=== PATIENT | male | born 1955 | race Caucasian/White ===

== ENCOUNTER 2017-10-23 18:32 | Emergency (ER) | payer SELFPAY ==
[2017-10-23] MEDS ORDERED: MORPHINE 4 MG/ML SYR ONE ×2 (19:01→20:38)
[2017-10-23] MEDS ORDERED: NA CHLORIDE 0.9% 1,000 ML ONE (19:01)
[2017-10-23] MEDS ORDERED: ONDANSETRON 4 MG/2 ML VIAL ONE ×2 (19:01→20:38)
[2017-10-23 19:10] LABS: Absolute Lymphocytes (CBC) 0.9 K/uL (0.7-4.9); Absolute Monocytes 0.7 K/uL (0.1-1.3); Absolute Neutrophil 12.3 K/uL (1.8-8.0); Basophils % 0.2 % (0-1.3); Hematocrit 47.6 % (39.6-49.0); Lymphocytes % 6.3 % (15.3-44.8); MCH 30.7 pg (27.0-35.0); MCV 93.7 fL (80-100); MPV 7.8 fL (7.6-11.3); Monocytes % 4.8 % (3.3-12.3); RBC Red Blood Cell Count 5.09 M/uL (4.33-5.43)
--- NOTE | 2017-10-23 19:22 | ER ---
Nurse's Notes [facility] Name: Volodymyr Trejo Age: 62 yrs Sex: Male : 1955 Arrival Date: 10/23/2017 Time: 18:37 Bed 4 Private MD: Diagnosis: Fracture of first lumbar vertebra-burst;Fall (on) (from) unspecified stairs and steps-10 feet Presentation: 10/23 18:38 Presenting complaint: Patient states: Fell 10 FT from roof onto buttocks at 1430. aj Patient denies LOC. Reports severe back pain. Sensation intact in bilateral lower limbs. Care prior to arrival: None. Mechanism of Injury: Fall from roof approximately 10 feet. Trauma event details: Injury occurred in the [facility], Injury occurred: at home. Injury occurred: October 23, 2017 Injury occurred at: 14:30. 18:38 Acuity: JUANPABLO 2 aj 18:38 Method Of Arrival: Wheelchair aj Trauma Activation: Alert Physician: ED Physician; Name: ; Notified At: ; Arrived At: Physician: General Surgeon; Name: ; Notified At: ; Arrived At: Physician: Radiology; Name: ; Notified At: ; Arrived At: Physician: Respiratory; Name: ; Notified At: ; Arrived At: Physician: Lab; Name: ; Notified At: ; Arrived At: Historical: - Allergies: 18:43 PENICILLINS; aj - Home Meds: 18:43 clopidogrel 75 mg oral tab 1 tab once daily [Active]; lisinopril 5 mg Oral tab 1 tab aj once daily [Active]; atorvastatin 80 mg oral tab 1 tab once daily [Active]; - PMHx: 18:43 Hypertension; Hyperlipidemia; aj - PSHx: 18:43 Heart stents; aj - Immunization history: Last tetanus immunization: unknown. - Social history:: Smoking status: Patient uses tobacco products, smokes one pack cigarettes per day. - Family history:: not pertinent. Screenin:35 Abuse screen: Denies threats or abuse. Denies injuries from another. Tuberculosis hb screening: No symptoms or risk factors identified. 19:02 Nutritional screening: No deficits noted. Fall Risk None identified. hb Primary Survey: 18:35 A: Airway: patent. Breathing/Chest: Respiratory pattern: tachypnea, Respiratory effort: aj spontaneous, unlabored, Breath sounds: clear, bilaterally. Chest inspection: symmetrical rise and fall of the chest. Circulation: Skin color: pink, Skin temperature: warm, dry. Disability Alert. Secondary Survey: 18:35 HEENT: No deficits noted. Gastrointestinal: No deficits noted. : No deficits noted. hb No signs and/or symptoms were reported regarding the genitourinary system. Musculoskeletal: pain in upper back, mid back, low back. Assessment: 18:35 General: Appears in no apparent distress. uncomfortable, Behavior is calm, cooperative, aj appropriate for age. Pain: Complains of pain in back and buttocks Pain currently is 10 out of 10 on a pain scale. Neuro: Level of Consciousness is awake, alert, obeys commands, Oriented to person, place, time, situation, Intact. Respiratory: Airway is patent Respiratory effort is even, unlabored, Respiratory pattern is symmetrical, hyperventilation. Derm: Skin is intact, is healthy with good turgor, Skin is pink, warm \T\ dry. normal. Musculoskeletal: Reports pain in back and buttocks. 19:30 Reassessment: Patient and/or family updated on plan of care and expected duration. Pain bb level reassessed. Patient is alert, oriented x 3, equal unlabored respirations, skin warm/dry/pink. pt states morphine helped his pain but it is still 6/10. Dr Cruz at bedside for discussion of findings and recommendations pt to be transferred to [facility] for further evaluation and treatment. Pt verbalized understanding of and agrees to plan of care and signed MOT. 19:44 Reassessment: report called to Veda MANRIQUE at [facility] ED. bb 20:24 Reassessment: Patient is alert, oriented x 3, equal unlabored respirations, skin bb warm/dry/pink. EMS at bedside for transfer of pt to [facility], pt placed on backboard by EMS crew for transport pt IV intact, patent, pt medicated per Dr Cruz see SEP. Vital Signs: 18:35 BP 156 / 93; Pulse 60; Resp 27; Temp 98.7; Pulse Ox 100% on R/A; Weight 79.38 kg; aj Height 6 ft. 1 in. (185.42 cm); Pain 10/10; 19:35 BP 139 / 90; Pulse 60; Resp 18 S; Temp 98.5(O); Pulse Ox 97% on R/A; Pain 6/10; bb 20:25 BP 141 / 92; Pulse 64; Resp 18 S; Temp 98.5(O); Pulse Ox 99% on R/A; Pain 6/10; bb 18:35 Body Mass Index 23.09 (79.38 kg, 185.42 cm) aj [employer] Coma Score: 18:35 Eye Response: spontaneous(4). Verbal Response: oriented(5). Motor Response: obeys aj commands(6). Total: 15. 19:35 Eye Response: spontaneous(4). Verbal Response: oriented(5). Motor Response: obeys bb commands(6). Total: 15. Trauma Score (Adult): 18:35 Eye Response: spontaneous(1); Verbal Response: oriented(1); Motor Response: obeys aj commands(2); Systolic BP: > 89 mm Hg(4); Respiratory Rate: 10 to 29 per min(4); Trino Score: 15; Trauma Score: 12 ED Course: 18:37 Patient arrived in ED. ss 18:38 Matthew Cruz MD is Attending Physician. [facility] 18:39 Triage completed. aj 18:40 Inserted saline lock: 18 gauge in right antecubital area, using aseptic technique. hb Blood collected. 18:43 Arm band placed on right wrist. Patient placed in an exam room, on a stretcher, on school lunch monitor, on pulse oximetry. 18:45 Patient has correct armband on for positive identification. Placed in gown. Bed in low hb position. Call light in reach. Side rails up X 1. 18:45 Patient maintains SpO2 saturation greater than 95% on room air. Thermoregulation: warm hb blanket given to patient. 18:[address] via stretcher. 19:00 Kady Sevilla, RN is Primary Nurse. hb 19:00 CT completed. Patient tolerated procedure well. Patient moved back from CT. nj 19:01 CT Traumagram (Head C Spine CAP W Con) In Process Unspecified. EDMS 19:16 Primary Nurse role handed off by Kady Sevilla, RN 19:38 Meredith Baca, BURTON is Primary Nurse. bb Administered Medications: 18:45 Drug: morphine 4 mg Route: IVP; Site: right antecubital; hb 19:10 Follow up: Response: No adverse reaction; Pain is decreased hb 18:45 Drug: Zofran 4 mg Route: IVP; Site: right antecubital; hb 19:10 Follow up: Response: No adverse reaction hb 18:55 Drug: NS 0.9% 1000 ml Route: IV; Rate: 1 bolus; Site: right antecubital; hb 19:08 Not Given (Duplicate Order): NS 0.45 % with KCl 20 mEq/L 1000 ml IV at 125 ml/hr once hardik 20:23 Drug: morphine 4 mg Route: IVP; Site: right antecubital; bb 20:27 Follow up: Response: Other; medication administered on transfer bb 20:24 Drug: Zofran 4 mg Route: IVP; Site: right antecubital; bb 20:28 Follow up: Response: Other; medication administered on transfer bb Intake: 19:35 PO: 0ml; Total: 0ml. bb Outcome: 19:21 ER care complete, transfer ordered by . hardik 20:29 Patient left the ED. bb Signatures: Dispatcher [employer] EDSerene Frances RN RN aj Anderson, Corey, MD MD cha Ballard, Brenda RN Aranza Box RN RN ss Warren, Shannon sw Baxter, Heather, RN RN hb Jordan, Nathan nj Corrections: (The following items were deleted from the chart) 19:11 08:45 morphine 4 mg IVP in right antecubital hb hb
--- NOTE | 2017-10-23 19:22 | EDPHYS ---
Physician Documentation [facility] Name: Volodymyr Trejo Age: 62 yrs Sex: Male : 1955 Arrival Date: 10/23/2017 Time: 18:37 Bed 4 Private MD: ED Physician Matthew Cruz HPI: 10/23 18:41 This 62 yrs old Male presents to ER via Wheelchair with complaints of Fall hardik Injury, Trauma Complaint. 18:41 Details of fall: The patient fell from a height, off a roof, approximately 10 feet. hardik Onset: The symptoms/episode began/occurred just prior to arrival. Associated injuries: The patient sustained injury to the low back, decreased range of motion, pain, pain with movement, tenderness. Severity of symptoms: At their worst the symptoms were moderate, in the emergency department the symptoms are unchanged. The patient has not experienced similar symptoms in the past. Historical: - Allergies: 18:43 PENICILLINS; aj - Home Meds: 18:43 clopidogrel 75 mg oral tab 1 tab once daily [Active]; lisinopril 5 mg Oral tab 1 tab aj once daily [Active]; atorvastatin 80 mg oral tab 1 tab once daily [Active]; - PMHx: 18:43 Hypertension; Hyperlipidemia; aj - PSHx: 18:43 Heart stents; aj - Immunization history: Last tetanus immunization: unknown. - Social history:: Smoking status: Patient uses tobacco products, smokes one pack cigarettes per day. - Family history:: not pertinent. ROS: 18:41 Eyes: Negative for injury, pain, redness, and discharge, ENT: Negative for injury, hardik pain, and discharge, Neck: Negative for injury, pain, and swelling, Cardiovascular: Negative for chest pain, palpitations, and edema, Respiratory: Negative for shortness of breath, cough, wheezing, and pleuritic chest pain, Abdomen/GI: Negative for abdominal pain, nausea, vomiting, diarrhea, and constipation, : Negative for injury, bleeding, discharge, and swelling, MS/Extremity: Negative for injury and deformity, Skin: Negative for injury, rash, and discoloration, Neuro: Negative for headache, weakness, numbness, tingling, and seizure, Psych: Negative for depression, anxiety, suicide ideation, homicidal ideation, and hallucinations, Allergy/Immunology: Negative for hives, rash, and allergies, Endocrine: Negative for neck swelling, polydipsia, polyuria, polyphagia, and marked weight changes. 18:41 Constitutional: Positive for malaise. 18:41 Back: Positive for decreased range of motion, pain at rest, pain with movement, of the lumbar area, left low back and right low back. Exam: 18:41 Constitutional: This is a well developed, well nourished patient who is awake, alert, hardik and in no acute distress. Head/Face: Normocephalic, atraumatic. Eyes: Pupils equal round and reactive to light, extra-ocular motions intact. Lids and lashes normal. Conjunctiva and sclera are non-icteric and not injected. Cornea within normal limits. Periorbital areas with no swelling, redness, or edema. ENT: Nares patent. No nasal discharge, no septal abnormalities noted. Tympanic membranes are normal and external auditory canals are clear. Oropharynx with no redness, swelling, or masses, exudates, or evidence of obstruction, uvula midline. Mucous membranes moist. Neck: Trachea midline, no thyromegaly or masses palpated, and no cervical lymphadenopathy. Supple, full range of motion without nuchal rigidity, or vertebral point tenderness. No Meningismus. Chest/axilla: Normal chest wall appearance and motion. Nontender with no deformity. No lesions are appreciated. Cardiovascular: Regular rate and rhythm with a normal S1 and S2. No gallops, murmurs, or rubs. Normal PMI, no JVD. No pulse deficits. Respiratory: Lungs have equal breath sounds bilaterally, clear to auscultation and percussion. No rales, rhonchi or wheezes noted. No increased work of breathing, no retractions or nasal flaring. Abdomen/GI: Soft, non-tender, with normal bowel sounds. No distension or tympany. No guarding or rebound. No evidence of tenderness throughout. Male : Normal genitalia with no discharge or lesions. Skin: Warm, dry with normal turgor. Normal color with no rashes, no lesions, and no evidence of cellulitis. MS/ Extremity: Pulses equal, no cyanosis. Neurovascular intact. Full, normal range of motion. Neuro: Awake and alert, GCS 15, oriented to person, place, time, and situation. Cranial nerves II-XII grossly intact. Motor strength 5/5 in all extremities. Sensory grossly intact. Cerebellar exam normal. Normal gait. Psych: Awake, alert, with orientation to person, place and time. Behavior, mood, and affect are within normal limits. 18:41 Back: pain, that is moderate, ROM is painful, normal spinal alignment noted, CVA tenderness, is absent, vertebral tenderness, is appreciated at L1, L2, L3, L4 and L5, muscle spasm, is appreciated in the lumbar area, left low back and right low back. Vital Signs: 18:35 BP 156 / 93; Pulse 60; Resp 27; Temp 98.7; Pulse Ox 100% on R/A; Weight 79.38 kg; aj Height 6 ft. 1 in. (185.42 cm); Pain 10/10; 19:35 BP 139 / 90; Pulse 60; Resp 18 S; Temp 98.5(O); Pulse Ox 97% on R/A; Pain 6/10; bb 20:25 BP 141 / 92; Pulse 64; Resp 18 S; Temp 98.5(O); Pulse Ox 99% on R/A; Pain 6/10; bb 18:35 Body Mass Index 23.09 (79.38 kg, 185.42 cm) aj Trino Coma Score: 18:35 Eye Response: spontaneous(4). Verbal Response: oriented(5). Motor Response: obeys aj commands(6). Total: 15. 19:35 Eye Response: spontaneous(4). Verbal Response: oriented(5). Motor Response: obeys bb commands(6). Total: 15. Trauma Score (Adult): 18:35 Eye Response: spontaneous(1); Verbal Response: oriented(1); Motor Response: obeys aj commands(2); Systolic BP: > 89 mm Hg(4); Respiratory Rate: 10 to 29 per min(4); Trino Score: 15; Trauma Score: 12 MDM: 18:38 Patient medically screened. [facility] 18:45 Data reviewed: vital signs, nurses notes, lab test result(s), EKG, radiologic studies, [facility] CT scan. 10/23 18:41 Order name: Basic Metabolic Panel; Complete Time: 20:16 [facility] 10/23 18:41 Order name: CBC with Diff; Complete Time: 20:16 [facility] 10/23 18:41 Order name: Creatinine for Radiology; Complete Time: 20:16 [facility] 10/23 18:41 Order name: LFT's; Complete Time: 20:16 [facility] 10/23 18:41 Order name: Lipase; Complete Time: 20:16 [facility] 10/23 18:41 Order name: CT Traumagram (Head C Spine CAP W Con); Complete Time: 20:16 [facility] 10/23 19:12 Order name: Type and Screen Tube method; Complete Time: 20:16 [facility] 10/23 20:00 Order name: ABO/RH no charge; Complete Time: 20:16 [facility] 10/23 18:41 Order name: Labs collected and sent; Complete Time: 19:02 [facility] 10/23 20:18 Order name: NPO; Complete Time: 20:22 [facility] Administered Medications: 18:45 Drug: morphine 4 mg Route: IVP; Site: right antecubital; hb 19:10 Follow up: Response: No adverse reaction; Pain is decreased hb 18:45 Drug: Zofran 4 mg Route: IVP; Site: right antecubital; hb 19:10 Follow up: Response: No adverse reaction hb 18:55 Drug: NS 0.9% 1000 ml Route: IV; Rate: 1 bolus; Site: right antecubital; hb 19:08 Not Given (Duplicate Order): NS 0.45 % with KCl 20 mEq/L 1000 ml IV at 125 ml/hr once hardik 20:23 Drug: morphine 4 mg Route: IVP; Site: right antecubital; bb 20:27 Follow up: Response: Other; medication administered on transfer bb 20:24 Drug: Zofran 4 mg Route: IVP; Site: right antecubital; bb 20:28 Follow up: Response: Other; medication administered on transfer Disposition: 10/23/17 19:21 Transfer ordered to [facility]. Diagnosis are Fracture of first lumbar vertebra - burst, Fall (on) (from) unspecified stairs and steps - 10 feet. - Reason for transfer: Higher level of care. - Accepting physician is trauma, [facility] [place] [place]. - Condition is Fair. - Problem is new. - Symptoms have improved. Signatures: Dispatcher [employer] EDMS Serene Nixon RN RN aj Anderson, Corey, MD MD cha Ballard, Brenda, RN RN bb Baxter, Heather, RN RN hb Corrections: (The following items were deleted from the chart) 19:12 18:42 TYPE AND SCREEN+[id number] ordered. EDMS EDMS
--- NOTE | 2017-10-23 19:25 | RAD REPORT ---
EXAM DESCRIPTION: CT - Head C Spine Cap Addie Lara - 10/23/2017 7:01 pm CLINICAL HISTORY: Fall from roof, head, neck, chest and abdomen pain COMPARISON: None. TECHNIQUE: Axial [address] head images were obtained. Axial [address] cervical spine images were obtaine d with sagittal and coronal reconstruction images reviewed. During dynamic enhancement of 100mL non-i onic contrast, axial 5 mm images of the chest, abdomen and pelvis were obtained. All CT scans are performed using dose optimization technique as appropriate and may include automated exposure control or mA/KV adjustment according to patient size. FINDINGS: No intracranial hemorrhage, mass or edema. No midline shift or abnormal fluid collection. Mastoid air cells and paranasal sinuses are clear. No skull fracture. CT cervical spine imaging shows normal height. Normal alignment of the vertebrae. C6-7 disc space david rowing seen with endplate spurring. No canal stenosis and only minimal foraminal encroachment. No par aspinal mass or hematoma seen. Central canal detail is inherently limited. Concerns for traumatic dis c herniation or traumatic cord injury can be further addressed with MR imaging. CT chest shows no pneumothorax, pulmonary contusion or pleural fluid collection. No mediastinal hemat myrna and the aorta and pulmonary arteries are unremarkable. No chest will mass or abnormal axillary fi nding. No displaced rib fracture or other significant bony finding. CT abdomen and pelvis show no injury to solid abdominal viscera. Gallbladder and biliary tree are unr emarkable. No bowel injury or significant finding. No free air, free fluid or abnormal stranding. No urinary bladder abnormality. L1 burst fracture is present. Posterior wall height is preserved. There is a 50-60% overall compressi on of the L1 body. Posterior wall encroaches into the central canal where there is central spinal neli nosis present. In addition to the compression fracture components there is a sagittal oriented fractu re line traversing the right side of the L1 body. The right L1 lamina is fractured and there is fract ure of the right inferior facet. No other acute vertebral fracture changes are identified. IMPRESSION: Unstable L1 burst fracture involving vertebral body and posterior elements. Posterior wall encroaches into the central canal where there is spinal stenosis. No hemorrhage, edema or acute intracranial finding. No significant CT Cervical Spine finding. No significant CT Chest finding. No significant CT Abdomen and Pelvis finding.
[2017-10-23 19:26] LABS: Potassium 4.1 mEq/L (3.6-5.0)
[2017-10-23 19:27] LABS: Glomerular Filtration Rate > 60 mL/min (>60)
[2017-10-23 19:33] LABS: Albumin 4.8 g/dL (3.2-5.5); Bilirubin Direct 0.2 mg/dL (0-0.2); Bilirubin Total 1.1 mg/dL (0.3-1.2); Protein, Total 7.4 g/dL (6.0-8.3)
== END 2017-10-23 20:29 | disposition short-term general hospital (02) ==
LOC: ER 18:32
DX: S32.011A Stable burst fracture of first lumbar vertebra, initial encounter for closed fracture (principal); W11.XXXA Fall on and from ladder, initial encounter; Y93.9 Activity, unspecified; Y92.89 Other specified places as the place of occurrence of the external cause; Z95.818 Presence of other cardiac implants and grafts; Z88.0 Allergy status to penicillin; I10 Essential (primary) hypertension; E78.5 Hyperlipidemia, unspecified; F17.210 Nicotine dependence, cigarettes, uncomplicated
CPT/HCPCS: 36415; 70450; 71260; 72125; 74177; 80048; 80076; 83690; 85025; 86850; 86900; 86901; 96374; 96375; 99285; J2405; J7030; Q9967

== ENCOUNTER 2018-07-11 22:50 | Emergency (ER) | payer SELFPAY ==
[2018-07-11 23:24] LABS: Urine Blood 1+ (NEG); Urine Glucose 1+ (NEG); Urine Protein 3+ (NEG); Urine Specific Gravity >1.030 (1.005-1.030); Urine pH >8.5 (5.0-7.0)
[2018-07-11 23:28] LABS: Absolute Lymphocytes (CBC) 1.2 K/uL (0.7-4.9); Absolute Monocytes 0.5 K/uL (0.1-1.3); Absolute Neutrophil 5.3 K/uL (1.8-8.0); Basophils % 1.3 % (0-1.3); Eosinophils % 0.5 % (0-4.4); Hematocrit 43.2 % (39.6-49.0); Lymphocytes % 17.3 % (15.3-44.8); MCH 31.4 pg (27.0-35.0); MCV 90.3 fL (80-100); MPV 7.3 fL (7.6-11.3); Monocytes % 7.1 % (3.3-12.3); RBC Red Blood Cell Count 4.79 M/uL (4.33-5.43)
[2018-07-11] MEDS ORDERED: NACL 0.9% IRR SOLN 2,000 ML IRR ONE (23:35)
[2018-07-11] MEDS ORDERED: LIDOCAINE VISCOUS 2% SOLN 15 ML UDC ONE (23:37)
[2018-07-11 23:47] LABS: Albumin 4.1 g/dL (3.4-5.0); Bilirubin Direct 0.2 mg/dL (0-0.2); Bilirubin Total 0.7 mg/dL (0.2-1.0); Potassium 3.9 mmol/L (3.5-5.1); Protein, Total 7.2 g/dL (6.4-8.2)
[2018-07-12] MEDS ORDERED: LIDOCAINE VISCOUS 2% SOLN 15 ML UDC ONE (00:25)
[2018-07-12] MEDS ORDERED: NACL 0.9% IRR SOLN 2,000 ML IRR ONE (01:32)
--- NOTE | 2018-07-12 01:58 | EDPHYS ---
Physician Documentation [facility] Name: Volodymyr Trejo Age: 62 yrs Sex: Male : 1955 Arrival Date: 07/11/2018 Time: 22:51 Bed 27 Private MD: ED Physician Matthew Cruz HPI: 07/11 23:14 This 62 yrs old Male presents to ER via Ambulatory with complaints of Urinary jr8 Problem, Blood in urine. 23:14 The patient presents with urinary symptoms, retention, unable to void, hematuria. jr8 Onset: The symptoms/episode began/occurred acutely, yesterday. Modifying factors: The symptoms are alleviated by nothing, the symptoms are aggravated by nothing. Associated signs and symptoms: The patient has no apparent associated signs or symptoms. Severity of symptoms: At their worst the symptoms were moderate, in the emergency department the symptoms are unchanged. The patient has not experienced similar symptoms in the past. The patient has not recently seen a physician. Historical: - Allergies: 23:07 PENICILLINS; rv - Home Meds: 23:07 atorvastatin 80 mg Oral tab 1 tab once daily [Active]; clopidogrel 75 mg Oral tab 1 tab rv once daily [Active]; lisinopril 5 mg Oral tab 1 tab once daily [Active]; - PMHx: 23:07 Hyperlipidemia; Hypertension; rv - PSHx: 23:07 None; rv - Immunization history:: Adult Immunizations up to date. - Social history:: Smoking status: unknown. - Ebola Screening: : Patient negative for fever greater than or equal to 101.5 degrees Fahrenheit, and additional compatible Ebola Virus Disease symptoms Patient denies exposure to infectious person Patient denies travel to an Ebola-affected area in the 21 days before illness onset. ROS: 07/12 01:55 Eyes: Negative for injury, pain, redness, and discharge, ENT: Negative for injury, jr8 pain, and discharge, Neck: Negative for injury, pain, and swelling, Cardiovascular: Negative for chest pain, palpitations, and edema, Respiratory: Negative for shortness of breath, cough, wheezing, and pleuritic chest pain, Abdomen/GI: Negative for abdominal pain, nausea, vomiting, diarrhea, and constipation, Back: Negative for injury and pain, MS/Extremity: Negative for injury and deformity, Skin: Negative for injury, rash, and discoloration, Neuro: Negative for headache, weakness, numbness, tingling, and seizure. : Positive for hematuria, difficulty urinating. Exam: 01:55 Eyes: Pupils equal round and reactive to light, extra-ocular motions intact. Lids and jr8 lashes normal. Conjunctiva and sclera are non-icteric and not injected. Cornea within normal limits. Periorbital areas with no swelling, redness, or edema. ENT: Nares patent. No nasal discharge, no septal abnormalities noted. Tympanic membranes are normal and external auditory canals are clear. Oropharynx with no redness, swelling, or masses, exudates, or evidence of obstruction, uvula midline. Mucous membranes moist. Neck: Trachea midline, no thyromegaly or masses palpated, and no cervical lymphadenopathy. Supple, full range of motion without nuchal rigidity, or vertebral point tenderness. No Meningismus. Cardiovascular: Regular rate and rhythm with a normal S1 and S2. No gallops, murmurs, or rubs. Normal PMI, no JVD. No pulse deficits. Respiratory: Lungs have equal breath sounds bilaterally, clear to auscultation and percussion. No rales, rhonchi or wheezes noted. No increased work of breathing, no retractions or nasal flaring. Abdomen/GI: Soft, non-tender, with normal bowel sounds. No distension or tympany. No guarding or rebound. No evidence of tenderness throughout. Back: No spinal tenderness. No costovertebral tenderness. Full range of motion. Male : Normal genitalia with no discharge or lesions. Skin: Warm, dry with normal turgor. Normal color with no rashes, no lesions, and no evidence of cellulitis. MS/ Extremity: Pulses equal, no cyanosis. Neurovascular intact. Full, normal range of motion. Neuro: Awake and alert, GCS 15, oriented to person, place, time, and situation. Cranial nerves II-XII grossly intact. Motor strength 5/5 in all extremities. Sensory grossly intact. Cerebellar exam normal. Normal gait. Vital Signs: 07/11 23:00 BP 151 / 98; Pulse 66; Resp 17; Temp 98.3(O); Pulse Ox 98% ; rv 07/12 00:04 BP 146 / 87; Pulse 60 MON; Resp 17 S; Pulse Ox 96% on R/A; rv 00:30 BP 150 / 85; Pulse 60 MON; Resp 16 S; Pulse Ox 99% on R/A; rv 00:48 BP 134 / 98; Pulse 64; Resp 16; Pulse Ox 98% ; rv 01:30 BP 133 / 81; Pulse 50 MON; Resp 16 S; Pulse Ox 95% on R/A; rv 02:28 BP 145 / 91; Pulse 64; Resp 16; Pulse Ox 97% on R/A; rv MDM: 07/11 22:57 Patient medically screened. [facility] 07/12 01:55 Data reviewed: vital signs, nurses notes, lab test result(s), radiologic studies, CT jr8 scan, and as a result, I will discharge patient. Data interpreted: Pulse oximetry: on room air is 95 %. Interpretation: normal. Counseling: I had a detailed discussion with the patient and/or guardian regarding: the historical points, exam findings, and any diagnostic results supporting the discharge/admit diagnosis, lab results, radiology results, the need for outpatient follow up, a urologist, to return to the emergency department if symptoms worsen or persist or if there are any questions or concerns that arise at home. Response to treatment: the patient's symptoms have markedly improved after treatment. 07/11 23:08 Order name: Basic Metabolic Panel; Complete Time: 23:[address] [facility] 07/11 23:08 Order name: CBC with Diff; Complete Time: 23:[address] [facility] 07/11 23:08 Order name: Hepatic Function; Complete Time: 23:[address] [facility] 07/11 23:09 Order name: Urine Culture [facility] 07/11 23:10 Order name: Urine Dipstick--Ancillary (enter results); Complete Time: 23:33 [facility] 07/11 23:08 Order name: IV Saline Lock; Complete Time: 00:[address] [facility] 07/11 23:08 Order name: Labs collected and sent; Complete Time: 00:[address] [facility] 07/11 23:08 Order name: Hematuria lira cath; Complete Time: 00:[address] [facility] 07/11 23:49 Order name: CT Abd/Pelvis - W/Contrast [facility] Administered Medications: 00:44 Drug: Viscous Lidocaine Liquid (4 %) 5 ml Route: Mucous Membrane; rv 02:28 Drug: Cipro 500 mg Route: PO; rv 02:28 Follow up: Response: Medication administered at discharge. rv Disposition: 15:52 Co-signature as Attending Physician, Matthew Anthony MD I agree with the assessment and hardik plan of care. Disposition: 07/12/18 01:57 Discharged to Home. Impression: Hematuria, Retention of urine. - Condition is Stable. - Discharge Instructions: Lira Catheter Care, Adult, Hematuria, Adult, Acute Urinary Retention, Male. - Prescriptions for Cipro 500 mg Oral Tablet - take 1 tablet by ORAL route every 12 hours for 10 days; 20 tablet. - Medication Reconciliation Form, Thank You Letter, Antibiotic Education, Prescription Opioid Use form. - Follow up: Astrid Cabral MD; When: 2 - 3 days; Reason: Recheck today's complaints, Continuance of care, Re-evaluation by your physician. - Problem is new. - Symptoms have improved. Signatures: Dispatcher [employer] [facility] Matthew Cruz MD MD cha Roszak, Josh, PA PA jr8 Blue Tony RN RN rv Corrections: (The following items were deleted from the chart) 00:20 07/11 23:08 Creatinine for Radiology+C.LAB.BRZ ordered. [facility] 07/12 01:57 01:57 07/12/2018 01:57 Discharged to Home. Impression: Hematuria. Condition is Stable. jr8 Forms are Medication Reconciliation Form, Thank You Letter, Antibiotic Education, Prescription Opioid Use. Follow up: Astrid Cabral; When: 2 - 3 days; Reason: Recheck today's complaints, Continuance of care, Re-evaluation by your physician. Problem is new. Symptoms have improved. jr8 02:29 01:57 07/12/2018 01:57 Discharged to Home. Impression: Hematuria; Retention of urine. rv Condition is Stable. Forms are Medication Reconciliation Form, Thank You Letter, Antibiotic Education, Prescription Opioid Use. Follow up: Astrid Cabral; When: 2 - 3 days; Reason: Recheck today's complaints, Continuance of care, Re-evaluation by your physician. Problem is new. Symptoms have improved. jr8
--- NOTE | 2018-07-12 01:58 | ER ---
Nurse's Notes [facility] Name: Volodymyr Trejo Age: 62 yrs Sex: Male : 1955 Arrival Date: 07/11/2018 Time: 22:51 Bed 27 Private MD: Diagnosis: Hematuria;Retention of urine Presentation: 07/11 23:04 Presenting complaint: Patient states: PATIENT STATES: IT STARTED 4PM YESTERDAY WHEN I rv PEE BLOOD. EARLIER TODAY I WAS ABLE TO MOVE EVERYTHING, SUDDENLY AFTER I PEE SOME BLOOD CLOTS, I CAN'T GET ANYTHING TO MOVE. Transition of care: patient was not received from another setting of care. Onset of symptoms was July 10, 2018 at 16:00. Risk Assessment: Do you want to hurt yourself or someone else? Patient reports no desire to harm self or others. Initial Sepsis Screen: Does the patient meet any 2 criteria? No. Patient's initial sepsis screen is negative. Does the patient have a suspected source of infection? No. Patient's initial sepsis screen is negative. Care prior to arrival: None. 23:04 Method Of Arrival: Ambulatory rv 23:04 Acuity: JUANPABLO 3 rv Historical: - Allergies: 23:07 PENICILLINS; rv - Home Meds: 23:07 atorvastatin 80 mg Oral tab 1 tab once daily [Active]; clopidogrel 75 mg Oral tab 1 tab rv once daily [Active]; lisinopril 5 mg Oral tab 1 tab once daily [Active]; - PMHx: 23:07 Hyperlipidemia; Hypertension; rv - PSHx: 23:07 None; rv - Immunization history:: Adult Immunizations up to date. - Social history:: Smoking status: unknown. - Ebola Screening: : Patient negative for fever greater than or equal to 101.5 degrees Fahrenheit, and additional compatible Ebola Virus Disease symptoms Patient denies exposure to infectious person Patient denies travel to an Ebola-affected area in the 21 days before illness onset. Screenin/21 00:46 Abuse screen: Denies threats or abuse. Denies injuries from another. Nutritional rv screening: No deficits noted. Tuberculosis screening: No symptoms or risk factors identified. Fall Risk None identified. Assessment: 07/11 23:00 General: Appears in no apparent distress. comfortable, Behavior is calm, cooperative. rv Pain: Denies pain. Neuro: Level of Consciousness is awake, alert, obeys commands, Oriented to person, place, time, situation. Cardiovascular: Capillary refill < 3 seconds. Respiratory: Airway is patent. GI: No signs and/or symptoms were reported involving the gastrointestinal system. : Urine is trae blood, Reports inability to void, since TODAY urgency, since TODAY. EENT: No signs and/or symptoms were reported regarding the EENT system. Derm: Skin is intact. Musculoskeletal: No signs and/or symptoms reported regarding the musculoskeletal system. Vital Signs: 23:00 BP 151 / 98; Pulse 66; Resp 17; Temp 98.3(O); Pulse Ox 98% ; rv 07/12 00:04 BP 146 / 87; Pulse 60 MON; Resp 17 S; Pulse Ox 96% on R/A; rv 00:30 BP 150 / 85; Pulse 60 MON; Resp 16 S; Pulse Ox 99% on R/A; rv 00:48 BP 134 / 98; Pulse 64; Resp 16; Pulse Ox 98% ; rv 01:30 BP 133 / 81; Pulse 50 MON; Resp 16 S; Pulse Ox 95% on R/A; rv 02:28 BP 145 / 91; Pulse 64; Resp 16; Pulse Ox 97% on R/A; rv ED Course: 07/11 22:51 Patient arrived in ED. al2 22:57 Melvin Stephenson PA is PHCP. jr8 22:57 Matthew Cruz MD is Attending Physician. jr8 23:06 Triage completed. rv 23:10 Urine Culture Sent. ds4 23:15 Initial lab(s) drawn, by md, sent to lab. Inserted saline lock: 18 gauge in right rv forearm, using aseptic technique. Blood collected. 07/12 00:[address] via wheelchair. eh 00:24 CT completed. Patient tolerated procedure well. eh 00:29 Patient moved back from CT. eh 00:36 CT Abd/Pelvis - W/Contrast In Process Unspecified. EDMS 00:45 3-way catheter inserted, using sterile technique, 18 Fr. Returned bloody urine. rv 00:47 Arm band placed on right wrist. rv 00:47 Patient has correct armband on for positive identification. Placed in gown. Bed in low rv position. Call light in reach. Side rails up X 1. Pulse ox on. NIBP on. 01:57 Atsrid Cabral MD is Referral Physician. jr8 02:28 No provider procedures requiring assistance completed. IV discontinued, bleeding rv controlled, No redness/swelling at site. Pressure dressing applied. Administered Medications: 00:44 Drug: Viscous Lidocaine Liquid (4 %) 5 ml Route: Mucous Membrane; rv 02:28 Drug: Cipro 500 mg Route: PO; rv 02:28 Follow up: Response: Medication administered at discharge. rv Outcome: 01:57 Discharge ordered by . jr8 02:28 Discharged to home ambulatory. rv 02:28 Condition: good 02:28 Discharge instructions given to patient, Instructed on discharge instructions, follow up and referral plans. medication usage, Demonstrated understanding of instructions, follow-up care, medications, Prescriptions given X 1. 02:29 Patient left the ED. rv Signatures: Dispatcher [employer] EDMS Jorden Fajardo Josh, PA PA jr8 Mac Sheriff4 Rossana Ch2 Blue Tony, RN RN rv
[2018-07-12] MEDS ORDERED: CIPROFLOXACIN HCL 500 MG TAB ONE (02:10)
--- NOTE | 2018-07-12 07:52 | RAD REPORT ---
EXAM DESCRIPTION: CT - Abdomen Pelvis W Contrast - 07/12/2018 5:39 am CLINICAL HISTORY: Abdominal pain/hematuria COMPARISON: none. TECHNIQUE: Computed axial tomography of the abdomen pelvis was obtained. 100 cc Isovue-300 was admin istered intravenously. Oral contrast was not requested which limits evaluation of bowel. Preliminary report generated by virtual radiologic and review prior to dictation All CT scans are performed using dose optimization technique as appropriate and may include automated exposure control or mA/KV adjustment according to patient size. FINDINGS: The liver, spleen, pancreas, adrenal and kidneys appear unremarkable. Small renal cysts. Soft tissue measuring 6 centimeters is present within the posterior bladder. Thickening of the toe laster ior right bladder wall is suspected. There is no evidence of diverticulitis. Pedicular rods united by screws have been placed from T12-L3 stabilizing a prior compression fracture of L1 IMPRESSION: 6 centimeter soft tissue within the bladder consistent with blood. Mild bladder wall thi ckening. Direct visualization is recommended to exclude an underlying mass
--- OUTSIDE RECORDS SUMMARY | 2018-07-12 17:44 | XMS REPORT | Continuity of Care Document ---
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 [facility] Center Fall from, out of 02/02/2018 [facility] or through roof, Medical initial encounter Center Essential 02/02/2018 [facility] hypertension Medical Center Nicotine 02/02/2018 [facility] dependence, Medical cigarettes, Center uncomplicated Hyperlipidemia, 02/02/2018 [facility] unspecified Medical Center 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 [facility] Center 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 Presence of 02/02/2018 [facility] coronary Medical angioplasty implant Center and graft STABLE BURST Active [facility] FRACTURE OF UNSP Medical LUMBAR RAHEEL Center Medications Medication Details Route Status Patient Ordering Order Source Instructions Provider Date Acetaminophen 325 1 tab, PO, Q6H, [facility] # [facility], 0 2017 [facility] Bitartrate 10 MG Refill(s), Oral Tablet Triplicate given at clinic visit Hydrocortisone 5 1 appl, TOP, No Longer [place] MG/ML Topical BID, PRN Rash, Active 2017 Medical Cream apply in a thin Center film to the affected skin and rub in gently and completely, X 14 day, # 28 gm, 0 Refill(s) Hydrocortisone 5 1 appl, Route: Inactive [place] MG/ML Topical TOP, BID, Drug 2017 Medical Cream form: CRM, PRN Center Rash, Start date: 10/27/17 13:00:00 CDT, Duration: 30 day, Stop date: 11/26/17 12:59:00 CDT Docusate Sodium 100 mg=1 cap, Active [place] 100 MG Oral PO, Q12H, # 28 2018 Medical Capsule cap, 0 Refill(s) [place] Cyclobenzaprine 10 mg, PO, TID, No Longer [facility] hydrochloride 10 PRN Muscle Active 2018 Medical MG Oral Tablet Spasm, X 14 day, Center [Flexeril] # 40 tab, 0 Refill(s) Acetaminophen 300 1 tab, PO, Q6H, No Longer [facility] MG / Codeine PRN Pain, X 14 Active 2018 Medical Phosphate 30 MG day, # 50 tab, 0 Center Oral Tablet Refill(s) [Tylenol with Codeine #3] pregabalin 100 mg 100 mg=1 cap, Active [place] oral capsule PO, Q8Hnow, # 42 2018 Medical cap, 0 Refill(s) [place] Lovenox 30 mg, 0.3 mL, No Longer [facility] Route: SUB-Q, Active 2017 Medical Drug form: INJ, [place] [id number], Dosing Weight 79.545, kg, Start date: 10/26/17 21:00:00 CDT, Duration: 30 day, Stop date: 11/25/17 9:00:00 CDTNotes: (Same as: Lovenox) Vancomycin 1 gm, Route: No Longer [place] IVPB, Drug form: Active 2018 [facility] INJ, [id number], [place] Dosing Weight 79.545, kg, Start date: 10/25/17 16:00:00 CDT, Duration: 24 hr, Stop date: 10/26/17 8:00:00 CDT, ABX Indication: Surgical ProphylaxisNotes : TIME CRITICAL MEDICATION (Same As: Vancocin) Infusion rate 2001 mg: infuse over 2.5 hours For adult patients only: Round to nearest 250 mg per Medical Staff approval MEDICATION WASTE Product Size: 1000 mg Product Wasted: ___ mg sugammadex 500 mg, 5 mL, No Longer [place] Route: IV, Drug Active 2018 Medical form: SOLN, [place] ONCALL, Start date: 10/25/17 13:00:00 CDT, Duration: 1 doses or times, Stop date: 10/25/17 14:00:00 CDTNotes: (Same as: Bridion) Acetaminophen 325 2 tab, Route: No Longer [facility] MG / Hydrocodone PO, Drug Form: Active 2018 Medical Bitartrate 10 MG TAB, Dosing Center Oral Tablet Weight 79.545, [Quitman 10/325] kg, Q4H, PRN Pain Score 7-10, Start date: 10/25/17 12:25:00 CDT, Duration: 30 day, Stop date: 11/24/17 12:24:00 CDTNotes: Do not exceed 4gm/day of acetaminophen. (Same as: Quitman 325/10) Hydralazine 10 mg, 0.5 mL, No Longer [facility] Route: IVP, Drug Active 2017 Medical form: INJ, Q2H, Center Dosing Weight 79.545, kg, PRN Hypertension, Start date: 10/25/17 12:25:00 CDT, Duration: 30 day, Stop date: 11/24/17 12:24:00 CDTNotes: (Same as: Apresoline) Push over 5 minutes Zofran 4 mg, 2 mL, No Longer [facility] Route: IVP, Drug Active 2017 Medical form: INJ, Q8H, Center Dosing Weight 79.545, kg, PRN as needed for nausea/vomiting, Priority: Routine, Start date: 10/25/17 12:25:00 CDT, Duration: 30 day, Stop date: 11/24/17 12:24:00 CDTNotes: (Same as: Zofran) MEDICATION WASTE Product Size: 4 mg Product Wasted: ___ mg tramadol 50 mg, 1 tab, No Longer [place] hydrochloride 50 Route: PO, Drug Active 2018 Medical MG Oral Tablet form: TAB, Q6H, Center Dosing Weight 79.545, kg, PRN Pain Score 1-3, Priority: Routine, Start date: 10/25/17 12:25:00 CDT, Stop date: 11/24/17 12:24:00 CDTNotes: Not to exceed 400mg/day. (Same As: Ultram) Morphine 2 mg, 0.5 mL, No Longer [facility] Route: IVP, Drug Active 2017 Medical form: SOLN, Q2H, Center Dosing Weight 79.545, kg, PRN Pain Score 7-10, Start date: 10/25/17 12:25:00 CDT, Duration: 30 day, Stop date: 11/24/17 12:24:00 CDTNotes: (Same as:MORPhine Sulfate) Flexeril 10 mg, 1 tab, No Longer [facility] Route: PO, Drug Active 2017 Medical form: TAB, TID, Center Dosing Weight 79.545, kg, PRN as needed for muscle spasm, Priority: Routine, Start date: 10/25/17 12:25:00 CDT, Duration: 30 day, Stop date: 11/24/17 12:24:00 CDTNotes: (Same As: Flexeril) Acetaminophen 650 mg, 2 tab, No Longer [facility] Route: PO, Drug Active 2017 Medical form: TAB, Q6H, Center Dosing Weight 79.545, kg, Start date: 10/25/17 12:00:00 CDT, Duration: 30 day, Stop date: 11/24/17 6:00:00 CDTNotes: Do not exceed 4 gm/day. (Same as: Tylenol) fentaNYL (ANES) Route: IV, Drug Inactive [facility] form: INJ, ONCE, 2017 Medical Stop date: [place] 10/25/17 11:06:00 CDT hydromorphone Route: IV, Drug Inactive [facility] (ANES) form: INJ, ONCE, 2017 Medical Stop date: [place] 10/25/17 11:06:00 CDT rocuronium (ANES) Route: IV, Drug Inactive [facility] form: INJ, ONCE, 2017 Medical Stop date: [place] 10/25/17 11:06:00 CDT lidocaine (ANES) Route: IV, Drug Inactive [facility] form: INJ, ONCE, 2017 Medical Stop date: [place] 10/25/17 11:06:00 CDT propofol (ANES) Route: IV, Drug Inactive [facility] form: INJ, ONCE, 2017 Medical Stop date: [place] 10/25/17 11:06:00 CDT midazolam (ANES) Route: IV, Drug Inactive [facility] form: SOLN, 2018 Medical ONCE, Stop date: [place] 10/25/17 11:06:00 CDT ePHEDrine (ANES) Route: IV, Drug Inactive [facility] form: INJ, ONCE, 2018 Medical Stop date: [place] 10/25/17 10:56:00 CDT dexamethasone Route: IV, Drug Inactive [facility] (ANES) form: INJ, ONCE, 2018 Medical Stop date: [place] 10/25/17 10:56:00 CDT Sodium Chloride Route: IV, Drug Inactive [facility] 0.9% IV (ANES) form: INJ, Start 2018 [facility] 235 mL + date: 10/25/17 [place] vancomycin (ANES) 9:25:00 CDT, 1500 mg Stop date: 10/25/17 10:25:00 CDT dexmedetomidine Route: IV, Drug Inactive [facility] (ANES) 200 form: INJ, Start 2018 Medical microgram date: 10/25/17 [place] 8:50:00 CDT, Stop date: 10/25/17 9:50:00 CDT Lactated Ringers Route: IV, Total Inactive [facility] Injection IV Volume: 1,000, 2018 Medical (ANES) 1000 mL Start date: [place] 10/25/17 8:38:00 CDT, Stop date: 10/25/17 9:38:00 CDT Ondansetron 4 mg, Route: Inactive [facility] IVP, ONCE, 2018 Medical Dosing Weight Center 79.545, kg, PRN Nausea & Vomiting, Start date: 10/25/17 8:05:00 CDT Naloxone 0.4 mg, Route: Inactive [facility] IVP, Q2MIN, 2018 Medical Dosing Weight [place] 79.545, kg, PRN Narcotic Reversal, Start date: 10/25/17 8:05:00 CDT, Duration: 8 doses or times, Stop date: Limited # of times Flumazenil 0.2 mg, Route: Inactive [facility] IVP, PRN, Dosing 2018 Medical Weight 79.545, Center kg, PRN Benzodiazepine Reversal, Initial dose, Start date: 10/25/17 8:05:00 CDT, Duration: 30 day, Stop date: 11/24/17 8:04:00 CDT Hydromorphone 0.5 mg, Route: Inactive [place] IVP, Q5Min, 2018 Medical Dosing Weight Center 79.545, kg, PRN Pain Score 7-10, Start date: 10/25/17 8:05:00 CDT, Duration: 4 doses or times, Stop date: Limited # of times Oxycodone 5 mg, Route: PO, Inactive [facility] Drug form: TAB, 2018 Medical Q4H, Dosing Center Weight 79.545, kg, PRN Pain Score 4-6, Start date: 10/25/17 8:05:00 CDT, Duration: 30 day, Stop date: 11/24/17 8:04:00 CDT Labetalol 10 mg, Route: Inactive [facility] IVP, Q5Min, 2018 Medical Dosing Weight Center 79.545, kg, PRN Elevated BP, Start date: 10/25/17 8:05:00 CDT, Duration: 5 doses or times, Stop date: Limited # of times Hydralazine 10 mg, Route: Inactive [facility] IVP, Q20Min, 2018 Medical Dosing Weight Center 79.545, kg, PRN Elevated BP, Start date: 10/25/17 8:05:00 CDT, Duration: 2 doses or times, Stop date: Limited # of times Lovenox 30 mg, 0.3 mL, Inactive [facility] Route: SUB-Q, 2018 Medical Drug form: INJ, Center [id number], Start date: 10/24/17 14:00:00 CDT, Duration: 30 day, Stop date: 11/23/17 2:00:00 CDTNotes: (Same as: Lovenox) Aspirin 81 mg, 1 tab, No Longer [facility] Route: PO, Drug Active 2018 Medical form: ECTAB, Center Daily, Dosing Weight 79.545, kg, Start date: 10/24/17 14:00:00 CDT, Duration: 30 day, Stop date: 11/23/17 9:00:00 CDTNotes: Do not crush or chew. (Same As: Ecotrin) Saline Flush 0.9% 10 ml, Route: No Longer [facility] IVP, Drug Form: Active 2018 Medical INJ, Dosing Center Weight 79, kg, Q12H, Start date: 10/24/17 9:00:00 CDT, Duration: 30 day, Stop date: 11/22/17 21:00:00 CDTNotes: (Same as: BD Posiflush) Docusate 100 mg, 1 cap, No Longer [facility] Route: PO, Drug Active 2017 Medical form: CAP, Q12H, Center Dosing Weight 79, kg, Start date: 10/24/17 9:00:00 CDT, Duration: 30 day, Stop date: 11/22/17 21:00:00 CDTNotes: (Same as: Colace) (Do Not Crush) sennosides, [facility] 8.6 mg, 1 tab, No Longer [facility] Route: PO, Drug Active 2017 Medical Form: TAB, Center Dosing Weight 79, kg, Q12H, Start date: 10/24/17 9:00:00 CDT, Duration: 30 day, Stop date: 11/22/17 21:00:00 CDTNotes: (Same as: Senokot) POLYETHYLENE 17 gm, 1 pkt, No Longer [facility] GLYCOL [id number] Route: PO, Drug Active 2017 Medical form: PWDR, Center Daily, Dosing Weight 79, kg, Start date: 10/24/17 9:00:00 CDT, Duration: 30 day, Stop date: 11/22/17 9:00:00 CDTNotes: Dissolve in 8 oz of water or juice. (Same as: Miralax) Lyrica 100 mg, 1 cap, No Longer [facility] Route: PO, Drug Active 2017 Medical form: CAP, Center Q8Hnow, Dosing Weight 79.545, kg, Start date: 10/24/17 6:00:00 CDT, Duration: 30 day, Stop date: 11/22/17 22:00:00 CDTNotes: (Same as: Lyrica) clopidogrel 75 MG 75 mg=1 tab, PO, Active [facility] Oral Tablet Daily 2018 [facility] [Plavix] Center Aspirin 325 mg, PO, Active [facility] Daily 2018 [facility] lisinopril 5 mg 5 mg=1 tab, PO, Active [facility] oral tablet Daily 2018 [facility] Center atorvastatin 80 mg, PO, Active [facility] Bedtime 2018 Medical Center Fentanyl 50 microgram, Inactive [facility] Route: IV, ONCE, 2018 Medical Dosing Weight Center 79, kg, Start date: 10/24/17 4:32:00 CDT, Stop date: 10/24/17 4:32:00 CDT Morphine 4 mg, 1 mL, No Longer [facility] Route: IVP, Drug Active 2017 Medical form: SOLN, Center ONCE, Dosing Weight 79, kg, Priority: STAT, Start date: 10/23/17 23:54:00 CDT, Stop date: 10/23/17 23:54:00 CDTNotes: (Same as:MORPhine Sulfate) Dextrose 50% 25 gm, 50 mL, No Longer [facility] Syringe Route: IVP, Drug Active 2017 Medical Form: INJ, Center Dosing Weight 79, kg, PRN, PRN Abnormal Lab Result, Start date: 10/23/17 23:34:00 CDT, Duration: 30 day, Stop date: 11/22/17 23:33:00 CDT Regular Insulin, 5 unit, 0.05 mL, No Longer [facility] Human 100 UNT/ML Route: SUB-Q, Active 2017 Medical Injectable Drug form: SOLN, [place] Solution PRN, Dosing Weight 79, kg, PRN Abnormal Lab Result, Start date: 10/23/17 23:34:00 CDT, Duration: 30 day, Stop date: 11/22/17 23:33:00 CDTNotes: (Same as: Humulin R) Roll in palms of hands gently; Do not shake vigorously. "single patient use only" (Restricted to patients requiring a dose > 60 units) WASTE: F/P - Black; E - Municipal Trash Bin Stable for 28 days at room temperature Expires in days from Da te Saline Flush 0.9% 10 ml, Route: No Longer [facility] IVP, Drug Form: Active 2018 Medical INJ, Dosing Center Weight 79, kg, PRN, PRN Line Flush, Start date: 10/23/17 23:34:00 CDT, Duration: 30 day, Stop date: 11/22/17 23:33:00 CDTNotes: (Same as: BD Posiflush) Ondansetron 4 mg, 2 mL, No Longer [place] Route: IVP, Drug Active 2017 Medical form: INJ, Q8H, Center Dosing Weight 79, kg, PRN Nausea & Vomiting, Start date: 10/23/17 23:34:00 CDT, Duration: 30 day, Stop date: 11/22/17 23:33:00 CDTNotes: (Same as: Rambo) MEDICATION WASTE Product Size: 4 mg Product Wasted: ___ mg Bisacodyl 10 mg, 1 supp, No Longer [place] Route: OK, Drug Active 2017 Medical form: SUPP, Center Daily, Dosing Weight 79, kg, PRN Constipation, Start date: 10/23/17 23:34:00 CDT, Duration: 30 day, Stop date: 11/22/17 23:33:00 CDTNotes: (Same As: Dulcolax, [place]-Lax) Acetaminophen 325 1 tab, Route: No Longer [place] MG / Hydrocodone PO, Drug Form: Active 2018 Medical Bitartrate 10 MG TAB, Dosing Center Oral Tablet Weight 79, kg, Q4H, PRN Pain Score 4-6, Start date: 10/23/17 23:34:00 CDT, Duration: 30 day, Stop date: 11/22/17 23:33:00 CDTNotes: Do not exceed 4gm/day of acetaminophen. (Same as: Quitman 325/10) Morphine 2 mg, 0.5 mL, No Longer [place] Route: IVP, Drug Active 2017 Medical form: SOLN, Q1H, Center Dosing Weight 79, kg, PRN Pain Score 7-10, Start date: 10/23/17 23:34:00 CDT, Duration: 30 day, Stop date: 11/22/17 23:33:00 CDTNotes: (Same as:MORPhine Sulfate) Acetaminophen 650 mg, 2 tab, No Longer [place] Route: PO, Drug Active 2017 Medical form: TAB, Q4H, Center Dosing Weight 79, kg, Start date: 10/23/17 23:34:00 CDT, Stop date: 11/23/17 0:00:00 CDTNotes: Do not exceed 4 gm/day. (Same as: Tylenol) Sodium Chloride 1,000 mL, Rate: No Longer [facility] 0.9% IV 1,000 mL 75 ml/hr, Infuse Active 2018 Medical over: 13.3 hr, Center Route: IV, Dosing Weight 79 kg, Total Volume: 1,000, Start date: 10/23/17 23:34:00 CDT, Duration: 30 day, Stop date: 11/22/17 23:33:00 CDT, 2.02, m2 Hydromorphone 1 mg, Route: Inactive [facility] IVP, ONCE, 2018 Medical Dosing Weight Center 79, kg, Priority: STAT, Start date: 10/23/17 22:35:00 CDT, Stop date: 10/23/17 22:35:00 CDT Zofran 4 mg, Route: Inactive [facility] IVP, Drug form: 2018 Medical INJ, ONCE, Center Dosing Weight 79, kg, Priority: STAT, Start date: 10/23/17 22:27:00 CDT, Stop date: 10/23/17 22:27:00 CDT Ancef 2 gm, Route: Inactive [facility] IVPB, ONCE, 2018 Medical Dosing Weight Center 79, kg, Priority: STAT, Start date: 10/23/17 22:27:00 CDT, Stop date: 10/23/17 22:27:00 CDT, ABX Indication: Skin/Soft Tissue Infection Allergies, Adverse Reactions, Alerts Substance Category Reaction Severity Reaction Status Date Comments Source type Reported penicillin Assertion Drug Active [facility] allergy [facility] Immunizations Immunization Date Given Site Status Last Updated Comments Source Results Order Name Results Value Reference Date Interpretation Comments Source Range ELECTROLYTE AGAP 11.0 meq/L 10.0 - 10/25 [facility] S 20.0 Medical Center ELECTROLYTE eGFR 92 10/25 Result Comment: The eGFR is calculated using the CKD-EPI formula. In most young, healthy individuals the eGFR will be >90 mL/ min/1.73m2. The eGFR declines with age. An eGFR of 60-89 may be normal in [facility] mL/min/1.73 /2017 some populations, particularly the elderly, for whom the CKD-EPI formula has not been extensively validated. Use of the eGFR is not recommended in the following populations: [address] Individuals with unstable creatinine concentrations, including patients and those with serious co-morbid conditions. Patients with extremes in muscle mass or diet. The data above are obtained from the National Kidney Disease Education Program (NKDEP) which additionally recommends that when the eGFR is used in patients with extremes of body mass index for purposes of drug dosing, the eGFR should be multiplied by the estimated BMI. ELECTROLYTE Calcium Lvl 7.5 mg/dL 8.5 - 10.5 10/25 [facility] ELECTROLYTE Sodium Lvl 141 meq/L 135 - 145 10/[address] ELECTROLYTE Potassium 4.0 meq/L 3.5 - 5.1 10/25 [facility] ELECTROLYTE Chloride Lvl 109 meq/L 95 - 109 10/[address] ELECTROLYTE CO2 25 meq/L 24 - 32 10/[address] ELECTROLYTE Glucose Lvl 117 mg/dL 70 - 99 10/[address] ELECTROLYTE Creatinine 0.88 mg/dL 0.50 - 10/25 [facility] Lvl 1.40 [facility] ELECTROLYTE BUN 10 mg/dL 7 - 22 10/[address] HEMATOLOGY MPV 7.6 fL 7.4 - 10.4 10/[address] HEMATOLOGY MCV 93.9 fL 80.0 - 10/25 94.0 [facility] HEMATOLOGY Hct 38.8 % 42.0 - 04 54.0 [facility] HEMATOLOGY Hgb 13.3 g/dL 14.0 - 04 18.0 [facility] HEMATOLOGY Platelet 155 K/CMM 133 - 450 10/[address] HEMATOLOGY RDW 14.5 % 11.5 - 04 14.5 [facility] HEMATOLOGY MCHC 34.2 g/dL 32.0 - 04 36.0 [facility] HEMATOLOGY MCH 32.1 pg 27.0 - 10/25 31.0 [facility] HEMATOLOGY RBC 4.13 M/CMM 4.70 - 04 [place] 6.10 [facility] HEMATOLOGY WBC 9.9 K/CMM 3.7 - 10.4 10/[address] HEMATOLOGY PTT 33.6 s 22.9 - 04/ [place] 35.8 /2017 [facility] HEMATOLOGY PT 13.7 s 12.0 - 04/05 [place] 14.7 /2017 [facility] HEMATOLOGY INR 1.05 0.85 - 04/ [place] 1.17 /2017 [facility] HEMATOLOGY Monocytes # 0.5 K/CMM 0.0 - 0.8 04/ [place] /2017 [facility] HEMATOLOGY Lymphocytes 0.7 K/CMM 1.0 - 5.5 04/ [place] # /2018 [facility] HEMATOLOGY Monocytes 4.6 % 2.0 - 12.0 04/ [place] [facility] HEMATOLOGY Eosinophils 0.2 % 0.0 - 4.0 10/25 [facility] HEMATOLOGY Basophils 0.3 % 0.0 - 1.0 10/25 [place] /2017 [facility] HEMATOLOGY Segs-Bands # 8.7 K/CMM 1.5 - 8.1 10/25 [place] [facility] HEMATOLOGY Lymphocytes 7.1 % 20.0 - 0405 [place] 40.0 /2017 [facility] HEMATOLOGY Segs 87.8 % 45.0 - 04/ [place] 75.0 /2017 [facility] HEMATOLOGY Plav Effect 110 PRU 10/25 [facility] /2017 [facility] HEMATOLOGY ASA Effect 461 ARU 04 [facility] /2017 [facility] BLOOD BANK Antibody Negative 10/25 [facility] RESULTS Scrn [facility] (10/25/17 2:23 AM) [place] BLOOD BANK ABO/Rh A POS 10/25 [facility] RESULTS /2017 [facility] CARDIAC Troponin-T null 0.000 - 10/25 [facility] ENZYMES 0.100 /2017 [facility] CARDIAC Total CK 174 unit/L 12 - 191 10/25 [facility] ENZYMES /2018 [facility] CARDIAC Troponin-I null 0.00 - 0405 [facility] ENZYMES 0.40 [facility] CARDIAC CK MB Index 0.9 0.0 - 2.5 04 [facility] ENZYMES /2018 [facility] CARDIAC CK MB 1.5 ng/mL 0.5 - 3.6 10/25 [facility] ENZYMES /2018 [facility] ELECTROLYTE AGAP 14.0 meq/L 10.0 - 0405 [place] S 20.0 [facility] ELECTROLYTE eGFR 88 10/25 Result Comment: The eGFR is calculated using the CKD-EPI formula. In most young, healthy individuals the eGFR will be >90 mL/ min/1.73m2. The eGFR declines with age. An eGFR of 60-89 may be normal in [facility] mL/min/1.73 /2017 some populations, particularly the elderly, for whom the CKD-EPI formula has not been extensively validated. Use of the eGFR is not recommended in the following populations: Medical Center Individuals with unstable creatinine concentrations, including patients and those with serious co-morbid conditions. Patients with extremes in muscle mass or diet. The data above are obtained from the National Kidney Disease Education Program (NKDEP) which additionally recommends that when the eGFR is used in patients with extremes of body mass index for purposes of drug dosing, the eGFR should be multiplied by the estimated BMI. ELECTROLYTE Calcium Lvl 7.9 mg/dL 8.5 - 10.5 10/[address] ELECTROLYTE Creatinine 0.93 mg/dL 0.50 - 10/25 [facility] Lvl 1.40 [facility] ELECTROLYTE Sodium Lvl 139 meq/L 135 - 145 10/[address] ELECTROLYTE BUN 13 mg/dL 7 - 22 10/[address] ELECTROLYTE Glucose Lvl 98 mg/dL 70 - 99 10/[address] ELECTROLYTE CO2 21 meq/L 24 - 32 10/[address] ELECTROLYTE Potassium 4.0 meq/L 3.5 - 5.1 10/25 [facility] [address] [place] [address] ELECTROLYTE Chloride Lvl 108 meq/L 95 - 109 10/[address] HEMATOLOGY Lymphocytes 2.3 K/CMM 1.0 - 5.5 10/[address] HEMATOLOGY Monocytes # 0.9 K/CMM 0.0 - 0.8 10/[address] HEMATOLOGY Segs-Bands # 4.2 K/CMM 1.5 - 8.1 10/[address] HEMATOLOGY Eosinophils 0.1 K/CMM 0.0 - 0.5 10/[address] HEMATOLOGY Basophils 0.6 % 0.0 - 1.0 10/[address] HEMATOLOGY Eosinophils 1.1 % 0.0 - 4.0 10/[address] HEMATOLOGY Lymphocytes 30.7 % 20.0 - 04 [facility] [place] 40.0 /2017 [facility] HEMATOLOGY Monocytes 12.2 % 2.0 - 12.0 04/ [facility] HEMATOLOGY Segs 55.4 % 45.0 - 04/05 [place] 75.0 [facility] HEMATOLOGY RDW 14.1 % 11.5 - 04/05 [place] 14.5 /2017 [facility] HEMATOLOGY MCHC 34.3 g/dL 32.0 - 10/25 [place] 36.0 [facility] HEMATOLOGY MCH 32.0 pg 27.0 - 04 [place] 31.0 [facility] HEMATOLOGY MCV 93.3 fL 80.0 - 10/25 [place] 94.0 [facility] HEMATOLOGY Hct 41.7 % 42.0 - 10/25 [place] 54.0 [facility] HEMATOLOGY MPV 7.4 fL 7.4 - 10.4 10/25 [facility] HEMATOLOGY Platelet 166 K/CMM 133 - 450 04 [facility] HEMATOLOGY Hgb 14.3 g/dL 14.0 - 0405 [place] 18.0 [facility] HEMATOLOGY RBC 4.47 M/CMM 4.70 - 10/25 [place] 6.10 /2017 [facility] HEMATOLOGY WBC 7.5 K/CMM 3.7 - 10.4 04 [facility] HEMATOLOGY INR 1.02 0.85 - 10/25 [place] 1.17 /2017 [facility] HEMATOLOGY PTT 30.0 s 22.9 - 10/25 [place] 35.8 /2017 [facility] HEMATOLOGY PT 13.4 s 12.0 - 05 [place] 14.7 /2017 [facility] CARDIAC Troponin-T null 0.000 - 10/24 [place] ENZYMES 0.100 /2017 [facility] CARDIAC Troponin-I null 0.00 - 10/24 [place] ENZYMES 0.40 /2017 [facility] CARDIAC Total CK 235 unit/L 12 - 191 10/24 [facility] ENZYMES /2017 [facility] CARDIAC CK MB Index 0.9 0.0 - 2.5 10/24 [facility] ENZYMES /2018 [facility] CARDIAC CK MB 2.1 ng/mL 0.5 - 3.6 10/24 [facility] ENZYMES /[address] [place] [address] CARDIAC Troponin-T null 0.000 - 10/24 [place] ENZYMES 0.100 /2017 [facility] CARDIAC Troponin-I null 0.00 - 10/24 [facility] [place] ENZYMES 0.40 /2017 [facility] CARDIAC Total CK 384 unit/L 12 - 191 10/24 [facility] ENZYMES /2018 [facility] CARDIAC CK MB Index 0.8 0.0 - 2.5 10/24 [place] ENZYMES /2017 [facility] CARDIAC CK MB 3.2 ng/mL 0.5 - 3.6 10/24 [facility] ENZYMES /2018 [facility] Brain-Outsi Brain-Outsid EXAM: CT BRAIN WITHOUT CONTRAST 10/24 - [facility] de Consult e Consult CT - Medical CT This report was dictated by a Anthropology Department Chair/Fellow. I have personally reviewed the images as Center well as the Resident's interpretation and agree with the findings. DATE: 10/24/2017 7:45 AM CDT Read by: Libby Byrnes MD Resident: Libby Byrnes MD Dictated Date/time: 10/24/17 08:17 Electronically Signed by: Tyrone Kennedy MD 10/24/17 15:24 FINAL REPORT INDICATION: 62 years old Male patient with fall from roof COMPARISON: None. TECHNIQUE: Routine axial CT images of the brain were obtained at outside facility, uploaded onto [facility] PACS for second interpretation. FINDINGS: Non-contrast images of the head demonstrate no edema, hemorrhage, mass lesion or other acute intracranial abnormality. The brain has normal attenuation and burns-white matter distinction. The ventricles are normal. The basal cisterns and sulci are normal in size. There is no chronic abnormality. The paranasal sinuses, orbits and mastoids are unremarkable. IMPRESSION: No acute intracranial hemorrhage. Spine-Outsi Spine-Outsid EXAM: CT CERVICAL SPINE WITHOUT CONTRAST 10/24 - [facility] de Consult e Consult CT /2017 - [facility] CT Center DATE: 10/24/2017 7:46 AM CDT Read by: Lashay Cornell MD Dictated Date/time: 10/24/17 10:01 Electronically Signed by: Lashay Cornell MD 10/24/17 10:08 FINAL REPORT INDICATION: - outside study CT CSPINE, second interpretation requested COMPARISON: None TECHNIQUE: Axial, coronal and sagittal noncontrast CT images of the cervical spine, obtained at [facility]. FINDINGS: The spine is imaged from the skull base to the level of T2. There is straightening of the cervical lordosis. No acute fracture or malalignment is identified. No dislocation. Mild/moderate narrowing of C6-C7 disc space with marginal ossified formation Degenerative changes noted at C1-C2 mainly in between the dens and anterior mass of C1. C2-C3: Canal and neuroforamina are unremarkable. Mild facet arthropathy visualized. C3-C4: Minimal facet arthropathy without canal or foraminal narrowing. C4-C5: Minimal facet arthropathy without canal or foraminal abnormality. C5-C6: Mild facet arthropathy and mild uncovertebral joint hypertrophy. There is minimal narrowing of the bilateral neuroforamina. C6-C7: There is moderate narrowing of the disc space with anterior and marginal ossified formation as well as uncovertebral joint or atrophy causing mild narrowing of the right neuroforamina. Canal is unremarkable. C7-T1: Unremarkable canal and neural foramina. Moderate facet arthropathy visualized. No soft tissue abnormality is identified. Visualized portions of the upper lungs appear unremarkable. IMPRESSION: No acute abnormality. HEMATOLOGY Plav Effect 108 PRU 10/24 [facility] /2017 [facility] HEMATOLOGY ASA Effect 465 ARU 10/24 [facility] /2018 [facility] Center BLOOD BANK Antibody Negative 10/24 [facility] RESULTS Scrn /2017 Medical (10/24/17 12:12 AM) [place] BLOOD BANK ABO/Rh A POS 10/24 [facility] RESULTS /2018 [facility] CHEM PANEL Lactic Acid 0.8 mmol/L 0.5 - 2.2 10/24 [facility] WB /2018 [facility] ELECTROLYTE AGAP 15.0 meq/L 10.0 - 10/24 [facility] S 20.0 [facility] ELECTROLYTE eGFR 92 10/24 Result Comment: The eGFR is calculated using the CKD-EPI formula. In most young, healthy individuals the eGFR will be >90 mL/ min/1.73m2. The eGFR declines with age. An eGFR of 60-89 may be normal in [facility] S mL/min/1.73 /2018 some populations, particularly the elderly, for whom the CKD-EPI formula has not been extensively validated. Use of the eGFR is not recommended in the following populations: [place] [address] Center Individuals with unstable creatinine concentrations, including patients and those with serious co-morbid conditions. Patients with extremes in muscle mass or diet. The data above are obtained from the National Kidney Disease Education Program (NKDEP) which additionally recommends that when the eGFR is used in patients with extremes of body mass index for purposes of drug dosing, the eGFR should be multiplied by the estimated BMI. ELECTROLYTE CO2 22 meq/L 24 - 32 10/[address] ELECTROLYTE Calcium Lvl 8.6 mg/dL 8.5 - 10.5 10/[address] ELECTROLYTE Potassium 4.0 meq/L 3.5 - 5.1 10/24 [facility] Lvl /[address] [place] [address] ELECTROLYTE Chloride Lvl 105 meq/L 95 - 109 10/[address] ELECTROLYTE Creatinine 0.89 mg/dL 0.50 - 04 [facility] Lvl 1.40 [facility] ELECTROLYTE BUN 12 mg/dL 7 - 22 10/[address] ELECTROLYTE Sodium Lvl 138 meq/L 135 - 145 10/[address] ELECTROLYTE Glucose Lvl 112 mg/dL 70 - 99 10/[address] HEMATOLOGY Monocytes 5.6 % 2.0 - 12.0 10/[address] HEMATOLOGY Eosinophils 0.1 % 0.0 - 4.0 10/[address] HEMATOLOGY Lymphocytes 8.3 % 20.0 - 10/24 [facility] [address] HEMATOLOGY Segs 85.4 % 45.0 - 10/24 [facility] 75.[address] HEMATOLOGY Monocytes # 0.5 K/CMM 0.0 - 0.8 10/[address] HEMATOLOGY Basophils # 0.1 K/CMM 0.0 - 0.2 10/[address] HEMATOLOGY Lymphocytes 0.8 K/CMM 1.0 - 5.5 10/[address] HEMATOLOGY Segs-Bands # 8.3 K/CMM 1.5 - 8.1 10/[address] HEMATOLOGY Basophils 0.6 % 0.0 - 1.0 10/[address] HEMATOLOGY Estimated % 2.4 % 0.0 - 7.5 10/24 [facility] Lysis Rapid [address] HEMATOLOGY Max 57 mm 52 - 71 10/[address] HEMATOLOGY K-time Rapid 1.7 min 0.6 - 2.3 10/[address] HEMATOLOGY G-value 6.6 K d/sc 5.0 - 11.6 10/24 [facility] HEMATOLOGY Angle Rapid 71 degrees 64 - 80 10/24 [facility] HEMATOLOGY [place] 0.5 min 10/24 [facility] HEMATOLOGY R-time Rapid 0.6 min 0.4 - 0.7 10/24 [facility] HEMATOLOGY ACT (TEG) 105 s 86 - 118 10/24 [facility] HEMATOLOGY PTT 29.1 s 22.9 - 10/24 35.8 [facility] HEMATOLOGY PT 14.6 s 12.0 - 10/24 14.7 [facility] HEMATOLOGY INR 1.14 0.85 - 10/24 1.17 [facility] HEMATOLOGY Platelet 189 K/CMM 133 - 450 10/24 [facility] HEMATOLOGY MPV 7.3 fL 7.4 - 10.4 10/24 [facility] HEMATOLOGY RDW 14.2 % 11.5 - 10/24 14.5 [facility] HEMATOLOGY Hgb 14.4 g/dL 14.0 - 10/24 18.0 [facility] HEMATOLOGY WBC 9.7 K/CMM 3.7 - 10.4 10/24 [facility] HEMATOLOGY RBC 4.48 M/CMM 4.70 - 10/24 6.10 [facility] HEMATOLOGY MCV 93.3 fL 80.0 - 10/24 94.0 [facility] HEMATOLOGY MCH 32.2 pg 27.0 - 10/24 31.0 [facility] HEMATOLOGY MCHC 34.5 g/dL 32.0 - 10/24 36.0 [facility] HEMATOLOGY Hct 41.8 % 42.0 - 10/24 54.0 [facility] Chest 1view Chest 1view EXAM: XR CHEST 1 VIEW 10/24 - [facility] DX - Medical This report was dictated by a Anthropology Department Chair/Fellow. I have personally reviewed the images as Center well as the Resident's interpretation and agree with the findings. DATE: 10/24/2017 2:25 AM CDT Read by: Jany Rashid MD Resident: Jany Rashid MD Dictated Date/time: 10/24/17 03:26 Electronically Signed by: Kentrell Short 10/24/17 04:00 FINAL REPORT INDICATION: - pre-op COMPARISON: CT dated 10/23/2017. TECHNIQUE: AP chest, supine. FINDINGS: Lines, tubes and hardware: None. Lungs and pleura: The lung volumes are low leading to crowding of the pulmonary vasculature. Otherwise, no acute pulmonary or pleural based abnormality is identified. Heart and mediastinum: The heart size is normal for technique. The aortic arch and descending aorta are mildly tortuous. Bones: L1 burst fracture is better seen on the recent CT. IMPRESSION: Low lung volumes. Otherwise, no acute cardiopulmonary abnormality. UT SECTION: ER Spine Spine lumbar EXAM: MRI LUMBAR SPINE WITHOUT CONTRAST 10/24 - [facility] lumbar wo wo contrast /2017 - Medical contrast MRI This report was dictated by a Anthropology Department Chair/ Fellow. I have personally reviewed the images as Center MRI well as the Resident's interpretation and agree with the findings. DATE: 10/24/2017 Read by: Jany Rashid MD Resident: Jany Rashid MD Dictated Date/time: 10/24/17 03:04 Electronically Signed by: Fazal Hernandez MD 10/24/17 09:19 FINAL REPORT INDICATION: 62-year-old male patient with L1 burst fracture COMPARISON: CT Scan of the abdomen, pelvis dated 10/23/2017 TECHNIQUE: Sagittal T1, sagittal T2, sagittal T2 with fat saturation, axial T1, and axial T2-weighted images of the lumbar spine are obtained without contrast. DISCUSSION: Normal lumbar segmentation is assumed with the lowest fully formed intervertebral disc space labeled as L5-S1 for the purpose of this examination. Minimal retropulsion/retrolisthesis of L1 otherwise vertebral alignment is near anatomic. Again identified is a compressive fracture deformity of L1 with approximately 50% vertebral body height loss at midline. There is associated bone marrow edematous changes within the L1 vertebral body co nsistent with acute nature of the fracture. There is an approximately 3.5 mm posterior retropulsion indenting the ventral thecal sac with borderline narrowing of the spinal canal with residual thecal sac measures 10 mm in AP dimension. Focal bone marrow edematous changes at the anterior inferior endplate of T12 vertebral body. Superior endplate bone marrow edematous changes on the right at the level of L2 without height loss, concerning for bone contusion or noncompressive fracture. Small dorsal epidural hematoma at the level of T11-T12 indenting the dorsal thecal sac without significant spinal canal stenosis. ALL, PLL, ligamentum flavum are intact. The conus medullaris terminates at the L1-L2. It has a normal contour and normal signal characteristics. No intradural pathology is identified. Disc spaces, spinal canal and neural foramina are as follows: T12-L1: Normal disc signal with preservation of the disc height. No evidence of spinal canal stenosis. No significant facet hypertrophy. No significant neural foramina stenosis. L1-L2: Degenerative disc desiccation with mild loss of the disc height. No evidence of spinal canal stenosis. No significant facet hypertrophy. No significant neural foramina stenosis. L2-L3: Normal disc signal with preservation of the disc height. No evidence of spinal canal stenosis. No significant facet hypertrophy. No significant neural foramina stenosis. L3-L4: Normal disc signal with preservation of the disc height. Diffuse minimal bulge. No evidence of spinal canal stenosis. Bilateral mild facet, ligamentum flavum hypertrophy. Disc bulge and bilateral facet hypertrophy resulted in bilateral mild neural foramina narrowing, causing encroachment upon exiting L3 nerve root without nerve root compression. L4-L5: Normal disc signal with preservation of the disc height. Diffuse mild disc bulge. Bilateral mild facet, ligamentum flavum hypertrophy. No significant spinal canal stenosis. Residual thecal sac me asures 11 mm in AP dimension. No evidence of spinal canal stenosis. Diffuse disc bulge and facet hypertrophy resulted in mild right neural foramina narrowing causing encroachment upon exiting right L4 n erve root. Asymmetrical leftward disc bulge and facet, ligamentum flavum hypertrophy resulted in moderate left neural foramina stenosis with mild compression upon exiting L4 nerve root. L5-S1: Normal disc signal with preservation of the disc height. Mild diffuse disc bulge. Bilateral mild facet, ligamentum flavum hypertrophy. No evidence of spinal canal stenosis. Disc bulge and bilater al facet hypertrophy resulted in bilateral mild neural foramina narrowing, causing encroachment upon exiting L5 nerve root without nerve root compression. Both SI joints appear unremarkable. Right renal cyst is identified. Note is made of increase T2 signal within the left psoas muscle with asymmetrical enlargement concerning for muscle contusion. No organized fluid collection is seen. There is no evidence of hydronephrosis bilaterally. IMPRESSION: 1. L1 burst fracture with 3 mm posterior retropulsion without significant spinal canal stenosis or spinal cord signal abnormality. 2. Focal increased bone marrow signal intensity along the superior endplate on the right at the level of L2 and anterior inferior endplate of T12, concerning for bony contusions. 3. Small dorsal epidural hematoma at the level of T11-T12, causing indentation on the dorsal thecal sac without significant spinal canal stenosis. 4. Asymmetrical disc bulge and facet arthropathic changes resulted in moderate left and mild right neural foramina stenosis at the level of L4-L5 with mild compression over exiting left L4 nerve root. 5. Left psoas muscle contusion without organized fluid collection. 6. Right renal cyst. These findings are in agreement with previous preliminary report made by environmental tech vice president pharmacy. Torso-Outsi Torso-Outsid EXAM: CT CHEST WITH CONTRAST 10/23 - [facility] Consult e Consult CT - Medical CT EXAM: CT ABDOMEN AND PELVIS WITH CONTRAST This report was dictated by a Anthropology Department Chair/Fellow. I have personally reviewed the images as Center well as the Resident's interpretation and agree with the findings. Read by: Jany Rashid MD Resident: Jany Rashid MD Dictated Date/time: 10/24/17 04:27 DATE: 10/23/2017 10:55 PM CDT Electronically Signed by: Kentrell Short 10/24/17 06:53 FINAL REPORT INDICATION: Trauma, second interpretation requested. COMPARISON: None TECHNIQUE: Axial, coronal and sagittal CT images of the chest, abdomen and pelvis, with contrast. Contrast phases: arterial and venous DLP: 2234.4 mGy-cm UT SECTION: ER FINDINGS: Chest: No mediastinal hematoma or thoracic aortic injury. Normal heart size. No pericardial fluid. No pulmonary contusions. There is minimal dependent subsegmental atelectasis, and mild paraseptal emphysema. No pleural effusion or pneumothorax. Abdomen: No acute traumatic abnormality seen in the liver, gallbladder, pancreas, spleen, adrenal glands, both kidneys, and bowel. There is diffuse hepatic steatosis with hepatomegaly. Tiny subcentimeter hypoden se lesion in hepatic segment 3 is not fully characterized on this exam. A low-attenuation cystic lesion is seen at the inferior pole the right kidney measuring about 2.8 cm, with probable internal septation (Bosniak 2). Extensive aortoiliac calcific and noncalcific atherosclerotic disease is noted. Urinary bladder is unremarkable. Prostate gland is mildly prominent. Spine/ Bones: There is a burst compression fracture of the L1 vertebral body with approximately 7 mm retropulsion of fracture fragments. The compression fracture extends through both the superior and in ferior endplates and also has extension into the right lamina. A nondisplaced fracture is also noted at the anterior superior corner of L2 which does not involve the inferior endplate or posterior wall. No acute fracture or malalignment is seen in the thoracic spine. IMPRESSION: 1. Complete burst fracture of the L1 vertebral body (AOSpine A4). 2. Nondisplaced fracture of the anterior superior corner of L2 (AOSpine A1 ). 3. Extensive atherosclerotic disease. 4. Hepatomegaly with hepatic steatosis. 5. Low-attenuation cyst at the right renal lower pole measuring up to 2.8 cm. 6. Minimal dependent subsegmental atelectasis. Vital Signs Vital Sign Value Date Comments Source BMI Calculated 22.61 11/15/2017 [facility] Height 185.42 cm 11/15/2017 [facility] Weight 77.727 11/15/2017 [facility] Temperature Oral (F) 97.8 F 11/15/2017 [facility] Heart Rate 71 11/15/2017 [facility] Systolic (mm Hg) 115 11/15/2017 [facility] Diastolic (mm Hg) 74 11/15/2017 [facility] Systolic (mm Hg) 104 10/27/2017 [facility] Diastolic (mm Hg) 69 10/27/2017 [facility] Respitory Rate 22 10/27/2017 [facility] Systolic (mm Hg) 118 10/27/2017 [facility] Diastolic (mm Hg) 71 10/27/2017 [facility] Respitory Rate 21 10/27/2017 [facility] Systolic (mm Hg) 126 10/27/2017 [facility] Diastolic (mm Hg) 75 10/27/2017 [facility] Respitory Rate 17 10/27/2017 [facility] Temperature Oral (F) 97.8 F 10/27/2017 [facility] Temperature Oral (F) 98.8 F 10/27/2017 [facility] Temperature Oral (F) 99.7 F 10/27/2017 [facility] Weight 79.545 10/24/2017 [facility] BMI Calculated 23.14 10/24/2017 [facility] Height 185.42 cm 10/24/2017 [facility] Heart Rate 61 10/24/2017 [facility] BMI Calculated 22.98 10/24/2017 [facility] Heart Rate 94 10/24/2017 [facility] Height 185.42 cm 10/24/2017 [facility] Weight 79 10/24/2017 [facility] Encounters Location Location Encounter Encounter Reason Attending ADM DC Status Source Details Type Number For Provider Date Date Visit [facility] [id number] [facility] Phone [id number] 11/08 [facility] [id number] [facility] 11/15 [facility] MNA Outpatient [id number] [facility] 11/15 11/16 [facility]ger [facility] [id number] [facility] 12/13 [facility] [place] [facility] Ambulatory [id number] [facility] 12/13 12/13 [facility] Neurosurger [facility] Procedures Procedure Code Date Perfomer Comments Source Fusion of lumbar [id number] 10/25/2017 [facility] spine Fusion of lumbar [id number] 10/25/2017 [facility] Stent placement [id number] 06/07/2017 [facility] Stent placement [id number] 06/07/2017 [facility]
--- OUTSIDE RECORDS SUMMARY | 2018-07-12 17:45 | XMS REPORT | Summary of Care ---
:1955 Author Organization [facility] [place] [facility] Address [address] [place] [address], [address] [place] [address]- Encounter HQ Cristin(FIN) [id number] Date(s): 11/15/17 - 11/15/17 [facility] [address] [facility], [address] [place], [place] [address] [phone] Discharge Disposition: Home or Self Care Attending Physician: Michael Alvarado MD Referring Physician: Michael Alvarado MD Vital Signs Most recent to oldest [Reference Range]: 1 Height 185.42 cm (11/15/17 1:53 PM) Temperature Oral [96.4-99.1 DegF] 97.8 DegF (11/15/17 1:53 PM) Blood Pressure [90-140/60-90 mmHg] 115/74 mmHg (11/15/17 1:53 PM) Peripheral Pulse Rate [60-100 bpm] 71 bpm (11/15/17 1:53 PM) Weight 77.727 kg (11/15/17 1:53 PM) Body Mass Index 22.61 m2 (11/15/17 1:53 PM) Problem List No data available for this section Allergies, Adverse Reactions, Alerts Substance Reaction Severity Status penicillin Active Medications acetaminophen-hydrocodone 325 mg-10 mg oral tablet 1 tab, PO, Q6H, # 90, 0 Refill(s), Triplicate given at clinic visit Start Date: 11/15/17 Status: Ordered Results No data available for this section Immunizations No data available for this section Procedures Procedure Date Related Diagnosis Body Site Status Fusion of lumbar spine 10/25/17 Completed Stent placement 06/07/17 Completed Social History Social History Type Response Substance Abuse Use: Current. Type: Marijuana. Amount: occasionally. Alcohol Never Smoking Status Heavy tobacco smoker; Type: Cigars; Ready to change: No; Concerns about tobacco use in household: No; Exposure to Tobacco Smoke None; Cigarette Smoking Last 365 Days No; Reg Smoking Cessation Counseling No; Tobacco use per day: 1; entered on: 11/15/17 Assessment and Plan No data available for this section
--- OUTSIDE RECORDS SUMMARY | 2018-07-12 17:45 | XMS REPORT | Summary of Care ---
:1955 Author Organization [facility] [place] [facility] Address [address] [place] [address], [address] [place] [address]- Encounter HQ Faiza_joanne(FIN) [id number] Date(s): 12/13/17 - 12/13/[address], Suite [facility] [place], [place] [address] [phone] Attending Physician: Michael Alvarado MD Referring Physician: Michael Alvarado MD Vital Signs No data available for this section Problem List No data available for this section Allergies, Adverse Reactions, Alerts Substance Reaction Severity Status penicillin Active Medications No data available for this section Results No data available for this section [...]
--- OUTSIDE RECORDS SUMMARY | 2018-07-12 17:45 | XMS REPORT | Summary of Care ---
:1955 Author Organization [facility] Address [address] [place] [address], [address] [place] [address]- Encounter HQ Amarilisntr_joanne(FIN) [id number] Date(s): 11/08/17 - 11/09/[address], [address] [place], [place] [address] [phone] Vital Signs No data available for this section Problem List No data available for this section Allergies, Adverse Reactions, Alerts Substance Reaction Severity Status penicillin Active Medications No data available for this section Results No data available for this section Immunizations No data available for this section Procedures Procedure Date Related Diagnosis Body Site Status Stent placement 06/07/17 Completed Social History Social History Type Response Substance Abuse Use: Current. Type: Marijuana. Amount: occasionally. Alcohol Never Smoking Status Heavy tobacco smoker; Type: Cigars; Ready to change: No; Concerns about tobacco use in household: No; Exposure to Tobacco Smoke None; Cigarette Smoking Last 365 Days No; Reg Smoking Cessation Counseling No; Tobacco use per day: 1; entered on: 10/24/17 Assessment and Plan No data available for this section
--- OUTSIDE RECORDS SUMMARY | 2018-07-12 17:45 | XMS REPORT | Summary of Care ---
:1955 Author Organization [facility] Address [address] [place] [id number]- Encounter HQ Amarilisntr_joanne(FIN) [id number] Date(s): 10/23/17 - 10/27/[address] Professional Services provided by [facility] [place] [address]- Encounter Diagnosis Unstable burst fracture of first lumbar vertebra, initial encounter for closed fracture (Final) - 11/05/17 Acquired coagulation factor deficiency (Final) - Qualitative platelet defects (Final) - Fall from, out of or through roof, initial encounter (Final) - Essential (primary) hypertension (Final) - Nicotine dependence, cigarettes, uncomplicated (Final) - Hyperlipidemia, unspecified (Final) - Old myocardial infarction (Final) - Atherosclerotic heart disease of [place] coronary artery without angina pectoris (Final) - Presence of coronary angioplasty implant and graft (Final) - Discharge Disposition: Home or Self Care Attending Physician: Michael Alvarado MD Admitting Physician: Michael Alvarado MD Referring Physician: Matthew Cruz MD Vital Signs Most recent to oldest 1 2 3 [Reference Range]: Height 185.42 cm 185.42 cm (10/24/17 4:49 AM) (10/23/17 9:30 PM) Temperature Oral [96.4-99.1 97.8 DegF 98.8 DegF 99.7 DegF DegF] (10/27/17 4:00 AM) (10/27/17 12:00 AM) *HI* (10/26/17 8:00 PM) Blood Pressure [90-140/60-90 104/69 mmHg 118/71 mmHg 126/75 mmHg mmHg] (10/27/17 1:00 PM) (10/27/17 12:00 PM) (10/27/17 11:00 AM) Respiratory Rate [14-20 BRMIN] 22 BRMIN 21 BRMIN 17 BRMIN *HI* *HI* (10/27/17 11:00 AM) (10/27/17 1:00 PM) (10/27/17 12:00 PM) Peripheral Pulse Rate [60-100 61 bpm 94 bpm bpm] (10/24/17 12:46 AM) (10/23/17 9:30 PM) Weight 79.545 kg 79 kg (10/24/17 4:49 AM) (10/23/17 9:30 PM) Body Mass Index 23.14 m2 22.98 m2 (10/24/17 4:49 AM) (10/23/17 9:30 PM) Problem List No data available for this section Allergies, Adverse Reactions, Alerts Substance Reaction Severity Status penicillin Active Medications acetaminophen 650 mg, 2 tab, Route: PO, Drug form: TAB, Q6H, Dosing Weight 79.545, kg, Start date: 10/25/17 12:00:00 CDT, Duration: 30 day, Stop date: 11/24/17 6:00:00 CDT Notes: Do not exceed 4 gm/day. (Same as: Tylenol) Start Date: 10/25/17 Stop Date: 10/27/17 Status: Discontinuedacetaminophen 650 mg, 2 tab, Route: PO, Drug form: TAB, Q4H, Dosing Weight 79, kg, Start date : 10/23/17 23:34:00 CDT, Stop date: 11/23/17 0:00:00 CDT Notes: Do not exceed 4 gm/day. (Same as: Tylenol) Start Date: 10/23/17 Stop Date: 10/25/17 Status: Discontinuedacetaminophen-hydrocodone 325 mg-10 mg oral tablet 1 tab, Route: PO, Drug Form: TAB, Dosing Weight 79, kg, Q4H, PRN Pain Score 4-6 , Start date: 10/23/17 23:34:00 CDT, Duration: 30 day, Stop date: 11/22/17 23:33 :00 CDT Notes: Do not exceed 4gm/day of acetaminophen. (Same as: Linn 325/10) Start Date: 10/23/17 Stop Date: 10/25/17 Status: Voided With ResultsAncef 2 gm, Route: IVPB, ONCE, Dosing Weight 79, kg, Priority: STAT, Start date: 10/23 22:27:00 CDT, Stop date: 10/23/17 22:27:00 CDT, ABX Indication: Skin/Soft Tissue Infection Start Date: 10/23/17 Stop Date: 10/23/17 Status: DiscontinuedANES flumazenil 0.2 mg, Route: IVP, PRN, Dosing Weight 79.545, kg, PRN Benzodiazepine Reversal, Initial dose, Start date: 10/25/17 8:05:00 CDT, Duration: 30 day, Stop date: 12/07 8:04:00 CDT Start Date: 10/25/17 Stop Date: 10/25/17 Status: DiscontinuedANES hydrALAZINE 10 mg, Route: IVP, Q20Min, Dosing Weight 79.545, kg, PRN Elevated BP, Start date : 10/25/17 8:05:00 CDT, Duration: 2 doses or times, Stop date: Limited # of times Start Date: 10/25/17 Stop Date: 10/25/17 Status: DiscontinuedANES HYDROmorphone 0.5 mg, Route: IVP, Q5Min, Dosing Weight 79.545, kg, PRN Pain Score 7-10, Start date: 10/25/17 8:05:00 CDT, Duration: 4 doses or times, Stop date: Limited # of times Start Date: 10/25/17 Stop Date: 10/25/17 Status: DiscontinuedANES labetalol 10 mg, Route: IVP, Q5Min, Dosing Weight 79.545, kg, PRN Elevated BP, Start date : 10/25/17 8:05:00 CDT, Duration: 5 doses or times, Stop date: Limited # of times Start Date: 10/25/17 Stop Date: 10/25/17 Status: DiscontinuedANES naloxone 0.4 mg, Route: IVP, Q2MIN, Dosing Weight 79.545, kg, PRN Narcotic Reversal, Start date: 10/25/17 8:05:00 CDT, Duration: 8 doses or times, Stop date: Limited # of times Start Date: 10/25/17 Stop Date: 10/25/17 Status: DiscontinuedANES ondansetron 4 mg, Route: IVP, ONCE, Dosing Weight 79.545, kg, PRN Nausea & Vomiting, Start date: 10/25/17 8:05:00 CDT Start Date: 10/25/17 Stop Date: 10/25/17 Status: DiscontinuedANES oxyCODONE 5 mg, Route: PO, Drug form: TAB, Q4H, Dosing Weight 79.545, kg, PRN Pain Score 4 -6, Start date: 10/25/17 8:05:00 CDT, Duration: 30 day, Stop date: 11/24/17 8:04 :00 CDT Start Date: 10/25/17 Stop Date: 10/25/17 Status: Discontinuedaspirin 325 mg, PO, Daily Start Date: 10/24/17 Status: Orderedaspirin 81 mg, 1 tab, Route: PO, Drug form: ECTAB, Daily, Dosing Weight 79.545, kg, Start date: 10/24/17 14:00:00 CDT, Duration: 30 day, Stop date: 11/23/17 9:00: 00 CDT Notes: Do not crush or chew.(Same As: Ecotrin) Start Date: 10/24/17 Stop Date: 10/27/17 Status: Discontinuedatorvastatin 80 mg, PO, Bedtime Start Date: 10/24/17 Status: Orderedbisacodyl 10 mg, 1 supp, Route: OH, Drug form: SUPP, Daily, Dosing Weight 79, kg, PRN Constipation, Start date: 10/23/17 23:34:00 CDT, Duration: 30 day, Stop date: 23:33:00 CDT Notes: (Same As: Dulcolax, Bisco-Lax) Start Date: 10/23/17 Stop Date: 10/27/17 Status: Discontinueddexamethasone (ANES) Route: IV, Drug form: INJ, ONCE, Stop date: 10/25/17 10:56:00 CDT Start Date: 10/25/17 Stop Date: 10/25/17 Status: Completeddexmedetomidine (ANES) 200 microgram Route: IV, Drug form: INJ, Start date: 10/25/17 8:50:00 CDT, Stop date: 9:50:00 CDT Start Date: 10/25/17 Stop Date: 10/25/17 Status: CompletedDextrose 50% Syringe 25 gm, 50 mL, Route: IVP, Drug Form: INJ, Dosing Weight 79, kg, PRN, PRN Abnormal Lab Result, Start date: 10/23/17 23:34:00 CDT, Duration: 30 day, Stop date: 11/22/17 23:33:00 CDT Start Date: 10/23/17 Stop Date: 10/27/17 Status: DiscontinuedDextrose 50% Syringe 12.5 gm, 25 mL, Route: IVP, Drug Form: INJ, Dosing Weight 79, kg, PRN, PRN Abnormal Lab Result, Start date: 10/23/17 23:34:00 CDT, Duration: 30 day, Stop date: 11/22/17 23:33:00 CDT Start Date: 10/23/17 Stop Date: 10/27/17 Status: DiscontinuedDextrose 50% Syringe 6.25 gm, 12.5 mL, Route: IVP, Drug Form: INJ, Dosing Weight 79, kg, PRN, PRN Abnormal Lab Result, Start date: 10/23/17 23:34:00 CDT, Duration: 30 day, Stop date: 11/22/17 23:33:00 CDT Start Date: 10/23/17 Stop Date: 10/27/17 Status: Discontinueddocusate 100 mg, 1 cap, Route: PO, Drug form: CAP, Q12H, Dosing Weight 79, kg, Start date : 10/24/17 9:00:00 CDT, Duration: 30 day, Stop date: 11/22/17 21:00:00 CDT Notes: (Same as: Colace) (Do Not Crush) Start Date: 10/24/17 Stop Date: 10/27/17 Status: Discontinueddocusate sodium 100 mg oral capsule 100 mg=1 cap, PO, Q12H, # 28 cap, 0 Refill(s) Start Date: 10/27/17 Stop Date: 11/10/17 Status: OrderedePHEDrine (ANES) Route: IV, Drug form: INJ, ONCE, Stop date: 10/25/17 10:56:00 CDT Start Date: 10/25/17 Stop Date: 10/25/17 Status: CompletedfentaNYL 50 microgram, Route: IV, ONCE, Dosing Weight 79, kg, Start date: 10/24/17 4:32: 00 CDT, Stop date: 10/24/17 4:32:00 CDT Start Date: 10/24/17 Stop Date: 10/24/17 Status: CompletedfentaNYL (ANES) Route: IV, Drug form: INJ, ONCE, Stop date: 10/25/17 11:06:00 CDT Start Date: 10/25/17 Stop Date: 10/25/17 Status: CompletedFlexeril 10 mg, 1 tab, Route: PO, Drug form: TAB, TID, Dosing Weight 79.545, kg, PRN as needed for muscle spasm, Priority: Routine, Start date: 10/25/17 12:25:00 CDT, Duration: 30 day, Stop date: 11/24/17 12:24:00 CDT Notes: (Same As: Flexeril) Start Date: 10/25/17 Stop Date: 10/27/17 Status: DiscontinuedFlexeril 10 mg oral tablet 10 mg, PO, TID, PRN Muscle Spasm, X 14 day, # 40 tab, 0 Refill(s) Start Date: 10/27/17 Stop Date: 11/10/17 Status: CompletedhydrALAZINE 10 mg, 0.5 mL, Route: IVP, Drug form: INJ, Q2H, Dosing Weight 79.545, kg, PRN Hypertension, Start date: 10/25/17 12:25:00 CDT, Duration: 30 day, Stop date: 12:24:00 CDT Notes: (Same as: Apresoline)Push over 5 minutes Start Date: 10/25/17 Stop Date: 10/27/17 Status: Discontinuedhydrocortisone topical 0.5% cream 1 appl, Route: TOP, BID, Drug form: CRM, PRN Rash, Start date: 10/27/17 13:00: 00 CDT, Duration: 30 day, Stop date: 11/26/17 12:59:00 CDT Start Date: 10/27/17 Stop Date: 10/27/17 Status: Discontinuedhydrocortisone topical 0.5% cream 1 appl, TOP, BID, PRN Rash, apply in a thin film to the affected skin and rub in gently and completely, X 14 day, # 28 gm, 0 Refill(s) Start Date: 10/27/17 Stop Date: 11/10/17 Status: Completedhydromorphone 1 mg, Route: IVP, ONCE, Dosing Weight 79, kg, Priority: STAT, Start date: 22:35:00 CDT, Stop date: 10/23/17 22:35:00 CDT Start Date: 10/23/17 Stop Date: 10/23/17 Status: Completedhydromorphone (ANES) Route: IV, Drug form: INJ, ONCE, Stop date: 10/25/17 11:06:00 CDT Start Date: 10/25/17 Stop Date: 10/25/17 Status: Completedinsulin regular 100 units/mL human recombinant 5 unit, 0.05 mL, Route: SUB-Q, Drug form: SOLN, PRN, Dosing Weight 79, kg, PRN Abnormal Lab Result, Start date: 10/23/17 23:34:00 CDT, Duration: 30 day, Stop date: 11/22/17 23:33:00 CDT Notes: (Same as: Humulin R) Roll in palms of hands gently; Do not shake vigorously. "single patientuse only"(Restricted to patients requiring a dose &gt ; 60 units)WASTE: F/P - Black; E - Municipal Trash Bin Stable for 28 days at room temperatureExpires in days from Date Start Date: 10/23/17 Stop Date: 10/27/17 Status: Discontinuedinsulin regular 100 units/mL human recombinant 7 unit, 0.07 mL, Route: SUB-Q, Drug form: SOLN, PRN, Dosing Weight 79, kg, PRN Abnormal Lab Result, Start date: 10/23/17 23:34:00 CDT, Duration: 30 day, Stop date: 11/22/17 23:33:00 CDT Notes: (Same as: Humulin R) Roll in palms of hands gently; Do not shake vigorously. "single patientuse only"(Restricted to patients requiring a dose &gt ; 60 units)WASTE: F/P - Black; E - Municipal Trash Bin Stable for 28 days at room temperatureExpires in days from Date Start Date: 10/23/17 Stop Date: 10/27/17 Status: Discontinuedinsulin regular 100 units/mL human recombinant 3 unit, 0.03 mL, Route: SUB-Q, Drug form: SOLN, PRN, Dosing Weight 79, kg, PRN Abnormal Lab Result, Start date: 10/23/17 23:34:00 CDT, Duration: 30 day, Stop date: 11/22/17 23:33:00 CDT Notes: (Same as: Humulin R) Roll in palms of hands gently; Do not shake vigorously. "single patientuse only"(Restricted to patients requiring a dose &gt ; 60 units)WASTE: F/P - Black; E - Municipal Trash Bin Stable for 28 days at room temperatureExpires in days from Date Start Date: 10/23/17 Stop Date: 10/27/17 Status: DiscontinuedLactated Ringers Injection IV (ANES) 1000 mL Route: IV, Total Volume: 1,000, Start date: 10/25/17 8:38:00 CDT, Stop date: 12/07 9:38:00 CDT Start Date: 10/25/17 Stop Date: 10/25/17 Status: Completedlidocaine (ANES) Route: IV, Drug form: INJ, ONCE, Stop date: 10/25/17 11:06:00 CDT Start Date: 10/25/17 Stop Date: 10/25/17 Status: Completedlisinopril 5 mg oral tablet 5 mg=1 tab, PO, Daily Start Date: 10/24/17 Status: OrderedLovenox 30 mg, 0.3 mL, Route: SUB-Q, Drug form: INJ, [id number], Start date: 10/24/17 14: 00:00 CDT, Duration: 30 day, Stop date: 11/23/17 2:00:00 CDT Notes: (Same as: Lovenox) Start Date: 10/24/17 Stop Date: 10/24/17 Status: DiscontinuedLovenox 30 mg, 0.3 mL, Route: SUB-Q, Drug form: INJ, [id number], Dosing Weight 79.545, kg , Start date: 10/26/17 21:00:00 CDT, Duration: 30 day, Stop date: 11/25/17 9:00: 00 CDT Notes: (Same as: Lovenox) Start Date: 10/26/17 Stop Date: 10/27/17 Status: DiscontinuedLyrica 100 mg, 1 cap, Route: PO, Drug form: CAP, Q8Hnow, Dosing Weight 79.545, kg, Start date: 10/24/17 6:00:00 CDT, Duration: 30 day, Stop date: 11/22/17 22:00: 00 CDT Notes: (Same as: Lyrica) Start Date: 10/24/17 Stop Date: 10/27/17 Status: Discontinuedmidazolam (ANES) Route: IV, Drug form: SOLN, ONCE, Stop date: 10/25/17 11:06:00 CDT Start Date: 10/25/17 Stop Date: 10/25/17 Status: Completedmorphine Sulfate 2 mg, 0.5 mL, Route: IVP, Drug form: SOLN, Q2H, Dosing Weight 79.545, kg, PRN Pain Score 7-10, Startdate: 10/25/17 12:25:00 CDT, Duration: 30 day, Stop date: 11/24/17 12:24:00 CDT Notes: (Same as:MORPhine Sulfate) Start Date: 10/25/17 Stop Date: 10/27/17 Status: Discontinuedmorphine Sulfate 4 mg, 1 mL, Route: IVP, Drug form: SOLN, ONCE, Dosing Weight 79, kg, Priority: STAT, Start date: 10/23/17 23:54:00 CDT, Stop date: 10/23/17 23:54:00 CDT Notes: (Same as:MORPhine Sulfate) Start Date: 10/23/17 Stop Date: 10/24/17 Status: Completedmorphine Sulfate 2 mg, 0.5 mL, Route: IVP, Drug form: SOLN, Q1H, Dosing Weight 79, kg, PRN Pain Score 7-10, Start date: 10/23/17 23:34:00 CDT, Duration: 30 day, Stop date: 10/07 23:33:00 CDT Notes: (Same as:MORPhine Sulfate) Start Date: 10/23/17 Stop Date: 10/25/17 Status: DiscontinuedNorco 10/325 oral tablet 2 tab, Route: PO, Drug Form: TAB, Dosing Weight 79.545, kg, Q4H, PRN Pain Score 7-10, Start date: 10/25/17 12:25:00 CDT, Duration: 30 day, Stop date: 11/24/17 12:24:00 CDT Notes: Do not exceed 4gm/day of acetaminophen. (Same as: Linn 325/10) Start Date: 10/25/17 Stop Date: 10/27/17 Status: DiscontinuedNorco 10/325 oral tablet 1 tab, Route: PO, Drug Form: TAB, Dosing Weight 79.545, kg, Q4H, PRN Pain Score 4-6, Routine, Start date: 10/25/17 12:25:00 CDT, Duration: 30 day, Stop date: 12:24:00 CDT Notes: Do not exceed 4gm/day of acetaminophen. (Same as: Linn 325/10) Start Date: 10/25/17 Stop Date: 10/27/17 Status: Discontinuedondansetron 4 mg, 2 mL, Route: IVP, Drug form: INJ, Q8H, Dosing Weight 79, kg, PRN Nausea & amp; Vomiting, Start date: 10/23/17 23:34:00 CDT, Duration: 30 day, Stop date: 11/22/17 23:33:00 CDT Notes: (Same as: Rambo) MEDICATION WASTE Product Size: 4 mgProduct Wasted: ___ mg Start Date: 10/23/17 Stop Date: 10/25/17 Status: DiscontinuedPlavix 75 mg oral tablet 75 mg=1 tab, PO, Daily Start Date: 10/24/17 Status: Orderedpolyethylene glycol 3350 17 gm, 1 pkt, Route: PO, Drug form: PWDR, Daily, Dosing Weight 79, kg, Start date: 10/24/17 9:00:00 CDT, Duration: 30 day, Stop date: 11/22/17 9:00:00 CDT Notes: Dissolve in 8 oz of water or juice.(Same as: Miralax) Start Date: 10/24/17 Stop Date: 10/27/17 Status: Discontinuedpregabalin 100 mg oral capsule 100 mg=1 cap, PO, Q8Hnow, # 42 cap, 0 Refill(s) Start Date: 10/27/17 Stop Date: 11/10/17 Status: Orderedpropofol (ANES) Route: IV, Drug form: INJ, ONCE, Stop date: 10/25/17 11:06:00 CDT Start Date: 10/25/17 Stop Date: 10/25/17 Status: Completedrocuronium (ANES) Route: IV, Drug form: INJ, ONCE, Stop date: 10/25/17 11:06:00 CDT Start Date: 10/25/17 Stop Date: 10/25/17 Status: CompletedSaline Flush 0.9% 10 ml, Route: IVP, Drug Form: INJ, Dosing Weight 79, kg, PRN, PRN Line Flush, Start date: 10/23/17 23:34:00 CDT, Duration: 30 day, Stop date: 11/22/17 23:33: 00 CDT Notes: (Same as: BD Posiflush) Start Date: 10/23/17 Stop Date: 10/27/17 Status: DiscontinuedSaline Flush 0.9% 10 ml, Route: IVP, Drug Form: INJ, Dosing Weight 79, kg, Q12H, Start date: 10/24 9:00:00 CDT, Duration: 30 day, Stop date: 11/22/17 21:00:00 CDT Notes: (Same as: BD Posiflush) Start Date: 10/24/17 Stop Date: 10/27/17 Status: Discontinuedsenna 8.6 mg, 1 tab, Route: PO, Drug Form: TAB, Dosing Weight 79, kg, Q12H, Start date : 10/24/17 9:00:00 CDT, Duration: 30 day, Stop date: 11/22/17 21:00:00 CDT Notes: (Same as: Senokot) Start Date: 10/24/17 Stop Date: 10/27/17 Status: DiscontinuedSodium Chloride 0.9% IV (ANES) 235 mL + vancomycin (ANES) 1500 mg Route: IV, Drug form: INJ, Start date: 10/25/17 9:25:00 CDT, Stop date: 10:25:00 CDT Start Date: 10/25/17 Stop Date: 10/25/17 Status: CompletedSodium Chloride 0.9% IV 1,000 mL 1,000 mL, Rate: 75 ml/hr, Infuse over: 13.3 hr, Route: IV, Dosing Weight 79 kg, Total Volume: 1,000,Start date: 10/23/17 23:34:00 CDT, Duration: 30 day, Stop date: 11/22/17 23:33:00 CDT, 2.02, m2 Start Date: 10/23/17 Stop Date: 10/27/17 Status: Discontinuedsugammadex 500 mg, 5 mL, Route: IV, Drug form: COLLIN VÁZQUEZ, Start date: 10/25/17 13:00:00 CDT, Duration: 1 doses or times, Stop date: 10/25/17 14:00:00 CDT Notes: (Same as: Bridion) Start Date: 10/25/17 Stop Date: 10/27/17 Status: Discontinuedtramadol 50 mg oral tablet 50 mg, 1 tab, Route: PO, Drug form: TAB, Q6H, Dosing Weight 79.545, kg, PRN Pain Score 1-3, Priority: Routine, Start date: 10/25/17 12:25:00 CDT, Stop date : 11/24/17 12:24:00 CDT Notes: Not to exceed 400mg/day. (Same As: Ultram) Start Date: 10/25/17 Stop Date: 10/27/17 Status: DiscontinuedTylenol with Codeine #3 oral tablet 1 tab, PO, Q6H, PRN Pain, X 14 day, # 50 tab, 0 Refill(s) Start Date: 10/27/17 Stop Date: 11/10/17 Status: Completedvancomycin (SCIP) 1 gm, Route: IVPB, Drug form: INJ, [id number], Dosing Weight 79.545, kg, Start date : 10/25/17 16:00:00 CDT, Duration: 24 hr, Stop date: 10/26/17 8:00:00 CDT, ABX Indication: Surgical Prophylaxis Notes: TIME CRITICAL MEDICATION(Same As: Vancocin)Infusion rate< 1000 mg: infuse over 1 [id number] - 1500 mg: infuse over 1.5 [id number] - 2000 mg: infuse over 2 hours> 2001 mg: infuse over 2.5 hoursFor adult patients only: Round to nearest 250 mg per Medical Staff approval MEDICATION WASTE Product Size: 1000 mgProduct Wasted: ___ mg Start Date: 10/25/17 Stop Date: 10/26/17 Status: CompletedZofran 4 mg, Route: IVP, Drug form: INJ, ONCE, Dosing Weight 79, kg, Priority: STAT, Start date: 10/23/17 22:27:00 CDT, Stop date: 10/23/17 22:27:00 CDT Start Date: 10/23/17 Stop Date: 10/23/17 Status: DiscontinuedZofran 4 mg, 2 mL, Route: IVP, Drug form: INJ, Q8H, Dosing Weight 79.545, kg, PRN as needed for nausea/vomiting, Priority: Routine, Start date: 10/25/17 12:25:00 CDT , Duration: 30 day, Stop date: 11/24/17 12:24:00 CDT Notes: (Same as: Zofran) MEDICATION WASTE Product Size: 4 mgProduct Wasted: ___ mg Start Date: 10/25/17 Stop Date: 10/27/17 Status: Discontinued Results BLOOD BANK RESULTS Most recent to oldest [Reference Range]: 1 2 3 ABO/Rh A POS A POS *Unknown* *Unknown* (10/25/17 2:23 AM) (10/24/17 12:12 AM) Antibody Scrn Negative Negative (10/25/17 2:23 AM) (10/24/17 12:12 AM) ELECTROLYTES Most recent to oldest 1 2 3 [Reference Range]: Sodium Lvl [135-145 mEq/L] 141 mEq/L 139 mEq/L 138 mEq/L (10/25/17 1:05 PM) (10/25/17 2:23 AM) (10/23/17 10:33 PM) Potassium Lvl [3.5-5.1 mEq/L] 4.0 mEq/L 4.0 mEq/L 4.0 mEq/L (10/25/17 1:05 PM) (10/25/17 2:23 AM) (10/23/17 10:33 PM) Chloride Lvl [95-109 mEq/L] 109 mEq/L 108 mEq/L 105 mEq/L (10/25/17 1:05 PM) (10/25/17 2:23 AM) (10/23/17 10:33 PM) CO2 [24-32 mEq/L] 25 mEq/L 21 mEq/L 22 mEq/L (10/25/17 1:05 PM) *LOW* *LOW* (10/25/17 2:23 AM) (10/23/17 10:33 PM) AGAP [10.0-20.0 mEq/L] 11.0 mEq/L 14.0 mEq/L 15.0 mEq/L (10/25/17 1:05 PM) (10/25/17 2:23 AM) (10/23/17 10:33 PM) CHEM PANEL Most recent to oldest 1 2 3 [Reference Range]: Creatinine Lvl [0.50-1.40 0.88 mg/dL 0.93 mg/dL 0.89 mg/dL mg/dL] (10/25/17 1:05 PM) (10/25/17 2:23 AM) (10/23/17 10:33 PM) eGFR 92 mL/min/1.73m2 1 88 mL/min/1.73m2 2 92 mL/min/1.73m2 3 *NA* *NA* *NA* (10/25/17 1:05 PM) (10/25/17 2:23 AM) (10/23/17 10:33 PM) BUN [7-22 mg/dL] 10 mg/dL 13 mg/dL 12 mg/dL (10/25/17 1:05 PM) (10/25/17 2:23 AM) (10/23/17 10:33 PM) Glucose Lvl [70-99 mg/dL] 117 mg/dL 98 mg/dL 112 mg/dL *HI* (10/25/17 2:23 AM) *HI* (10/25/17 1:05 PM) (10/23/17 10:33 PM) Calcium Lvl [8.5-10.5 mg/dL] 7.5 mg/dL 7.9 mg/dL 8.6 mg/dL *LOW* *LOW* (10/23/17 10:33 PM) (10/25/17 1:05 PM) (10/25/17 2:23 AM) Lactic Acid WB [0.5-2.2 0.8 mmol/L mmol/L] (10/23/17 10:33 PM) 1Result Comment: The eGFR is calculated using the CKD-EPI formula. In most young , healthy individualsthe eGFR will be >90 mL/min/1.73m2. The eGFR declines with age. An eGFR of 60-89 may be normal insome populations, particularly the elderly, for whom the CKD-EPI formula has not been extensively validated. Use of the eGFR is not recommended in the following populations: Individuals with unstable creatinine concentrations, including patients and those with serious co-morbid conditions. Patients with extremes in muscle mass or diet. The data above are obtained from the National Kidney Disease Education Program ( NKDEP) which additionally recommends that when the eGFR is used in patients with extremes of body mass index for purposesof drug dosing, the eGFR should be multiplied by the estimated BMI.2Result Comment: The eGFR is calculated using the CKD-EPI formula. In most young, healthy individualsthe eGFR will be >90 mL/min/1.73m2. The eGFR declines with age. An eGFR of 60-89 may be normal insome populations, particularly the elderly, for whom the CKD-EPI formula has not been extensively validated. Use of the eGFR is not recommended in the following populations: Individuals with unstable creatinine concentrations, including patients and those with serious co-morbid conditions. Patients with extremes in muscle mass or diet. The data above are obtained from the National Kidney Disease Education Program ( NKDEP) which additionally recommends that when the eGFR is used in patients with extremes of body mass index for purposesof drug dosing, the eGFR should be multiplied by the estimated BMI.3Result Comment: The eGFR is calculated using the CKD-EPI formula. In most young, healthy individualsthe eGFR will be >90 mL/min/1.73m2. The eGFR declines with age. An eGFR of 60-89 may be normal insome populations, particularly the elderly, for whom the CKD-EPI formula has not been extensively validated. Use of the eGFR is not recommended in the following populations: Individuals with unstable creatinine concentrations, including patients and those with serious co-morbid conditions. Patients with extremes in muscle mass or diet. The data above are obtained from the National Kidney Disease Education Program ( NKDEP) which additionally recommends that when the eGFR is used in patients with extremes of body mass index for purposesof drug dosing, the eGFR should be multiplied by the estimated BMI.CARDIAC ENZYMES Most recent to oldest 1 2 3 [Reference Range]: Total CK [12-191 unit/L] 174 unit/L 235 unit/L 384 unit/L (10/25/17 2:23 AM) *HI* *HI* (10/24/17 5:23 PM) (10/24/17 3:36 AM) CK MB [0.5-3.6 ng/mL] 1.5 ng/mL 2.1 ng/mL 3.2 ng/mL (10/25/17 2:23 AM) (10/24/17 5:23 PM) (10/24/17 3:36 AM) CK MB Index [0.0-2.5] 0.9 0.9 0.8 (10/25/17 2:23 AM) (10/24/17 5:23 PM) (10/24/17 3:36 AM) Troponin-T [0.000-0.100 ng/mL] <0.010 ng/mL <0.010 ng/mL <0.010 ng/mL (10/25/17 2:23 AM) (10/24/17 5:23 PM) (10/24/17 3:36 AM) Troponin-I [0.00-0.40 ng/mL] <0.02 ng/mL <0.02 ng/mL <0.02 ng/mL (10/25/17 2:23 AM) (10/24/17 5:23 PM) (10/24/17 3:36 AM) HEMATOLOGY Most recent to oldest 1 2 3 [Reference Range]: WBC [3.7-10.4 K/CMM] 9.9 K/CMM 7.5 K/CMM 9.7 K/CMM (10/25/17 1:05 PM) (10/25/17 2:23 AM) (10/23/17 10:33 PM) RBC [4.70-6.10 M/CMM] 4.13 M/CMM 4.47 M/CMM 4.48 M/CMM *LOW* *LOW* *LOW* (10/25/17 1:05 PM) (10/25/17 2:23 AM) (10/23/17 10:33 PM) Hgb [14.0-18.0 g/dL] 13.3 g/dL 14.3 g/dL 14.4 g/dL *LOW* (10/25/17 2:23 AM) (10/23/17 10:33 PM) (10/25/17 1:05 PM) Hct [42.0-54.0 %] 38.8 % 41.7 % 41.8 % *LOW* *LOW* *LOW* (10/25/17 1:05 PM) (10/25/17 2:23 AM) (10/23/17 10:33 PM) MCV [80.0-94.0 fL] 93.9 fL 93.3 fL 93.3 fL (10/25/17 1:05 PM) (10/25/17 2:23 AM) (10/23/17 10:33 PM) MCH [27.0-31.0 pg] 32.1 pg 32.0 pg 32.2 pg *HI* *HI* *HI* (10/25/17 1:05 PM) (10/25/17 2:23 AM) (10/23/17 10:33 PM) MCHC [32.0-36.0 g/dL] 34.2 g/dL 34.3 g/dL 34.5 g/dL (10/25/17 1:05 PM) (10/25/17 2:23 AM) (10/23/17 10:33 PM) RDW [11.5-14.5 %] 14.5 % 14.1 % 14.2 % (10/25/17 1:05 PM) (10/25/17 2:23 AM) (10/23/17 10:33 PM) MPV [7.4-10.4 fL] 7.6 fL 7.4 fL 7.3 fL (10/25/17 1:05 PM) (10/25/17 2:23 AM) *LOW* (10/23/17 10:33 PM) Platelet [133-450 K/CMM] 155 K/CMM 166 K/CMM 189 K/CMM (10/25/17 1:05 PM) (10/25/17 2:23 AM) (10/23/17 10:33 PM) Segs [45.0-75.0 %] 87.8 % 55.4 % 85.4 % *HI* (10/25/17 2:23 AM) *HI* (10/25/17 1:05 PM) (10/23/17 10:33 PM) Lymphocytes [20.0-40.0 %] 7.1 % 30.7 % 8.3 % *LOW* (10/25/17 2:23 AM) *LOW* (10/25/17 1:05 PM) (10/23/17 10:33 PM) Monocytes [2.0-12.0 %] 4.6 % 12.2 % 5.6 % (10/25/17 1:05 PM) *HI* (10/23/17 10:33 PM) (10/25/17 2:23 AM) Eosinophils [0.0-4.0 %] 0.2 % 1.1 % 0.1 % (10/25/17 1:05 PM) (10/25/17 2:23 AM) (10/23/17 10:33 PM) Basophils [0.0-1.0 %] 0.3 % 0.6 % 0.6 % (10/25/17 1:05 PM) (10/25/17 2:23 AM) (10/23/17 10:33 PM) Segs-Bands # [1.5-8.1 K/CMM] 8.7 K/CMM 4.2 K/CMM 8.3 K/CMM *HI* (10/25/17 2:23 AM) *HI* (10/25/17 1:05 PM) (10/23/17 10:33 PM) Lymphocytes # [1.0-5.5 K/CMM] 0.7 K/CMM 2.3 K/CMM 0.8 K/CMM *LOW* (10/25/17 2:23 AM) *LOW* (10/25/17 1:05 PM) (10/23/17 10:33 PM) Monocytes # [0.0-0.8 K/CMM] 0.5 K/CMM 0.9 K/CMM 0.5 K/CMM (10/25/17 1:05 PM) *HI* (10/23/17 10:33 PM) (10/25/17 2:23 AM) Eosinophils # [0.0-0.5 K/CMM] 0.1 K/CMM (10/25/17 2:23 AM) Basophils # [0.0-0.2 K/CMM] 0.1 K/CMM (10/23/17 10:33 PM) PT [12.0-14.7 seconds] 13.7 seconds 13.4 seconds 14.6 seconds (10/25/17 1:05 PM) (10/25/17 2:23 AM) (10/23/17 10:33 PM) INR [0.85-1.17] 1.05 1.02 1.14 (10/25/17 1:05 PM) (10/25/17 2:23 AM) (10/23/17 10:33 PM) PTT [22.9-35.8 seconds] 33.6 seconds 30.0 seconds 29.1 seconds (10/25/17 1:05 PM) (10/25/17 2:23 AM) (10/23/17 10:33 PM) ACT (TEG) Rapid [86-118 105 seconds seconds] (10/23/17 10:33 PM) Split Point Rapid 0.5 minutes *NA* (10/23/17 10:33 PM) R-time Rapid [0.4-0.7 0.6 minutes minutes] (10/23/17 10:33 PM) K-time Rapid [0.6-2.3 1.7 minutes minutes] (10/23/17 10:33 PM) Angle Rapid [64-80 degrees] 71 degrees (10/23/17 10:33 PM) Max Amplitude Rapid [52-71 57 mm mm] (10/23/17 10:33 PM) G-value Rapid [5.0-11.6 K 6.6 K d/sc d/sc] (10/23/17 10:33 PM) Estimated % Lysis Rapid 2.4 % [0.0-7.5 %] (10/23/17 10:33 PM) ASA Effect Plt 461 ARU 465 ARU *NA* *NA* (10/25/17 6:49 AM) (10/24/17 1:40 AM) Plav Effect Plt 110 PRU 108 PRU *NA* *NA* (10/25/17 6:49 AM) (10/24/17 1:40 AM) Immunizations No data available for this section [...] 1; entered on: 11/15/17 Assessment and Plan Extracted from: Title: Cardiac Consultation Author: Nicko Brunson MD Date: 10/24/17 Patient: KRISTEN STEWART Age: 62 years Sex: Male : 1955 Associated Diagnoses: None Author: Nicko Brunson MD Basic Information Cardiology Consult Note Chief Complaint: L1 burst fracture, mechanical fall Reason for Consultation: CArdiac clearance Requesting Physician/Service: Michael Kay Assessment/Plan 62 year old male with PMH of HLD and CAD (s/p PCI to LAD 05/2017) admitted for mechanical fall with L1 burst fracture. Consulted for cardiac clearance #CAD - Previous PCI to LAD at [facility] by Dr. Jennifer Caba - Patient currently on DAPT - RCRI Cardiac risk score is low (0.9% risk of cardiac event) - Patient clear to undergo surgery from cardiac risk standpoint - Recommend indefinite continuation of ASA 81mg. You may hold clopidogrel 7mg prior to surgery, but please restart SAP after as patient is at risk for instent rethrombosis without DAPT - Additionally, please continue statin and ACEi Thank you for this consultation Plan discussed with attending MD. We will sign off. Please reconsult for any additional questions Nicko Brunson MD Resident Physician Department of Internal Medicine [employer] [facility] [employer] [facility] [employer] History of Present Illness: 62 year old male with mechanical fall resulting in L1 burst fracture Cardiac history includes HTN and CAD, (PCI [facility] LAD in 05/2017at [facility]). PAtient is also an active smoker. He is medically compliant. No active CP, SOB, pedal edema. NO orthopnea, PND, and patient is active . Home medications include ASA, plavix, lisinopril, atorvastatin Review of Systems Cons: No fevers, no chills, no weakness/fatigue Eyes: No vision changes, no eye pain. HENT: No rhinorrhea, no sore throat, no bleeding gums Card: No chest pain, no palpitations, no edema Resp: No shortness of breath, no cough, no sputum, no hemoptysis Abd: No abdominal pain, no nausea, no vomiting, no constipation, no diarrhea, no bloody stool severe back pain : No dysuria, no hematuria. Immunologic: Not immunocompromised. No chemotherapy/radiation recently MSK: Negative. BAkc muscle aches oand r pain. Normal strength and movement. Skin: No rashes, no skin changes. Ext: No edema, no joint swelling Neuro: No dizziness, no headache, no loss of sensation/numbness/tingling Physical Exam:Vitals Tmp(F) Pulse BP RR SpO2 FIO2 10/24 12:00 96.4 69 110/68 24 96 --- 10/24 11:00 ---- 48 ----- 14 95 --- 10/24 10:00 ---- 49 139/78 14 97 --- 10/24 09:00 ---- 48 141/76 16 95 --- 10/24 08:00 96.9 59 136/81 18 96 --- 24 Hr Tmax: 98.3F (36.83c) at 04/03 21:30 Vital Signs are the last 5 in the past 48 hours. I&O Record In Out Bal 10/24 24hr Tot 461 0 461 10/23 24hr Tot 0 0 0 Exam: Physical Exam General: Awake and alert, in mild distress HEENT: NC/AT, no scleral icterus, moist mucus membranes, PERRL Neck: Supple, NT, No LAD Cardio: Regular rate and rhythm, no murmurs, +s1s2, no gallops. Extremities with good peripheral pulsations. No JVD Pulm: Clear to auscultation bilaterally, no wheezes or crackles Abdomen: Normal bowel sounds, soft, non-tender, non-distended Extremities: No edema. No deformities/amputations Skin: Warm and well perfused, no rashes Neuro: Alert and oriented, no focal deficits Lines, Tubes, and Drains: 10/24/2017 10:00 Peripheral Lines: Forearm Left 20 gauge Over the needle catheter Past Medical HistoryNo qualifying data available Social HistoryAlcohol Details: Never Tobacco Details: Use: Heavy tobacco smoker. Type: Cigars. 1 per day. Ready to change : No. Household tobacco concerns: No. Tobacco smoke exposure: None. Did the Patient Smoke Cigarettes Anytime During the Last 365 Days? No. Cessation Counseling Provided? No. Substance Abuse Details: Use: Current. Type: Marijuana. Amount: occasionally.Stent placement : 06/07/17 Past Procedures:Family Medical History No qualifying data available Allergies Allergies (1) Active Reaction penicillin None documented MedicationsUnscheduled Meds: None Scheduled Meds (8): 10/23/17 acetaminophen 650 mg PO Q4H 10/24/17 aspirin 81 mg PO Daily 10/24/17 docusate 100 mg PO Q12H 10/24/17 enoxaparin (Lovenox) 30 mg SUB-Q [id number] 10/24/17 polyethylene glycol 3350 17 gm PO Daily 10/24/17 pregabalin (Lyrica) 100 mg PO Q8Hnow 10/24/17 senna 8.6 mg PO Q12H 10/24/17 sodium chloride (Saline Flush 0.9%) 10 ml IVP Q12H PRN Meds (11): 10/23/17 Dextrose 50% in Water IV (Dextrose 50% Syringe) 25 gm IVP PRN 10/23/17 Dextrose 50% in Water IV (Dextrose 50% Syringe) 12.5 gm IVP PRN 10/23/17 Dextrose 50% in Water IV (Dextrose 50% Syringe) 6.25 gm IVP PRN 10/23/17 Insulin regular (insulin regular 100 units/mL human recombinant) 3 unit SUB-Q PRN 10/23/17 Insulin regular (insulin regular 100 units/mL human recombinant) 5 unit SUB-Q PRN 10/23/17 Insulin regular (insulin regular 100 units/mL human recombinant) 7 unit SUB-Q PRN 10/23/17 acetaminophen-hydrocodone (acetaminophen-hydrocodone 325 mg-10 mg oral tablet) 1 tab PO Q4H 10/23/17 bisacodyl 10 mg OH Daily 10/23/17 morphine Sulfate 2 mg IVP Q1H 10/23/17 ondansetron 4 mg IVP Q8H 10/23/17 sodium chloride (Saline Flush 0.9%) 10 ml IVP PRN One Time Meds (5): 10/23/17 (Discontinued) ceFAZolin (Ancef) 2 gm IVPB ONCE 10/24/17 (Completed) fentaNYL 50 microgram IV ONCE 10/23/17 (Completed) hydromorphone 1 mg IVP ONCE 10/23/17 (Completed) morphine Sulfate 4 mg IVP ONCE 10/23/17 (Discontinued) ondansetron (Zofran) 4 mg IVP ONCE Continuous Infusions (1): 10/23/17 Sodium Chloride 0.9% IV 1,000 mL 1,000 mL 75 ml/hr Medications (25) Active Scheduled Meds (8): 10/23/17 acetaminophen 650 mg PO Q4H 10/24/17 aspirin 81 mg PO Daily 10/24/17 docusate 100 mg PO Q12H 10/24/17 enoxaparin (Lovenox) 30 mg SUB-Q [id number] 10/24/17 polyethylene glycol 3350 17 gm PO Daily 10/24/17 pregabalin (Lyrica) 100 mg PO Q8Hnow 10/24/17 senna 8.6 mg PO Q12H 10/24/17 sodium chloride (Saline Flush 0.9%) 10 ml IVP Q12H Unscheduled Meds: None PRN Meds (11): 10/23/17 Dextrose 50% in Water IV (Dextrose 50% Syringe) 25 gm IVP PRN 10/23/17 Dextrose 50% in Water IV (Dextrose 50% Syringe) 12.5 gm IVP PRN 10/23/17 Dextrose 50% in Water IV (Dextrose 50% Syringe) 6.25 gm IVP PRN 10/23/17 Insulin regular (insulin regular 100 units/mL human recombinant) 3 unit SUB-Q PRN 10/23/17 Insulin regular (insulin regular 100 units/mL human recombinant) 5 unit SUB-Q PRN 10/23/17 Insulin regular (insulin regular 100 units/mL human recombinant) 7 unit SUB-Q PRN 10/23/17 acetaminophen-hydrocodone (acetaminophen-hydrocodone 325 mg-10 mg oral tablet) 1 tab PO Q4H 10/23/17 bisacodyl 10 mg OH Daily 10/23/17 morphine Sulfate 2 mg IVP Q1H 10/23/17 ondansetron 4 mg IVP Q8H 10/23/17 sodium chloride (Saline Flush 0.9%) 10 ml IVP PRN One Time Meds (5): 10/23/17 (Discontinued) ceFAZolin (Ancef) 2 gm IVPB ONCE 10/24/17 (Completed) fentaNYL 50 microgram IV ONCE 10/23/17 (Completed) hydromorphone 1 mg IVP ONCE 10/23/17 (Completed) morphine Sulfate 4 mg IVP ONCE 10/23/17 (Discontinued) ondansetron (Zofran) 4 mg IVP ONCE Continuous Infusions (1): 10/23/17 Sodium Chloride 0.9% IV 1,000 mL 1,000 mL 75 ml/hr Medication List Active Medications Ordered acetaminophen: 650 mg, 2 tab, PO, Q4H. acetaminophen-hydrocodone: 1 tab, PO, Q4H, PRN: Pain Score 4-6. aspirin: 81 mg, 1 tab, PO, Daily. bisacodyl: 10 mg, 1 supp, OH, Daily, PRN: Constipation. Dextrose 50% in Water IV: 6.25 gm, 12.5 mL, IVP, PRN, PRN: Abnormal Lab Result. Dextrose 50% in Water IV: 25 gm, 50 mL, IVP, PRN, PRN: Abnormal Lab Result. Dextrose 50% in Water IV: 12.5 gm, 25 mL, IVP, PRN, PRN: Abnormal Lab Result. docusate: 100 mg, 1 cap, PO, Q12H. enoxaparin: 30 mg, 0.3 mL, SUB-Q, [id number]. Insulin regular: 3 unit, 0.03 mL, SUB-Q, PRN, PRN: Abnormal Lab Result. Insulin regular: 5 unit, 0.05 mL, SUB-Q, PRN, PRN: Abnormal Lab Result. Insulin regular: 7 unit, 0.07 mL, SUB-Q, PRN, PRN: Abnormal Lab Result. morphine Sulfate: 2 mg, 0.5 mL, IVP, Q1H, PRN: Pain Score 7-10. ondansetron: 4 mg, 2 mL, IVP, Q8H, PRN: Nausea & Vomiting. polyethylene glycol 3350: 17 gm, 1 pkt, PO, Daily. pregabalin: 100 mg, 1 cap, PO, Q8Hnow. senna: 8.6 mg, 1 tab, PO, Q12H. sodium chloride: 10 ml, IVP, Q12H. sodium chloride: 10 ml, IVP, PRN, PRN: Line Flush. Sodium Chloride 0.9% IV 1,000 mL: 75 ml/hr, IV, Stop: 11/22/17 23:33:00 CDT. Suspended aspirin: 325 mg, PO, Daily. atorvastatin: 80 mg, PO, Bedtime. clopidogrel: 75 mg, 1 tab, PO, Daily. lisinopril: 5 mg, 1 tab, PO, Daily. Medications Inactivated in the Last 72 Hours ceFAZolin: 2 gm, IVPB, ONCE. fentaNYL: 100 microgram, 2 mL, PYXIS, ONCE. fentaNYL: 50 microgram, IV, ONCE. hydromorphone: 1 mg, IVP, ONCE. hydromorphone: 2 mg, 1 mL, PYXIS, ONCE. morphine Sulfate: 4 mg, 1 mL, IVP, ONCE. ondansetron: 4 mg, IVP, ONCE.Pertinent Labs: Reviewed and discussed Pertinent Imaging: Reviewed Addendum by Isac Salas MD on 10/24/2017 16:19 I have seen and examined the patient with Dr. Brunson and agree with history, physical exam, assessment, and plan as described in today's note. The patient underwent PCI to LAD in 05/2017 for ACS. Now admi tted after fall requiring surgery. The patient is active without exertional chest pain. No hx of HF or abnormal cardiac arrhythmias. Given need for surgery , agree with holding clopidogrel. Please contin ue aspirin, if possible, given PCI. Would resume clopidogrel as soon as possible. Discussed the importance of smokining cessation given current tobacco use.
== END 2018-07-12 02:29 | disposition home or self-care (01) ==
LOC: ER 22:50
DX: R33.9 Retention of urine, unspecified (principal); I10 Essential (primary) hypertension; E78.5 Hyperlipidemia, unspecified; Z88.0 Allergy status to penicillin
CPT/HCPCS: 36415; 74177; 80048; 80076; 81003; 85025; 87086; 87088; 99284; Q9967

== ENCOUNTER 2018-07-17 09:32 | Emergency (ER) | payer SELFPAY ==
--- OUTSIDE RECORDS SUMMARY | 2018-07-17 09:40 | XMS REPORT | Continuity of Care Document ---
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 [facility] Center Fall from, out of 02/02/2018 [facility] or through roof, Medical initial encounter Center Essential 02/02/2018 [facility] hypertension Medical Center Nicotine 02/02/2018 [facility] dependence, Medical cigarettes, Center uncomplicated Hyperlipidemia, 02/02/2018 [facility] unspecified Medical Center 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 [facility] Center 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 Presence of 02/02/2018 [facility] coronary Medical angioplasty implant Center and graft STABLE BURST Active [facility] FRACTURE OF UNSP Medical LUMBAR RAHEEL Center Medications Medication Details Route Status Patient Ordering Order Source Instructions Provider Date Acetaminophen 325 1 tab, PO, Q6H, [facility]one # 90, 0 [...] 28 2018 Medical Capsule cap, 0 Refill(s) [place] Cyclobenzaprine 10 mg, PO, TID, No Longer [facility] hydrochloride 10 PRN Muscle Active 2018 Medical MG Oral Tablet Spasm, X 14 day, Center [Flexeril] # 40 tab, 0 Refill(s) Acetaminophen 300 1 tab, PO, Q6H, No Longer [facility] MG / Codeine PRN Pain, X 14 Active 2018 Medical Phosphate 30 MG day, # 50 tab, 0 Center Oral Tablet Refill(s) [Tylenol with Codeine #3] pregabalin 100 mg 100 mg=1 cap, Active [place] oral capsule PO, Q8Hnow, # 42 2018 Medical cap, 0 Refill(s) [place] Lovenox 30 mg, 0.3 mL, No Longer [facility] Route: SUB-Q, Active 2017 Medical Drug form: INJ, [place] [id number], Dosing Weight 79.545, kg, Start date: 10/26/17 21:00:00 CDT, Duration: 30 day, Stop date: 11/25/17 9:00:00 CDTNotes: (Same as: Lovenox) Vancomycin 1 gm, Route: No Longer [place] IVPB, Drug form: Active 2018 [facility] INJ, [id number], [place] Dosing Weight 79.545, kg, Start date: 10/25/17 [...] sugammadex 500 mg, 5 mL, No Longer [place] Route: IV, Drug Active 2018 Medical form: SOLN, [place] ONCALL, Start date: 10/25/17 13:00:00 CDT, Duration: 1 doses or times, Stop date: 10/25/17 14:00:00 CDTNotes: (Same as: [place]) Acetaminophen 325 2 tab, Route: No Longer [facility] MG / Hydrocodone PO, Drug Form: Active 2018 Medical Bitartrate 10 MG TAB, Dosing Center Oral Tablet Weight 79.545, [[place] 10/325] kg, Q4H, PRN Pain Score 7-10, Start date: 10/25/17 12:25:00 CDT, Duration: 30 day, Stop date: 11/24/17 12:24:00 CDTNotes: Do not exceed 4gm/day of acetaminophen. (Same as: [place] 325/10) Hydralazine 10 mg, 0.5 mL, No Longer [facility] Route: IVP, Drug Active 2017 Medical form: INJ, Q2H, Center Dosing Weight 79.545, kg, PRN Hypertension, Start date: 10/25/17 12:25:00 CDT, Duration: 30 day, Stop date: 11/24/17 12:24:00 CDTNotes: (Same as: Apresoline) Push over 5 minutes Zofran 4 mg, 2 mL, No Longer [facility] Route: IVP, Drug Active 2017 Medical form: INJ, Q8H, Center Dosing Weight 79.545, kg, PRN as needed for nausea/vomiting, Priority: Routine, Start date: 10/25/17 12:25:00 CDT, Duration: 30 day, Stop date: 11/24/17 12:24:00 CDTNotes: (Same as: Zofran) MEDICATION WASTE Product Size: 4 mg Product Wasted: ___ mg tramadol 50 mg, 1 tab, No Longer [place] hydrochloride 50 Route: PO, Drug Active 2018 Medical MG Oral Tablet form: TAB, Q6H, Center Dosing Weight 79.545, kg, PRN Pain Score 1-3, Priority: Routine, Start date: 10/25/17 12:25:00 CDT, Stop date: 11/24/17 12:24:00 CDTNotes: Not to exceed 400mg/day. (Same As: Ultram) Morphine 2 mg, 0.5 mL, No Longer [facility] Route: IVP, Drug Active 2017 Medical [...] form: INJ, ONCE, 2017 Medical Stop date: [place] 10/25/17 11:06:00 CDT hydromorphone Route: IV, Drug Inactive Aisha (ANES) form: INJ, ONCE, 2017 Medical Stop date: [place] 10/25/17 11:06:00 CDT rocuronium (ANES) Route: IV, Drug Inactive Aisha form: INJ, ONCE, 2017 Medical Stop date: [place] 10/25/17 11:06:00 CDT lidocaine (ANES) Route: IV, Drug Inactive Aisha form: INJ, ONCE, 2017 Medical Stop date: [place] 10/25/17 11:06:00 CDT propofol (ANES) Route: IV, Drug Inactive Aisha form: INJ, ONCE, 2017 Medical Stop date: [place] 10/25/17 11:06:00 CDT midazolam (ANES) Route: IV, Drug Inactive Aisha form: SOLN, 2018 Medical ONCE, Stop date: [place] 10/25/17 11:06:00 CDT ePHEDrine (ANES) Route: IV, Drug Inactive Aisha form: INJ, ONCE, 2018 Medical Stop date: [place] 10/25/17 10:56:00 CDT dexamethasone Route: IV, Drug Inactive Aisha (ANES) form: INJ, ONCE, 2018 Medical Stop date: [place] 10/25/17 10:56:00 CDT Sodium Chloride Route: IV, Drug Inactive Aisha 0.9% IV (ANES) form: INJ, Start 2018 [facility] 235 mL + date: 10/25/17 [place] vancomycin (ANES) 9:25:00 CDT, 1500 mg Stop date: 10/25/17 10:25:00 CDT dexmedetomidine Route: IV, Drug Inactive Aisha (ANES) 200 form: INJ, Start 2018 Medical microgram date: 10/25/17 [place] 8:50:00 CDT, Stop date: 10/25/17 9:50:00 CDT Lactated Ringers Route: IV, Total Inactive Aisha Injection IV Volume: 1,000, 2018 Medical (ANES) 1000 mL Start date: [place] 10/25/17 8:38:00 CDT, Stop date: 10/25/17 9:38:00 CDT Ondansetron 4 mg, Route: Inactive Aisha IVP, ONCE, 2018 Medical Dosing Weight Center 79.545, kg, PRN Nausea & Vomiting, Start date: 10/25/17 8:05:00 CDT Naloxone 0.4 mg, Route: Inactive Aisha IVP, Q2MIN, 2018 Medical Dosing Weight [place] 79.545, kg, PRN Narcotic Reversal, Start date: 10/25/17 8:05:00 CDT, Duration: 8 doses or times, Stop date: Limited # of times Flumazenil 0.2 mg, Route: Inactive Aisha IVP, PRN, Dosing 2018 Medical Weight 79.545, Center kg, PRN Benzodiazepine Reversal, Initial dose, Start date: 10/25/17 8:05:00 CDT, Duration: 30 day, Stop date: 11/24/17 8:04:00 CDT Hydromorphone 0.5 mg, Route: Inactive [place] IVP, Q5Min, 2018 Medical Dosing Weight Center 79.545, kg, PRN Pain Score 7-10, Start date: 10/25/17 8:05:00 CDT, Duration: 4 doses or times, Stop date: Limited # of times Oxycodone 5 mg, Route: PO, Inactive [facility] Drug form: TAB, 2018 Medical Q4H, Dosing Center Weight 79.545, kg, PRN Pain Score 4-6, Start date: 10/25/17 8:05:00 CDT, Duration: 30 day, Stop date: 11/24/17 8:04:00 CDT Labetalol 10 mg, Route: Inactive [facility] IVP, Q5Min, 2018 Medical Dosing Weight Center 79.545, kg, PRN Elevated BP, Start date: 10/25/17 8:05:00 CDT, Duration: 5 doses or times, Stop date: Limited # of times Hydralazine 10 mg, Route: Inactive [facility] IVP, Q20Min, 2018 Medical Dosing Weight Center 79.545, kg, PRN Elevated BP, Start date: 10/25/17 8:05:00 CDT, Duration: 2 doses or times, Stop date: Limited # of times Lovenox 30 mg, 0.3 mL, Inactive [facility] Route: SUB-Q, 2018 Medical Drug form: INJ, Center [id number], Start date: 10/24/17 14:00:00 CDT, Duration: 30 day, Stop date: 11/23/17 2:00:00 CDTNotes: (Same as: Lovenox) Aspirin 81 mg, 1 tab, No Longer [facility] Route: PO, Drug Active 2018 Medical form: ECTAB, Center Daily, Dosing Weight 79.545, kg, Start date: 10/24/17 14:00:00 CDT, Duration: 30 day, Stop date: 11/23/17 9:00:00 CDTNotes: Do not crush or chew. (Same As: Ecotrin) Saline Flush 0.9% 10 ml, Route: No Longer [facility] IVP, Drug Form: Active 2018 Medical INJ, Dosing Center Weight 79, kg, Q12H, Start date: 10/24/17 9:00:00 CDT, Duration: 30 day, Stop date: 11/22/17 21:00:00 CDTNotes: (Same as: BD Posiflush) Docusate 100 mg, 1 cap, No Longer [facility] Route: PO, Drug Active 2017 Medical form: CAP, Q12H, Center Dosing Weight 79, kg, Start date: 10/24/17 9:00:00 CDT, Duration: 30 day, Stop date: 11/22/17 21:00:00 CDTNotes: (Same as: Colace) (Do Not Crush) sennosides, ALF 8.6 mg, 1 tab, No Longer [facility] Route: PO, Drug Active 2017 Medical Form: TAB, Center Dosing Weight 79, kg, Q12H, Start date: 10/24/17 9:00:00 CDT, Duration: 30 day, Stop date: 11/22/17 21:00:00 CDTNotes: (Same as: Senokot) POLYETHYLENE 17 gm, 1 pkt, No Longer [facility] [id number] [id number] Route: PO, Drug Active 2017 Medical form: PWDR, Center Daily, Dosing Weight 79, kg, Start date: 10/24/17 9:00:00 CDT, Duration: 30 day, Stop date: 11/22/17 9:00:00 CDTNotes: Dissolve in 8 oz of water or juice. (Same as: Miralax) Lyrica 100 mg, 1 cap, No Longer [facility] Route: PO, Drug Active 2017 Medical form: CAP, Center Q8Hnow, Dosing Weight 79.545, kg, Start date: 10/24/17 6:00:00 CDT, Duration: 30 day, Stop date: 11/22/17 22:00:00 CDTNotes: (Same as: Lyrica) clopidogrel 75 MG 75 mg=1 tab, PO, Active [facility] Oral Tablet Daily 2018 [facility] [Plavix] Center Aspirin 325 mg, PO, Active [facility] Daily 2018 [facility] lisinopril 5 mg 5 mg=1 tab, PO, Active [facility] oral tablet Daily 2018 [facility] Center atorvastatin 80 mg, PO, Active [facility] Bedtime 2018 Medical Center Fentanyl 50 microgram, Inactive [facility] Route: IV, ONCE, 2018 Medical Dosing Weight Center 79, kg, Start date: 10/24/17 4:32:00 CDT, Stop date: 10/24/17 4:32:00 CDT Morphine 4 mg, 1 mL, No Longer [facility] Route: IVP, Drug Active 2017 Medical form: SOLN, Center ONCE, Dosing Weight 79, kg, Priority: STAT, Start date: 10/23/17 23:54:00 CDT, Stop date: 10/23/17 23:54:00 CDTNotes: (Same as:MORPhine Sulfate) Dextrose 50% 25 gm, 50 mL, No Longer [facility] Syringe Route: IVP, Drug Active 2017 Medical Form: INJ, Center Dosing Weight 79, kg, PRN, PRN Abnormal Lab Result, Start date: 10/23/17 23:34:00 CDT, Duration: 30 day, Stop date: 11/22/17 23:33:00 CDT Regular Insulin, 5 unit, 0.05 mL, No Longer [facility] Human 100 UNT/ML Route: SUB-Q, Active 2017 Medical Injectable Drug form: SOLN, [place] Solution PRN, Dosing Weight 79, kg, PRN [...] Flush 0.9% 10 ml, Route: No Longer [facility] IVP, Drug Form: Active 2018 Medical INJ, Dosing Center Weight 79, kg, PRN, PRN Line Flush, Start date: 10/23/17 23:34:00 CDT, Duration: 30 day, Stop date: 11/22/17 23:33:00 CDTNotes: (Same as: BD Posiflush) Ondansetron 4 mg, 2 mL, No Longer [place] Route: IVP, Drug Active 2017 Medical form: INJ, Q8H, Center Dosing Weight 79, kg, PRN Nausea & Vomiting, Start date: 10/23/17 23:34:00 CDT, Duration: 30 day, Stop date: 11/22/17 23:33:00 CDTNotes: (Same as: Rambo) MEDICATION WASTE Product Size: 4 mg Product Wasted: ___ mg Bisacodyl 10 mg, 1 supp, No Longer [place] Route: MI, Drug Active 2017 Medical form: SUPP, Center Daily, Dosing Weight 79, kg, PRN Constipation, Start date: 10/23/17 23:34:00 CDT, Duration: 30 day, Stop date: 11/22/17 23:33:00 CDTNotes: (Same As: Dulcolax, [place]-Lax) Acetaminophen 325 1 tab, Route: No Longer [place] MG / Hydrocodone PO, Drug Form: Active 2018 Medical Bitartrate 10 MG TAB, Dosing Center Oral Tablet Weight 79, kg, Q4H, PRN Pain Score 4-6, Start date: 10/23/17 23:34:00 CDT, Duration: 30 day, Stop date: 11/22/17 23:33:00 CDTNotes: Do not exceed 4gm/day of acetaminophen. (Same as: [place] 325/10) Morphine 2 mg, 0.5 mL, No Longer [place] Route: IVP, Drug Active 2017 Medical form: SOLN, Q1H, Center Dosing Weight 79, kg, PRN Pain Score 7-10, Start date: 10/23/17 23:34:00 CDT, Duration: 30 day, Stop date: 11/22/17 23:33:00 CDTNotes: (Same as:MORPhine Sulfate) Acetaminophen 650 mg, 2 tab, No Longer [place] Route: PO, Drug Active 2017 Medical form: TAB, Q4H, Center Dosing Weight 79, kg, Start date: 10/23/17 23:34:00 CDT, Stop date: 11/23/17 0:00:00 CDTNotes: Do not exceed 4 gm/day. (Same as: Tylenol) Sodium Chloride 1,000 mL, Rate: No Longer [facility] 0.9% IV 1,000 mL 75 ml/hr, Infuse Active 2018 Medical over: 13.3 hr, Center Route: IV, Dosing Weight 79 kg, Total Volume: 1,000, Start date: 10/23/17 23:34:00 CDT, Duration: 30 day, Stop date: 11/22/17 23:33:00 CDT, 2.02, m2 Hydromorphone 1 mg, Route: Inactive [facility] IVP, ONCE, 2018 Medical Dosing Weight Center 79, kg, Priority: STAT, Start date: 10/23/17 22:35:00 CDT, Stop date: 10/23/17 22:35:00 CDT Zofran 4 mg, Route: Inactive [facility] IVP, Drug form: 2018 Medical INJ, ONCE, Center Dosing Weight 79, kg, Priority: STAT, Start date: 10/23/17 22:27:00 CDT, Stop date: 10/23/17 22:27:00 CDT Ancef 2 gm, Route: Inactive [facility] IVPB, ONCE, 2018 Medical Dosing Weight Center 79, kg, Priority: STAT, Start date: 10/23/17 22:27:00 CDT, Stop date: 10/23/17 22:27:00 CDT, ABX Indication: Skin/Soft Tissue Infection Allergies, Adverse Reactions, Alerts Substance Category Reaction Severity Reaction Status Date Comments Source type Reported penicillin Assertion Drug Active [facility] allergy [facility] Immunizations Immunization Date Given Site Status Last Updated Comments Source Results Order Name Results Value Reference Date Interpretation Comments Source Range ELECTROLYTE AGAP 11.0 meq/L 10.0 - 10/25 [facility] S 20.0 Medical Center ELECTROLYTE eGFR 92 10/25 Result Comment: The eGFR is calculated using the CKD-EPI formula. In most young, healthy individuals the eGFR will be >90 mL/ min/1.73m2. The eGFR declines with age. An eGFR of 60-89 may be normal in [facility] mL/min/1.73 /2017 some populations, particularly the elderly, for whom the CKD-EPI formula has not been extensively validated. Use of the eGFR is not recommended in the following populations: [address] Individuals with unstable creatinine concentrations, including [...] Lvl 7.5 mg/dL 8.5 - 10.5 10/25 [facility] ELECTROLYTE Sodium Lvl 141 meq/L 135 - 145 10/[address] ELECTROLYTE Potassium 4.0 meq/L 3.5 - 5.1 10/25 [facility] ELECTROLYTE Chloride Lvl 109 meq/L 95 - 109 10/[address] ELECTROLYTE CO2 25 meq/L 24 - 32 10/[address] ELECTROLYTE Glucose Lvl 117 mg/dL 70 - 99 10/[address] ELECTROLYTE Creatinine 0.88 mg/dL 0.50 - 10/25 [facility] Lvl 1.40 [facility] ELECTROLYTE BUN 10 mg/dL 7 - 22 10/[address] HEMATOLOGY MPV 7.6 fL 7.4 - 10.4 10/[address] HEMATOLOGY MCV 93.9 fL 80.0 - 10/25 94.0 [facility] HEMATOLOGY Hct 38.8 % 42.0 - 04 54.0 [facility] HEMATOLOGY Hgb 13.3 g/dL 14.0 - 04 18.0 [facility] HEMATOLOGY Platelet 155 K/CMM 133 - 450 10/[address] HEMATOLOGY RDW 14.5 % 11.5 - 04 14.5 [facility] HEMATOLOGY MCHC 34.2 g/dL 32.0 - 04 36.0 [facility] HEMATOLOGY MCH 32.1 pg 27.0 - 10/25 31.0 [facility] HEMATOLOGY RBC 4.13 M/CMM 4.70 - 04 [place] 6.10 [facility] HEMATOLOGY WBC 9.9 K/CMM 3.7 - 10.4 10/[address] HEMATOLOGY PTT 33.6 s 22.9 - 04/ [place] 35.8 /2017 [facility] HEMATOLOGY PT 13.7 s 12.0 - 04/05 [place] 14.7 /2017 [facility] HEMATOLOGY INR 1.05 0.85 - 04/ [place] 1.17 /2017 [facility] HEMATOLOGY Monocytes # 0.5 K/CMM 0.0 - 0.8 04/ [place] /2017 [facility] HEMATOLOGY Lymphocytes 0.7 K/CMM 1.0 - 5.5 04/ [place] # /2018 [facility] HEMATOLOGY Monocytes 4.6 % 2.0 - 12.0 04/ [place] [facility] HEMATOLOGY Eosinophils 0.2 % 0.0 - 4.0 10/25 [facility] HEMATOLOGY Basophils 0.3 % 0.0 - 1.0 10/25 [place] /2017 [facility] HEMATOLOGY Segs-Bands # 8.7 K/CMM 1.5 - 8.1 10/25 [place] [facility] HEMATOLOGY Lymphocytes 7.1 % 20.0 - 0405 [place] 40.0 /2017 [facility] HEMATOLOGY Segs 87.8 % 45.0 - 04/ [place] 75.0 /2017 [facility] HEMATOLOGY Plav Effect 110 PRU 10/25 [facility] Plt /2017 [facility] HEMATOLOGY ASA Effect 461 ARU 04 [facility] Plt /2017 [facility] BLOOD BANK Antibody Negative 10/25 [facility] RESULTS Scrn [facility] (10/25/17 2:23 AM) [place] BLOOD BANK ABO/Rh A POS 10/25 [facility] RESULTS /2017 [facility] CARDIAC Troponin-T null 0.000 - 10/25 [facility] ENZYMES 0.100 /2017 [facility] CARDIAC Total CK 174 unit/L 12 - 191 10/25 [facility] ENZYMES /2018 [facility] CARDIAC Troponin-I null 0.00 - 0405 [facility] ENZYMES 0.40 [facility] CARDIAC CK MB Index 0.9 0.0 - 2.5 04 [facility] ENZYMES /2018 [facility] CARDIAC CK MB 1.5 ng/mL 0.5 - 3.6 10/25 [facility] ENZYMES /2018 [facility] ELECTROLYTE AGAP 14.0 meq/L 10.0 - 0405 [place] S 20.0 [facility] ELECTROLYTE eGFR 88 10/25 Result Comment: The eGFR is calculated using the CKD-EPI formula. In most young, healthy individuals the eGFR will be >90 mL/ min/1.73m2. The eGFR declines with age. An eGFR of 60-89 may be normal in [facility] mL/min/1.73 /2017 some populations, particularly the elderly, [...] Lvl 7.9 mg/dL 8.5 - 10.5 10/[address] ELECTROLYTE Creatinine 0.93 mg/dL 0.50 - 10/25 [facility] Lvl 1.40 [facility] ELECTROLYTE Sodium Lvl 139 meq/L 135 - 145 10/[address] ELECTROLYTE BUN 13 mg/dL 7 - 22 10/[address] ELECTROLYTE Glucose Lvl 98 mg/dL 70 - 99 10/[address] ELECTROLYTE CO2 21 meq/L 24 - 32 10/[address] ELECTROLYTE Potassium 4.0 meq/L 3.5 - 5.1 10/25 [facility] [address] [place] [address] ELECTROLYTE Chloride Lvl 108 meq/L 95 - 109 10/[address] HEMATOLOGY Lymphocytes 2.3 K/CMM 1.0 - 5.5 10/[address] HEMATOLOGY Monocytes # 0.9 K/CMM 0.0 - 0.8 10/[address] HEMATOLOGY Segs-Bands # 4.2 K/CMM 1.5 - 8.1 10/[address] HEMATOLOGY Eosinophils 0.1 K/CMM 0.0 - 0.5 10/[address] HEMATOLOGY Basophils 0.6 % 0.0 - 1.0 10/[address] HEMATOLOGY Eosinophils 1.1 % 0.0 - 4.0 10/[address] HEMATOLOGY Lymphocytes 30.7 % 20.0 - 04 [facility] [place] 40.0 /2017 [facility] HEMATOLOGY Monocytes 12.2 % 2.0 - 12.0 04/ [facility] HEMATOLOGY Segs 55.4 % 45.0 - 04/05 [place] 75.0 [facility] HEMATOLOGY RDW 14.1 % 11.5 - 04/05 [place] 14.5 /2017 [facility] HEMATOLOGY MCHC 34.3 g/dL 32.0 - 10/25 [place] 36.0 [facility] HEMATOLOGY MCH 32.0 pg 27.0 - 04 [place] 31.0 [facility] HEMATOLOGY MCV 93.3 fL 80.0 - 10/25 [place] 94.0 [facility] HEMATOLOGY Hct 41.7 % 42.0 - 10/25 [place] 54.0 [facility] HEMATOLOGY MPV 7.4 fL 7.4 - 10.4 10/25 [facility] HEMATOLOGY Platelet 166 K/CMM 133 - 450 04 [facility] HEMATOLOGY Hgb 14.3 g/dL 14.0 - 0405 [place] 18.0 [facility] HEMATOLOGY RBC 4.47 M/CMM 4.70 - 10/25 [place] 6.10 /2017 [facility] HEMATOLOGY WBC 7.5 K/CMM 3.7 - 10.4 04 [facility] HEMATOLOGY INR 1.02 0.85 - 10/25 [place] 1.17 /2017 [facility] HEMATOLOGY PTT 30.0 s 22.9 - 10/25 [place] 35.8 /2017 [facility] HEMATOLOGY PT 13.4 s 12.0 - 05 [place] 14.7 /2017 [facility] CARDIAC Troponin-T null 0.000 - 10/24 [place] ENZYMES 0.100 /2017 [facility] CARDIAC Troponin-I null 0.00 - 10/24 [place] ENZYM[place] 0.40 /2017 [facility] CARDIAC Total CK 235 unit/L 12 - 191 10/24 [facility] ENZYMES /2017 [facility] CARDIAC CK MB Index 0.9 0.0 - 2.5 10/24 [facility] ENZYMES /2018 [facility] CARDIAC CK MB 2.1 ng/mL 0.5 - 3.6 10/24 [facility] ENZYMES /[address] [place] [address] CARDIAC Troponin-T null 0.000 - 10/24 [place] ENZYMES 0.100 /2017 [facility] CARDIAC Troponin-I null 0.00 - 10/24 [facility] [place] ENZYMES 0.40 /2017 [facility] CARDIAC Total CK 384 unit/L 12 - 191 10/24 [facility] ENZYMES /2018 [facility] CARDIAC CK MB Index 0.8 0.0 - 2.5 10/24 [place] ENZYMES /2017 [facility] CARDIAC CK MB 3.2 ng/mL 0.5 - 3.6 10/24 [facility] ENZYMES /2018 [facility] Brain-Outsi Brain-Outsid EXAM: CT BRAIN WITHOUT CONTRAST 10/24 - [facility] de Consult e Consult CT - Medical CT This report was dictated by a Bicycle Racer/Fellow. I have personally reviewed the images as [...] were obtained at outside facility, uploaded onto [facility] [place] [facility] PACS for second interpretation. FINDINGS: Non-contrast images [...] CT CERVICAL SPINE WITHOUT CONTRAST 10/24 - [facility] de Consult e Consult CT /2017 - [facility] CT Center DATE: 10/24/2017 7:46 AM CDT Read by: Lashay Cornell MD Dictated Date/time: 10/24/17 10:01 Electronically Signed by: Lashay Cornell MD 10/24/17 10:08 FINAL REPORT INDICATION: - outside study CT CSPINE, second interpretation requested COMPARISON: None TECHNIQUE: Axial, coronal and sagittal noncontrast CT images of the cervical spine, obtained at [facility]. FINDINGS: The spine is imaged from the [...] abnormality. HEMATOLOGY Plav Effect 108 PRU 10/24 [facility] Plt /2017 [facility] Center HEMATOLOGY ASA Effect 465 ARU 10/24 [facility] Plt /2018 [facility] Center BLOOD BANK Antibody Negative 10/24 [facility] RESULTS Scrn /2017 Medical (10/24/17 12:12 AM) [place] BLOOD BANK ABO/Rh A POS 10/24 [facility] RESULTS /2018 [facility] Center CHEM PANEL Lactic Acid 0.8 mmol/L 0.5 - 2.2 10/24 [facility] WB /2018 [facility] Center ELECTROLYTE AGAP 15.0 meq/L 10.0 - 10/24 [facility] S 20.0 [facility] Center ELECTROLYTE eGFR 92 10/24 Result Comment: The eGFR is calculated using the CKD-EPI formula. In most young, healthy individuals the eGFR will be >90 mL/ min/1.73m2. The eGFR declines with age. An eGFR of 60-89 may be normal in [facility] S mL/min/1.73 /2018 some populations, particularly the elderly, for whom the CKD-EPI formula has not been extensively validated. Use of the eGFR is not recommended in the following populations: [place] [address] Center Individuals with unstable creatinine concentrations, including [...] CO2 22 meq/L 24 - 32 10/[address] ELECTROLYTE Calcium Lvl 8.6 mg/dL 8.5 - 10.5 10/[address] ELECTROLYTE Potassium 4.0 meq/L 3.5 - 5.1 10/24 [facility] Lvl /[address] [place] [address] ELECTROLYTE Chloride Lvl 105 meq/L 95 - 109 10/[address] ELECTROLYTE Creatinine 0.89 mg/dL 0.50 - 04 [facility] Lvl 1.40 [facility] ELECTROLYTE BUN 12 mg/dL 7 - 22 10/[address] ELECTROLYTE Sodium Lvl 138 meq/L 135 - 145 10/[address] ELECTROLYTE Glucose Lvl 112 mg/dL 70 - 99 10/[address] HEMATOLOGY Monocytes 5.6 % 2.0 - 12.0 10/[address] HEMATOLOGY Eosinophils 0.1 % 0.0 - 4.0 10/[address] HEMATOLOGY Lymphocytes 8.3 % 20.0 - 10/24 [facility] [address] HEMATOLOGY Segs 85.4 % 45.0 - 10/24 [facility] 75.[address] HEMATOLOGY Monocytes # 0.5 K/CMM 0.0 - 0.8 10/[address] HEMATOLOGY Basophils # 0.1 K/CMM 0.0 - 0.2 10/[address] HEMATOLOGY Lymphocytes 0.8 K/CMM 1.0 - 5.5 10/[address] HEMATOLOGY Segs-Bands # 8.3 K/CMM 1.5 - 8.1 10/[address] HEMATOLOGY Basophils 0.6 % 0.0 - 1.0 10/[address] HEMATOLOGY Estimated % 2.4 % 0.0 - 7.5 10/24 [facility] Lysis Rapid [address] HEMATOLOGY Max 57 mm 52 - 71 10/[address] HEMATOLOGY K-time Rapid 1.7 min 0.6 - 2.3 10/[address] HEMATOLOGY G-value 6.6 K d/sc 5.0 - 11.6 10/24 [facility] HEMATOLOGY Angle Rapid 71 degrees 64 - 80 10/24 [facility] HEMATOLOGY Split Point 0.5 min 10/24 [facility] HEMATOLOGY R-time Rapid 0.6 min 0.4 - 0.7 10/24 [facility] HEMATOLOGY ACT (TEG) 105 s 86 - 118 10/24 [facility] HEMATOLOGY PTT 29.1 s 22.9 - 10/24 35.8 [facility] HEMATOLOGY PT 14.6 s 12.0 - 10/24 14.7 [facility] HEMATOLOGY INR 1.14 0.85 - 10/24 1.17 [facility] HEMATOLOGY Platelet 189 K/CMM 133 - 450 10/24 [facility] HEMATOLOGY MPV 7.3 fL 7.4 - 10.4 10/24 [facility] HEMATOLOGY RDW 14.2 % 11.5 - 10/24 14.5 [facility] HEMATOLOGY Hgb 14.4 g/dL 14.0 - 10/24 18.0 [facility] HEMATOLOGY WBC 9.7 K/CMM 3.7 - 10.4 10/24 [facility] HEMATOLOGY RBC 4.48 M/CMM 4.70 - 10/24 6.10 [facility] HEMATOLOGY MCV 93.3 fL 80.0 - 10/24 94.0 [facility] HEMATOLOGY MCH 32.2 pg 27.0 - 10/24 31.0 [facility] HEMATOLOGY MCHC 34.5 g/dL 32.0 - 10/24 36.0 [facility] HEMATOLOGY Hct 41.8 % 42.0 - 10/24 54.0 [facility] Chest 1view Chest 1view EXAM: XR CHEST 1 VIEW 10/24 - [facility] DX - Medical This report was dictated by a Bicycle Racer/Fellow. I have personally reviewed the images as [...] MRI LUMBAR SPINE WITHOUT CONTRAST 10/24 - [facility] lumbar wo wo contrast /2017 - Medical contrast MRI This report was dictated by a Bicycle Racer/ Fellow. I have personally reviewed the images [...] agreement with previous preliminary report made by content analyst surgical resident. Torso-Outsi Torso-Outsid EXAM: CT CHEST WITH CONTRAST 10/23 - [facility] Consult e Consult CT - Medical CT EXAM: CT ABDOMEN AND PELVIS WITH CONTRAST This report was dictated by a Bicycle Racer/Fellow. I have personally reviewed the images as [...] Date Comments Source BMI Calculated 22.61 11/15/2017 [facility] Height 185.42 cm 11/15/2017 [facility] Weight 77.727 11/15/2017 [facility] Temperature Oral (F) 97.8 F 11/15/2017 [facility] Heart Rate 71 11/15/2017 [facility] Systolic (mm Hg) 115 11/15/2017 [facility] Diastolic (mm Hg) 74 11/15/2017 [facility] Systolic (mm Hg) 104 10/27/2017 [facility] Diastolic (mm Hg) 69 10/27/2017 [facility] Respitory Rate 22 10/27/2017 [facility] Systolic (mm Hg) 118 10/27/2017 [facility] Diastolic (mm Hg) 71 10/27/2017 [facility] Respitory Rate 21 10/27/2017 [facility] Systolic (mm Hg) 126 10/27/2017 [facility] Diastolic (mm Hg) 75 10/27/2017 [facility] Respitory Rate 17 10/27/2017 [facility] Temperature Oral (F) 97.8 F 10/27/2017 [facility] Temperature Oral (F) 98.8 F 10/27/2017 [facility] Temperature Oral (F) 99.7 F 10/27/2017 [facility] Weight 79.545 10/24/2017 [facility] BMI Calculated 23.14 10/24/2017 [facility] Height 185.42 cm 10/24/2017 [facility] Heart Rate 61 10/24/2017 [facility] BMI Calculated 22.98 10/24/2017 [facility] Heart Rate 94 10/24/2017 [facility] Height 185.42 cm 10/24/2017 [facility] Weight 79 10/24/2017 [facility] Encounters Location Location Encounter Encounter Reason Attending ADM DC Status Source Details Type Number For Provider Date Date Visit [facility] [id number] [facility] 10/24 10/27 [facility] Phone [id number] 11/08 11/10 [facility] [id number] [facility] 11/15 [facility] Outpatient [id number] [facility] 11/15 11/16 [facility] [id number] [facility] 12/13 [facility] Ambulatory [id number] [facility] 12/13 12/13 [facility] Neurosurger Pre-Reg [facility] Procedures Procedure Code Date Perfomer Comments Source Fusion of lumbar [id number] 10/25/2017 [facility] spine Fusion of lumbar [id number] 10/25/2017 [facility] Stent placement [id number] 06/07/2017 [facility] Stent placement [id number] 06/07/2017 [facility]
--- OUTSIDE RECORDS SUMMARY | 2018-07-17 09:41 | XMS REPORT ---
:1955 [facility] [address] [place] [address] Dr. Sanchez [address] [place] [id number] Care Team Providers Name Role Phone Unavailable Unavailable Unavailable Problems This patient has no known problems. Allergies, Adverse Reactions, Alerts This patient has no known allergies or adverse reactions. Medications This patient has no known medications.
--- NOTE | 2018-07-17 11:47 | EDPHYS ---
Physician Documentation [facility] Name: Volodymyr Trejo Age: 62 yrs Sex: Male : 1955 Arrival Date: 07/17/2018 Time: 09:35 Bed 5 Private MD: None, None ED Physician Igor Meyers HPI: 07/17 10:40 This 62 yrs old Male presents to ER via Ambulatory with complaints of Problem kb With Urinary Catheter. 10:40 The patient presents with a Lira catheter problem, painful. Onset: The kb symptoms/episode began/occurred 2 day(s) ago. Modifying factors: The symptoms are alleviated by nothing, the symptoms are aggravated by movement. Associated signs and symptoms: The patient has no apparent associated signs or symptoms. Severity of symptoms: At their worst the symptoms were moderate, in the emergency department the symptoms are unchanged. The patient has not experienced similar symptoms in the past. The patient has been recently seen at the [facility] Emergency Department, last week, for similar complaints lira placed for hematuria. Pt educated to follow up with urology. Pt states he has had penile pain due to lira catheter. States the pain is worse every time he moves, he is unable to sleep, and unable to work with catheter in place. States he is unable to follow up with urology until next month so he came here to have lira removed. Reports he normally has tea-colored urine, but it is even clearer than normal now. Denies any blood in urine for the past few days. Has been on Cipro and will complete course (3 days left). Pt educated on risks of removal of lira catheter including replacement if he is unable to urinate. Pt understands risks, would still like lira removed. Will remove catheter and have pt urinate on his own prior to discharge. Pt educated to return for urinary retention, pain or any other concerns. Verbal understanding received. . Historical: - Allergies: 10:34 PENICILLINS; la1 - PMHx: 10:34 Hyperlipidemia; Hypertension; la1 - Immunization history:: Adult Immunizations up to date. - Social history:: Smoking status: unknown. - Ebola Screening: : No symptoms or risks identified at this time. ROS: 10:40 Constitutional: Negative for fever, chills, and weight loss, Neck: Negative for injury, kb pain, and swelling, Cardiovascular: Negative for chest pain, palpitations, and edema, Respiratory: Negative for shortness of breath, cough, wheezing, and pleuritic chest pain, Abdomen/GI: Negative for abdominal pain, nausea, vomiting, diarrhea, and constipation, MS/Extremity: Negative for injury and deformity, Skin: Negative for injury, rash, and discoloration, Neuro: Negative for headache, weakness, numbness, tingling, and seizure. 10:40 : Positive for penile pain, due to lira catheter, Negative for injury or acute deformity, urinary symptoms, urinary frequency, small amounts, hematuria, pelvic pain, flank pain, burning with urination, difficulty urinating, bladder incontinence, foul smelling urine, penile discharge, testicular pain Exam: 10:40 Constitutional: This is a well developed, well nourished patient who is awake, alert, kb and in no acute distress. Head/Face: Normocephalic, atraumatic. Chest/axilla: Normal chest wall appearance and motion. Nontender with no deformity. No lesions are appreciated. Cardiovascular: Regular rate and rhythm with a normal S1 and S2. No gallops, murmurs, or rubs. Normal PMI, no JVD. No pulse deficits. Respiratory: Lungs have equal breath sounds bilaterally, clear to auscultation and percussion. No rales, rhonchi or wheezes noted. No increased work of breathing, no retractions or nasal flaring. Abdomen/GI: Soft, non-tender, with normal bowel sounds. No distension or tympany. No guarding or rebound. No evidence of tenderness throughout. Skin: Warm, dry with normal turgor. Normal color with no rashes, no lesions, and no evidence of cellulitis. MS/ Extremity: Pulses equal, no cyanosis. Neurovascular intact. Full, normal range of motion. Neuro: Awake and alert, GCS 15, oriented to person, place, time, and situation. Cranial nerves II-XII grossly intact. Motor strength 5/5 in all extremities. Sensory grossly intact. Cerebellar exam normal. Normal gait. Vital Signs: 10:00 BP 139 / 92; Pulse 71; Resp 16; Temp 98.1(O); Pulse Ox 100% on R/A; Weight 74.84 kg; dh3 Height 6 ft. 1 in. (185.42 cm); Pain 7/10; 11:58 BP 135 / 87; Pulse 71; Resp 16; Temp 97.2; Pulse Ox 98% on R/A; la1 10:00 Body Mass Index 21.77 (74.84 kg, 185.42 cm) dh3 MDM: 10:17 Patient medically screened. kb 10:40 Data reviewed: vital signs, nurses notes. Data interpreted: Pulse oximetry: on room air kb is 100 %. Interpretation: normal. Counseling: I had a detailed discussion with the patient and/or guardian regarding: the historical points, exam findings, and any diagnostic results supporting the discharge/admit diagnosis, the need for outpatient follow up, a urologist, to return to the emergency department if symptoms worsen or persist or if there are any questions or concerns that arise at home. 11:51 ED course: Pt to continue cipro, follow up with urologist, and return for urinary kb retention. 07/17 11:51 Order name: Urine Microscopic Only 07/17 11:51 Order name: Urine Culture 07/17 10:22 Order name: Misc. Order: Remove lira catheter ; Complete Time: 10:30 kb 07/17 10:22 Order name: Urine Dipstick-Ancillary (obtain specimen); Complete Time: 11:52 kb 07/17 11:54 Order name: Urine Dipstick--Ancillary (enter results) bd Administered Medications: No medications were administered Disposition: 16:16 Co-signature as Attending Physician, Igor Meyers MD I agree with the assessment and kdr plan of care. Disposition: 07/17/18 11:46 Discharged to Home. Impression: Encounter for removal of lira catheter. - Condition is Stable. - Discharge Instructions: Acute Urinary Retention, Male, [id number]. - Medication Reconciliation Form, Thank You Letter, Antibiotic Education, Prescription Opioid Use form. - Follow up: Emergency Department; When: As needed; Reason: Worsening of condition. Follow up: Private Physician; When: 2 - 3 days; Reason: Recheck today's complaints, Continuance of care, Re-evaluation by your physician. Signatures: Dispatcher [employer] EDMS Karin Guy, Igor Reynolds MD MD kdr Attema, Lee RN RN la1 Corrections: (The following items were deleted from the chart) 11:59 11:46 07/17/2018 11:46 Discharged to Home. Impression: Encounter for removal of lira la1 catheter. Condition is Stable. Forms are Medication Reconciliation Form, Thank You Letter, Antibiotic Education, Prescription Opioid Use. Follow up: Emergency Department; When: As needed; Reason: Worsening of condition. Follow up: Private Physician; When: 2 - 3 days; Reason: Recheck today's complaints, Continuance of care, Re-evaluation by your physician. kb
--- NOTE | 2018-07-17 11:47 | ER ---
Nurse's Notes [facility] Name: Volodymyr Trejo Age: 62 yrs Sex: Male : 1955 Arrival Date: 07/17/2018 Time: 09:35 Bed 5 Private MD: None, None Diagnosis: Encounter for removal of lira catheter Presentation: 07/17 09:49 Presenting complaint: Patient states: had lira placed the other day for hematuria, iw will not be able to follow up with urologist until one month, states catheter is draining clear but is uncomfortable and can;t work with it. 10:13 Transition of care: patient was not received from another setting of care. Onset of iw symptoms was July 17, 2018. Risk Assessment: Do you want to hurt yourself or someone else? Patient reports no desire to harm self or others. Initial Sepsis Screen: Does the patient meet any 2 criteria? No. Patient's initial sepsis screen is negative. Does the patient have a suspected source of infection? No. Patient's initial sepsis screen is negative. Care prior to arrival: None. 10:13 Method Of Arrival: Ambulatory iw 10:13 Acuity: JUANPABLO 4 iw Historical: - Allergies: 10:34 PENICILLINS; la1 - PMHx: 10:34 Hyperlipidemia; Hypertension; la1 - Immunization history:: Adult Immunizations up to date. - Social history:: Smoking status: unknown. - Ebola Screening: : No symptoms or risks identified at this time. Screenin:34 Abuse screen: Denies threats or abuse. Nutritional screening: No deficits noted. la1 Tuberculosis screening: No symptoms or risk factors identified. Fall Risk None identified. Assessment: 10:30 General: Appears in no apparent distress. Behavior is calm, cooperative. Pain: la1 Complains of pain in meatus Pain currently is 8 out of 10 on a pain scale. Neuro: Level of Consciousness is awake, alert, obeys commands, Oriented to person, place, time, situation. Cardiovascular: Capillary refill < 3 seconds Patient's skin is warm and dry. Respiratory: Airway is patent Respiratory effort is even, unlabored, Respiratory pattern is regular, symmetrical. : 3-way catheter in place. 11:58 Reassessment: Lira catheter removed, pt voided x1, states he feels he emptied his la1 bladder. urine appears yellow, PVR 5cc. Vital Signs: 10:00 BP 139 / 92; Pulse 71; Resp 16; Temp 98.1(O); Pulse Ox 100% on R/A; Weight 74.84 kg; 3 Height 6 ft. 1 in. (185.42 cm); Pain 710; 11:58 BP 135 / 87; Pulse 71; Resp 16; Temp 97.2; Pulse Ox 98% on R/A; la1 10:00 Body Mass Index 21.77 (74.84 kg, 185.42 cm) 3 ED Course: 09:35 Patient arrived in ED. mr 09:35 None, None is Private Physician. mr 10:13 Triage completed. iw 10:13 Arm band placed on. iw 10:17 Karin Guy F[facility]-C [facility] kb 10:17 Igor Meyers MD is Attending Physician. kb 10:30 Miguel Judd, RN is Primary Nurse. la1 10:33 Patient has correct armband on for positive identification. Bed in low position. Call la1 light in reach. Pulse ox on. 11:51 Urine collected: urinal, trae blood, sediment noted. dh3 11:58 No provider procedures requiring assistance completed. Patient did not have IV access la1 during this emergency room visit. Administered Medications: No medications were administered Outcome: 11:46 Discharge ordered by . kb 11:58 Discharged to home ambulatory. la1 11:58 Condition: stable 11:58 Discharge instructions given to patient, Instructed on discharge instructions, follow up and referral plans. medication usage, Demonstrated understanding of instructions, follow-up care, medications. 11:59 Patient left the ED. la1 Signatures: Karin Guy FNP-C FNP-Ckb Rivera, Mary Dia Mckeon, RN RN iw Miguel Judd RN RN de1 Maura Cole [facility]
[2018-07-17 12:24] LABS: Urine Bacteria 20-50 /HPF (NONE SEEN); Urine Culture Reflex Order NOT NEEDED; Urine Mucus 2+ /HPF (NONE SEEN); Urine RBC 20-50 /HPF (NONE SEEN)
[2018-07-17 12:25] LABS: Urine Coarse Granular Casts 0-5 /LPF (NONE SEEN)
[2018-07-17 13:26] LABS: Urine Blood 3+ (NEG); Urine Glucose NEGATIVE (NEG); Urine Protein 2+ (NEG); Urine Specific Gravity >1.030 (1.005-1.030)
== END 2018-07-17 11:59 | disposition home or self-care (01) ==
LOC: ER 09:32
DX: T83.84XA Pain due to genitourinary prosthetic devices, implants and grafts, initial encounter (principal); Z46.6 Encounter for fitting and adjustment of urinary device
CPT/HCPCS: 81003; 81015; 87086; 87088; 99283

== ENCOUNTER 2020-06-20 11:22 | Emergency (ER) | payer SELFPAY ==
--- OUTSIDE RECORDS SUMMARY | 2020-06-20 11:25 | XMS REPORT | Continuity of Care Document ---
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 Med ica Center Fall from, out of 02/02/2018 [facility] or through roof, [facility] initial encounter Ce nter Essential (primary) 02/02/2018 [facility] hypertension Medical Center Nicotine 02/02/2018 [facility] dependence, Medical cigarettes, Center uncomplicated Hyperlipidemia, 02/02/2018 [facility] unspecified Medical Center 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 Medical Center 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 Presence of 02/02/2018 [facility] coronary Medical angioplasty implant Center and graft STABLE BURST Active [facility] FRACTURE OF UNSP Med ical LUMBAR RAHEEL Center Medications Medication Details Route Status Patient Ordering Order Source Instructions Provider Date Acetaminophen 325 1 tab, PO, Q6H, Active 11/15/ [facility] MG / Hydrocodone # 90, 0 2017 Neuro Bitartrate 10 MG Refill(s), Oral Tablet Triplicate given at clinic visit Hydrocortisone 5 1 appl, TOP, No Longer [facility] MG/ML Topical BID, PRN Rash, Active 2017 Med ical Cream apply in a thin Center film to the affected skin and rub in gently and completely, X 14 day, # 28 gm, 0 Refill(s) Hydrocortisone 5 1 appl, Route: Inactive [facility] MG/ML Topical TOP, BID, Drug 2017 Med ical Cream form: CRM, PRN Center Rash, Start date: 10/27/17 13:00:00 CDT, Duration: 30 day, Stop date: 11/26/17 12:59:00 CDT Docusate Sodium 100 mg = 1 cap, Active [place] 100 MG Oral PO, Q12H, # 28 2018 Medic al Capsule cap, 0 Refill(s) [place] Cyclobenzaprine 10 mg, PO, TID, No Longer [place] hydrochloride 10 PRN Muscle Active 2018 Medi john MG Oral Tablet Spasm, X 14 day, [place] [Flexeril] # 40 tab, 0 Refill(s) Acetaminophen 300 1 tab, PO, Q6H, No Longer [place] MG / Codeine PRN Pain, X 14 Active 2018 Medi john Phosphate 30 MG day, # 50 tab, 0 Center Oral Tablet Refill(s) [Tylenol with Codeine #3] pregabalin 100 mg 100 mg = 1 cap, Active [place] oral capsule PO, Q8Hnow, # 42 2018 [place] dical cap, 0 Refill(s) [place] Lovenox Notes: (Same as: No Longer [place] Lovenox) Active 2018 [facility] Center Vancomycin 2001 mg: infuse No Longer [facility] over 2.5 hours Active 2018 Medical For adult Center patients only: Round to nearest 250 mg per Medical Staff approval MEDICATION WASTE Product Size: 1000 mg Product Wasted: ___ mg sugammadex Notes: (Same as: No Longer [facility] Bridion) Active 2018 [facility] Center Acetaminophen 325 Notes: Do not No Longer [facility] MG / Hydrocodone exceed 4gm/day Active 2018 Medical Bitartrate 10 MG of Center Oral Tablet acetaminophen. [[place] 10/325] (Same as: [place] 325/10) Hydralazine Notes: (Same as: No Longer 10/25/ H [place] Apresoline) Push Active 2018 Medical over 5 minutes [place] Zofran Notes: (Same as: No Longer [place] [facility] Zofran) Active 2018 Medical MEDICATION WASTE Center Product Size: 4 mg Product Wasted: ___ mg tramadol Notes: [place] to [place] hydrochloride 50 exceed Active 2018 Medical MG Oral Tablet 400mg/day. (Same Center As: [facility]) Morphine Notes: (Same No Longer [place] as:MORPhine Active 2018 Medical Sulfate) Center Flexeril Notes: (Same As: No Longer [place] Flexeril) Active 2018 [facility] Center Acetaminophen Notes: Do not No Longer [place] exceed 4 gm/day. Active 2018 Medical (Same as: [place] Tylenol) fentaNYL (ANES) Route: IV, Drug Inactive [place] form: INJ, ONCE, 2017 Medical Stop date: [place] 10/25/17 11:06:00 CDT hydromorphone Route: IV, Drug Inactive H [place] (ANES) form: INJ, ONCE, 2017 Medical Stop date: [place] 10/25/17 11:06:00 CDT rocuronium (ANES) Route: IV, Drug Inactive 10/25 [place] form: INJ, ONCE, 2017 Medical Stop date: [place] 10/25/17 11:06:00 CDT lidocaine (ANES) Route: IV, Drug Inactive [place] form: INJ, ONCE, 2017 Medical Stop date: [place] 10/25/17 11:06:00 CDT propofol (ANES) Route: IV, Drug Inactive [facility] form: INJ, ONCE, 2017 Medical Stop date: [place] 10/25/17 11:06:00 CDT midazolam (ANES) Route: IV, Drug Inactive [place] form: SOLN, 2017 Medical ONCE, Stop date: [place] 10/25/17 11:06:00 CDT ePHEDrine (ANES) Route: IV, Drug Inactive [place] form: INJ, ONCE, 2017 Medical Stop date: [place] 10/25/17 10:56:00 CDT dexamethasone Route: IV, Drug Inactive H [place] (ANES) form: INJ, ONCE, 2017 Medical Stop date: [place] 10/25/17 10:56:00 CDT Sodium Chloride Route: IV, Drug Inactive [place] 0.9% IV (ANES) form: INJ, Start 2017 Medical 235 mL + date: 10/25/17 [place] vancomycin (ANES) 9:25:00 CDT, 1500 mg Stop date: 10/25/17 10:25:00 CDT dexmedetomidine Route: IV, Drug Inactive [place] (ANES) 200 form: INJ, Start 2018 Medi john microgram date: 10/25/17 Center 8:50:00 CDT, Stop date: 10/25/17 9:50:00 CDT Lactated Ringers Route: IV, Total Inactive 10/25 [place] Injection IV Volume: 1,000, 2018 [facility] (ANES) 1000 mL Start date: Michelle r 10/25/17 8:38:00 CDT, Stop date: 10/25/17 9:38:00 CDT Ondansetron 4 mg, Route: Inactive [place] [facility] IVP, ONCE, 2018 Medical Dosing Weight Center 79.545, kg, PRN Nausea & Vomiting, Start date: 10/25/17 8:05:00 CDT Naloxone 0.4 mg, Route: Inactive [place] IVP, Q2MIN, 2018 Medical Dosing Weight Center 79.545, kg, PRN Narcotic Reversal, Start date: 10/25/17 8:05:00 CDT, Duration: 8 doses or times, Stop date: Limited # of times Flumazenil 0.2 mg, Route: [place]active [place] IVP, PRN, Dosing 2018 Medical Weight 79.545, Center kg, PRN Benzodiazepine Reversal, Initial dose, Start date: 10/25/17 8:05:00 CDT, Duration: 30 day, Stop date: 11/24/17 8:04:00 CDT Hydromorphone 0.5 mg, Route: Inactive [place] IVP, Q5Min, 2018 Medical Dosing Weight Center 79.545, kg, PRN Pain Score 7-10, Start date: 10/25/17 8:05:00 CDT, Duration: 4 doses or times, Stop date: Limited # of times Oxycodone 5 mg, Route: PO, Inactive [place] Drug form: TAB, 2018 Medical Q4H, Dosing Center Weight 79.545, kg, PRN Pain Score 4-6, Start date: 10/25/17 8:05:00 CDT, Duration: 30 day, Stop date: 11/24/17 8:04:00 CDT Labetalol 10 mg, Route: [place] IVP, Q5Min, 2018 Medical Dosing Weight Center 79.545, kg, PRN Elevated BP, Start date: 10/25/17 8:05:00 CDT, Duration: 5 doses or times, Stop date: Limited # of times Hydralazine 10 mg, Route: [place]active [place] IVP, Q20Min, 2018 Medical Dosing Weight Center 79.545, kg, PRN Elevated BP, Start date: 10/25/17 8:05:00 CDT, Duration: 2 doses or times, Stop date: Limited # of times Lovenox Notes: (Same as: Inactive [place] Lovenox) 2018 Medical Center Aspirin Notes: Do not No Longer [facility] crush or chew. Active 2018 Medical (Same As: Center Ecotrin) Saline Flush 0.9% Notes: (Same as: No Longer [facility] BD Posiflush) Active 2018 Medical Center Docusate Notes: (Same as: No Longer [place] Colace) (Do Not Active 2018 Medical Crush) Center sennosides, RESIDENTIAL Notes: (Same as: No Longer 10/24 [facility] Senokot) Active 2018 Medical Center POLYETHYLENE Notes: Dissolve No Longer [facility] GLYCOL 3350 in 8 oz of water Active 2018 Med ical or juice. (Same Center as: Miralax) Lyrica Notes: (Same as: No Longer [place] Lyrica) Active 2018 Medical Center clopidogrel 75 MG 75 mg = 1 tab, Active [facility] Oral Tablet PO, Daily 2018 Medical [Plavix] Center Aspirin 325 mg, PO, Active [facility] Daily 2018 Medical Center lisinopril 5 mg 5 mg = 1 tab, Active [facility] oral tablet PO, Daily 2018 Medical Center atorvastatin 80 mg, PO, Active [facility] Bedtime 2018 Medical Center Fentanyl 50 microgram, Inactive [facility] Route: IV, ONCE, 2018 Medical Dosing Weight Center 79, kg, Start date: 10/24/17 4:32:00 CDT, Stop date: 10/24/17 4:32:00 CDT Morphine Notes: (Same No Longer [facility] as:MORPhine Active 2018 Medical Sulfate) Center Dextrose 50% 25 gm, 50 mL, No Longer [facility] Syringe Route: IVP, Drug Active 2017 Medical Form: INJ, [place] Dosing Weight 79, kg, PRN, PRN Abnormal Lab Result, Start date: 10/23/17 23:34:00 CDT, Duration: 30 day, Stop date: 11/22/17 23:33:00 CDT Regular Insulin, 60 units) No Longer [facility] Human 100 UNT/ML WASTE: F/P - Active 2018 [place] dical Injectable Black; E - Center Solution Municipal Trash Bin Stable for 28 days at room temperature Expires in days from Da Saline Flush 0.9% Notes: (Same as: No Longer [facility] BD Posiflush) Active 2018 [facility] Ondansetron Notes: (Same as: No Longer [facility] Zofran) Active 2018 Medical MEDICATION WASTE Center Product Size: 4 mg Product Wasted: ___ mg Bisacodyl Notes: (Same As: No Longer [facility] Dulcolax, Active 2018 [facility] Bisco-Lax) [place] Acetaminophen 325 Notes: Do not No Longer [facility] MG / Hydrocodone exceed 4gm/day Active 2018 Medical Bitartrate 10 MG of Center Oral Tablet acetaminophen. (Same as: [place] 325/10) Morphine Notes: (Same No Longer [facility] as:MORPhine Active 2018 Medical Sulfate) Center Acetaminophen Notes: Do not No Longer [facility] exceed 4 gm/day. Active 2018 Medical (Same as: [place] Tylenol) Sodium Chloride 1,000 mL, Rate: No Longer [facility] 0.9% IV 1,000 mL 75 ml/hr, Infuse Active 2018 Medical over: 13.3 hr, Center Route: IV, Dosing Weight 79 kg, Total Volume: 1,000, Start date: 10/23/17 23:34:00 CDT, Duration: 30 day, Stop date: 11/22/17 23:33:00 CDT, 2.02, m2 Hydromorphone 1 mg, Route: Inactive [facility] ex IVP, ONCE, 2017 Medical Dosing Weight Center 79, kg, Priority: STAT, Start date: 10/23/17 22:35:00 CDT, Stop date: 10/23/17 22:35:00 CDT Zofran 4 mg, Route: Inactive [facility] IVP, Drug form: 2018 Medical INJ, ONCE, Center Dosing Weight 79, kg, Priority: STAT, Start date: 10/23/17 22:27:00 CDT, Stop date: 10/23/17 22:27:00 CDT Ancef 2 gm, Route: Inactive [facility] IVPB, ONCE, 2017 Medical Dosing Weight Center 79, kg, Priority: STAT, Start date: 10/23/17 22:27:00 CDT, Stop date: 10/23/17 22:27:00 CDT, ABX Indication: Skin/Soft Tissue Infection Allergies, Adverse Reactions, Alerts Substance Category Reaction Severity Reaction Status Date Comments S ource type Reported penicillin Assertion Drug Active [facility] Immunizations No Data Provided for This Section Results Order Name Results Value Reference Date Interpretation Comments Malissa rce Range ELECTROLYTES AGAP 11.0 10.0 - 10/25 [facility] 20.0 [facility] ELECTROLYTES eGFR 92 10/25 Result [facility] Comment: The Medical eGFR is Center calculated using the CKD-EPI formula. In most young, healthy individuals the eGFR will be >90 mL/min/1.73m2 . The eGFR declines with age. An eGFR of 60-89 may be normal in some populations, particularly the elderly, for whom the CKD-EPI formula has not been extensively validated. Use of the eGFR is not recommended in the following populations:< br/>
Peace viduals with unstable creatinine concentration s, including patients and those with serious co-morbid conditions.<b r/>
Patie nts with extremes in muscle mass or diet.

The data above are obtained from the National Kidney Disease Education Program (NKDEP) which additionally recommends that when the eGFR is used in patients with extremes of body mass index for purposes of drug dosing, the eGFR should be multiplied by the estimated BMI. ELECTROLYTES Calcium Lvl 7.5 8.5 - 10.5 10/25 [facility] ELECTROLYTES Sodium Lvl 141 135 - 145 04/ [facility] ELECTROLYTES Potassium 4.0 3.5 - 5.1 04 [place] L[place] /2017 Medical [facility] ELECTROLYTES Chloride Lvl 109 95 - 109 04 [place] [facility] ELECTROLYTES CO2 25 24 - 32 04 [facility] ELECTROLYTES Glucose Lvl 117 70 - 99 04 a s [facility] ELECTROLYTES Creatinine 0.88 0.50 - 10/25 [place] Lvl 1.40 /2017 [facility] ELECTROLYTES BUN 10 7 - 22 04 [facility] HEMATOLOGY MPV 7.6 7.4 - 10.4 10/25 [facility] HEMATOLOGY MCV 93.9 80.0 - 10/25 94.0 [facility] HEMATOLOGY Hct 38.8 42.0 - 10/25 54.0 Medical [place] HEMATOLOGY Hgb 13.3 14.0 - 10/25 18.0 [facility] HEMATOLOGY Platelet 155 133 - 450 10/25 [facility] HEMATOLOGY RDW 14.5 11.5 - 04 14.5 [facility] HEMATOLOGY MCHC 34.2 32.0 - 04 [place] 36.0 [facility] HEMATOLOGY MCH 32.1 27.0 - 04 31.0 [facility] HEMATOLOGY RBC 4.13 4.70 - 04 [place] 6.10 Medical [place] HEMATOLOGY WBC 9.9 3.7 - 10.4 04 [facility] HEMATOLOGY PTT 33.6 22.9 - 04 [place] 35.8 [facility] HEMATOLOGY PT 13.7 12.0 - 04 [place] 14.7 [facility] HEMATOLOGY INR 1.05 0.85 - 04 [place] 1.17 [facility] HEMATOLOGY Monocytes # 0.5 0.0 - 0.8 04 s [facility] HEMATOLOGY Lymphocytes 0.7 1.0 - 5.5 04 [place] # Medical [place] HEMATOLOGY Monocytes 4.6 2.0 - 12.0 04 [facility] HEMATOLOGY Eosinophils 0.2 0.0 - 4.0 04 s [facility] HEMATOLOGY Basophils 0.3 0.0 - 1.0 10/25 [place] [facility] HEMATOLOGY Segs-Bands # 8.7 1.5 - 8.1 10/25 [place] /2017 [facility] HEMATOLOGY Lymphocytes 7.1 20.0 - 10/25 [place] 40.0 [facility] HEMATOLOGY Segs 87.8 45.0 - 10/25 [place] 75.0 [facility] HEMATOLOGY Plav Effect 110 10/25 [facility] Plt /2017 [facility] HEMATOLOGY ASA Effect 461 10/25 [facility] Plt [facility] BLOOD BANK Antibody Negative 10/25 [facility] RESULTS Scrn (10/25/17 2:23 AM) [facility] BLOOD BANK ABO/Rh A POS 10/25 [facility] RESULTS /2017 [facility] CARDIAC Troponin-T <0.010 0.000 - 10/25 [facility] ENZYMES 0.100 [facility] CARDIAC Total CK 174 12 - 191 10/25 [facility] ENZYMES [facility] CARDIAC Troponin-I <0.02 0.00 - 10/25 [facility] ENZYMES 0.40 [facility] CARDIAC CK MB Index 0.9 0.0 - 2.5 10/25 [facility] ENZYMES [facility] CARDIAC CK MB 1.5 0.5 - 3.6 10/25 [facility] ENZYMES [facility] ELECTROLYTES AGAP 14.0 10.0 - 10/25 [place] 20.0 [facility] ELECTROLYTES eGFR 88 10/25 Result Comment: The Medical eGFR is Center calculated using the CKD-EPI formula. In most young, healthy individuals the eGFR will be >90 mL/min/1.73m2 . The eGFR declines with age. An eGFR of 60-89 may be normal in some populations, particularly the elderly, for whom the CKD-EPI formula has not been extensively validated. Use of the eGFR is not recommended in the following populations:< br/>
Peace viduals with unstable creatinine concentration s, including patients and those with serious co-morbid conditions.<b r/>
Patie nts with extremes in muscle mass or diet.

The data above are obtained from the National Kidney Disease Education Program (NKDEP) which additionally recommends that when the eGFR is used in patients with extremes of body mass index for purposes of drug dosing, the eGFR should be multiplied by the estimated BMI. ELECTROLYTES Calcium Lvl 7.9 8.5 - 10.5 04/05 [facility] ELECTROLYTES Creatinine 0.93 0.50 - 0405 [place] Lvl 1.40 /2017 Medical Center ELECTROLYTES Sodium Lvl 139 135 - 145 04/05 [facility] ELECTROLYTES BUN 13 7 - 22 04/ [facility] ELECTROLYTES Glucose Lvl 98 70 - 99 04/ [place] [facility] Center ELECTROLYTES CO2 21 24 - 32 04/ [facility]2017 [facility] ELECTROLYTES Potassium 4.0 3.5 - 5.1 04/ [place] Lvl /2017 [facility] ELECTROLYTES Chloride Lvl 108 95 - 109 04 [place] [facility] HEMATOLOGY Lymphocytes 2.3 1.0 - 5.5 04 [place] # /2017 [facility] Center HEMATOLOGY Monocytes # 0.9 0.0 - 0.8 04 [facility] s [facility] HEMATOLOGY Segs-Bands # 4.2 1.5 - 8.1 04 [place] [facility] HEMATOLOGY Eosinophils 0.1 0.0 - 0.5 04/ [place] # [facility] Center HEMATOLOGY Basophils 0.6 0.0 - 1.0 04/ [facility] HEMATOLOGY Eosinophils 1.1 0.0 - 4.0 04/ [place] [facility] Center HEMATOLOGY Lymphocytes 30.7 20.0 - 04/05 [place] 40.0 [facility] Center HEMATOLOGY Monocytes 12.2 2.0 - 12.0 04 [facility] HEMATOLOGY Segs 55.4 45.0 - 04/05 [place] 75.0 Medical [place] HEMATOLOGY RDW 14.1 11.5 - 04/05 [place] 14.5 Medical Center HEMATOLOGY MCHC 34.3 32.0 - 04/05 [place] 36.0 Medical Center HEMATOLOGY MCH 32.0 27.0 - 04/05 [place] 31.0 Medical Center HEMATOLOGY MCV 93.3 80.0 - 04/05 [place] 94.0 2018 Medical Center HEMATOLOGY Hct 41.7 42.0 - 04/05 [place] 54.0 2018 Medical Center HEMATOLOGY MPV 7.4 7.4 - 10.4 04 [facility] HEMATOLOGY Platelet 166 133 - 450 04/05 [facility] HEMATOLOGY Hgb 14.3 14.0 - 10/25 [place] 18.0 /2017 [facility] HEMATOLOGY RBC 4.47 4.70 - 10/25 [place] 6.10 /2017 [facility] HEMATOLOGY WBC 7.5 3.7 - 10.4 10/25 [facility] HEMATOLOGY INR 1.02 0.85 - 10/25 [place] 1.17 /2017 [facility] HEMATOLOGY PTT 30.0 22.9 - 10/25 [place] 35.8 /2017 [facility] HEMATOLOGY PT 13.4 12.0 - 10/25 [place] 14.7 /2017 [facility] CARDIAC Troponin-T <0.010 0.000 - 10/24 [facility] ENZYMES 0.100 /2017 [facility] CARDIAC Troponin-I <0.02 0.00 - 10/24 [facility] ENZYMES 0.40 /2017 [facility] CARDIAC Total CK 235 12 - 191 10/24 [facility] ENZYMES [facility] CARDIAC CK MB Index 0.9 0.0 - 2.5 10/24 [facility] ENZYMES /2017 [facility] CARDIAC CK MB 2.1 0.5 - 3.6 10/24 [facility] ENZYMES /2017 [facility] CARDIAC Troponin-T <0.010 0.000 - 10/24 [facility] ENZYMES 0.100 /2017 [facility] CARDIAC Troponin-I <0.02 0.00 - 10/24 [facility] ENZYMES 0.40 /2017 [facility] CARDIAC Total CK 384 12 - 191 10/24 [facility] ENZYMES [facility] CARDIAC CK MB Index 0.8 0.0 - 2.5 10/24 [facility] ENZYMES [facility] CARDIAC CK MB 3.2 0.5 - 3.6 10/24 [facility] ENZYMES [facility] HEMATOLOGY Plav Effect 108 10/24 [facility] Plt /2017 [facility] HEMATOLOGY ASA Effect 465 10/24 [facility] Plt /2017 [facility] BLOOD BANK Antibody Negative 10/24 [facility] RESULTS Scrn (10/24/17 12:12 AM) /2017 [facility] BLOOD BANK ABO/Rh A POS 10/24 [facility] RESULTS /2017 [facility] CHEM PANEL Lactic Acid 0.8 0.5 - 2.2 10/24 [place] WB /2017 [facility] ELECTROLYTES AGAP 15.0 10.0 - 10/24 [place] 20.0 /2017 [facility] ELECTROLYTES eGFR 92 10/24 Result [facility] Comment: The Medical eGFR is Center calculated using the CKD-EPI formula. In most young, healthy individuals the eGFR will be >90 mL/min/1.73m2 . The eGFR declines with age. An eGFR of 60-89 may be normal in some populations, particularly the elderly, for whom the CKD-EPI formula has not been extensively validated. Use of the eGFR is not recommended in the following populations:< br/>
Peace viduals with unstable creatinine concentration s, including patients and those with serious co-morbid conditions.<b r/>
Patie nts with extremes in muscle mass or diet.

The data above are obtained from the National Kidney Disease Education Program (NKDEP) which additionally recommends that when the eGFR is used in patients with extremes of body mass index for purposes of drug dosing, the eGFR should be multiplied by the estimated BMI. ELECTROLYTES CO2 22 24 - 32 10/[address] ELECTROLYTES Calcium Lvl 8.6 8.5 - 10.5 10/24 [place] [facility] ELECTROLYTES Potassium 4.0 3.5 - 5.1 10/24 [facility] [address] [place] [address] ELECTROLYTES Chloride Lvl 105 95 - 109 10/24 [facility] ELECTROLYTES Creatinine 0.89 0.50 - 10/24 [facility] Lvl 1.40 [facility] ELECTROLYTES BUN 12 7 - 22 10/[address] ELECTROLYTES Sodium Lvl 138 135 - 145 10/24 [facility] [facility] ELECTROLYTES Glucose Lvl 112 70 - 99 10/24 [facility]2017 [facility] HEMATOLOGY Monocytes 5.6 2.0 - 12.0 10/[address] HEMATOLOGY Eosinophils 0.1 0.0 - 4.0 10/[address] HEMATOLOGY Lymphocytes 8.3 20.0 - 04 [facility] 40.0 [facility] HEMATOLOGY Segs 85.4 45.0 - 10/24 [facility] 75.0 [facility] HEMATOLOGY Monocytes # 0.5 0.0 - 0.8 10/[address] HEMATOLOGY Basophils # 0.1 0.0 - 0.2 10/24 [facility] HEMATOLOGY Lymphocytes 0.8 1.0 - 5.5 [place] [facility] HEMATOLOGY Segs-Bands # 8.3 1.5 - 8.1 10/24 [facility] HEMATOLOGY Basophils 0.6 0.0 - 1.0 10/24 [facility] HEMATOLOGY Estimated % 2.4 0.0 - 7.5 [place] [facility] HEMATOLOGY Max 57 52 - 71 10/24 [facility] HEMATOLOGY K-time Rapid 1.7 0.6 - 2.3 10/24 [facility] HEMATOLOGY G-value 6.6 5.0 - 11.6 10/24 [facility] HEMATOLOGY Angle Rapid 71 64 - 80 10/24 [facility] HEMATOLOGY [place] 0.5 10/24 [facility] HEMATOLOGY R-time Rapid 0.6 0.4 - 0.7 10/24 [facility] HEMATOLOGY ACT (TEG) 105 86 - 118 10/24 [facility] HEMATOLOGY PTT 29.1 22.9 - 10/24 35.8 [facility] HEMATOLOGY PT 14.6 12.0 - 10/24 14.7 [facility] HEMATOLOGY INR 1.14 0.85 - 10/24 1.17 [facility] HEMATOLOGY Platelet 189 133 - 450 10/24 [facility] HEMATOLOGY MPV 7.3 7.4 - 10.4 10/24 [facility] HEMATOLOGY RDW 14.2 11.5 - 10/24 14.5 [facility] HEMATOLOGY Hgb 14.4 14.0 - 10/24 18.0 [facility] HEMATOLOGY WBC 9.7 3.7 - 10.4 10/24 [facility] HEMATOLOGY RBC 4.48 4.70 - 10/24 [place] 6.10 [facility] HEMATOLOGY MCV 93.3 80.0 - 10/24 94.0 [facility] HEMATOLOGY MCH 32.2 27.0 - 10/24 31.0 [facility] HEMATOLOGY MCHC 34.5 32.0 - 10/24 36.0 [facility] HEMATOLOGY Hct 41.8 42.0 - 10/24 [place] 54.0 [facility] Pathology Reports No Data Provided for This Section Diagnostic Reports Report Value Date Source Brain-Outside Consult EXAM: CT BRAIN WITHOUT CONTRAST 10/24/2017 [facility] CT DATE: 10/24/2017 7:45 AM CDT Cente r INDICATION: 62 years old Male patient with fall from roof COMPARISON: None. TECHNIQUE: Routine axial CT images of the brain were obtained at outside facility, uploaded onto [facility] PACS for second interpretation. FINDINGS: Non-contrast images of the h ead demonstrate no edema, hemorrhage, mass lesion or other acute intracranial abnormality. The brain has normal attenua tion and burns-white matter distinction. The ventricles are normal. The basal cisterns and sulci are normal in size. There is no chronic abnormality. The paranasal sinuses, orbits and mastoids are u nremarkable. IMPRESSION: No acute intracranial hemorrhage. Spine-Outside Consult EXAM: CT CERVICAL SPINE WITHOUT CONTRAST 0 10/24/2017 [facility] CT DATE: 10/24/2017 7:46 AM CDT Cente r INDICATION: - outside study CT CSPINE, second interpretation requested COMPARISON: None TECHNIQUE: Axial, coronal a nd sagittal noncontrast CT images of the cervical spine, obtained at [facility]. FINDINGS: The spine is imaged from the skull bas e to the level of T2. There is straightening of the cervical lordosis. No acute fracture or malalignment is identified. No dislocation. Mild/moderate narrowing of C6-C7 disc space with marginal ossified formation Degenerative changes noted a t C1-C2 mainly in between the dens and anterior mass of C1. C2-C3: Canal and neuroforami na are unremarkable. Mild facet arthropathy visualized. C3-C4: Minimal facet arthropathy without canal o r foraminal narrowing. C4-C5: Minimal facet arthropathy without canal o r foraminal abnormality. C5-C6: Mild facet arthropath y and mild uncovertebral joint hypertrophy. There is minimal narrowing of the bilateral neuroforamina. C6-C7: There is moderate david rowing of the disc space with anterior and marginal ossified formation as well as uncovertebral joint or atrophy causing mild narrowing of the right neuroforamina. Canal is unremarkable. C7-T1: Unremarkable canal an d neural foramina. Moderate facet arthropathy visualized. No soft tissue abnormality i s identified. Visualized portions of the upper lungs appear unremarkable. IMPRESSION: No acute abnormality. Chest 1view DX EXAM: XR CHEST 1 VIEW 10/24/2017 [facility] edical DATE: 10/24/2017 2:25 AM CDT Cente r INDICATION: - pre-op COMPARISON: CT dated 10/23/2017. TECHNIQUE: AP chest, supine. FINDINGS: Lines, tubes and hardware: None. Lungs and pleura: The lung v olumes are low leading to crowding of the pulmonary vasculature. Otherwise, no acute pulmonary or pleural based abnormality is identified. Heart and mediastinum: The h eart size is normal for technique. The aortic arch and descending aorta are mildly tortuous. Bones: L1 burst fracture is better seen on the r ecent CT. IMPRESSION: Low lung volume s. Otherwise, no acute cardiopulmonary abnormality. UT SECTION: ER Spine lumbar wo EXAM: MRI LUMBAR SPINE WITHOUT CONTRAST 10/25/19 18 [facility] contrast MRI DATE: 10/24/2017 Center INDICATION: 62-year-old male patient with L1 bur st fracture COMPARISON: CT Scan of the abdomen, pelvis dated 10/23/2017 TECHNIQUE: Sagittal T1, sagi ttal T2, sagittal T2 with fat saturation, axial T1, and axial T2-weighted images of the lumbar spine are obtained without contrast. DISCUSSION: Normal lumbar segmentation i s assumed with the lowest fully formed intervertebral disc space labeled as L5-S1 for the purpose of this examination. Minimal retropulsion/retroli sthesis of L1 otherwise vertebral alignment is near anatomic. Again identified is a compre ssive fracture deformity of L1 with approximately 50% vertebral body height loss at midline. There is associated bone marrow edematous changes within the L1 vertebral body co nsistent with acute nature o f the fracture. There is an approximately 3.5 mm posterior retropulsion indenting the ventral thecal sac with borderline narrowing of the spinal canal with residual thecal sac measures 10 mm in AP dimension. Focal bone marrow edematous changes at the anterior inferior endplate of T12 vertebral body. Superior endplate bone marro w edematous changes on the right at the level of L2 without height loss, concerning for bone contusion or noncompressive fracture. Small dorsal epidural hemato ma at the level of T11-T12 indenting the dorsal thecal sac without significant spinal canal stenosis. ALL, PLL, ligamentum flavum are intact. The conus medullaris termina keny at the L1-L2. It has a normal contour and normal signal characteristics. No intradural pathology is identified. Disc spaces, spinal canal and neural foramina ar e as follows: T12-L1: Normal disc signal w ith preservation of the disc height. No evidence of spinal canal stenosis. No significant facet hypertrophy. No significant neural foramina stenosis. L1-L2: Degenerative disc rigo iccation with mild loss of the disc height. No evidence of spinal canal stenosis. No significant facet hypertrophy. No significant neural foramina stenosis. L2-L3: Normal disc signal wi th preservation of the disc height. No evidence of spinal canal stenosis. No significant facet hypertrophy. No significant neural foramina stenosis. L3-L4: Normal disc signal wi th preservation of the disc height. Diffuse minimal bulge. No evidence of spinal canal stenosis. Bilateral mild facet, ligamentum flavum hypertrophy. Disc bulge and bilateral facet hypertrophy resulted in bilateral mild neural foramina narrowing, causing encroachment upon exiting L3 nerve root without nerve root compression. L4-L5: Normal disc signal wi th preservation of the disc height. Diffuse mild disc bulge. Bilateral mild facet, ligamentum flavum hypertrophy. No significant spinal canal stenosis. Residual thecal sac me asures 11 mm in AP dimension . No evidence of spinal canal stenosis. Diffuse disc bulge and facet hypertrophy resulted in mild right neural foramina narrowing causing encroachment upon exiting right L4 n erve root. Asymmetrical left denis disc bulge and facet, ligamentum flavum hypertrophy resulted in moderate left neural foramina stenosis with mild compression upon exiting L4 nerve root. L5-S1: Normal disc signal wi th preservation of the disc height. Mild diffuse disc bulge. Bilateral mild facet, ligamentum flavum hypertrophy. No evidence of spinal canal stenosis. Disc bulge and bilater al facet hypertrophy resulte d in bilateral mild neural foramina narrowing, causing encroachment upon exiting L5 nerve root without nerve root compression. Both SI joints appear unremarkable. Right renal cyst is identified. Note is made of increase T2 signal within the left psoas muscle with asymmetrical enlargement concerning for muscle contusion. No organized fluid collection is seen. There is no evidence of hydronephrosis bilateral ly. IMPRESSION: 1. L1 burst fracture with 3 mm posterior retropulsion without significant spinal canal stenosis or spinal cord signal abnormality. 2. Focal increased bone mar row signal intensity along the superior endplate on the right at the level of L2 and anterior inferior endplate of T12, concerning for bony contusions. 3. Small dorsal epidural he matoma at the level of T11-T12, causing indentation on the dorsal thecal sac without significant spinal canal stenosis. 4. Asymmetrical disc bulge and facet arthropathic changes resulted in moderate left and mild right neural foramina stenosis at the level of L4-L5 with mild compression over exiting left L4 nerve root. 5. Left psoas muscle contusion without organize d fluid collection. 6. Right renal cyst. These findings are in agreem ent with previous preliminary report made by ironworker foreman senior resident care director. Torso-Outside Consult EXAM: CT CHEST WITH CONTRAST 10/23/2017 [facility] CT EXAM: CT ABDOMEN AND PELVIS WITH CONTRAST Center DATE: 10/23/2017 10:55 PM CDT INDICATION: Trauma, second interpretation reques nate. COMPARISON: None TECHNIQUE: Axial, coronal an d sagittal CT images of the chest, abdomen and pelvis, with contrast. Contrast phases: arterial and venous DLP: 2234.4 mGy-cm [place] SECTION: ER FINDINGS: Chest: No mediastinal hematoma or t horacic aortic injury. Normal heart size. No pericardial fluid. No pulmonary contusions. The re is minimal dependent subsegmental atelectasis, and mild paraseptal emphysema. No pleural effusion or pneumothorax. Abdomen: No acute traumatic abnormali ty seen in the liver, gallbladder, pancreas, spleen, adrenal glands, both kidneys, and bowel. There is diffuse hepatic steatosis with hepatomegaly. Tiny subcentimeter hypoden se lesion in hepatic segment 3 is not fully vielka acterized on this exam. A low-attenuation cystic les ion is seen at the inferior pole the right kidney measuring about 2.8 cm, with probable internal septation (Bosniak 2). Extensive aortoiliac calcifi c and noncalcific atherosclerotic disease is noted. Urinary bladder is unremarkable. Prostate gland is mildly prominent. Spine/ Bones: There is a bur st compression fracture of the L1 vertebral body with approximately 7 mm retropulsion of fracture fragments. The compression fracture extends through both the superior and in ferior endplates and also agee s extension into the right lamina. A nondisplaced fracture is also noted at the anterior superior corner of L2 which does not involve the inferior endplate or posterior wall. No acute fracture or malalignment is seen in th e thoracic spine. IMPRESSION: 1. Complete burst fracture of the L1 vertebral body (AOSpine A4). 2. Nondisplaced fracture of the anterior superi or corner of L2 (AOSpine A1). 3. Extensive atherosclerotic disease. 4. Hepatomegaly with hepatic steatosis. 5. Low-attenuation cyst at the right re nal lower pole measuring up to 2.8 cm. 6. Minimal dependent subsegmental atelectasis. Consultation Notes No Data Provided for This Section Discharge Summaries No Data Provided for This Section History and Physicals No Data Provided for This Section Vital Signs Vital Sign Value Date Comments Source BMI Calculated 22.61 11/15/2017 [facility] Neuro Height 185.42 cm 11/15/2017 [facility] Weight 77.727 11/15/2017 [facility] Temperature Oral (F) 97.8 F 11/15/2017 [facility] Neuro Heart Rate 71 11/15/2017 [facility] Neuro Systolic (mm Hg) 115 11/15/2017 [facility] Leela ro Diastolic (mm Hg) 74 11/15/2017 [facility] uro Systolic (mm Hg) 104 10/27/2017 [facility] dical Center Diastolic (mm Hg) 69 10/27/2017 [facility] Center Respitory Rate 22 10/27/2017 [facility] Center Systolic (mm Hg) 118 10/27/2017 [facility] dical Center Diastolic (mm Hg) 71 10/27/2017 [facility] Center Respitory Rate 21 10/27/2017 [facility] Center Systolic (mm Hg) 126 10/27/2017 [facility] dical Center Diastolic (mm Hg) 75 10/27/2017 [facility] Center Respitory Rate 17 10/27/2017 [facility] Temperature Oral (F) 97.8 F 10/27/2017 [facility] Temperature Oral (F) 98.8 F 10/27/2017 [facility] Temperature Oral (F) 99.7 F 10/27/2017 [facility] Weight 79.545 10/24/2017 [facility] BMI Calculated 23.14 10/24/2017 [facility] Height 185.42 cm 10/24/2017 [facility] Heart Rate 61 10/24/2017 [facility] BMI Calculated 22.98 10/24/2017 [facility] Heart Rate 94 10/24/2017 [facility] Height 185.42 cm 10/24/2017 [facility] Weight 79 10/24/2017 [facility] Encounters Location Location Encounter Encounter Reason Attending ADM DC Stat Source Details Type Number For Provider Date Date Visit [facility] [id number] Michael 10/24 10/27 [facility] Rolando Bryn [facility] Phone [id number] 11/08 11/10 Mis her Neurosurger [facility] Neur o y [facility]patient [id number] MICHAEL 11/15 [facility] Rolando [facility] Outpatient [id number] Michael 11/15 11/16 [facility] Neurosurger Clemente N euro y [facility] Outpatient [id number] MICHAEL 12/13 Active [facility] Ambulatory [id number] Michael 12/13 12/13 [facility] Neurosurger Pre-Reg [facility] Neuro y [facility] Procedures Procedure Code Date Perfomer Comments Source Fusion of lumbar [id number] 10/25/2017 [id number] 06/07/2017 [facility] Assessment and Plan Assessment and Plan Date Source Extracted from:Title: Cardiac Consultation 10/27/2017 [facility] Author: Nicko Brunson MD Date: 10/24/17 Patient: [...] #CAD - Previous PCI to LAD at [facility] by Dr. Jennifer Caba - Patient currently on DAPT - RCRI Cardiac risk score is low (0.9% risk of cardiac event ) - Patient clear to undergo surgery from cardiac risk standpo int - Recommend indefinite continuation of A SA 81mg. You may hold clopidogrel 7mg prior to surgery, but please restart SAP after as patient is at risk for instent rethrombosis without DAPT - Additionally, please continue statin and ACEi Thank you for this consultation Plan discussed with attending MD. We will sign off. Please reconsult for any additional questi ons Nicko Brunson MD Resident Physician Department of Internal Medicine [employer] [facility] [employer] History of Present Illness: 62 year old male with mechanical fall resulting in L1 burst fracture Cardiac history includes HTN and CAD, (P CI to LAD in 05/2017at OSH). PAtient is also an active smoker. He is medically compliant. No active CP, SOB, pedal edema. NO orthopnea, PND, and patient is active . Home medications include ASA, plavix, lisinopril, atorvast atin Review of Systems Cons: No fevers, no chills, no weakness/fatigue Eyes: No vision changes, no eye pain. HENT: No rhinorrhea, no sore throat, no bleeding gums Card: No chest pain, no palpitations, no edema Resp: No shortness of breath, no cough, no sputum, no hemopt ysis Abd: No abdominal pain, no nausea, no vo miting, no constipation, no diarrhea, no bloody stool severe back pain : No dysuria, no hematuria. Immunologic: Not immunocompromised. No chemotherapy/radiatio n recently MSK: Negative. BAkc muscle aches oand r pain. Normal strengt h and movement. Skin: No rashes, no skin changes. Ext: No edema, no joint swelling Neuro: No dizziness, no headache, no loss of sensation/numbn ess/tingling Physical Exam:Vitals Tmp(F) Pulse BP RR SpO2 FIO2 10/24 12:00 96.4 69 110/68 24 96 --- 10/24 11:00 ---- 48 ----- 14 95 --- 10/24 10:00 ---- 49 139/78 14 97 --- 10/24 09:00 ---- 48 141/76 16 95 --- 10/24 08:00 96.9 59 136/81 18 96 --- 24 Hr Tmax: 98.3F (36.83c) at 10/23 21:3 0 Vital Signs are the last 5 in the past 48 hours. I&O Record In Out Bal 10/24 24hr Tot 461 0 461 10/23 24hr Tot 0 0 0 Exam: Physical Exam General: Awake and alert, in mild distress HEENT: NC/AT, no scleral icterus, moist mucus membranes, PER RL Neck: Supple, NT, No LAD Cardio: Regular rate and rhythm, no murm urs, +s1s2, no gallops. Extremities with good peripheral pulsations. No JVD Pulm: Clear to auscultation bilaterally, no wheezes or crack les Abdomen: Normal bowel sounds, soft, non-tender, non-distende d Extremities: No edema. No deformities/amputations Skin: Warm and well perfused, no rashes Neuro: Alert and oriented, no focal deficits Lines, Tubes, and Drains: 10/24/2017 10:00 Peripheral Lines: Forea rm Left 20 gauge Over the needle catheter Past Medical HistoryNo qualifying data available Social HistoryAlcohol Details: Never Tobacco Details: Use: Heavy tobacco smoker. Typ e: Cigars. 1 per day. Ready to change: No. Household tobacco concerns: No. Tobacco smoke exposure: None. Did the Patient Smoke Cigarettes Anytime During the Last 365 Days? No. Cessation Counseling Provided? No. Substance Abuse Details: Use: Current. Type: Marijuana. Amount: occasionally.Stent placement: 06/07/17 Past Procedures:Family Medical History No qualifying data available Allergies Allergies (1) Active Reaction penicillin None documented MedicationsUnscheduled Meds: None Scheduled Meds (8): 10/23/17 acetaminophen 650 mg PO Q4H 10/24/17 aspirin 81 mg PO Daily 10/24/17 docusate 100 mg PO Q12H 10/24/17 enoxaparin (Lovenox) 30 mg SUB-Q [id number] 10/24/17 polyethylene glycol 3350 17 gm PO Daily 10/24/17 pregabalin (Lyrica) 100 mg PO Q8Hnow 10/24/17 senna 8.6 mg PO Q12H 10/24/17 sodium chloride (Saline Flush 0.9%) 10 ml IVP Q12H PRN Meds (11): 10/23/17 Dextrose 50% in Water IV (Dextrose 50% Syringe) 25 gm IVP PRN 10/23/17 Dextrose 50% in Water IV (Dextrose 50% Syringe) 12. 5 gm IVP PRN 10/23/17 Dextrose 50% in Water IV (Dextrose 50% Syringe) 6.2 5 gm IVP PRN 10/23/17 Insulin regular (insulin regula r 100 units/mL human recombinant) 3 unit SUB-Q PRN 10/23/17 Insulin regular (insulin regula r 100 units/mL human recombinant) 5 unit SUB-Q PRN 10/23/17 Insulin regular (insulin regula r 100 units/mL human recombinant) 7 unit SUB-Q PRN 10/23/17 acetaminophen-hydrocodone (acet aminophen-hydrocodone 325 mg-10 mg oral tablet) 1 tab PO Q4H 10/23/17 bisacodyl 10 mg SC Daily 10/23/17 morphine Sulfate 2 mg IVP [...] Q12H 10/24/17 enoxaparin (Lovenox) 30 mg SUB-Q [id number] 10/24/17 polyethylene glycol 3350 17 gm PO Daily 10/24/17 pregabalin (Lyrica) 100 mg PO Q8Hnow 10/24/17 senna 8.6 mg PO Q12H 10/24/17 sodium chloride (Saline Flush 0.9%) 10 ml IVP Q12H Unscheduled Meds: None PRN Meds (11): 10/23/17 Dextrose 50% in Water IV (Dextrose 50% Syringe) 25 gm IVP PRN 10/23/17 Dextrose 50% in Water IV (Dextrose 50% Syringe) 12. 5 gm IVP PRN 10/23/17 Dextrose 50% in Water IV (Dextrose 50% Syringe) 6.2 5 gm IVP PRN 10/23/17 Insulin regular (insulin regula r 100 units/mL human recombinant) 3 unit SUB-Q PRN 10/23/17 Insulin regular (insulin regula r 100 units/mL human recombinant) 5 unit SUB-Q PRN 10/23/17 Insulin regular (insulin regula r 100 units/mL human recombinant) 7 unit SUB-Q PRN 10/23/17 acetaminophen-hydrocodone (acet aminophen-hydrocodone 325 mg-10 mg oral tablet) 1 tab PO Q4H 10/23/17 bisacodyl 10 mg SC Daily 10/23/17 morphine Sulfate 2 mg IVP [...] Q4H. acetaminophen-hydrocodone: 1 tab, PO, Q4H, PRN: P ain Score 4-6. aspirin: 81 mg, 1 tab, PO, Daily. bisacodyl: 10 mg, 1 supp, SC, Daily, PRN: Constip ation. Dextrose 50% in Water IV: 6.25 gm, 12.5 mL, IVP, PRN, PRN: Abnormal Lab Result. Dextrose 50% in Water IV: 25 gm, 50 mL, IVP, PRN, PRN: Abnormal Lab Result. Dextrose 50% in Water IV: 12. 5 gm, 25 mL, IVP, PRN, PRN: Abnormal Lab Result. docusate: 100 mg, 1 cap, PO, Q12H. enoxaparin: 30 mg, 0.3 mL, SUB-Q, [id number]. Insulin regular: 3 unit, 0.03 mL, SUB-Q, PRN, PRN : Abnormal Lab Result. Insulin regular: 5 unit, 0.05 mL, SUB-Q, PRN, PRN : Abnormal Lab Result. Insulin regular: 7 unit, 0.07 mL, SUB-Q, PRN, PRN : Abnormal Lab Result. morphine Sulfate: 2 mg, 0.5 mL, IVP, Q1H, PRN: Pa in Score 7-10. ondansetron: 4 mg, 2 mL, IVP, Q8H, PRN: Nausea an d Vomiting. polyethylene glycol 3350: 17 gm, 1 pkt, PO, Daily . pregabalin: 100 mg, 1 cap, PO, Q8Hnow. senna: 8.6 mg, 1 tab, PO, Q12H. sodium chloride: 10 ml, IVP, Q12H. sodium chloride: 10 ml, IVP, PRN, PRN: Line Flush . Sodium Chloride 0.9% IV 1,000 mL: 75 ml/hr, IV, S top: 11/22/17 23:33:00 CDT. Suspended aspirin: 325 mg, [...] I have seen and examined the patient wit anand Brunson and agree with history, physical exam, assessment, and plan as described in today's note. The patient underwent PCI to LAD in 05/2017 for ACS. Now admitted after fall requiring surgery. The patient is active without exertional chest pain. No hx of HF or abnormal cardiac arrhythmias. Given need for surgery, agree with holding clopidogrel. Please c ontinue aspirin, if possible, given PCI. Would resume clopidogrel as soon as possible. Discussed the importance of smokining cessation given dylon lin tobacco use. Plan of Care No Data Provided for This Section Social History Social History Date Source Social History TypeResponse 10/24/2017 [place] nunes Substance Abuse Use: Current. Type: Marijuana. Amount: occasionally. Alcohol Never Smoking Status Heavy tobacco smoker; Type: Cigars; Read y to change: No; Concerns about tobacco use in household: No; Exposure to Tobacco Smoke None; Cigarette Smoking Last 365 Days No; Reg Smoking Cessation Counseling No; Tobacco use per day: 1; entered on: 11/15/17 Social History TypeResponse 10/24/2017 [facility] Substance Abuse Use: Current. Type: Marijuana. Amount: occasionally. Alcohol Never Smoking Status Heavy tobacco smoker; Type: Cigars; Read y to change: No; Concerns about tobacco use in household: No; Exposure to Tobacco Smoke None; Cigarette Smoking Last 365 Days No; Reg Smoking Cessation Counseling No; Tobacco use per day: 1; entered on: 11/15/17 Family History No Data Provided for This Section Advance Directives No Data Provided for This Section Functional Status No Data Provided for This Section
--- OUTSIDE RECORDS SUMMARY | 2020-06-20 11:26 | XMS REPORT | Continuity of Care Document ---
:1955 Author Organization [facility] t Address [address] [place] [address] Care Team Providers Name Role Phone Nicko Clemente Jr Attending Clinician Nicko Clemente Jr Admitting Clinician Problems Condition Condition Condition Status Onset Resolution Last Treating Co mments Source Name Details Category Date Date Treatment Clinician Date LOWER BACK Diagnosis Active 2017-10-23 Memoria PAIN/CRUSH 4- 22:21:00 l ED L1/FALL LOWER 14:00: Madison nn FROM EV BACK 00 PAIN/CRUSH ED L1/FALL FROM EV Active 10/23/2017 [facility] LUMBAR FX Diagnosis Active 2017-10-24 Memoria 4- 04:47:00 l LUMBAR 14:00: Rolando FX 00 Active 8 [facility] Acquired Problem 2018-02-02 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:31:25 l 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 02/02/2018 [facility] 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 [place] Qualitativ e platelet defects 02/02/2018 [facility] Fall from, Problem 2018-02-02 M emoria out of or 11:31:25 l through Fall [place] roof, from, out initial of or encounter through roof, initial encounter 02/02/2018 [facility] Essential Problem 2018-02-02 Me moria (primary) 11:31:25 l hypertensi Gabe n on Essential (primary) hypertensi on 02/02/2018 [facility] Nicotine Problem 2018-02-02 Mem oria dependence 11:31:25 l , Nicotine Gabe n cigarettes dependence , , uncomplica cigarettes nate , uncomplica nate 02/02/2018 [facility] Hyperlipid Problem 2018-02-02 M emoria emia, 11:31:25 l unspecifie Gabe n d Hyperlipid emia, unspecifie d 02/02/2018 [facility] Old Problem 2018-02-02 Memor ia myocardial 11:31:25 l infarction [place] myocardial infarction 02/02/2018 [facility] 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 angina pectoris 02/02/2018 [facility] Presence Problem 2018-02-02 Mem oria of 11:31:25 l coronary Presence Herm marvin angioplast of y implant coronary and graft angioplast y implant and graft 02/02/2018 [facility] STABLE Diagnosis Active 2017-10-24 Mem oria BURST 04:47:00 l FRACTURE STABLE Gabe n OF UNSP BURST LUMBAR RAHEEL FRACTURE OF UNSP LUMBAR RAHEEL Active [facility] Unstable Problem 2018-02-02 2018-02-02 Memoria burst 4-17 11:31:25 11:31:25 l fracture Unstable 03:07: Herm marvin of first burst 14 lumbar fracture vertebra, of first initial lumbar encounter vertebra, for closed initial fracture encounter for closed fracture 8 02/02/2018 [facility] Allergies, Adverse Reactions, Alerts Allergy Allergy Status Severity Reaction(s) Onset Inactive Treating Comm ents Source Name Type Date Date Clinician penicill penicill Active Faith a in in cristiano Marshall Social History Social Habit Start Date Stop Date Quantity Comments Source Social History 2017-10-24 2017-10-24 [facility] Fiorella dorantes 10:11:09 10:11:09 Medications Ordered Filled Start Stop Current Ordering Indication Dosage Frequency Signature Comments Components Source Medication Medication Date Date Medication? Clinician (SIG) Name Name Acetaminoph Yes 1 tab, PO, Memoria en 325 MG / 4-26 Q6H, # 90, l Hydrocodone 18:55: 0 Gabe rapp Bitartrate 00 Refill(s), 10 MG Oral Triplicate Tablet given at clinic visit Hydrocortis No 1 appl, Mem oria one 5 MG/ML 10-27 TOP, BID, l Topical 18:01: PRN Rash, [place] nn Cream 00 apply in a thin film to the affected skin and rub in gently and completely , X 14 day, # 28 gm, 0 Refill(s) Hydrocortis No 1 appl, Mem oria one 5 MG/ML 10-27 Route: l Topical 18:00: TOP, BID, [place] nn Cream 00 Drug form: CRM, PRN Rash, Start date: 10/27/17 13:00:00 CDT, Duration: 30 day, Stop date: 11/26/17 12:59:00 CDT Docusate Yes 100 mg = 1 Mem oria Sodium 100 4-07 cap, PO, l MG Oral 17:18: Q12H, # 28 Herm marvin Capsule 00 cap, 0 Refill(s) Cyclobenzap No 10 mg, PO, Memoria rine 10-27 TID, PRN l hydrochlori 17:18: Muscle Herm marvin de 10 MG 00 Spasm, X Oral Tablet 14 day, # [Flexeril] 40 tab, 0 Refill(s) Acetaminoph No 1 tab, PO, Memoria en 300 MG / 10-27 Q6H, PRN l Codeine 17:18: Pain, X 14 Herm marvin Phosphate 00 day, # 50 30 MG Oral tab, 0 Tablet Refill(s) [Tylenol with Codeine #3] pregabalin Yes 100 mg = 1 M emoria 100 mg oral 07 cap, PO, l capsule 17:18: Q8Hnow, # Madison nn 00 42 cap, 0 Refill(s) Lovenox No Notes: Memoria 10-27 (Same as: l 02:00: Lovenox) Vancomycin No 2001 mg: Me moria 10-25 infuse l 21:00: over 2.5 Rolando 00 hours For adult patients only: Round to nearest 250 mg per Medical Staff approval MEDICATION WASTE Product Size: 1000 mg Product Wasted: ___ mg sugammadex No Notes: Memor ia 10-25 (Same as: l 18:00: Bridion) Acetaminoph No Notes: Do M emoria en 325 MG / 4-05 not exceed l Hydrocodone 17:25: 4gm/day of [place] Bitartrate 00 acetaminop 10 MG Oral hen. Tablet (Same as: [[place] 10/325] 325/10) Hydralazine No Notes: Bala bong 4-05 (Same as: l 17:25: Apresoline ) Push over 5 minutes Zofran No Notes: Memoria -05 (Same as: l 17:25: Zofran) Rolando 00 MEDICATION WASTE Product Size: 4 mg Product Wasted: ___ mg tramadol No Notes: Not Mem oria hydrochlori 10-25 to exceed l de 50 MG 17:25: 400mg/day. Her yu Oral Tablet 00 (Same As: Ultram) Morphine No Notes: Memoria - (Same l 17:25: as:MORPhin e Sulfate) Flexeril No Notes: Memoria - (Same As: l 17:25: Flexeril) Acetaminoph No Notes: Do M emoria en 10-25 not exceed l 17:00: 4 gm/day. Rolando (Same as: Tylenol) fentaNYL No Route: IV, Mem oria (ANES) 10-25 Drug form: l 16:06: INJ, ONCE, Stop date: 10/25/17 11:06:00 CDT hydromorpho No Route: IV, Memoria ne (ANES) 10-25 Drug form: l 16:06: INJ, ONCE, Stop date: 10/25/17 11:06:00 CDT rocuronium No Route: IV, M emoria (ANES) 10-25 Drug form: l 16:06: INJ, ONCE, Stop date: 10/25/17 11:06:00 CDT lidocaine No Route: IV, Me moria (ANES) 10-25 Drug form: l 16:06: INJ, ONCE, Stop date: 10/25/17 11:06:00 CDT propofol No Route: IV, Mem oria (ANES) 10-25 Drug form: l 16:06: INJ, ONCE, [place] Stop date: 10/25/17 11:06:00 CDT midazolam 2017-0 No Route: IV, Me moria (ANES) 4 Drug form: l 16:06: SOLN, [place] 00 ONCE, Stop date: 10/25/17 11:06:00 CDT ePHEDrine 2017-0 No Route: IV, Me moria (ANES) 4 Drug form: l 15:56: INJ, ONCE, [place] 00 Stop date: 10/25/17 10:56:00 CDT dexamethaso 2017-0 No Route: IV, Memoria ne (ANES) 10-25 Drug form: l 15:56: INJ, ONCE, [place] 00 Stop date: 10/25/17 10:56:00 CDT Sodium 2017-0 No Route: IV, Memor ia Chloride 10-25 Drug form: l 0.9% IV 14:25: INJ, Start Herm marvin (ANES) 235 00 date: mL + 10/25/17 vancomycin 9:25:00 (ANES) 1500 CDT, Stop mg date: 10/25/17 10:25:00 CDT dexmedetomi 0 No Route: IV, Memoria dine (ANES) 10-25 Drug form: l 200 13:50: INJ, Start Rolando microgram 00 date: 10/25/17 8:50:00 CDT, Stop date: 10/25/17 9:50:00 CDT Lactated 0 No Route: IV, Mem oria Ringers 405 Total l Injection 13:38: Volume: Madison nn IV (ANES) 00 1,000, 1000 mL Start date: 10/25/17 8:38:00 CDT, Stop date: 10/25/17 9:38:00 CDT Ondansetron 0 No 4 mg, Memor ia 10-25 Route: l 13:05: IVP, ONCE, Dosing Weight 79.545, kg, PRN Nausea & Vomiting, Start date: 10/25/17 8:05:00 CDT Naloxone 2017-0 No 0.4 mg, Memori a 10-25 Route: l 13:05: IVP, Rol[place] 00 Q2MIN, Dosing Weight 79.545, kg, PRN Narcotic Reversal, Start date: 10/25/17 8:05:00 CDT, Duration: 8 doses or times, Stop date: Limited # of times Flumazenil 2018-0 No 0.2 mg, Bala bong - Route: l 13:05: IVP, PRN, Rolando 00 Dosing Weight 79.545, kg, PRN Benzodiaze pine Reversal, Initial dose, Start date: 10/25/17 8:05:00 CDT, Duration: 30 day, Stop date: 11/24/17 8:04:00 CDT Hydromorpho 2018-0 No 0.5 mg, Mem oria ne 4 Route: l 13:05: IVP, [place] 00 Q5Min, Dosing Weight 79.545, kg, PRN Pain Score 7-10, Start date: 10/25/17 8:05:00 CDT, Duration: 4 doses or times, Stop date: Limited # of times Oxycodone 2017-0 No 5 mg, Memoria 05 Route: PO, l 13:05: Drug form: Rolando 00 TAB, Q4H, Dosing Weight 79.545, kg, PRN Pain Score 4-6, Start date: 10/25/17 8:05:00 CDT, Duration: 30 day, Stop date: 11/24/17 8:04:00 CDT Labetalol 2018-0 No 10 mg, Memori a 10-25 Route: l 13:05: IVP, [place] 00 Q5Min, Dosing Weight 79.545, kg, PRN Elevated BP, Start date: 10/25/17 8:05:00 CDT, Duration: 5 doses or times, Stop date: Limited # of times Hydralazine 2018-0 No 10 mg, Bala bong 4-05 Route: l 13:05: IVP, [place] 00 Q20Min, Dosing Weight 79.545, kg, PRN Elevated BP, Start date: 10/25/17 8:05:00 CDT, Duration: 2 doses or times, Stop date: Limited # of times Lovenox 2017-0 No Notes: Memoria 4-04 (Same as: l 19:00: Lovenox) [place] 00 Aspirin 2017-0 No Notes: Do Memor ia 4-04 not crush l 19:00: or chew. (Same As: Ecotrin) Saline No Notes: Memoria Flush 0.9% 4-04 (Same as: l 14:00: BD Posiflush) Docusate No Notes: Memoria 4-04 (Same as: l 14:00: Colace) (Do Not Crush) sennosides, No Notes: Bala bong SHELTER 4-04 (Same as: l 14:00: Senokot) POLYETHYLEN No Notes: Bala bong E GLYCOL 4-04 Dissolve l 3350 14:00: in 8 oz of water or juice. (Same as: Miralax) Lyrica No Notes: Memoria 4-04 (Same as: l 11:00: Lyrica) clopidogrel Yes 75 mg = 1 M emoria 75 MG Oral 4-04 tab, PO, l Tablet 10:10: Daily [Plavix] Aspirin Yes 325 mg, Memoria 4-04 PO, Daily l 10:10: lisinopril Yes 5 mg = 1 Mem oria 5 mg oral 4-04 tab, PO, l tablet 10:10: Daily atorvastati Yes 80 mg, PO, Memoria n 4-04 Bedtime l 10:10: Fentanyl No 50 Memoria 4-04 microgram, l 09:32: Route: IV, ONCE, Dosing Weight 79, kg, Start date: 10/24/17 4:32:00 CDT, Stop date: 10/24/17 4:32:00 CDT Morphine No Notes: Memoria 4-04 (Same l 04:54: as:MORPhin e Sulfate) Dextrose No 25 gm, 50 Bala bong 50% Syringe 4-04 mL, Route: l 04:34: IVP, Drug Form: INJ, Dosing Weight 79, kg, PRN, PRN Abnormal Lab Result, Start date: 10/23/17 23:34:00 CDT, Duration: 30 day, Stop date: 11/22/17 23:33:00 CDT Regular No 60 Memoria Insulin, 4-04 units) l Human 100 04:34: WASTE: F/P He rmann UNT/ML 00 - Black; E Injectable - Solution Municipal Trash Bin Stable for 28 days at room temperatur e Expires in days from ____Date Saline No Notes: Memoria Flush 0.9% 10-24 (Same as: l 04:34: BD Rolando Posiflush) Ondansetron No Notes: Bala bong 10-24 (Same as: l 04:34: Zofran) Rolando MEDICATION WASTE Product Size: 4 mg Product Wasted: ___ mg Bisacodyl No Notes: Memori a - (Same As: l 04:34: Dulcolax, [place] 00 Bisco-Lax) Acetaminoph No Notes: Do M emoria en 325 MG / 10-24 not exceed l Hydrocodone 04:34: 4gm/day of [place] Bitartrate 00 acetaminop 10 MG Oral hen. Tablet (Same as: [place] 325/10) Morphine No Notes: Memoria -04 (Same l 04:34: as:MORPhin Rolando 00 e Sulfate) Acetaminoph No Notes: Do M emoria en -04 not exceed l 04:34: 4 gm/day. Rolando 00 (Same as: Tylenol) Sodium No 1,000 mL, Memori a Chloride 10-24 Rate: 75 l 0.9% IV 04:34: ml/hr, Rolando 1,000 mL 00 Infuse over: 13.3 hr, Route: IV, Dosing Weight 79 kg, Total Volume: 1,000, Start date: 10/23/17 23:34:00 CDT, Duration: 30 day, Stop date: 11/22/17 23:33:00 CDT, 2.02, m2 Hydromorpho No 1 mg, Memor ia ne 10-24 Route: l 03:35: IVP, ONCE, [place] 00 Dosing Weight 79, kg, Priority: STAT, Start date: 10/23/17 22:35:00 CDT, Stop date: 10/23/17 22:35:00 CDT Zofran 2018-0 No 4 mg, Memoria 4- Route: l 03:27: IVP, Drug Rolando 00 form: INJ, ONCE, Dosing Weight 79, kg, Priority: STAT, Start date: 10/23/17 22:27:00 CDT, Stop date: 10/23/17 22:27:00 CDT Ancef 2018-0 No 2 gm, Memoria 4- Route: l 03:27: IVPB, [place] 00 ONCE, Dosing Weight 79, kg, Priority: STAT, Start date: 10/23/17 22:27:00 CDT, Stop date: 10/23/17 22:27:00 CDT, ABX Indication : Skin/Soft Tissue Infection Vital Signs Vital Name Observation Time Observation Value Comments Source BMI Calculated 2017-11-15 18:53:00 Memori al [place] Height 2017-11-15 18:53:00 185.42 cm [facility] [place] Weight 2017-11-15 18:53:00 [facility] [place] Temperature Oral (F) 2017-11-15 18:53:00 97.8 F [facility] [place] Heart Rate 2017-11-15 18:53:00 [facility] [place] Systolic (mm Hg) 2017-11-15 18:53:00 Bala rial [place] Diastolic (mm Hg) 2017-11-15 18:53:00 Mem orial [place] Systolic (mm Hg) 2017-10-27 18:00:00 Bala rial [place] Diastolic (mm Hg) 2017-10-27 18:00:00 Mem orial [place] Respitory Rate 2017-10-27 18:00:00 Memori al [place] Systolic (mm Hg) 2017-10-27 17:00:00 Bala rial [place] Diastolic (mm Hg) 2017-10-27 17:00:00 Mem orial [place] Respitory Rate 2017-10-27 17:00:00 Memori al [place] Systolic (mm Hg) 2017-10-27 16:00:00 Bala rial [place] Diastolic (mm Hg) 2017-10-27 16:00:00 Mem orial [place] Respitory Rate 2017-10-27 16:00:00 Memori al [place] Temperature Oral (F) 2017-10-27 09:00:00 97.8 F [facility] [place] Temperature Oral (F) 2017-10-27 05:00:00 98.8 F [facility] [place] Temperature Oral (F) 2017-10-27 01:00:00 99.7 F [facility] [place] Weight 2017-10-24 09:49:00 [facility] [place] BMI Calculated 2017-10-24 09:49:00 Memori al [place] Height 2017-10-24 09:49:00 185.42 cm [facility] [place] Heart Rate 2017-10-24 05:46:00 [facility] [place] BMI Calculated 2017-10-24 02:30:00 Memori al [place] Heart Rate 2017-10-24 02:30:00 [facility] [place] Height 2017-10-24 02:30:00 185.42 cm [facility] [place] Weight 2017-10-24 02:30:00 [facility] [place] Procedures Procedure Date / Time Performed Performing Clinician [facility] e Fusion of lumbar spine 2017-10-25 05:00:00 Memor ial Rolando Stent placement 2017-06-07 06:00:00 [facility] Her yu Encounters Start End Encounter Admission Attending Care Care Encounter Source Date/Time Date/Time Type Type Clinicians Facility Department ID 2017-12-13 2017-12-13 [id number] 15:30:00 15:30:00 Michael 01 Nicko 2017-11-15 2017-11-15 [id number] 11:00:00 23:59:59 Michael 00 Nicko 2017-11-08 2017-11-09 Outpatient MISCHER [facility] [id number] 09:06:00 23:59:59 00 2017-10-23 2017-10-27 Outpatient Bryn [facility] [id number] 21:29:00 15:15:00 Michael 93 Nicko Results Test Description Test Time Test Comments Results Result Comments Source ELECTROLYTES 2017-10-25 11.0 [facility] Her yu 18:05:00 ELECTROLYTES 2017-10-25 92 [facility] Her yu 18:05:00 ELECTROLYTES 2017-10-25 7.5 [facility] Her yu 18:05:00 ELECTROLYTES 2017-10-25 141 [facility] Her yu 18:05:00 ELECTROLYTES 2017-10-25 4.0 [facility] Her yu 18:05:00 ELECTROLYTES 2017-10-25 109 [facility] Her yu 18:05:00 ELECTROLYTES 2017-10-25 25 [facility] Her yu 18:05:00 ELECTROLYTES 2017-10-25 117 [facility] Her yu 18:05:00 ELECTROLYTES 2017-10-25 0.88 [facility] Her yu 18:05:00 ELECTROLYTES 2017-10-25 10 [facility] Her yu 18:05:00 HEMATOLOGY 2017-10-25 7.6 Memorial [place] nn 18:05:00 HEMATOLOGY 2017-10-25 93.9 [facility] [place] nn 18:05:00 HEMATOLOGY 2017-10-25 38.8 [facility] [place] nn 18:05:00 HEMATOLOGY 2017-10-25 13.3 [facility] [place] nn 18:05:00 HEMATOLOGY 2017-10-25 155 Memorial [place] nn 18:05:00 HEMATOLOGY 2017-10-25 14.5 [facility] [place] nn 18:05:00 HEMATOLOGY 2017-10-25 34.2 [facility] [place] nn 18:05:00 HEMATOLOGY 2017-10-25 18:05:00 Test Item Value Reference Range Interpretation Comme nts MCH (test code = MCH) 32.1 pg 27.0-31.0 Memorial KawmtruYJTPCMVARX3340-00-21 18:05:004.13[facility] HermannHEMATOLOGY 2017-10-25 18:05:009.9[facility] VjpqjjiFADUTWFWSQ7602-52-07 18:05:00 Test Item Value Reference Range Interpretation Comments PTT (test code = PTT) 33.6 s 22.9-35.8 Memorial OhhvyifYJCOSAVLJM8500-51-61 18:05:00 Test Item Value Reference Range Interpretation Comments PT (test code = PT) 13.7 s 12.0-14.7 [facility] JzyqwaeUFEYNRFQSV8612-80-54 18:05:00 Test Item Value Reference Range Interpretation Comments INR (test code = INR) 1.05 1 0.85-1.17 Memorial FgajymzQTRKZNBPMD5417-17-90 18:05:000.5[facility] HermannHEMATOLOGY 2017-10-25 18:05:000.7[facility] LfkmkscOPLSERQDNH1323-02-37 18:05:004.6[facility] JjtystbSBJITSLIPC9709-72-28 18:05:000.2[facility] MysoofsDIEYBHUTSY8935-22-12 18:05:000.3[facility] ZaynjbwNMKXHIYJRQ6603-22-93 18:05:008.7[facility] [place] CLUYBKAIGJ3916-54-98 18:05:007.1[facility] QokadyzLVEYIIDHHQ9517-39-21 18:05:00 87.8[facility] PuiiwrvADCVNOJMGR6229-93-17 11:49:68032Uhbmfviz HermannHEMATOLOGY 2017-10-25 11:49:99482Uwmekkua HermannBLOOD BANK HQAMLQV0628-57-46 07:23:00 Negative (10/25/17 2:23 AM)[facility] HermannCARDIAC GXZYKRU8782-90-87 07:23:00 <0.010[facility] HermannCARDIAC AQYSCZM0090-52-56 07:23:90581Sdickczr [place] CARDIAC FQHWYUH9083-12-11 07:23:00<0.02[facility] HermannCARDIAC ENZYMES 2017-10-25 07:23:00 Test Item Value Reference Range Interpretation Comments CK MB Index (test code = CK MB Index) 0.9 1 <=2.5 [facility] HermannCARDIAC KYBDBQW0177-31-22 07:23:001.5[facility] [place] ANFUDYSEWWEU7369-53-40 07:23:0014.0[facility] LpfocwtIDGZFSGHMRMV4930-69-54 07:23:0088[facility] VwdfvplVVEINKIPGLDI3134-53-72 07:23:007.9[facility] [place] TXHOCSDOTNCA0542-35-35 07:23:000.93[facility] BcpqbtbTOBBWSXRFTVA3333-91-12 07:23:01402Iyvnrjie NelaxhfGRWPOHDHCAKX1391-14-88 07:23:0013[facility] [place] FYMCVOHCDCFO8472-99-47 07:23:0098[facility] FebqgutUBWESKCTDVUC9576-09-49 07:23:00 21[facility] TixqxomOUWUMIEVZIOX4587-03-96 07:23:004.0[facility] HermannELECTROLYTES 2017-10-25 07:23:30525Nyileysj RygvcesMWXPJYVDWW8122-44-91 07:23:002.3[facility] LbuduaqYOKBJNMODQ0489-29-32 07:23:000.9[facility] IqcselsEDABPCVMHO5550-33-24 07:23:004.2[facility] MnscxhnQXMDAFMRPN1002-75-28 07:23:000.1[facility] OKKDGYPJUV0262-34-21 07:23:000.6[facility] HpcakzsVFPLZAAYPM4163-94-99 07:23:001.1 [facility] KcbjwtgQWVRFODTAH7501-23-26 07:23:0030.7[facility] HermannHEMATOLOGY 2017-10-25 07:23:0012.2[facility] ZfpyrywHTZGWLRSVA5801-04-76 07:23:0055.4[facility] IidwaapHEJGKLRDYG5843-94-24 07:23:0014.1[facility] BftnfgjRRAAERSAMR9700-69-25 07:23:0034.3[facility] XuoearlLGLGZXKMZE4893-57-84 07:23:00 Test Item Value Reference Range Interpretation Comments MCH (test code = MCH) 32.0 pg 27.0-31.0 [facility] VfipdoqRNSUPYJYHG2139-89-68 07:23:0093.3[facility] HermannHEMATOLOGY 2017-10-25 07:23:0041.7[facility] LqjtmdmKMESNJUQHT1991-72-84 07:23:007.4[facility] TqvtnlqDFGXHLAFOC8885-71-04 07:23:24348Iazpfqko KztacbcABQBRRTSAE7206-79-40 07:23:0014.3[facility] JwgofkwPNMNGECYLN6612-72-50 07:23:004.47[facility] [place] YKJMFRSEPP0189-68-03 07:23:007.5[facility] CrxgcldEOPPFNIBQM7453-36-89 07:23:00 Test Item Value Reference Range Interpretation Comments INR (test code = INR) 1.02 1 0.85-1.17 [facility] RvbrqqbVAESVQROPF2916-04-36 07:23:00 Test Item Value Reference Range Interpretation Comments PTT (test code = PTT) 30.0 s 22.9-35.8 [facility] TeulshwRIMTRRLNOU5658-87-55 07:23:00 Test Item Value Reference Range Interpretation Comments PT (test code = PT) 13.4 s 12.0-14.7 [facility]annCARDIAC SPXQWEF8958-52-26 22:23:00<0.010[facility] [place] CARDIAC EBIKBBL8861-94-12 22:23:00<0.02[facility] HermannCARDIAC ENZYMES 2017-10-24 22:23:57226Kbsdmgjy HermannCARDIAC FNWWTDP0705-73-79 22:23:00 Test Item Value Reference Range Interpretation Comments CK MB Index (test code = CK MB Index) 0.9 1 <=2.5 [facility]annCARDIAC JVDKXTB6123-26-38 22:23:002.1[facility] HermannCARDIAC QOSZAMR6294-32-36 08:36:00<0.010[facility] HermannCARDIAC IZUZBGF7813-08-14 08:36:00<0.02[facility] HermannCARDIAC EHSXFIQ5488-31-76 08:36:04537Cwxopyzp HermannCARDIAC YJDBYWX7725-89-13 08:36:00 Test Item Value Reference Range Interpretation Comments CK MB Index (test code = CK MB Index) 0.8 1 <=2.5 [facility]annCARDIAC WOSJKAB8231-32-75 08:36:003.2[facility] HermannHEMATOLOGY 2017-10-24 06:40:01082Lrobhynr TytfqnsGDVXLMAVCS7184-01-33 06:40:40195Couxaydl HermannBLOOD BANK THNBPWY8965-70-62 05:12:00Negative (10/24/17 12:12 AM)[facility] HermannCHEM TCKXF8559-33-82 03:33:000.8[facility] XxkfwhxWLDUICEIQMPS8566-70-30 03:33:0015.0[facility] ApzffjsEVGRFJTUPKQF1731-53-41 03:33:0092[facility] [place] CIXQPCOAOUTU1401-57-78 03:33:0022[facility] PwmjaeuRESVJYHAOKFZ2543-18-09 03:33:00 8.6[facility] OjcjrsdRCMVCNRTYPAS3362-79-88 03:33:004.0[facility] [place] DLBXHHDEDSMD9223-99-32 03:33:09706Ogfybqbp LmxxbgfQYCJREAUJVJX8643-86-77 03:33:000.89[facility] QbhtyftRZQFGOFKXQFG6963-05-45 03:33:0012[facility] LKDESIGPRDVO8465-13-91 03:33:89488Xdmjqtbj HavaukhMEFYJIMKCKQT8446-00-36 03:33:80158Ivzzwlhm UoisyytWBCIUQIFVI8876-42-87 03:33:005.6[facility] [place] JZEQNHRDQC6283-33-96 03:33:000.1[facility] VorswqdASZYFROXCS5190-50-60 03:33:008.3 [facility] MtnxlccRABCYYTGRO1965-12-17 03:33:0085.4[facility] HermannHEMATOLOGY 2017-10-24 03:33:000.5[facility] YayuafhPCAEGGUXKN5481-12-43 03:33:000.1[facility] JftnimjUAKSMFVBIY8323-06-16 03:33:000.8[facility] OexdcjbFIIYMYJNPY6372-03-08 03:33:008.3[facility] BzhpguaQWWJJSORWZ8167-10-73 03:33:000.6[facility] [place] PHNRXDLFII0349-67-09 03:33:002.4[facility] YyvlymgPWQZNLCVFC3187-92-29 03:33:00 Test Item Value Reference Range Interpretation Comments Max Amplitude Rapid (test code = Max 57 mm 52-71 Amplitude Rapid) [facility] QztrtgqSFKDAAVXOB9554-23-12 03:33:00 Test Item Value Reference Range Interpretation Comments K-time Rapid (test code = K-time 1.7 min 0.6-2.3 Rapid) [facility] FctkpfcEIGZMWHVRS8740-04-55 03[facility] 03:33:00 Test Item Value Reference Range Interpretation Comments Angle Rapid (test code = Angle 71 degrees 64-80 Rapid) [facility] JixkakrWNYQICYVBM6042-72-39 03:33:00 Test Item Value Reference Range Interpretation Comments Split Point Rapid (test code = Split 0.5 min Point Rapid) [facility] BgwosggGTQYPNFVKN4807-57-05 03:33:00 Test Item Value Reference Range Interpretation Comments R-time Rapid (test code = R-time 0.6 min 0.4-0.7 Rapid) [facility]26[facility]40[facility]22 03:33:00 Test Item Value Reference Range Interpretation Comments ACT (TEG) Rapid (test code = ACT (TEG) 105 s 86-118 Rapid) [facility]bfglbaQZIHELDMVM3424-81-43 03:33:00 Test Item Value Reference Range Interpretation Comments PTT (test code = PTT) 29.1 s 22.9-35.8 [facility]afbggdDZFBVEZUCG1616-86-51 03:33:00 Test Item Value Reference Range Interpretation Comments PT (test code = PT) 14.6 s 12.0-14.7 [facility]QxmyptmRBKTRFHPVF0671-89-69 03:33:00 Test Item Value Reference Range Interpretation Comments INR (test code = INR) 1.14 1 0.85-1.17 [facility] QictgqpPVKBOMQHCZ3314-10-35 03:33:23706Fpipjrlv HermannHEMATOLOGY 2017-10-24 03:33:007.3[facility] ImfgnvmTBCONMHRQH3452-02-37 03:33:0014.2[facility] XvpkuqaMRCUZGCKLN3944-65-65 03:33:0014.4[facility] HmlihaxAMWKKZARIO8904-55-46 03:33:009.7[facility] OxfeqtyCQVPBCOXJB6588-15-61 03:33:004.48[facility] TXMUSKQNTH4559-41-03 03:33:0093.3[facility] GzxlwevCPZCCSSVMZ8801-42-77 03:33:00 Test Item Value Reference Range Interpretation Comments MCH (test code = MCH) 32.2 pg 27.0-31.0 [facility] XstqgtnEGANZLENEL6909-67-34 03:33:0034.5[facility] 2017-10-24 03:33:0041.8[facility] [place]
[2020-06-20] MEDS ORDERED: MEPERIDINE HCL 25 MG/ML SYR ONE (12:21)
[2020-06-20] MEDS ORDERED: dexAMETHasone 10 MG/ML VIAL ONE (12:21)
[2020-06-20 12:31] LABS: Absolute Lymphocytes (CBC) 1.4 K/uL (0.7-4.9); Basophils % 0.6 % (0-1.3); Hematocrit 44.1 % (39.6-49.0); Lymphocytes % 12.5 % (15.3-44.8); MPV 7.4 fL (7.6-11.3); RBC Red Blood Cell Count 4.88 M/uL (4.33-5.43)
[2020-06-20 12:40] LABS: Potassium 3.8 mmol/L (3.5-5.1)
--- NOTE | 2020-06-20 13:02 | RAD REPORT ---
EXAM DESCRIPTION: CT - Stone Protocol - 06/20/2020 12:37 pm CLINICAL HISTORY: low back pain, hematuria COMPARISON: Abdomen Pelvis W Contrast dated 07/12/2018; Chest Pa And Lat (2 Views) dated 06/25/2017 TECHNIQUE: Axial [address] imaging of the abdomen and pelvis was performed without IV contrast. No IV contrast was given because of allergy, abnormal renal function, patient refusal or physician re quest. No oral contrast. All CT scans are performed using dose optimization technique as appropriate and may include automated exposure control or mA/KV adjustment according to patient size. FINDINGS: A 5 millimeter pulmonary nodule is present posterior right lung base. Left lung base shows scarring. COPD changes are evident with hyper expanded lung morales. Liver and spleen show no suspicious findings. Gallbladder and biliary tree are also without suspiciou s finding. Pancreas is not optimally visualized due to adjacent isodense bowel and limited intraabdom inal fat. Primary pancreatic process is not suspected. There is pronounced hydronephrosis of the pelvis and calices of the left kidney with moderate severit y hydroureter down to the UVJ. There is a 4 millimeter stone in the region of the left UVJ. However, there is also thickening of the bladder wall at the UVJ. The 2018 study showed large hematoma with re commendation for direct visualization. It is unknown if there was follow-up of the bladder abnormalit y seen on the prior imaging. No intraluminal hematoma of the urinary bladder. No significant adrenal finding. Isodense renal masses and pyelonephritis cannot be excluded in the absence of IV contrast. Thickening of the gastric mercedes noted in the body. This is not substantially different from the prior study. There is little content within the lumen which accentuates wall thickness. No dilated large o r small bowel loops. No acute small bowel or colon process seen. No free air, free fluid or inflammatory stranding. No bulky lymphadenopathy. No suspicious bony findings. Aortoiliac atherosclerotic calcifications are present. IMPRESSION: Patient has pronounced hydronephrosis of the pelvis and calices the left kidney with mod erate severe hydroureter down to the UVJ. There is a 4 mm stone near the UVJ ; however, there is also wall thickening and possible mass. Patien t may have an obstructing calculus but there is also concern for a mass of the bladder. If not alread y performed (see 2018 CT report), direct visualization would be recommended. Gastric wall thickening is present. This is not new but an infiltrative process cannot be excluded ba sed on the CT imaging. The absence of intraluminal content exaggerates thickness of the gastric wall. Additional nonacute findings detailed in the body of the report. Full assessment is limited is the absence of IV contrast.
[2020-06-20] MEDS ORDERED: TAMSULOSIN 0.4 MG SR CAP ONE (13:32)
[2020-06-20] MEDS ORDERED: MAGNESIUM SULFATE 1 gm IVPB 1 GM/100 ML BAG IV ONE (13:32)
[2020-06-20] MEDS ORDERED: KETOROLAC 30 MG/ML INJ ONE (13:32)
--- NOTE | 2020-06-20 14:16 | ER ---
Nurse's Notes [facility] Name: Volodymyr Trejo Age: 64 yrs Sex: Male : 1955 Arrival Date: 06/20/2020 Time: 11:23 Bed 5 Private MD: Diagnosis: Calculus of lower urinary tract, unspecified;Bladder Mass;Hematuria, unspecified Presentation: 06/20 11:49 Chief complaint: Patient states: Had a BM 2 days ago that took 6 hours to pass, then jl7 started with back pain and blood in the urine; the back pain and blood in urine has been intermittent since back surgery 3 years ago. Coronavirus screen: Client denies travel out of the [place] in the last 14 days. At this time, the client does not indicate any symptoms associated with coronavirus-19. Ebola Screen: No symptoms or risks identified at this time. Initial Sepsis Screen: Does the patient meet any 2 criteria? No. Patient's initial sepsis screen is negative. Does the patient have a suspected source of infection? No. Patient's initial sepsis screen is negative. Risk Assessment: Do you want to hurt yourself or someone else? Patient reports no desire to harm self or others. Onset of symptoms was June 18, 2020. Care prior to arrival: None. Transition of care: patient was not received from another setting of care. 11:49 Method Of Arrival: Ambulatory [facility] 11:49 Acuity: JUANPABLO 3 jl7 Triage Assessment: 11:54 General: Appears in no apparent distress. uncomfortable, Behavior is cooperative, jl7 anxious. Pain: Complains of pain in low back area Pain does not radiate. Pain currently is 6 out of 10 on a pain scale. Pain began 2-3 days ago. years ago. Is continuous. Neuro: Level of Consciousness is awake, alert, obeys commands, Oriented to person, place, time, situation. Cardiovascular: Patient's skin is warm and dry. Respiratory: Airway is patent Respiratory effort is even, unlabored, Respiratory pattern is regular, symmetrical. GI: Reports constipation, nausea. : Reports blood in urine. Derm: Skin is pink, warm \T\ dry. Historical: - Allergies: 11:54 PENICILLINS; jl7 - Home Meds: 11:54 None [Active]; jl7 - PMHx: 11:54 Hyperlipidemia; Hypertension; jl7 - PSHx: 11:54 Heart stents; jl7 - Immunization history:: Adult Immunizations unknown. - Social history:: Smoking status: Patient reports the use of cigarette tobacco products, smokes one pack cigarettes per day. Patient uses street drugs, marijuana. - Family history:: not pertinent. - Hospitalizations: : No recent hospitalization is reported. Screenin:52 Abuse screen: Denies threats or abuse. Nutritional screening: No deficits noted. tw2 Tuberculosis screening: No symptoms or risk factors identified. Fall Risk Secondary diagnosis (15 points) impaired mobility. Assessment: 11:50 General: See triage assessment. jl7 13:40 Reassessment: Patient appears in no apparent distress at this time. Patient and/or tw2 family updated on plan of care and expected duration. Pain level reassessed. Patient is alert, oriented x 3, equal unlabored respirations, skin warm/dry/pink. Patient states feeling better. 14:28 Reassessment: Patient appears in no apparent distress at this time. Patient and/or tw2 family updated on plan of care and expected duration. Pain level reassessed. Patient is alert, oriented x 3, equal unlabored respirations, skin warm/dry/pink. Patient states feeling better. Vital Signs: 11:49 BP 166 / 108; Pulse 65; Resp 17; Temp 97.8; Pulse Ox 99% ; Weight 75.75 kg; Height 6 jl7 ft. 1 in. (185.42 cm); Pain 6/10; 12:21 BP 152 / 98; Pulse 50; Resp 16; Pulse Ox 96% on R/A; Pain 7/10; tw2 13:23 BP 145 / 94; Pulse 52; Resp 16; Pulse Ox 99% on R/A; Pain 5/10; tw2 14:29 BP 155 / 91; Pulse 54; Resp 17; Pulse Ox 98% on R/A; tw2 11:49 Body Mass Index 22.03 (75.75 kg, 185.42 cm) 7 ED Course: 11:23 Patient arrived in ED. bg2 11:43 Terry Caldwell, BURTON is Primary Nurse. jl7 11:47 Merlin Walker MD is Attending Physician. rn 11:52 Triage completed. jl7 11:54 Arm band placed on right wrist. jl7 11:55 Patient has correct armband on for positive identification. Placed in gown. Bed in low jl7 position. Call light in reach. Side rails up X 1. Pulse ox on. NIBP on. 12:10 Inserted saline lock: 20 gauge in right forearm, using aseptic technique. Blood tw2 collected. 12:38 CT Stone Protocol In Process Unspecified. EDMS 13:22 monitoring coordinator on. tw2 14:13 Nicko Campa MD is Referral Physician. rn 14:18 Awaiting: completion of IV medication prior to discharge. tw2 14:18 Urine Microscopic Only Sent. tw2 14:29 No provider procedures requiring assistance completed. tw2 14:37 IV discontinued, intact, bleeding controlled, No redness/swelling at site. Pressure tw2 dressing applied. Administered Medications: 12:12 Drug: Decadron - Dexamethasone 10 mg Route: IVP; Site: right forearm; tw2 14:28 Follow up: Response: No adverse reaction tw2 12:14 Drug: Demerol 25 mg {Note: RASS 0.} Route: IVP; Site: right forearm; tw2 13:22 Follow up: Response: No adverse reaction; Pain is unchanged, physician notified; RASS: tw2 Alert and Calm (0) 13:20 Drug: TORadol - Ketorolac 15 mg Route: IVP; Site: right forearm; tw2 14:28 Follow up: Response: No adverse reaction; Pain is decreased tw2 13:22 Drug: Flomax 0.4 mg Route: PO; tw2 14:28 Follow up: Response: No adverse reaction tw2 13:22 Drug: Magnesium Sulfate 1 grams Route: IVPB; Infused Over: 1 hrs; Site: right forearm; tw2 14:28 Follow up: Response: No adverse reaction; IV Status: Completed infusion; IV Intake: tw2 100ml Intake: 14:28 IV: 100ml; Total: 100ml. tw2 14:18 brown urine noted tw2 Output: 14:18 Urine: 100ml (Voided); Total: 100ml. tw2 14:18 brown urine noted tw2 Outcome: 14:15 Discharge ordered by . rn 14:37 Discharged to home ambulatory, with family. tw2 14:37 Condition: stable 14:37 Discharge instructions given to patient, family, Instructed on discharge instructions, follow up and referral plans. no drinking with medication, no driving heavy equipment, medication usage, Demonstrated understanding of instructions, follow-up care, medications, Prescriptions given X 1. 14:37 Patient left the ED. tw2 Signatures: Dispatcher [employer] EDMS Merlin Walker MD MD rn Glass, Brittany 2 Juliane Madden RN RN tw2 Terry Caldwell RN RN jl7
--- NOTE | 2020-06-20 14:16 | EDPHYS ---
Physician Documentation [facility] Name: Volodymyr Trejo Age: 64 yrs Sex: Male : 1955 Arrival Date: 06/20/2020 Time: 11:23 Bed 5 Private MD: ED Physician Merlin Walker HPI: 06/20 12:09 This 64 yrs old Male presents to ER via Ambulatory with complaints of Back rn Pain, Constipation. 12:09 The patient presents with pain that is chronic. The symptoms are located in the low rn back. Onset: The symptoms/episode began/occurred 3 year(s) ago. The pain radiates to the right leg and left leg. Associated signs and symptoms: Pertinent positives: constipation, hematuria, Pertinent negatives: abdominal pain, dysuria, fever, vomiting, weakness. The problem was sustained without known cause. Modifying factors: The patient symptoms are alleviated by nothing, the patient symptoms are aggravated by bending, lifting, movement. Severity of symptoms: At their worst the symptoms were moderate, in the emergency department the symptoms are unchanged. The patient has experienced similar episodes in the past, chronically. The patient has not recently seen a physician. 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 Also has chronic hematuria, reports peeing little blood again but without clots that he has had in past. Has had multiple w/u for hematuria without obvious etiology. . Historical: - Allergies: 11:54 PENICILLINS; jl7 - Home Meds: 11:54 None [Active]; jl7 - PMHx: 11:54 Hyperlipidemia; Hypertension; jl7 - PSHx: 11:54 Heart stents; jl7 - Immunization history:: Adult Immunizations unknown. - Social history:: Smoking status: Patient reports the use of cigarette tobacco products, smokes one pack cigarettes per day. Patient uses street drugs, marijuana. - Family history:: not pertinent. - Hospitalizations: : No recent hospitalization is reported. ROS: 12:09 Constitutional: Negative for fever, chills, and weight loss, Eyes: Negative for injury, rn pain, redness, and discharge, Neck: Negative for injury, pain, and swelling, Cardiovascular: Negative for chest pain, palpitations, and edema, Respiratory: Negative for shortness of breath, cough, wheezing, and pleuritic chest pain, Abdomen/GI: Negative for abdominal pain, nausea, vomiting, diarrhea, and constipation, Back: Negative for injury : Negative for injury, discharge, and swelling, + hematuria MS/Extremity: Negative for injury and deformity, Skin: Negative for injury, rash, and discoloration, Neuro: Negative for headache, weakness, numbness, tingling, and seizure. Exam: 12:09 Constitutional: This is a well developed, well nourished patient who is awake, alert, rn and in no acute distress. Head/Face: Normocephalic, atraumatic. Eyes: Pupils equal round and reactive to light, extra-ocular motions intact. Lids and lashes normal. Conjunctiva and sclera are non-icteric and not injected. Cornea within normal limits. Periorbital areas with no swelling, redness, or edema. Cardiovascular: Regular rate and rhythm. No pulse deficits. Respiratory: No increased work of breathing, no retractions or nasal flaring. Abdomen/GI: soft, non-tender Back: No spinal tenderness. No costovertebral tenderness. Skin: Warm, dry MS/ Extremity: Pulses equal, no cyanosis. Neurovascular intact. Full, normal range of motion. Equal circumference. Neuro: Awake and alert, GCS 15, oriented to person, place, time, and situation. Motor strength 5/5 in all extremities. Sensory grossly intact. Cerebellar exam normal Vital Signs: 11:49 BP 166 / 108; Pulse 65; Resp 17; Temp 97.8; Pulse Ox 99% ; Weight 75.75 kg; Height 6 jl7 ft. 1 in. (185.42 cm); Pain 6/10; 12:21 BP 152 / 98; Pulse 50; Resp 16; Pulse Ox 96% on R/A; Pain 7/10; tw2 13:23 BP 145 / 94; Pulse 52; Resp 16; Pulse Ox 99% on R/A; Pain 5/10; tw2 14:29 BP 155 / 91; Pulse 54; Resp 17; Pulse Ox 98% on R/A; tw2 11:49 Body Mass Index 22.03 (75.75 kg, 185.42 cm) jl7 MDM: 11:47 Patient medically screened. rn 14:11 Differential diagnosis: chronic back pain, Neoplasm Ureterolithiasis bladder cancer, rn kidney stone, disc problems, chronic back pain. Data reviewed: vital signs, nurses notes, lab test result(s), radiologic studies, CT scan, and as a result, I will discharge patient. Counseling: I had a detailed discussion with the patient and/or guardian regarding: the historical points, exam findings, and any diagnostic results supporting the discharge/admit diagnosis, lab results, radiology results, the need for outpatient follow up, to return to the emergency department if symptoms worsen or persist or if there are any questions or concerns that arise at home. Response to treatment: the patient's symptoms have markedly improved after treatment, and as a result, I will discharge patient. Special discussion: I discussed with the patient/guardian in detail that at this point there is no indication for admission to the hospital. It is understood, however, that if the symptoms persist or worsen the patient needs to return immediately for re-evaluation. Based on the history and exam findings, there is no indication for further emergent testing or inpatient evaluation. I discussed with the patient/guardian the need to see the urologist for further evaluation of the symptoms. ED course: Pt with bladder mass and kidney stone, feels like passed kidney stone into bladder, pain much improved. No kidney failure. Bladder mass likely present for years given years of frequent hematuria, has never had cystoscope, recommend outpt cystoscope and given return precautions. . 06/20 11:59 Order name: CBC with Diff; Complete Time: 13:10 rn 06/20 11:59 Order name: Basic Metabolic Panel; Complete Time: 13:10 rn 06/20 11:59 Order name: CT Stone Protocol; Complete Time: 13:10 rn 06/20 11:59 Order name: Urine Microscopic Only 06/20 14:16 Order name: Urine Dipstick--Ancillary (enter results) 06/20 11:59 Order name: Urine Dipstick-Ancillary (obtain specimen); Complete Time: 14:18 rn 06/20 11:59 Order name: IV Start; Complete Time: 12:21 rn Administered Medications: 12:12 Drug: Decadron - Dexamethasone 10 mg Route: IVP; Site: right forearm; tw2 14:28 Follow up: Response: No adverse reaction tw2 12:14 Drug: Demerol 25 mg {Note: RASS 0.} Route: IVP; Site: right forearm; tw2 13:22 Follow up: Response: No adverse reaction; Pain is unchanged, physician notified; RASS: tw2 Alert and Calm (0) 13:20 Drug: TORadol - Ketorolac 15 mg Route: IVP; Site: right forearm; tw2 14:28 Follow up: Response: No adverse reaction; Pain is decreased tw2 13:22 Drug: Flomax 0.4 mg Route: PO; tw2 14:28 Follow up: Response: No adverse reaction tw2 13:22 Drug: Magnesium Sulfate 1 grams Route: IVPB; Infused Over: 1 hrs; Site: right forearm; tw2 14:28 Follow up: Response: No adverse reaction; IV Status: Completed infusion; IV Intake: tw2 100ml Disposition: 06/20/20 14:15 Discharged to Home. Impression: Calculus of lower urinary tract, unspecified, Bladder Mass, Hematuria, unspecified. - Condition is Stable. - Discharge Instructions: Hematuria, Adult, Kidney Stones, Cystoscopy. - Prescriptions for Tylenol- Codeine #3 300-30 mg Oral Tablet - take 1 tablet by ORAL route every 6 hours As needed; 20 tablet. - Medication Reconciliation Form, Thank You Letter, Antibiotic Education, Prescription Opioid Use form. - Follow up: Nicko Campa MD; When: As needed; Reason: Recheck today's complaints, Re-evaluation by your physician. - Problem is an ongoing problem. - Symptoms have improved. Signatures: Dispatcher [employer] EDMerlin De La Vega MD MD rn Wise, Tara, RN RN tw2 Terry Caldwell RN RN jl7 Corrections: (The following items were deleted from the chart) 14:37 14:15 06/20/2020 14:15 Discharged to Home. Impression: Calculus of lower urinary tract, tw2 unspecified; Bladder Mass; Hematuria, unspecified. Condition is Stable. Forms are Medication Reconciliation Form, Thank You Letter, Antibiotic Education, Prescription Opioid Use. Follow up: Nicko Campa; When: As needed; Reason: Recheck today's complaints, Re-evaluation by your physician. Problem is an ongoing problem. Symptoms have improved. rn
[2020-06-20 14:49] LABS: Urine Bacteria <20 /HPF (NONE SEEN); Urine RBC TNTC /HPF (NONE SEEN)
[2020-06-20 14:51] LABS: Urine Blood 3+ (NEG); Urine Glucose NEGATIVE (NEG); Urine Protein 2+ (NEG)
[2020-06-20 16:44] VITALS: TEMP 97.8
[2020-06-20 16:50] VITALS: BP 155/91; O2SAT 98
== END 2020-06-20 14:37 | disposition home or self-care (01) ==
LOC: ER 11:22
DX: N21.9 Calculus of lower urinary tract, unspecified (principal); N32.89 Other specified disorders of bladder; I10 Essential (primary) hypertension; F17.210 Nicotine dependence, cigarettes, uncomplicated; Z95.818 Presence of other cardiac implants and grafts; Z88.0 Allergy status to penicillin
CPT/HCPCS: 36415; 74176; 76377; 80048; 81003; 81015; 85025; 87086; 87088; 96365; 96375; 99284; J1100; J2175; J3475

== ENCOUNTER 2021-09-02 05:53 | Emergency (ER) | payer OTHER, SELFPAY ==
--- OUTSIDE RECORDS SUMMARY | 2021-09-02 05:59 | XMS REPORT | Continuity of Care Document ---
:[address] [facility] t Address [address] [place] [address] Care Team Providers Name Role Phone Pcp, Does Not Have A Primary Care Physician OLEGARIO Attending Clinician Unavailable JG CHAPA Attending Clinician Unavailable BUTCH Attending Clinician Unavailable NIDA Attending Clinician Unavailable PHILLIP CANCHOLA Attending Clinician Unavailable OLEGARIO Attending Clinician Unavailable Leonora IVERSON Attending Clinician Unavailable Gramm SERVICE DESK ANALYST, A Attending Clinician GRAMM, A Attending Clinician Unavailable 3, Interventional Consult Attending Clinician Unavailable Doctor Unassigned, Name Attending Clinician Unavailable Problems Condition Condition Condition Status Onset Resolution Last Treating Co mments Source Name Details Category Date Date Treatment Clinician Date LOWER BACK Diagnosis Active 2017-10-23 Memoria PAIN/CRUSH 10-23 22:21:00 l ED L1/FALL LOWER 14:00: Madison nn FROM EV BACK 00 PAIN/CRUSH ED L1/FALL FROM EV Active 10/23/2017 [facility] LUMBAR FX Diagnosis Active 2017-10-24 Memoria 10-23 04:47:00 l LUMBAR 14:00: [place] FX 00 Active 8 [facility] [place] [facility] Impotence Impotence Disease Active Uni vers of organic of organic 11-11 it y of origin origin 00:00: [place] 00 Medical Branch Hydrocele Hydrocele Disease Active Overview: Univers 11-11 Formattin ity of 00:00: g of this [place] 00 note Medical might be Branch different from the original. Sp hydrocele ctomy on 10/29/12ICD 10 Diagnosis Term Management Professional Utility Fall from, Problem 2018-02-02 M emoria out of or 11:31:25 l through Fall [place] roof, from, out initial of or encounter through roof, initial encounter 02/02/2018 [facility] [place] [facility] Essential Problem 2018-02-02 Me moria (primary) 11:31:25 l hypertensi Gabe n on Essential (primary) hypertensi on 02/02/2018 [facility] [place] [facility] Nicotine Problem 2018-02-02 Mem oria dependence 11:31:25 l , Nicotine Gabe n cigarettes dependence , , uncomplica cigarettes nate , uncomplica nate 02/02/2018 [facility] [place] [facility] Hyperlipid Problem 2018-02-02 M emoria emia, 11:31:25 l unspecifie Gabe n d Hyperlipid emia, unspecifie d 02/02/2018 [facility] [place] [facility] Old Problem 2018-02-02 Memor ia myocardial 11:31:25 l infarction Old Gabe n myocardial infarction 02/02/2018 [facility] 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 angina pectoris 02/02/2018 [facility] [place] [facility] Presence Problem 2018-02-02 Mem oria of 11:31:25 l coronary Presence Herm marvin angioplast of y implant coronary and graft angioplast y implant and graft 02/02/2018 [facility] [place] [facility] STABLE Diagnosis Active 2017-10-24 Mem oria BURST 04:47:00 l FRACTURE STABLE Gabe n OF UNSP BURST LUMBAR RAHEEL FRACTURE OF UNSP LUMBAR RAHEEL Active [facility] [place] [facility] Acquired Problem 2018-02-02 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:31:25 l 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 02/02/2018 [facility] [place] [facility] 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 Rol[place] Qualitativ e platelet defects 02/02/2018 [facility] [place] [facility] History of Past Illness Condition Condition Condition Status Onset Resolution Last Treating Co mments Source Name Details Category Date Date Treatment Clinician Date Unstable Problem 2018-0 2018-02-02 2018-02-02 Memoria burst 4-17 11:31:25 11:31:25 l fracture Unstable 03:07: Herm marvin of first burst 14 lumbar fracture vertebra, of first initial lumbar encounter vertebra, for closed initial fracture encounter for closed fracture 8 02/02/2018 [facility] [place] [facility] Allergies, Adverse Reactions, Alerts Allergy Allergy Status Severity Reaction(s) Onset Inactive Treating Comm ents Source Name Type Date Date Clinician PENICILL Drug Active Med Unknown-Cmnt Un lesli INS Class 3-28 ity of 00:00: [place] 00 Medical Branch Penicill Propensi Active Unknown - Allergy Un lesli ins ty to See comments 3-28 since ity of adverse 00:00: childhood [place] reaction 00 Medical s to Branch drug Penicill Allergy Active Rash Allergy [facility] ins to 3-28 since Health substanc 00:00: childhood e 00 Allergy since childhood Allergy since childhood Allergy since childhood penicill penicill Active Memori a in in l [place] Social History Social Habit Start Date Stop Date Quantity Comments Source Exposure to Not sure [facility] SARS-CoV-2 (event) History of tobacco Cigarette Smoker [facility] Tobacco use and 2021-04-26 2021-04-26 Smokeless [facility] exposure 00:00:00 00:00:00 tobacco non-user Alcohol intake 2021-03-16 2021-03-16 Ex-drinker [facility] 00:00:00 00:00:00 (finding) [facility] Social History 2017-10-24 2017-10-24 [facility] Fiorella dorantes 10:11:09 10:11:09 Cigarettes smoked 2012-10-17 2012-10-17 Univers ity of current (pack per 00:00:00 00:00:00 ) - Reported Branch Sex [birth year] [facility] 00:00:00 00:00:00 Smoking Status Start Date Stop Date Source Tobacco smoking consumption unknown [facility] Smokes tobacco daily 2021-04-26 00:00:00 [place] [facility] Medications Ordered Filled Start Stop Current Ordering Indication Dosage Frequency Signature Comments Components Source Medication Medication Date Date Medication? Clinician (SIG) Name Name acetaminoph Yes 325mg Q6H Take 325 U T en 9-15 mg by Health (Tylenol) 09:44: mouth 325 MG 43 every 6 tablet (six) hours if needed for mild pain. acetaminoph 2021-0 Yes 325mg Q6H Take 325 U T en 9-15 mg by Health (Tylenol) 09:44: mouth 325 MG 43 every 6 tablet (six) hours if needed for mild pain. acetaminoph 2021-0 Yes 325mg Q6H Take 325 U T en 9-15 mg by Health (Tylenol) 09:44: mouth 325 MG 43 every 6 tablet (six) hours if needed for mild pain. acetaminoph 2021-0 Yes 325mg Q6H Take 325 U T en 9-15 mg by Health (Tylenol) 09:44: mouth 325 MG 43 every 6 tablet (six) hours if needed for mild pain. acetaminoph 2021-0 Yes 325mg Q6H Take 325 U T en 9-15 mg by Health (Tylenol) 09:44: mouth 325 MG 43 every 6 tablet (six) hours if needed for mild pain. acetaminoph 2021-0 Yes 325mg Q6H Take 325 U T en 9-15 mg by Health (Tylenol) 09:44: mouth 325 MG 43 every 6 tablet (six) hours if needed for mild pain. acetaminoph 2021-0 Yes 325mg Q6H Take 325 U T en 9-15 mg by Health (Tylenol) 09:44: mouth 325 MG 43 every 6 tablet (six) hours if needed for mild pain. pantoprazol 2021-0 Yes 40mg Take 40 mg [facility] e 9-15 by mouth 1 Health (ProtoNix) 09:43: (one) time 40 MG EC 43 each day tablet before breakfast. Do not crush, chew, or split. pantoprazol 2021-0 Yes 40mg Take 40 mg [facility] e 9-15 by mouth 1 Health (ProtoNix) 09:43: (one) time 40 MG EC 43 each day tablet before breakfast. Do not crush, chew, or split. pantoprazol 2021-0 Yes 40mg Take 40 mg [facility] e 9-15 by mouth 1 Health (ProtoNix) 09:43: (one) time 40 MG EC 43 each day tablet before breakfast. Do not crush, chew, or split. pantoprazol 2021-0 Yes 40mg Take 40 mg [facility] e 9-15 by mouth 1 Health (ProtoNix) 09:43: (one) time 40 MG EC 43 each day tablet before breakfast. Do not crush, chew, or split. pantoprazol 2020-0 Yes 40mg Take 40 mg [facility] e 9-15 by mouth 1 Health (ProtoNix) 09:43: (one) time 40 MG EC 43 each day tablet before breakfast. Do not crush, chew, or split. pantoprazol 2020-0 Yes 40mg Take 40 mg [facility] e 9-15 by mouth 1 Health (ProtoNix) 09:43: (one) time 40 MG EC 43 each day tablet before breakfast. Do not crush, chew, or split. pantoprazol 2020-0 Yes 40mg Take 40 mg [facility] e 9-15 by mouth 1 Health (ProtoNix) 09:43: (one) time 40 MG EC 43 each day tablet before breakfast. Do not crush, chew, or split. tamsulosin 2020-0 Yes [id number] .4mg Take 1 Univers 0.4 mg 24 8-25 capsule by ity of hr capsule 00:00: mouth [place] 00 daily. Medical Branch tamsulosin 2020-0 Yes [id number] .4mg Take 1 Univers 0.4 mg 24 8-25 capsule by ity of hr capsule 00:00: mouth [place] 00 daily. Medical Branch tamsulosin 2020-0 Yes [id number] .4mg Take 1 Univers 0.4 mg 24 8-25 capsule by ity of hr capsule 00:00: mouth [place] 00 daily. Medical Branch tamsulosin 2020-0 Yes [id number] .4mg Take 1 Univers 0.4 mg 24 8-25 capsule by ity of hr capsule 00:00: mouth [place] 00 daily. Medical Branch tamsulosin 2020-0 Yes [id number] .4mg Take 1 Univers 0.4 mg 24 8-25 capsule by ity of hr capsule 00:00: mouth [place] 00 daily. Medical Branch tamsulosin 2020-0 Yes [id number] .4mg Take 1 Univers 0.4 mg 24 8-25 capsule by ity of hr capsule 00:00: mouth [place] 00 daily. Medical Branch tamsulosin 2020-0 Yes [id number] .4mg Take 1 Univers 0.4 mg 24 8-25 capsule by ity of hr capsule 00:00: mouth [place] 00 daily. Medical Branch tamsulosin 2020-0 Yes [id number] .4mg Take 1 Univers 0.4 mg 24 8-25 capsule by ity of hr capsule 00:00: mouth [place] 00 daily. Medical Branch tamsulosin Yes [id number] .4mg Take 1 Univers 0.4 mg 24 8-25 capsule by ity of hr capsule 00:00: mouth [place] 00 daily. Medical Branch tamsulosin Yes [id number] .4mg Take 1 Univers 0.4 mg 24 8-25 capsule by ity of hr capsule 00:00: mouth [place] 00 daily. Medical Branch acetaminoph 2019-07- No TK 1 T PO UT en-codeine 08-20 09-15 Q 6 H PRN Hea lth (Tylenol 00:00: 00:00 P #3) 300-30 00 :00 MG tablet tamsulosin 2017-07 Yes .4mg Take 1 Unive rs 0.4 mg 24 2-22 capsule by ity of hr capsule 00:00: mouth at [place] 00 bedtime. Medical Branch traMADOL 50 2017-07 Yes 50mg Take 1 Univ ers mg tablet 2-22 tablet by ity o f 00:00: mouth [place] 00 every 6 Medical (six) Branch hours as needed for Pain (scale 1-3). tamsulosin 2017-07 Yes .4mg Take 1 Unive rs 0.4 mg 24 2-22 capsule by ity of hr capsule 00:00: mouth at [place] 00 bedtime. Medical Branch traMADOL 50 2017-07 Yes 50mg Take 1 Univ ers mg tablet 2-22 tablet by ity o f 00:00: mouth [place] 00 every 6 Medical (six) Branch hours as needed for Pain (scale 1-3). tamsulosin 2017-07 Yes .4mg Take 1 Unive rs 0.4 mg 24 2-22 capsule by ity of hr capsule 00:00: mouth at [place] 00 bedtime. Medical Branch traMADOL 50 2017-07 Yes 50mg Take 1 Univ ers mg tablet 2-22 tablet by ity o f 00:00: mouth [place] 00 every 6 Medical (six) Branch hours as needed for Pain (scale 1-3). tamsulosin 2017-07 Yes .4mg Take 1 Unive rs 0.4 mg 24 2-22 capsule by ity of hr capsule 00:00: mouth at [place] 00 bedtime. Medical Branch traMADOL 50 2017-07 Yes 50mg Take 1 Univ ers mg tablet 2-22 tablet by ity o f 00:00: mouth [place] 00 every 6 Medical (six) Branch hours as needed for Pain (scale 1-3). tamsulosin 2017- Yes .4mg Take 1 Unive rs 0.4 mg 24 2-22 capsule by ity of hr capsule 00:00: mouth at [place] 00 bedtime. Medical Branch traMADOL 50 2017-07 Yes 50mg Take 1 Univ ers mg tablet 2-22 tablet by ity o f 00:00: mouth [place] 00 every 6 Medical (six) Branch hours as needed for Pain (scale 1-3). tamsulosin 2017- Yes .4mg Take 1 Unive rs 0.4 mg 24 2-22 capsule by ity of hr capsule 00:00: mouth at [place] 00 bedtime. Medical Branch traMADOL 50 2017-07 Yes 50mg Take 1 Univ ers mg tablet 2-22 tablet by ity o f 00:00: mouth [place] 00 every 6 Medical (six) Branch hours as needed for Pain (scale 1-3). tamsulosin 2017- Yes .4mg Take 1 Unive rs 0.4 mg 24 2-22 capsule by ity of hr capsule 00:00: mouth at [place] 00 bedtime. Medical Branch traMADOL 50 2017-07 Yes 50mg Take 1 Univ ers mg tablet 2-22 tablet by ity o f 00:00: mouth [place] 00 every 6 Medical (six) Branch hours as needed for Pain (scale 1-3). tamsulosin 2017- Yes .4mg Take 1 Unive rs 0.4 mg 24 2-22 capsule by ity of hr capsule 00:00: mouth at [place] 00 bedtime. Medical Branch traMADOL 50 2017-07 Yes 50mg Take 1 Univ ers mg tablet 2-22 tablet by ity o f 00:00: mouth [place] 00 every 6 Medical (six) Branch hours as needed for Pain (scale 1-3). tamsulosin 2017- Yes .4mg Take 1 Unive rs 0.4 mg 24 2-22 capsule by ity of hr capsule 00:00: mouth at [place] 00 bedtime. Medical Branch traMADOL 50 2017-07 Yes 50mg Take 1 Univ ers mg tablet 2-22 tablet by ity o f 00:00: mouth [place] 00 every 6 Medical (six) Branch hours as needed for Pain (scale 1-3). tamsulosin 2017-07 Yes .4mg Take 1 Unive rs 0.4 mg 24 2-22 capsule by ity of hr capsule 00:00: mouth at [place] 00 bedtime. Medical Branch traMADOL 50 2017-07 Yes 50mg Take 1 Univ ers mg tablet 2-22 tablet by ity o f 00:00: mouth [place] 00 every 6 Medical (six) Branch hours as needed for Pain (scale 1-3). tamsulosin 2017-07 Yes .4mg Take 1 Unive rs 0.4 mg 24 2-22 capsule by ity of hr capsule 00:00: mouth at [place] 00 bedtime. Medical Branch traMADOL 50 2017-07 Yes 50mg Take 1 Univ ers mg tablet 2-22 tablet by ity o f 00:00: mouth [place] 00 every 6 Medical (six) Branch hours as needed for Pain (scale 1-3). Acetaminoph Yes 1 tab, PO, Memoria en 325 MG / 4-26 Q6H, # 90, l Hydrocodone 18:55: 0 Gabe n Bitartrate 00 Refill(s), 10 MG Oral Triplicate Tablet given at clinic visit Acetaminoph Yes 1 tab, PO, Memoria en 325 MG / 4-26 Q6H, # 90, l Hydrocodone 18:55: 0 Gabe n Bitartrate 00 Refill(s), 10 MG Oral Triplicate Tablet given at clinic visit Hydrocortis No 1 appl, Mem oria one 5 MG/ML 07 TOP, BID, l Topical 18:01: PRN Rash, [place] nn Cream 00 apply in a thin film to the affected skin and rub in gently and completely , X 14 day, # 28 gm, 0 Refill(s) Hydrocortis No 1 appl, Mem oria one 5 MG/ML 07 TOP, BID, l Topical 18:01: PRN Rash, [place] nn Cream 00 apply in a thin film to the affected skin and rub in gently and completely , X 14 day, # 28 gm, 0 Refill(s) Hydrocortis No 1 appl, Mem oria one 5 MG/ML 07 Route: l Topical 18:00: TOP, BID, [place] nn Cream 00 Drug form: CRM, PRN Rash, Start date: 10/27/17 13:00:00 CDT, Duration: 30 day, Stop date: 11/26/17 12:59:00 CDT Hydrocortis No 1 appl, Mem oria one [...] Herm marvin Capsule 00 cap, 0 Refill(s) Docusate Yes 100 mg = 1 Mem oria Sodium 100 4-07 cap, PO, l MG Oral 17:18: Q12H, # 28 Herm marvin Capsule 00 cap, 0 Refill(s) Cyclobenzap No 10 mg, PO, Memoria rine 4-07 TID, PRN l hydrochlori 17:18: Muscle Herm marvin de 10 MG 00 Spasm, X Oral Tablet 14 day, # [Flexeril] 40 tab, 0 Refill(s) Cyclobenzap No 10 mg, PO, Memoria rine 4-07 TID, PRN l hydrochlori 17:18: Muscle Herm marvin de 10 MG 00 Spasm, X Oral Tablet 14 day, # [Flexeril] 40 tab, 0 Refill(s) Acetaminoph No 1 tab, PO, Memoria en 300 MG / 07 Q6H, PRN l Codeine 17:18: Pain, X 14 Herm marvin Phosphate 00 day, # 50 30 MG Oral tab, 0 Tablet Refill(s) [Tylenol with Codeine #3] pregabalin Yes 100 mg = 1 M emoria 100 mg oral 4-07 cap, PO, l capsule 17:18: Q8Hnow, # [place] nn 00 42 cap, 0 Refill(s) Acetaminoph No 1 tab, PO, Memoria en 300 MG / 4-07 Q6H, PRN l Codeine 17:18: Pain, X 14 Herm marvin Phosphate 00 day, # 50 30 MG Oral tab, 0 Tablet Refill(s) [Tylenol with Codeine #3] pregabalin 2018 Yes 100 mg = 1 M emoria 100 mg oral 10-27 cap, PO, l capsule 17:18: Q8Hnow, # [place] nn 00 42 cap, 0 Refill(s) Lovenox No Notes: Memoria - (Same as: l 02:00: Lovenox) Lovenox No Notes: Memoria - (Same as: l 02:00: Lovenox) Vancomycin No 2001 mg: Me moria 4-05 infuse l 21:00: over 2.5 [place] 00 hours For adult patients only: Round to nearest 250 mg per Medical Staff approval MEDICATION WASTE Product Size: 1000 mg Product Wasted: ___ mg Vancomycin No 2001 mg: Me moria 4-05 infuse l 21:00: over 2.5 [place] 00 hours For adult patients only: Round to nearest 250 mg per Medical Staff approval MEDICATION WASTE Product Size: 1000 mg Product Wasted: ___ mg sugammadex No Notes: Memor ia 4-05 (Same as: l 18:00: [place]) sugammadex No Notes: Memor ia 4-05 (Same as: l 18:00: [place]) Acetaminoph No Notes: Do M emoria en 325 MG / 4-05 not exceed l Hydrocodone 17:25: 4gm/day of Bitartrate 00 acetaminop 10 MG Oral hen. Tablet (Same as: [[place] 10/325] 325/10) Hydralazine No Notes: Bala bong 4-05 (Same as: l 17:25: Apresoline ) Push over 5 minutes Zofran No Notes: Memoria 4-05 (Same as: l 17:25: Zofran) MEDICATION WASTE Product Size: 4 mg Product Wasted: ___ mg tramadol No Notes: Not Mem oria hydrochlori 4-05 to exceed l de 50 MG 17:25: 400mg/day. Her yu Oral Tablet 00 (Same As: Ultram) Morphine No Notes: Memoria 4-05 (Same l 17:25: as:MORPhin [place] 00 e Sulfate) Flexeril No Notes: Memoria 4-05 (Same As: l 17:25: Flexeril) [place] Acetaminoph No Notes: Do M emoria en 325 MG / 4-05 not exceed l Hydrocodone 17:25: 4gm/day of [place] Bitartrate 00 acetaminop 10 MG Oral hen. Tablet (Same as: [[place] 10/325] 325/10) Hydralazine No Notes: Bala bong 4-05 (Same as: l 17:25: Apresoline [place] ) Push over 5 minutes Zofran No Notes: Memoria 4-05 (Same as: l 17:25: Zofran) [place] MEDICATION WASTE Product Size: 4 mg Product Wasted: ___ mg tramadol No Notes: Not Mem oria hydrochlori 4-05 to exceed l de 50 MG 17:25: 400mg/day. Her yu Oral Tablet 00 (Same As: Ultram) Morphine No Notes: Memoria 4-05 (Same l 17:25: as:MORPhin [place] 00 e Sulfate) Flexeril No Notes: Memoria 4-05 (Same As: l 17:25: Flexeril) [place] Acetaminoph No Notes: Do M emoria en 4-05 not exceed l 17:00: 4 gm/day. [place] 00 (Same as: Tylenol) Acetaminoph No Notes: Do M emoria en 4-05 not exceed l 17:00: 4 gm/day. [place] (Same as: Tylenol) fentaNYL No Route: IV, Mem oria (ANES) 4-05 Drug form: l 16:06: INJ, ONCE, [place] Stop date: 10/25/17 11:06:00 CDT hydromorpho No Route: IV, Memoria ne (ANES) 4-05 Drug form: l 16:06: INJ, ONCE, Stop date: 10/25/17 11:06:00 CDT rocuronium 2018-0 No Route: IV, M emoria (ANES) 10-25 Drug form: l 16:06: INJ, ONCE, Stop date: 10/25/17 11:06:00 CDT lidocaine 2018-0 No Route: IV, Me moria (ANES) 10-25 Drug form: l 16:06: INJ, ONCE, Stop date: 10/25/17 11:06:00 CDT propofol 2018-0 No Route: IV, Mem oria (ANES) 10-25 Drug form: l 16:06: INJ, ONCE, Stop date: 10/25/17 11:06:00 CDT midazolam 2018-0 No Route: IV, Me moria (ANES) 10-25 Drug form: l 16:06: SOLN, ONCE, Stop date: 10/25/17 11:06:00 CDT fentaNYL 2018-0 No Route: IV, Mem oria (ANES) 10-25 Drug form: l 16:06: INJ, ONCE, Stop date: 10/25/17 11:06:00 CDT hydromorpho 2018-0 No Route: IV, Memoria ne (ANES) 10-25 Drug form: l 16:06: INJ, ONCE, Stop date: 10/25/17 11:06:00 CDT rocuronium 2018-0 No Route: IV, M emoria (ANES) 10-25 Drug form: l 16:06: INJ, ONCE, Stop date: 10/25/17 11:06:00 CDT lidocaine 2018-0 No Route: IV, Me moria (ANES) 10-25 Drug form: l 16:06: INJ, ONCE, Stop date: 10/25/17 11:06:00 CDT propofol 2018-0 No Route: IV, Mem oria (ANES) 10-25 Drug form: l 16:06: INJ, ONCE, Stop date: 10/25/17 11:06:00 CDT midazolam 2018-0 No Route: IV, Me moria (ANES) 10-25 Drug form: l 16:06: SOLN, [place] 00 ONCE, Stop date: 10/25/17 11:06:00 CDT ePHEDrine 2017-0 No Route: IV, Me moria (ANES) 10-25 Drug form: l 15:56: INJ, ONCE, Stop date: 10/25/17 10:56:00 CDT dexamethaso No Route: IV, Memoria ne (ANES) 10-25 Drug form: l 15:56: INJ, ONCE, Stop date: 10/25/17 10:56:00 CDT ePHEDrine No Route: IV, Me moria (ANES) 10-25 Drug form: l 15:56: INJ, ONCE, Stop date: 10/25/17 10:56:00 CDT dexamethaso 0 No Route: IV, Memoria ne (ANES) 10-25 Drug form: l 15:56: INJ, ONCE, Stop date: 10/25/17 10:56:00 CDT Sodium 0 No Route: IV, Memor ia Chloride 10-25 Drug form: l 0.9% IV 14:25: INJ, Start Herm marvin (ANES) 00 date: mL + 10/25/17 vancomycin 9:25:00 (ANES) 1500 CDT, Stop mg date: 10/25/17 10:25:00 CDT Sodium 2017-0 No Route: IV, Memor ia Chloride 10-25 Drug form: l 0.9% IV 14:25: INJ, Start Herm marvin (ANES) 235 00 date: mL + 10/25/17 vancomycin 9:25:00 (ANES) 1500 CDT, Stop mg date: 10/25/17 10:25:00 CDT dexmedetomi 2017-0 No Route: IV, Memoria dine (ANES) 10-25 Drug form: l 200 13:50: INJ, Start [place] microgram date: 10/25/17 8:50:00 CDT, Stop date: 10/25/17 9:50:00 CDT dexmedetomi 0 No Route: IV, Memoria dine (ANES) 10-25 Drug form: l 200 13:50: INJ, Start [place] microgram date: 10/25/17 8:50:00 CDT, Stop date: 10/25/17 9:50:00 CDT Lactated 2018-0 No Route: IV, Mem oria Ringers 4-05 Total l Injection 13:38: Volume: [place] nn IV (ANES) 00 1,000, 1000 mL Start date: 10/25/17 8:38:00 CDT, Stop date: 10/25/17 9:38:00 CDT Lactated 2018-0 No Route: IV, Mem oria Ringers 4-05 Total l Injection 13:38: Volume: [place] nn IV (ANES) 00 1,000, 1000 mL Start date: 10/25/17 8:38:00 CDT, Stop date: 10/25/17 9:38:00 CDT Ondansetron 2018-0 No 4 mg, Memor ia 4-05 Route: l 13:05: IVP, ONCE, [place] 00 Dosing Weight 79.545, kg, PRN Nausea & Vomiting, Start date: 10/25/17 8:05:00 CDT Naloxone 2018-0 No 0.4 mg, Memori a 405 Route: l 13:05: IVP, [place] 00 Q2MIN, Dosing Weight 79.545, kg, PRN Narcotic Reversal, Start date: 10/25/17 8:05:00 CDT, Duration: 8 doses or times, Stop date: Limited # of times Flumazenil 2018-0 No 0.2 mg, Bala bong 4-05 Route: l 13:05: IVP, PRN, [place] 00 Dosing Weight 79.545, kg, PRN Benzodiaze pine Reversal, Initial dose, Start date: 10/25/17 8:05:00 CDT, Duration: 30 day, Stop date: 11/24/17 8:04:00 CDT Hydromorpho 2018-0 No 0.5 mg, Mem oria ne 4-05 Route: l 13:05: IVP, [place] 00 Q5Min, Dosing Weight 79.545, kg, PRN Pain Score 7-10, Start date: 10/25/17 8:05:00 CDT, Duration: 4 doses or times, Stop date: Limited # of times Oxycodone 2018-0 No 5 mg, Memoria 4-05 Route: PO, l 13:05: Drug form: [place] 00 TAB, Q4H, Dosing Weight 79.545, kg, PRN Pain Score 4-6, Start date: 10/25/17 8:05:00 CDT, Duration: 30 day, Stop date: 11/24/17 8:04:00 CDT Labetalol 2018-0 No 10 mg, Memori a 4-05 Route: l 13:05: IVP, [place] 00 Q5Min, [...] times, Stop date: Limited # of times Ondansetron 2018-0 No 4 mg, Memor ia 10-25 Route: l 13:05: IVP, ONCE, [place] 00 Dosing Weight 79.545, kg, PRN Nausea & Vomiting, Start date: 10/25/17 8:05:00 CDT Naloxone 2018-0 No 0.4 mg, Memori a 05 Route: l 13:05: IVP, [place] 00 Q2MIN, Dosing Weight 79.545, kg, PRN Narcotic Reversal, Start date: 10/25/17 8:05:00 CDT, Duration: 8 doses or times, Stop date: Limited # of times Flumazenil 2018-0 No 0.2 mg, Bala bong 4-05 Route: l 13:05: IVP, PRN, [place] 00 Dosing Weight 79.545, kg, PRN Benzodiaze pine Reversal, Initial dose, Start date: 10/25/17 8:05:00 CDT, Duration: 30 day, Stop date: 11/24/17 8:04:00 CDT Hydromorpho 2018-0 No 0.5 mg, Mem oria ne 4-05 Route: l 13:05: IVP, [place] 00 Q5Min, Dosing Weight 79.545, kg, PRN Pain Score 7-10, Start date: 10/25/17 8:05:00 CDT, Duration: 4 doses or times, Stop date: Limited # of times Oxycodone No 5 mg, Memoria 4-05 Route: PO, l 13:05: Drug form: [place] 00 TAB, Q4H, Dosing Weight 79.545, kg, PRN Pain Score 4-6, Start date: 10/25/17 8:05:00 CDT, Duration: 30 day, Stop date: 11/24/17 8:04:00 CDT Labetalol No 10 mg, Memori a 05 Route: l 13:05: IVP, [place] 00 Q5Min, Dosing Weight 79.545, kg, PRN Elevated BP, Start date: 10/25/17 8:05:00 CDT, Duration: 5 doses or times, Stop date: Limited # of times Hydralazine No 10 mg, Bala bong 05 Route: l 13:05: IVP, [place] 00 Q20Min, Dosing Weight 79.545, kg, PRN Elevated BP, Start date: 10/25/17 8:05:00 CDT, Duration: 2 doses or times, Stop date: Limited # of times Lovenox No Notes: Memoria 4-04 (Same as: l 19:00: Lovenox) Aspirin No Notes: Do Memor ia 4-04 not crush l 19:00: or chew. [place] 00 (Same As: Ecotrin) Lovenox No Notes: Memoria 4-04 (Same as: l 19:00: Lovenox) Aspirin No Notes: Do Memor ia 4-04 not crush l 19:00: or chew. (Same As: Ecotrin) Saline No Notes: Memoria Flush 0.9% 4-04 (Same as: l 14:00: BD [place] 00 Posiflush) Docusate No Notes: Memoria 4-04 (Same as: l 14:00: Colace) (Do Not Crush) sennosides, No Notes: Bala bong [facility] 4-04 (Same as: l 14:00: Senokot) POLYETHYLEN No Notes: Bala bong E GLYCOL 4-04 Dissolve l 3350 14:00: in 8 oz of [place] 00 water or juice. (Same as: Miralax) Saline No Notes: Memoria Flush 0.9% 4-04 (Same as: l 14:00: BD Rolando 00 Posiflush) Docusate No Notes: Memoria 4-04 (Same as: l 14:00: Colace) (Do Not Crush) sennosides, No Notes: Bala bong GROUP HOME 4-04 (Same as: l 14:00: Senokot) POLYETHYLEN No Notes: Bala bong E GLYCOL 4-04 Dissolve l 3350 14:00: in 8 oz of [place] 00 water or juice. (Same as: Miralax) Lyrica No Notes: Memoria 4-04 (Same as: l 11:00: Lyrica) Lyrica No Notes: Memoria 4-04 (Same as: l 11:00: Lyrica) clopidogrel 0 Yes 75 mg = 1 M emoria 75 MG Oral 4-04 tab, PO, l Tablet 10:10: Daily [Plavix] Aspirin 0 Yes 325 mg, Memoria 4-04 PO, Daily l 10:10: lisinopril 0 Yes 5 mg = 1 Mem oria 5 mg oral 4-04 tab, PO, l tablet 10:10: Daily atorvastati 0 Yes 80 mg, PO, Memoria n 4-04 Bedtime l 10:10: clopidogrel 0 Yes 75 mg = 1 M emoria 75 MG Oral 4-04 tab, PO, l Tablet 10:10: Daily [Plavix] Aspirin 0 Yes 325 mg, Memoria 4-04 PO, Daily l 10:10: lisinopril 0 Yes 5 mg = 1 Mem oria 5 mg oral 4-04 tab, PO, l tablet 10:10: Daily atorvastati Yes 80 mg, PO, Memoria n 4-04 Bedtime l 10:10: Rolando 00 Fentanyl No 50 Memoria 4-04 microgram, l 09:32: Route: IV, Rolando 00 ONCE, Dosing Weight 79, kg, Start date: 10/24/17 4:32:00 CDT, Stop date: 10/24/17 4:32:00 CDT Fentanyl No 50 Memoria 4-04 microgram, l 09:32: Route: IV, [place] 00 ONCE, Dosing Weight 79, kg, Start date: 10/24/17 4:32:00 CDT, Stop date: 10/24/17 4:32:00 CDT Morphine No Notes: Memoria 4-04 (Same l 04:54: as:MORPhin e Sulfate) Morphine No Notes: Memoria 4-04 (Same l [...] ____Date Saline No Notes: Memoria Flush 0.9% -04 (Same as: l 04:34: BD Posiflush) Ondansetron No Notes: Bala bong 4-04 (Same as: l 04:34: Zofran) MEDICATION WASTE Product Size: 4 mg Product Wasted: ___ mg Bisacodyl No Notes: Memori a 4-04 (Same As: l 04:34: Dulcolax, Rolando 00 Bisco-Lax) Acetaminoph No Notes: Do M emoria en 325 MG / 4-04 not exceed l Hydrocodone 04:34: 4gm/day of Rolando Bitartrate 00 acetaminop 10 MG Oral hen. Tablet (Same as: [place] 325/10) Morphine No Notes: Memoria -04 (Same l 04:34: as:MORPhin [place] 00 e Sulfate) Acetaminoph No Notes: Do M emoria en 4-04 not exceed l 04:34: 4 gm/day. Rolando 00 (Same as: Tylenol) Sodium No 1,000 mL, Memori a Chloride 10-24 Rate: 75 l 0.9% IV 04:34: ml/hr, Rolando 1,000 mL 00 Infuse over: 13.3 hr, Route: IV, Dosing Weight 79 kg, Total Volume: 1,000, Start date: 10/23/17 23:34:00 CDT, Duration: 30 day, Stop date: 11/22/17 23:33:00 CDT, 2.02, m2 Dextrose No 25 gm, 50 Bala bong [...] ____Date Saline No Notes: Memoria Flush 0.9% 04 (Same as: l 04:34: BD [place] 00 Posiflush) Ondansetron No Notes: Bala bong -04 (Same as: l 04:34: Zofran) Rolando MEDICATION WASTE Product Size: 4 mg Product Wasted: ___ mg Bisacodyl No Notes: Memori a 10-24 (Same As: l 04:34: Dulcolax, [place] 00 Bisco-Lax) Acetaminoph No Notes: Do M emoria en 325 MG / 10-24 not exceed l Hydrocodone 04:34: 4gm/day of [place] Bitartrate 00 acetaminop 10 MG Oral hen. Tablet (Same as: [place] 325/10) Morphine No Notes: Memoria 10-24 (Same l 04:34: as:MORPhin Rolando 00 e Sulfate) Acetaminoph No Notes: Do M emoria en 10-24 not exceed l 04:34: 4 gm/day. Rolando 00 (Same as: Tylenol) Sodium No 1,000 mL, Memori a Chloride 10-24 Rate: 75 l 0.9% IV 04:34: ml/hr, [place] 1,000 mL 00 Infuse over: 13.3 hr, Route: IV, Dosing Weight 79 kg, Total Volume: 1,000, Start date: 10/23/17 23:34:00 CDT, Duration: 30 day, Stop date: 11/22/17 23:33:00 CDT, 2.02, m2 Hydromorpho 2017-0 No 1 mg, Memor ia ne 10-24 Route: l 03:35: IVP, ONCE, Dosing Weight 79, kg, Priority: STAT, Start date: 10/23/17 22:35:00 CDT, Stop date: 10/23/17 22:35:00 CDT Hydromorpho No 1 mg, Memor ia ne 10-24 Route: l 03:35: IVP, ONCE, Dosing Weight 79, kg, Priority: STAT, Start date: 10/23/17 22:35:00 CDT, Stop date: 10/23/17 22:35:00 CDT Zofran 2017- No 4 mg, Memoria 10-24 Route: l 03:27: IVP, Drug form: INJ, ONCE, Dosing Weight 79, kg, Priority: STAT, Start date: 10/23/17 22:27:00 CDT, Stop date: 10/23/17 22:27:00 CDT Ancef 2018-0 No 2 gm, Memoria 10-24 Route: l 03:27: IVPB, [place] 00 ONCE, Dosing Weight 79, kg, Priority: STAT, Start date: 10/23/17 22:27:00 CDT, Stop date: 10/23/17 22:27:00 CDT, ABX Indication : Skin/Soft Tissue Infection Zofran 2017-0 No 4 mg, Memoria 10-24 Route: l 03:27: IVP, Drug [place] form: INJ, ONCE, Dosing Weight 79, kg, Priority: STAT, Start date: 10/23/17 22:27:00 CDT, Stop date: 10/23/17 22:27:00 CDT Ancef 2017-0 No 2 gm, Memoria 10-24 Route: l 03:27: IVPB, [place] 00 ONCE, Dosing Weight 79, kg, Priority: STAT, Start date: 10/23/17 22:27:00 CDT, Stop date: 10/23/17 22:27:00 CDT, ABX Indication : Skin/Soft Tissue Infection aspirin 325 2016-07 Yes 325mg 325 mg. [facility] MG tablet 2- [facility] 00:00: 00 aspirin 325 2016-07 Yes 325mg 325 mg. [facility] MG tablet 2- [facility] 00:00: 00 aspirin 325 2016-07 Yes 325mg 325 mg. [facility] MG tablet 2- [facility] 00:00: 00 aspirin 325 2016-07 Yes 325mg 325 mg. [facility] MG tablet 2- [facility] 00:00: 00 aspirin 325 2016-07 Yes 325mg 325 mg. [facility] MG tablet 2- [facility] 00:00: 00 aspirin 325 2016-07 Yes 325mg 325 mg. [facility] MG tablet 2- [facility] 00:00: 00 aspirin 325 2016-07 Yes 325mg 325 mg. [facility] MG tablet 2- [facility] 00:00: 00 sulfamethox Yes 1{tbl} Take 1 Tab Univers azole-trime 4-22 by mouth 2 it y of thoprim 00:00: (two) [place] (BACTRIM 00 times Medical DS) 800-160 daily. Branch mg tablet sildenafil Yes 100mg Take 1 Tab Univers (VIAGRA) 4-22 by mouth ity of 100 mg 00:00: as needed [place] tablet 00 (sexual Medical activity). Branch sulfamethox 2013-0 Yes 1{tbl} Take 1 Tab Univers azole-trime 4-22 by mouth 2 it y of thoprim 00:00: (two) [place] (BACTRIM 00 times Medical DS) 800-160 daily. Branch mg tablet sildenafil 2012-0 Yes 100mg Take 1 Tab Univers (VIAGRA) 4-22 by mouth ity of 100 mg 00:00: as needed [place] tablet 00 (sexual Medical activity). Branch sulfamethox 2012-0 Yes 1{tbl} Take 1 Tab Univers azole-trime 4-22 by mouth 2 it y of thoprim 00:00: (two) [place] (BACTRIM 00 times Medical DS) 800-160 daily. Branch mg tablet sildenafil 2012-0 Yes 100mg Take 1 Tab Univers (VIAGRA) 4-22 by mouth ity of 100 mg 00:00: as needed [place] tablet 00 (sexual Medical activity). Branch sulfamethox 2012-0 Yes 1{tbl} Take 1 Tab Univers azole-trime 4-22 by mouth 2 it y of thoprim 00:00: (two) [place] (BACTRIM 00 times Medical DS) 800-160 daily. Branch mg tablet sildenafil 2012-0 Yes 100mg Take 1 Tab Univers (VIAGRA) 4-22 by mouth ity of 100 mg 00:00: as needed [place] tablet 00 (sexual Medical activity). Branch sulfamethox 2012-0 Yes 1{tbl} Take 1 Tab Univers azole-trime 4-22 by mouth 2 it y of thoprim 00:00: (two) [place] (BACTRIM 00 times Medical DS) 800-160 daily. Branch mg tablet sildenafil 2012-0 Yes 100mg Take 1 Tab Univers (VIAGRA) 4-22 by mouth ity of 100 mg 00:00: as needed [place] tablet 00 (sexual Medical activity). Branch sulfamethox 2012-0 Yes 1{tbl} Take 1 Tab Univers azole-trime 4-22 by mouth 2 it y of thoprim 00:00: (two) [place] (BACTRIM 00 times Medical DS) 800-160 daily. Branch mg tablet sildenafil 2012-0 Yes 100mg Take 1 Tab Univers (VIAGRA) 4-22 by mouth ity of 100 mg 00:00: as needed [place] tablet 00 (sexual Medical activity). Branch sulfamethox 2012-0 Yes 1{tbl} Take 1 Tab Univers azole-trime 4-22 by mouth 2 it y of thoprim 00:00: (two) [place] (BACTRIM 00 times Medical DS) 800-160 daily. Branch mg tablet sildenafil 2012-0 Yes 100mg Take 1 Tab Univers (VIAGRA) 4-22 by mouth ity of 100 mg 00:00: as needed [place] tablet 00 (sexual Medical activity). Branch sulfamethox 2012-0 Yes 1{tbl} Take 1 Tab Univers azole-trime 4-22 by mouth 2 it y of thoprim 00:00: (two) [place] (BACTRIM 00 times Medical DS) 800-160 daily. Branch mg tablet sildenafil 2012-0 Yes 100mg Take 1 Tab Univers (VIAGRA) 4-22 by mouth ity of 100 mg 00:00: as needed [place] tablet 00 (sexual Medical activity). Branch sulfamethox 2012-0 Yes 1{tbl} Take 1 Tab Univers azole-trime 4-22 by mouth 2 it y of thoprim 00:00: (two) [place] (BACTRIM 00 times Medical DS) 800-160 daily. Branch mg tablet sildenafil 2012-0 Yes 100mg Take 1 Tab Univers (VIAGRA) 4-22 by mouth ity of 100 mg 00:00: as needed [place] tablet 00 (sexual Medical activity). Branch sulfamethox 2012-0 Yes 1{tbl} Take 1 Tab Univers azole-trime 4-22 by mouth 2 it y of thoprim 00:00: (two) [place] (BACTRIM 00 times Medical DS) 800-160 daily. Branch mg tablet sildenafil 2012-0 Yes 100mg Take 1 Tab Univers (VIAGRA) 4-22 by mouth ity of 100 mg 00:00: as needed [place] tablet 00 (sexual Medical activity). Branch sulfamethox 2012-0 Yes 1{tbl} Take 1 Tab Univers azole-trime 4-22 by mouth 2 it y of thoprim 00:00: (two) [place] (BACTRIM 00 times Medical DS) 800-160 daily. Branch mg tablet sildenafil 2012-0 Yes 100mg Take 1 Tab Univers (VIAGRA) 4-22 by mouth ity of 100 mg 00:00: as needed [place] tablet 00 (sexual Medical activity). Branch HYDROcodone Yes TAKE ONE Un lesli -acetaminop 4-17 TO TWO ity of hen (NORCO 00:00: TABLETS BY [place] 5) 5-325 mg 00 MOUTH Medical tablet EVERY SIX Branch HOURS NEEDED FOR PAIN HYDROcodone Yes TAKE ONE Un lesli -acetaminop 4-17 TO TWO ity of hen (NORCO 00:00: TABLETS BY [place] 5) 5-325 mg 00 MOUTH Medical tablet EVERY SIX Branch HOURS NEEDED FOR PAIN HYDROcodone Yes TAKE ONE Un lesli -acetaminop 4-17 TO TWO ity of hen (NORCO 00:00: TABLETS BY [place] 5) 5-325 mg 00 MOUTH Medical tablet EVERY SIX Branch HOURS NEEDED FOR PAIN HYDROcodone Yes TAKE ONE Un lesli -acetaminop 4-17 TO TWO ity of hen (NORCO 00:00: TABLETS BY [place] 5) 5-325 mg 00 MOUTH Medical tablet EVERY SIX Branch HOURS NEEDED FOR PAIN HYDROcodone Yes TAKE ONE Un lesli -acetaminop 4-17 TO TWO ity of hen (NOR[place] 00:00: TABLETS BY [place] 5) 5-325 mg 00 MOUTH Medical tablet EVERY SIX Branch HOURS NEEDED FOR PAIN HYDROcodone Yes TAKE ONE Un lesli -acetaminop 4-17 TO TWO ity of hen (NORCO 00:00: TABLETS BY [place] 5) 5-325 mg 00 MOUTH Medical tablet EVERY SIX Branch HOURS NEEDED FOR PAIN HYDROcodone Yes TAKE ONE Un lesli -acetaminop 4-17 TO TWO ity of hen (NORCO 00:00: TABLETS BY [place] 5) 5-325 mg 00 MOUTH Medical tablet EVERY SIX Branch HOURS NEEDED FOR PAIN HYDROcodone Yes TAKE ONE Un lesli -acetaminop 4-17 TO TWO ity of hen (NORCO 00:00: TABLETS BY [place] 5) 5-325 mg 00 MOUTH Medical tablet EVERY SIX Branch HOURS NEEDED FOR PAIN HYDROcodone Yes TAKE ONE Un lesli -acetaminop 4-17 TO TWO ity of hen (NORCO 00:00: TABLETS BY [place] 5) 5-325 mg 00 MOUTH Medical tablet EVERY SIX Branch HOURS NEEDED FOR PAIN HYDROcodone Yes TAKE ONE Un lesli -acetaminop 4-17 TO TWO ity of hen (NORCO 00:00: TABLETS BY [place] 5) 5-325 mg 00 MOUTH Medical tablet EVERY SIX Branch HOURS NEEDED FOR PAIN HYDROcodone Yes TAKE ONE Un lesli -acetaminop 4-17 TO TWO ity of hen (NORCO 00:00: TABLETS BY [place] 5) 5-325 mg 00 MOUTH Medical tablet EVERY SIX Branch HOURS NEEDED FOR PAIN Vital Signs Vital Name Observation Time Observation Value Comments Source Systolic blood 2021-04-26 14:39:00 132 mm[Hg] [facility] Diastolic blood 2021-04-26 14:39:00 82 mm[Hg] [facility] Heart rate 2021-04-26 14:39:00 71 [facility] 2021-04-26 14:39:00 36.5 Norma [facility] Body height 2021-04-26 14:39:00 185.4 cm [facility] Body weight 2021-04-26 14:39:00 74.844 [facility] BMI 2021-04-26 14:39:00 21.77 kg[facility]m2 [facility] Systolic blood 2021-04-06 14:39:00 117 mm[Hg] [facility] Diastolic blood 2021-04-06 14:39:00 77 mm[Hg] [facility] Heart rate 2021-04-06 14:39:00 74 /min [facility] height 2021-04-06 14:39:00 185.4 cm [facility] O[facility] saturation in 2021-04-06 14:39:00 98 /min [facility] Arterial blood by Pulse oximetry Systolic blood 2021-03-16 13:35:00 141 mm[Hg] Univer sity [facility] Diastolic blood 2021-03-16 13:35:00 89 mm[Hg] Unive rsity [facility] Heart rate 2021-03-16 13:35:00 69 /min [facility] Body temperature 2021-03-16 13:35:00 36.22 Norma [facility] Res[facility] rate 2021-03-16 13:35:00 16 /min [facility] Body weight 2021-03-16 13:35:00 74.299 kg [facility] BMI 2021-03-16 13:35:00 21.61 kg/m2 [facility] Oxygen saturation in 2021-03-16 13:35:00 95 /min [facility] Arterial blood by [facility] Pulse oximetry Branch BMI Calculated 2017-11-15 18:53:00 Memori al [place] Height 2017-11-15 18:53:00 185.42 cm [facility] [place] Weight 2017-11-15 18:53:00 [facility] [place] Temperature Oral (F) 2017-11-15 18:53:00 97.8 F [facility] [place] Heart Rate 2017-11-15 18:53:00 [facility] [place] Systolic (mm Hg) 2017-11-15 18:53:00 Bala rial [place] Diastolic (mm Hg) 2017-11-15 18:53:00 Mem orial [place] Systolic (mm Hg) 2017-10-27 18:00:00 Bala rial [place] Diastolic (mm Hg) 2017-10-27 18:00:00 Mem orial [place] Respitory Rate 2017-10-27 18:00:00 Memori al [place] Systolic (mm Hg) 2017-10-27 17:00:00 Bala rial [place] Diastolic (mm Hg) 2017-10-27 17:00:00 Mem orial [place] Respitory Rate 2017-10-27 17:00:00 Memori al [place] Systolic (mm Hg) 2017-10-27 16:00:00 Bala rial [place] Diastolic (mm Hg) 2017-10-27 16:00:00 Mem orial [place] Respitory Rate 2017-10-27 16:00:00 Memori al [place] Temperature Oral (F) 2017-10-27 09:00:00 97.8 F Memorial [place] Temperature Oral (F) 2017-10-27 05:00:00 98.8 F [facility] [place] Temperature Oral (F) 2017-10-27 01:00:00 99.7 F [facility] [place] Weight 2017-10-24 09:49:00 [facility] [place] BMI Calculated 2017-10-24 09:49:00 Memori al [place] Height 2017-10-24 09:49:00 185.42 cm [facility] [place] Heart Rate 2017-10-24 05:46:00 [facility] [place] BMI Calculated 2017-10-24 02:30:00 Faith Sullivanann Heart Rate 2017-10-24 02:30:00 [facility] [place] Height 2017-10-24 02:30:00 185.42 cm [facility] [place] Weight 2017-10-24 02:30:00 [facility] [place] Procedures Procedure Date / Time Performed Performing Clinician Sourc e EXTERNAL PROVIDER 2021-03-31 05:01:00 Doctor Unassigned, No Univ ersity [facility] RECORDS Name Medical Branch POCT URINALYSIS AUTO 2021-03-16 13:20:00 Regi Snyder of [facility] CONSENT/REFUSAL FOR 2021-03-16 13:00:45 [facility] Name [facility] Branch TREATMENT Fusion of lumbar spine 2017-10-25 05:00:00 Johnnie balbuena [place] Stent placement 2017-06-07 06:00:00 Rafaela [facility] yu Encounters Start End Encounter Admission Attending Care Care Encounter Source Date/Time Date/Time Type Type Clinicians Facility Department ID 2021-07-26 Outpatient OLEGARIO [facility] [id number] [place] 01:03:57 [facility] 2021-06-22 Outpatient GREGORIO [facility] [id number] [place] 01:03:36 [facility] UMESH 2021-05-09 Outpatient [facility] [id number] [place] 16:53:30 [facility] 2021-04-20 [facility] [id number] [place] 14:23:22 [facility] 2021-08-29 2021-08-29 Outpatient SUJATA ALVA [facility] [address] [facility] 13:08:00 13:08:00 2021-06-24 2021-06-25 Emergency E JESIKA [facility] [address] [facility] 12:29:00 09:22:00 [facility] 2021-04-26 2021-05-25 Outpatient OLEGARIO [facility] [address] [facility] 11:15:00 23:59:00 [facility] 2021-04-26 2021-04-26 Office Butch [facility] 6400 1.2.840.114 [id number] [place] 09:32:09 09:47:09 Visit Yandel BOYKIN [id number] Health [id number] 2 2021-04-25 2021-04-25 Telephone Butch [facility] 6400 1.2.840.114 [id number] [place] 00:00:00 00:00:00 Yandel BOYKIN [id number] Health [id number] 2 2021-04-20 2021-04-20 Telephone Michelle Lea [facility]TP 6410 1.2.840 .114 [id number] [place] 00:00:00 00:00:00 Michelle Lea [id number] Health [id number] 1 2021-04-20 2021-04-20 Telephone Butch [facility] 6400 1.2.840.114 [id number] [place] 00:00:00 00:00:00 Yandel BOYKIN [id number] Health [id number] 2 2021-04-08 2021-04-08 [facility] 1.2.840.114 [id number] Univers 09:06:16 23:59:00 Encounter Regi Pérez [id number] ity [facility] [id number] [facility] [id number] [facility] [address] [place] 2021-04-08 2021-04-08 Outpatient R MO [facility] [id number] Univers 09:06:16 09:06:16 REGI itallyn of [facility] 2021-04-08 2021-04-08 [facility] [id number] Univers 00:00:00 00:00:00 Management Regi Pérez [id number] ity [facility] [id number] [facility] [id number] In dical [facility] [address] [facility] 2021-04-06 2021-04-06 Office 3, Utp UTP 6410 1.2.840.114 [id number] [place] 09:30:23 11:23:[address] [id number] Health nal Consult [id number] [id number] 1 2021-04-05 2021-04-05 Telephone Michelle Lea [facility]TP 6410 1.2.840 .114 [id number] [place] 00:00:00 00:00:[address] [id number] Health [id number] [id number] 1 2021-03-31 2021-03-31 Telephone Michelle Lea UTP 6410 1.2.840 .114 [id number] [place] 00:00:00 00:00:[address] [id number] Health [id number] [id number] 1 2021-03-31 2021-03-31 Orders Doctor RAÚL 1.2.840.[id number] [place] [address] 00:00:00 00:00:00 Only Unassigned, ROJELIO [id number] ity [place] [facility] [id number] Carter as [id number] [address] 2021-03-25 2021-03-25 Telephone [facility] 6400 1.2.840.114 1 [id number] 00:00:00 00:00:[address] [id number] [id number] 2 2021-03-25 2021-03-25 Telephone [facility] 6400 1.2.840.114 1 [id number] [place] 00:00:00 00:00:[address] [id number] Health [id number] 2 2021-03-16 2021-03-16 Outpatient R [facility] [id number] Univers 09:30:00 09:30:00 [id number] [facility] 2021-03-16 2021-03-16 Office Gramm, [facility] 1.2.840.114 [id number] [facility] 08:01:29 08:53:34 Visit Regi [place] [id number] ity of [place] [id number] Carterlibby s Professio [id number] In dical [facility] 204 [facility] 2021-03-16 2021-03-16 Outpatient R MO, [facility] [id number] Univers 08:00:00 08:00:00 REGI cope [facility] 2021-03-16 2021-03-16 Orders Doctor RAÚL 1.2.840.114 [id number] Univers 00:00:00 00:00:00 Only Unassigned, ROJELIO [id number] ity of [place] [facility] [id number] Carter as [phone] [address] 2017-12-13 2017-12-13 Ambulatory nullFlavo MNA [id number] Memoria 20:30:00 20:30:00 Pre-Reg r Neurosurger 01 l y [facility] 2017-11-15 2017-11-16 Outpatient nullFlavo MNA [id number] Memoria 16:00:00 04:59:59 r Neurosurger 00 l y [facility] 2017-11-08 2017-11-10 Phone nullFlavo MNA [id number] Memoria 14:06:00 04:59:59 Message r Neurosurger 00 l y [facility] 2017-10-24 2017-10-27 Inpatient nullFlavo [facility] [id number] Memoria 02:29:00 20:15:00 r [place] 93 l [facility] Results Test Description Test Time Test Comments Results Result Comments Source POCT URINALYSIS, INSTRUMENT 2021-03-16 13:43:00 Test Item Value Reference Range Interpretation Comme nts POCT U SP GRAV (test code = 3255) 1.005 mg/dl 1.005-1.025 POCT PH U (test code = 3254) 9.0 mg/dl 5-8 A POCT U LEUK EST (test code = 3263) Large Negative - Negative POCT U NIT (test code = 3262) Positive Negative - Negative POCT U PROT (test code = 3259) Negative - Negative POCT U GLU (test code = 3256) Negative - Negative POCT U KETONE (test code = 3258) Negative - Negative POCT U UROBILI (test code = 3260) 8.0 mg/dl 0.2-1 A POCT U BILI (test code = 3261) Large Negative - Negative POCT U BLD (test code = 3257) Large Negative - Negative POCT U COLOR (test code = 3266) Red POCT U APPEAR (test code = 3267) dark red with clots Lab Interpretation (test code = 52831-8) Abnormal [facility] URINALYSIS, [id number] 13:43:00 Test Item Value Reference Range Interpretation Comments POCT U SP GRAV (test 1.005 mg/dl 1.005-1.025 code = 3255) POCT PH U (test code = 9.0 mg/dl 5-8 A 3254) POCT U LEUK EST (test Large Negative - Negative code = 3263) POCT U NIT (test code = Positive Negative - Negative 3262) POCT U PROT (test code = Negative - Negative 3259) POCT U GLU (test code = Negative - Negative 3256) POCT U KETONE (test code Negative - Negative = 3258) POCT U UROBILI (test 8.0 mg/dl 0.2-1 A code = 3260) POCT U BILI (test code = Large Negative - Negative 3261) POCT U BLD (test code = Large Negative - Negative 3257) POCT U COLOR (test code Red = 3266) POCT U APPEAR (test code dark red with = 3267) clots Lab Interpretation (test Abnormal code = 63390-2) [facility] URINALYSIS, [id number] 13:43:00 Test Item Value Reference Range Interpretation Comments POCT U SP GRAV (test 1.005 mg/dl 1.005-1.025 code = 3255) POCT PH U (test code = 9.0 mg/dl 5-8 A 3254) POCT U LEUK EST (test Large Negative - Negative code = 3263) POCT U NIT (test code = Positive Negative - Negative 3262) POCT U PROT (test code = Negative - Negative 3259) POCT U GLU (test code = Negative - Negative 3256) POCT U KETONE (test code Negative - Negative = 3258) POCT U UROBILI (test 8.0 mg/dl 0.2-1 A code = 3260) POCT U BILI (test code = Large Negative - Negative 3261) POCT U BLD (test code = Large Negative - Negative 3257) POCT U COLOR (test code Red = 3266) POCT U APPEAR (test code dark red with = 3267) clots Lab Interpretation (test Abnormal code = 96221-4) [facility] [id number] 13:43:00 Test Item Value Reference Range Interpretation Comments POCT U SP GRAV (test 1.005 mg/dl 1.005-1.025 code = 3255) POCT PH U (test code = 9.0 mg/dl 5-8 A 3254) POCT U LEUK EST (test Large Negative - Negative code = 3263) POCT U NIT (test code = Positive Negative - Negative 3262) POCT U PROT (test code = Negative - Negative 3259) POCT U GLU (test code = Negative - Negative 3256) POCT U KETONE (test code Negative - Negative = 3258) POCT U UROBILI (test 8.0 mg/dl 0.2-1 A code = 3260) POCT U BILI (test code = Large Negative - Negative 3261) POCT U BLD (test code = Large Negative - Negative 3257) POCT U COLOR (test code Red = 3266) POCT U APPEAR (test code dark red with = 3267) clots Lab Interpretation (test Abnormal code = 63930-5) [facility]2018-04-05 18:05:00 Test Item Value Reference Range Interpretation Comments PTT (test code = PTT) 33.6 s 22.9-35.8 [id number] 18:05:00 Test Item Value Reference Range Interpretation Comments PT (test code = PT) 13.7 s 12.0-14.7 [facility] [id number] 18:05:00 Test Item Value Reference Range Interpretation Comments INR (test code = INR) 1.05 1 0.85-1.17 [facility]waySdcuhavDTPLJGVNMJ7028-77-81 18:05:000.5[facility] 18:05:000.7[facility] PyhrcyrCFSJTTGBHX3659-39-50 18:05:004.6[facility] NgciftoMWMJHQYVEQ9070-33-77 18:05:000.2[facility] HallkwpABCTZJLGAF9755-19-74 18:05:000.3[facility] WybselkPPWMATVVGH3714-33-03 18:05:008.7[facility] YREBPMFJEQ9415-11-40 18:05:007.1[facility] QjobrmgMKSMRKPFXS7345-58-02 18:05:00 87.8[facility] XbebuirMUWYYOCGNPFQ0764-03-42 18:05:0011.0[facility] WJHVXQOYSCFC7378-24-69 18:05:0092[facility] KvikrjzNNIXWVRAJOOZ0032-02-01 18:05:00 7.5[facility] AeevswaMVAEYYJBYUAW3418-97-02 18:05:20249Cqkkuttc Rolando HNFDHNDPLAHP3078-30-23 18:05:004.0[facility] RykjpnrJLSFCFHWTZIL2808-87-78 18:05:83084Cihnjsuc MntsladQSCPRJMFOPKS8516-79-04 18:05:0025[facility] VQHXUMENIVVQ9645-16-97 18:05:16430Vkxqmcij AckzydeJQQCPLTKIAEO5268-26-75 18:05:000.88[facility] KroezjqIIPDSVZPMKFN5164-80-07 18:05:0010[facility] BNBKMBVNIW4555-08-21 18:05:007.6[facility] NzrvrobJBIZGGLUZF4334-25-25 18:05:00 93.9[facility] BqzchlhMJZLHPFVOP0542-97-81 18:05:0038.8[facility]annHEMATOLOGY 2017-10-25 18:05:0013.3[facility] BdkquknYDPHNIZZIJ0626-75-42 18:05:73869Vngpmhsb NrwzdgsACGEVJHHFF2176-06-04 18:05:0014.5[facility] NuredlyMUJITWJVTC5614-88-01 18:05:0034.2[facility] CfimciwQPMPUMOPRU9019-24-48 18:05:00 Test Item Value Reference Range Interpretation Comments MCH (test code = MCH) 32.1 pg 27.0-31.0 [facility] LnliyxhWRCUGJKYIC4051-43-54 18:05:004.13[facility]annHEMATOLOGY 2017-10-25 18:05:009.9[facility] LxoigrqZHJCJMZDUY2084-65-22 18:05:00 Test Item Value Reference Range Interpretation Comments PTT (test code = PTT) 33.6 s 22.9-35.8 [facility] AwkyqmgKJLXVUQCRQ2491-08-67 18:05:00 Test Item Value Reference Range Interpretation Comments PT (test code = PT) 13.7 s 12.0-14.7 [facility] MdcguzvNNUETEUUNJ9451-68-79 18:05:00 Test Item Value Reference Range Interpretation Comments INR (test code = INR) 1.05 1 0.85-1.17 [facility] UdqvxwdDMGSIUDJRX0315-89-49 18:05:000.5[facility]annHEMATOLOGY 2017-10-25 18:05:000.7[facility] UvfdoxvZKWHHMUKHX8690-30-30 18:05:004.6[facility] JukuymcLUQEGWZGCD2636-57-39 18:05:000.2[facility] UsyrmurQAPFRAWHGL4888-76-06 18:05:000.3[facility] CxzcrfuHMIFDAZQTC4379-07-26 18:05:008.7[facility] OVREMTBGJQ9886-43-89 18:05:007.1[facility] YytbzcaHXQEQTGYMA6691-74-15 18:05:00 87.8[facility] ZjfolghHAVIRULLUTBS1917-08-82 18:05:0011.0[facility] IUSRBHHXZRUH6355-62-91 18:05:0092[facility] UnpyxmzEITZMSMQQGSB9718-40-92 18:05:00 7.5[facility] OjrlhppFWNEIGSBXMWK4309-19-78 18:05:74713Yqgecwwh [place] AEXHGWUMHRJX2382-15-33 18:05:004.0[facility] FvyufdpLAUTHGKPGNTD1194-33-88 18:05:97960Tblbzzen HvusrsuXMAIKSPDPGZE5767-50-53 18:05:0025[facility] [place] NLKYSWPGQKLU0833-32-83 18:05:81459Rmmcqzbe VqzrwyyTYFKRRFPXLEG0695-69-88 18:05:000.88[facility] YuehimuJXGQKJFBYUWY2225-76-94 18:05:0010[facility] [place] HFCGXTFQTT8255-45-20 18:05:007.6[facility] WchqycmVSTQLCKHHE6618-80-48 18:05:00 93.9[facility] GmcydxcTSMAANAFJN1769-07-98 18:05:0038.8[facility]annHEMATOLOGY 2017-10-25 18:05:0013.3[facility] FiravalUHPWBXXKWZ4027-17-50 18:05:22325Ojmzoblv AezikumVEUFAYVYLF8530-96-45 18:05:0014.5[facility] PlejjnhSZZTIZVUCN5885-83-73 18:05:0034.2[facility] AtkbuqkZZSHHSERGG1248-42-16 18:05:00 Test Item Value Reference Range Interpretation Comments MCH (test code = MCH) 32.1 pg 27.0-31.0 [facility] BjuevpyQSTJDSOVTX8732-05-33 18:05:004.13[facility]annHEMATOLOGY 2017-10-25 18:05:009.9[facility] MrlmnbwBKWFRDTPNJ6571-78-62 11:49:20740Glhnbwwj VnhehrtEASMCYYHNS0660-83-43 11:49:68123Zpnbqedx UwbassmNJAESIDAPS0672-93-24 11:49:58024Yiyjynza XghgxiiXWNJFWWUAB7655-56-18 11:49:60129Jfmptwxb [facility] DGPDHAU3831-07-35 07:23:00Negative (10/25/17 2:23 AM)[facility]annCARDIAC OFRDXTR3012-05-49 07:23:00<0.010[facility]annCARDIAC HDHUCVR2629-68-57 07:23:09479Lrujdlkc [facility]annCARDIAC FUFIJVN8154-26-79 07:23:00<0.02[facility]annCARDIAC AOWSMIC3105-53-05 07:23:00 Test Item Value Reference Range Interpretation Comments CK MB Index (test 0.9 1 See_Comment [Automate d message] The code = CK MB Index) system w [facility] generated this result transmit nate reference range : <=2.5. The reference range was not used to interpr et this result as cm l/abnormal. [facility]CARD[facility] QAKTPCR8574-18-06 07:23:001.5[facility] VROSHOJNARYM1523-00-35 07:23:0014.0[facility] DbqhnttRUDFEWLPYNYK7483-95-84 07:23:0088[facility] AjmctksCTFOFIZDHSFZ7180-50-91 07:23:007.9[facility] [place] OIYZAWHPZOER6186-45-11 07:23:000.93[facility] DtmwancEETXIJRJMYLM6753-79-55 07:23:78071Cyevetaw WkwvsfyOZCEFLDTRVZI5557-61-73 07:23:0013[facility] [place] RAAHODTUFLOS8688-75-16 07:23:0098[facility] VrnzjdkPZTXQQAJUHQR1555-01-34 07:23:00 21[facility] PkkwvgiIWAJXNAYGUQP8605-35-34 07:23:004.0[facility] HermannELECTROLYTES 2017-10-25 07:23:69893Nochpjnw DggjodcUNEOWWHVBH6780-39-04 07:23:002.3[facility] VutkpmhQQFUMQNFDH2024-35-89 07:23:000.9[facility] ZrqfepkYEQUUTNLKA5956-31-32 07:23:004.2[facility] GwqgjkaXODVRQSUYT6896-88-86 07:23:000.1[facility] [place] AJHCTMHEFZ8638-72-07 07:23:000.6[facility] FgikyifKMJYZQURQF5915-53-55 07:23:001.1 [facility] UnrwrdjSKEPPRHYHD5564-00-40 07:23:0030.7[facility]annHEMATOLOGY 2017-10-25 07:23:0012.2[facility] HvfnjnyNWHEJEVZVB1571-36-51 07:23:0055.4[facility] LqtvpzbOFNSNIYUUB7100-12-23 07:23:0014.1[facility] EhpbsebNZGJZDUUZK9921-30-46 07:23:0034.3[facility] AqqsxydISNKVEDUMS2920-48-17 07:23:00 Test Item Value Reference Range Interpretation Comments MCH (test code = MCH) 32.0 pg 27.0-31.0 [facility] AoqeswzHVAJLEOSGR0827-94-86 07:23:0093.3[facility]annHEMATOLOGY 2017-10-25 07:23:0041.7[facility] SvkubolQVMGJVNPMK6197-68-47 07:23:007.4[facility] HyunkqfTNRAYGTXTA1398-97-66 07:23:23511Kulaqvsz RzimxtoAFFYZMRLVL4929-16-60 07:23:0014.3[facility] LceksysTOBJOACFZA7001-29-20 07:23:004.47[facility] SKRLEUMQAM7686-12-40 07:23:007.5[facility] SmxifodBHWWYZZZLI9020-78-96 07:23:00 Test Item Value Reference Range Interpretation Comments INR (test code = INR) 1.02 1 0.85-1.17 [facility] EewowkjYNWBLAYCOB0019-83-52 07:23:00 Test Item Value Reference Range Interpretation Comments PTT (test code = PTT) 30.0 s 22.9-35.8 [facility] AwjcxlzCGBIVJDSDM9104-40-30 07:23:00 Test Item Value Reference Range Interpretation Comments PT (test code = PT) 13.4 s 12.0-14.7 [facility] ELHGRMP3792-70-92 07:23:00Negative (10/25/17 2:23 AM) [facility]annCARDIAC HQORNSA9869-23-24 07:23:00<0.010[facility] CARDIAC DMBKUMW6859-96-90 07:23:77884Ceftsoxc [facility]annCARDIAC HHTBLPC4079-97-29 07:23:00<0.02[facility]annCARDIAC OPVHJRN4203-70-71 07:23:00 Test Item Value Reference Range Interpretation Comments CK MB Index (test 0.9 1 See_Comment [Automate d message] The code = CK MB Index) system w [facility] generated this result transmit nate reference range : <=2.5. The reference range was not used to interpr et this result as cm l/abnormal. [facility]annCARDIAC UTUTZDY1644-87-23 07:23:001.5[facility] TFSHRCLFVZPU0311-71-81 07:23:0014.0[facility] YpetljfRPZDMGNIOTTL0030-05-99 07:23:0088[facility] EzjfybbIAXNMDPRHUCD0816-09-59 07:23:007.9[facility] [place] LIXSAZJRQYQU9525-17-05 07:23:000.93[facility] KnrgfysPNGZAAQJQPVK2881-29-73 07:23:22444Nsnuroud WotnoafYAGVROIEBFWZ6163-89-53 07:23:0013[facility] LFYNIDSRKLFG9273-97-95 07:23:0098[facility] OgzitapCKGLRXCHOBWX0298-96-85 07:23:00 21[facility] KlppzhuKAJATWIDAOTE1058-45-42 07:23:004.0[facility] HermannELECTROLYTES 2017-10-25 07:23:87995Eeqbpbqx JrtfnxeDSYMSGYTWS4131-22-52 07:23:002.3[facility] CaeowujWJAACBCZON1014-91-86 07:23:000.9[facility] MkebiagJBQHEXLWYM2834-72-80 07:23:004.2[facility] TspbmoxCTHMOODQBQ5774-56-31 07:23:000.1[facility] MENUZODAQV4529-96-66 07:23:000.6[facility] OfctsvlFRMRGZGPFZ6601-12-77 07:23:001.1 [facility] SehgqzaTFRFNTTRGU9779-37-74 07:23:0030.7[facility]annHEMATOLOGY 2017-10-25 07:23:0012.2[facility] XzjbrxkHZEUHRENLB4531-61-54 07:23:0055.4[facility] TyrahcfCMYIOFZEPF3963-91-89 07:23:0014.1[facility] NgumhnfVZEVZAFSBL7519-34-00 07:23:0034.3[facility] UmyigbtDQYQRZYMHR0415-06-05 07:23:00 Test Item Value Reference Range Interpretation Comments MCH (test code = MCH) 32.0 pg 27.0-31.0 [facility] ZfmogvnFEGXXXUDUM1496-36-69 07:23:0093.3[facility] HermannHEMATOLOGY 2017-10-25 07:23:0041.7[facility] BqqkanbJHHVNJGLQX6250-31-45 07:23:007.4[facility] JzjjdrhUUSAATSLCE4590-45-21 07:23:57118Fmlivgwp MrxyvroEQVECWVDYU5299-47-63 07:23:0014.3[facility] VovvdvuEWPGBDCUFM3231-20-05 07:23:004.47[facility] [place] MYIXACGHLX0229-69-58 07:23:007.5[facility] VismjloXMSSOFJNAD9073-96-92 07:23:00 Test Item Value Reference Range Interpretation Comments INR (test code = INR) 1.02 1 0.85-1.17 [facility] AddqoqmHPLZIZQZHO9937-20-13 07:23:00 Test Item Value Reference Range Interpretation Comments PTT (test code = PTT) 30.0 s 22.9-35.8 [facility] XyzzgxhVZNLUOQGVF7997-01-42 07:23:00 Test Item Value Reference Range Interpretation Comments PT (test code = PT) 13.4 s 12.0-14.7 [facility]annCARDIAC OIJUGBN8341-30-87 22:23:00<0.010[facility] [place] CARDIAC AMEZIZB8431-74-63 22:23:00<0.02[facility]annCARDIAC ENZYMES 2017-10-24 22:23:90063Ppxmndgu HermannCARDIAC SREBVRP0961-46-62 22:23:00 Test Item Value Reference Range Interpretation Comments CK MB Index (test 0.9 1 See_Comment [Automate d message] The code = CK MB Index) system w [facility] generated this result transmit nate reference range : <=2.5. The reference range was not used to interpr et this result as cm l/abnormal. [facility]annCARDIAC ABYIOPT7920-51-67 22:23:002.1[facility]annCARDIAC IJECMUT1172-22-43 22:23:00<0.010[facility]annCARDIAC KZOJNDF9165-23-04 22:23:00<0.02[facility]annCARDIAC IUEGYBY0293-18-66 22:23:96857Qtiyuqmf [facility]CARDIAC VYUBBFR7793-14-61 22:23:00 Test Item Value Reference Range Interpretation Comments CK MB Index (test 0.9 1 See_Comment [Automate d message] The code = CK MB Index) system [employer] generated this result transmit nate reference range : <=2.5. The reference range was not used to interpr et this result as cm l/abnormal. [facility]AC ZOPJDYR1586-63-53 22:23:002.1[facility]annCARDIAC ISITVAY3076-96-56 08:36:00<0.010[facility]annCARDIAC KXFBCYI1654-71-26 08:36:00<0.02[facility]annCARDIAC UCYGSTH6273-96-47 08:36:48890Rtufljjt [facility]CARDIAC KAKZKOH1484-63-61 08:36:00 Test Item Value Reference Range Interpretation Comments CK MB Index (test 0.8 1 See_Comment [Automate d message] The code = CK MB Index) system [employer] generated this result transmit nate reference range : <=2.5. The reference range was not used to interpr et this result as cm l/abnormal. [facility]CARD[facility]AC SALZXCL7030-09-17 08:36:003.2[facility]annCARDIAC KABURIV9011-13-35 08:36:00<0.010[facility]annCARDIAC COTCORT5365-06-37 08:36:00<0.02[facility]annCARDIAC YACOZWR1718-92-38 08:36:42787Xjzkwfyk [facility]CARDIAC MLDLFGJ8343-34-77 08:36:00 Test Item Value Reference Range Interpretation Comments CK MB Index (test 0.8 1 See_Comment [Automate d message] The code = CK MB Index) system [employer] generated this result transmit nate reference range : <=2.5. The reference range was not used to interpr et this result as cm l/abnormal. [facility]annCARD[facility]AC IBMQAYD5276-76-87 08:36:003.2[facility]annHEMATOLOGY 2017-10-24 06:40:55080Clfvomnb PorsfznTZGCUJZVSM2019-68-86 06:40:56587Ktyxvgia KsdqiorKDKNKGROUR2916-42-45 06:40:12956Bkwlvsej AzvzmjuLDALNVGWER2574-04-59 06:40:61173Tkggcxpu [facility]BL[facility] GUXRRAP4352-02-03 05:12:00Negative (10/24/17 12:12 AM)[facility] CKXWLML8577-73-98 05:12:00Negative (10/24/17 12:12 AM)[facility] HermannCHEM UPTJA3924-06-76 03:33:000.8[facility] [place] PLIJQMFQOGUD7759-79-78 03:33:0015.0[facility] ZpeqwgwGMXNUOBGOCBQ0613-96-31 03:33:0092[facility] JlpfsxfEHVWTSDSEASD9737-31-51 03:33:0022[facility] [place] RLDMHCBTEDCF5022-24-96 03:33:008.6[facility] CuhkybuDYKRDVOZMMUC0913-91-94 03:33:004.0[facility] XhwdjykLDKGBRTOTGGX2378-31-82 03:33:28825Qsshpire [facility] SHNZKKIANHOP6016-95-59 03:33:000.89[facility] AlpuoafOJCUBGKAHGQW5460-89-14 03:33:0012[facility] RfosbyeRYHFIQHQIXFZ6650-38-28 03:33:42600Fszskzge [place] NPIGIJBBCNPM3651-77-77 03:33:86524Ryyqffja TkjfgwhCFPYZYXBWU4932-20-50 03:33:00 5.6[facility] FhipiarHSMYGUSQFL6196-14-20 03:33:000.1[facility]annHEMATOLOGY 2017-10-24 03:33:008.3[facility] DhczqeeNOCRZOHZQS1811-08-11 03:33:0085.4[facility] MolkzheCYCWZCXYRX1535-69-05 03:33:000.5[facility] RxxzplhXGHXEKMPTD4989-59-50 03:33:000.1[facility] SqrvppiKRXBMJVSGV9207-41-84 03:33:000.8[facility] DAYVUFQDSR1147-50-24 03:33:008.3[facility] TuhqdksNVKBNUICWM3824-60-98 03:33:000.6 [facility]wayIzeyvruTIXQDJVJRT4344-16-09 03:33:002.4[facility] 2017-10-24 03:33:00 Test Item Value Reference Range Interpretation Comments Max Amplitude Rapid (test code = Max 57 mm 52-71 Amplitude Rapid) [facility]wayAbmuavfNLZLCGDZYN6615-17-14 03:33:00 Test Item Value Reference Range Interpretation Comments K-time Rapid (test code = K-time 1.7 min 0.6-2.3 Rapid) [facility] ParkwayIkrlqsuKDXTSBFRMJ8120-69-94 03:33:006.6[facility] 2017-10-24 03:33:00 Test Item Value Reference Range Interpretation Comments Angle Rapid (test code = Angle 71 degrees 64-80 Rapid) [facility] ParkwayQlhlebsZLLTTOLVFQ9100-95-80 03:33:00 Test Item Value Reference Range Interpretation Comments Split Point Rapid (test code = Split 0.5 min Point Rapid) [facility] ParkwayRiwtqlhMSBEDQXZEA7591-86-65 03:33:00 Test Item Value Reference Range Interpretation Comments R-time Rapid (test code = R-time 0.6 min 0.4-0.7 Rapid) [facility] ParkwayZusfrdcOLPUZTGEVT4656-96-95 03:33:00 Test Item Value Reference Range Interpretation Comments ACT (TEG) Rapid (test code = ACT (TEG) 105 s 86-118 Rapid) [facility] ParkwayFbgzpopOWIRKKCTRJ7573-72-07 03:33:00 Test Item Value Reference Range Interpretation Comments PTT (test code = PTT) 29.1 s 22.9-35.8 [facility] ParkwayCwrdpnkTSDURGAJQM3831-60-01 03:33:00 Test Item Value Reference Range Interpretation Comments PT (test code = PT) 14.6 s 12.0-14.7 [facility] ParkwayUilmekxEVWMFKFZRK9459-25-76 03:33:00 Test Item Value Reference Range Interpretation Comments INR (test code = INR) 1.14 1 0.85-1.17 [facility] ParkwayVfgxfrnQMPSEJCUIT5709-43-56 03:33:26528VdzlewqaCovenant [facility] 2017-10-24 03:33:007.3[facility] ZybyufkBGWOKMQEWR4465-30-78 03:33:0014.2[facility] CampusUnsteexUOMCMRCITS7942-60-59 03:33:0014.4[facility] MnztozxRFXGTDORUL2863-73-46 03:33:009.7[facility] FtjlocrBCWMZWVZYX2765-03-82 03:33:004.48[facility] [place] ACBOSJILJN3336-75-53 03:33:0093.3[facility] KofltsyTHSICLVVUJ2069-90-38 03:33:00 Test Item Value Reference Range Interpretation Comments MCH (test code = MCH) 32.2 pg 27.0-31.0 [facility] IfagpytRPXNWGDISK9518-83-00 03:33:0034.5[facility]annHEMATOLOGY 2017-10-24 03:33:0041.8[facility] HermannCHEM HJXUI9227-80-91 03:33:000.8[facility] GvrhahyTQKHZCDILJAW6392-94-80 03:33:0015.0[facility] BcawsdpGXXVVEFBJGGJ5907-50-80 03:33:0092[facility] WvpgupzNXRMKZQIJZJV2510-69-38 03:33:0022[facility] VRQCUITWPKZB8590-28-55 03:33:008.6[facility] MznpjxpPWRLYLROALXZ2237-66-88 03:33:004.0[facility] CwapacyUROMOZVDGUGA9418-72-16 03:33:39673Rbossfat [place] AGOXLEDDPENN0435-23-82 03:33:000.89[facility] NgaursyJESUIQAZKXXT6612-12-52 03:33:0012[facility] DapetueSIPTZZQVVTJV8652-00-55 03:33:42081Lqjjqxgg [place] UOUHADRVAOSY6576-84-96 03:33:04780Osakzlww HxpyijiRALHRRIWCV4932-85-38 03:33:00 5.6[facility] IhsomvvQBTPFTGEWH7007-82-75 03:33:000.1[facility]annHEMATOLOGY 2017-10-24 03:33:008.3[facility] RjxtmwaEQAPZZWPQU7885-96-72 03:33:0085.4[facility] WxlnuliXIVWMOBOQZ7538-80-15 03:33:000.5[facility] OuridntIBDWKHPGHM0964-10-68 03:33:000.1[facility] LsylpldVJFNDOTIHU7257-34-48 03:33:000.8[facility] HospitalAAPFNZZOTF7432-96-81 03:33:008.3[facility] WhatducDENRFWIYEM4606-47-05 03:33:000.6 [facility]IkxaviqMMNXNYGWLF8980-26-78 03:33:002.4[facility]AT[facility] 2017-10-24 03:33:00 Test Item Value Reference Range Interpretation Comments Max Amplitude Rapid (test code = Max 57 mm 52-71 Amplitude Rapid) [facility] ParkwayIlylcrdPSHLOFNWKG5785-94-18 03:33:00 Test Item Value Reference Range Interpretation Comments K-time Rapid (test code = K-time 1.7 min 0.6-2.3 Rapid) [facility] ParkwayYfnilktUYQLODSABD6097-47-44 03:33:006.6[facility] 2017-10-24 03:33:00 Test Item Value Reference Range Interpretation Comments Angle Rapid (test code = Angle 71 degrees 64-80 Rapid) [facility] ParkwayKqhkbjmBCBYYLFHXV8038-46-64 03:33:00 Test Item Value Reference Range Interpretation Comments Split Point Rapid (test code = Split 0.5 min Point Rapid) [facility] ParkwayYzxtaqhQOXIXXQIMQ4628-11-48 03:33:00 Test Item Value Reference Range Interpretation Comments R-time Rapid (test code = R-time 0.6 min 0.4-0.7 Rapid) [facility] ParkwayBzdsztaZACASAEVJX1962-40-15 03:33:00 Test Item Value Reference Range Interpretation Comments ACT (TEG) Rapid (test code = ACT (TEG) 105 s 86-118 Rapid) [facility] ParkwayQfnpjkmHDUPHGIRMD2470-25-89 03:33:00 Test Item Value Reference Range Interpretation Comments PTT (test code = PTT) 29.1 s 22.9-35.8 [facility] ParkwayPhnkwoxMBSJIVSIYD1205-39-30 03:33:00 Test Item Value Reference Range Interpretation Comments PT (test code = PT) 14.6 s 12.0-14.7 [facility] ParkwayLqwrmnmBVGCYJWURI7754-30-70 03:33:00 Test Item Value Reference Range Interpretation Comments INR (test code = INR) 1.14 1 0.85-1.17 [facility] MichiganWjlbrthLRKERYZSKH2486-75-86 03:33:09727Eevxdwzy [facility]annHEMATOLOGY 2017-10-24 03:33:007.3[facility] EecarniFUDAMTHOKM6004-50-76 03:33:0014.2[facility] LpajsohMKRSMHIQHE9821-37-82 03:33:0014.4[facility] VcmbfxhPMXPUZAYCH7518-08-77 03:33:009.7[facility] ErtwhgvXKUIYPWSNE1949-68-73 03:33:004.48[facility] ZCPBGUGIZZ7200-40-78 03:33:0093.3[facility] NlomqxoGZLJLDXGNG7631-70-34 03:33:00 Test Item Value Reference Range Interpretation Comments MCH (test code = MCH) 32.2 pg 27.0-31.0 [facility] DhmotkhUUHHGOGXPT8195-45-71 03:33:0034.5[facility]annHEMATOLOGY 2017-10-24 03:33:0041.8[facility] [place]
[2021-09-02] MEDS ORDERED: LIDOCAINE JELLY 2%- 5 ML TUBE ONE (06:45)
[2021-09-02 06:52] LABS: Absolute Lymphocytes (CBC) 1.4 K/uL (0.7-4.9); Hematocrit 35.1 % (39.6-49.0); Lymphocytes % 19.8 % (15.3-44.8); MPV 6.4 fL (7.6-11.3)
[2021-09-02 07:09] LABS: Potassium 4.2 mmol/L (3.5-5.1)
--- NOTE | 2021-09-02 08:17 | RAD REPORT ---
EXAM DESCRIPTION: CT - Stone Protocol - 09/02/2021 7:35 am CLINICAL HISTORY: Flank pain. urinary retention COMPARISON: Stone Protocol dated 06/20/2020 TECHNIQUE: Axial images were obtained without oral or IV contrast. Lack of contrast limits solid org an and vascular assessment. The mumzm-qt-uuuz spans the entirety of the system partially obscuring uppermost abdomen and lung bases. Coronal reformatted images were obtained and reviewed. All CT scans are performed using dose optimization technique as appropriate and may include automated exposure control or mA/KV adjustment according to patient size. FINDINGS: Linear subsegmental atelectasis is seen in both posterior lung bases. Imaged portions of the liver and spleen show no suspicious findings on non-contrast imaging. The panc reas and adrenal glands are normal. No pathologic lymphadenopathy in the abdomen or pelvis. Left percutaneous nephrostomy tube is in place. No left-sided hydronephrosis. Mild right-sided hydronephrosis and hydroureter is present. 37 mm cyst is also present inferior right kidney. Thickening of the posterior wall urinary bladder is seen likely contributing to the hydronep hrosis. There is no radiopaque stone identified. No bowel obstruction, free air, free fluid or abscess. Normal appendix noted.Mild aortoiliac atherosc lerosis. Hardware is in place thoracolumbar spine. Moderate compression deformity, old, seen affecting L1. IMPRESSION: Mild right-sided hydronephrosis and hydroureter is present to the level of the right UVJ . There is posterior bladder wall thickening present which may represent a mass or chronic inflammati on and contributes to this hydronephrosis. No radiopaque calculus seen. Recommend followup direct vis ualization with cystoscopy. Left PCN is in place without hydronephrosis.
[2021-09-02 09:25] LABS: Urine Blood 2+ (Negative); Urine Glucose Negative (Negative); Urine Protein 2+ (Negative); Urine Specific Gravity 1.025 (1.005-1.030); Urine pH 7.5 (5.0-7.0)
[2021-09-02 10:07] LABS: Anisocytosis 2+; Blood Morphology Comment NOTED (NOT SEEN); Hypochromasia 1+; Ovalocytes 1+; Platelet Estimate ADEQ; White Blood Cell Scan OK (OK)
--- NOTE | 2021-09-02 10:13 | ER ---
Nurse's Notes [facility] Name: Volodymyr Trejo Age: 65 yrs Sex: Male : 1955 Arrival Date: 09/02/2021 Time: 05:57 Bed 19 Private MD: Diagnosis: UTI/ Urinary tract infection, site not specified;Retention of urine, unspecified Presentation: 09/02 06:07 Chief complaint: Patient states: since two days ago reduced urine output. has a mass in sf1 the left kidney and has a nephrostomy on the left kidney and the right kidney produces urine normally until 2 days ago. Coronavirus screen: Vaccine status: Patient reports being unvaccinated. Client denies travel out of the [place] in the last 14 days. Ebola Screen: Patient negative for fever greater than or equal to 101.5 degrees Fahrenheit, and additional compatible Ebola Virus Disease symptoms Patient denies exposure to infectious person. Patient denies travel to an Ebola-affected area in the 21 days before illness onset. Initial Sepsis Screen: Does the patient meet any 2 criteria? No. Patient's initial sepsis screen is negative. Does the patient have a suspected source of infection? No. Patient's initial sepsis screen is negative. Risk Assessment: Do you want to hurt yourself or someone else? Patient reports no desire to harm self or others. Onset of symptoms was August 31, 2021. 06:07 Method Of Arrival: Ambulatory sf1 06:07 Acuity: JUANPABLO 3 sf1 Triage Assessment: 06:11 General: Appears in no apparent distress. uncomfortable, Behavior is calm, cooperative, sf1 appropriate for age. Pain: Complains of pain in right mid back. Historical: - Allergies: 06:11 PENICILLINS; sf1 - PMHx: 06:11 Hyperlipidemia; Hypertension; kidney cancer; sf1 - PSHx: 06:11 nephrostomy left kidney; sf1 - Immunization history:: Adult Immunizations up to date. - Social history:: Smoking status: Patient reports the use of cigarette tobacco products, smokes one pack cigarettes per day. Patient uses street drugs, marijuana, Patient/guardian denies using alcohol. Screenin:56 Abuse screen: Denies threats or abuse. Denies injuries from another. Nutritional sf1 screening: No deficits noted. Tuberculosis screening: No symptoms or risk factors identified. Fall Risk IV access (20 points). Assessment: 08:01 Reassessment: 16fr urinary cath place attached to leg bag. General: Appears sf1 uncomfortable, Behavior is calm, cooperative. Pain: Complains of pain in pelvis. : Reports inability to void, pain Pain is 10 out of 10 on a pain scale. Vital Signs: 06:07 BP 161 / 99; Pulse 72; Resp 18; Temp 97.7; Pulse Ox 100% on R/A; Weight 75.75 kg; sf1 Height 6 ft. 1 in. (185.42 cm); Pain 2/10; 06:55 BP 150 / 89; Pulse 77; Resp 18; Pulse Ox 98% on R/A; sf1 08:02 BP 151 / 96; Pulse 87; Resp 18; Pulse Ox 99% on R/A; sf1 09:25 BP 154 / 93; Pulse 88; Resp 18; Pulse Ox 99% on R/A; sf1 06:07 Body Mass Index 22.03 (75.75 kg, 185.42 cm) sf1 ED Course: 05:57 Patient arrived in ED. ja2 06:01 Anahy Fernando, RN is Primary Nurse. sf1 06:11 Triage completed. sf1 06:11 Arm band placed on right wrist. sf1 06:21 Karin Guy [facility]-C [facility]. kb 06:21 Jac Rachel MD is Attending Physician. kb 06:40 Basic Metabolic Panel Sent. sf1 06:40 CBC with Diff Sent. sf1 06:56 Patient has correct armband on for positive identification. Bed in low position. sf1 06:56 No provider procedures requiring assistance completed. Inserted saline lock: 20 gauge sf1 in right antecubital area, using aseptic technique. 07:35 CT Stone Protocol In Process Unspecified. EDMS 09:25 Urine Microscopic Only Sent. sf1 10:37 Primary Nurse role handed off by Anahy Fernando RN eb 10:39 IV discontinued, intact, Pressure dressing applied. sf1 Administered Medications: No medications were administered Outcome: 10:13 Discharge ordered by . kb 10:39 Discharged to home sf1 10:39 Condition: good 10:39 Discharge instructions given to patient, Prescriptions given X 1. 10:39 Patient left the ED. sf1 Addendum: 09/07/2021 11:54 Addendum: Culture Results: Positive urine culture. No further action required. Bacteria i w sensitive to prescribed antibiotic. Signatures: Dispatcher [employer] Karin Turner, REEMA CULVER-Dia Sanchez, RN RN Jany Topete Jessica ja2 Fillers, Samantha, RN RN sf1
--- NOTE | 2021-09-02 10:13 | EDPHYS ---
Physician Documentation [facility] Name: Volodymyr Trejo Age: 65 yrs Sex: Male : 1955 Arrival Date: 09/02/2021 Time: 05:57 Bed 19 Private MD: ED Physician Jac Rachel HPI: 09/02 06:28 This 65 yrs old Male presents to ER via Ambulatory with complaints of Urinary Problem. kb 06:28 The patient presents with urinary symptoms, retention. Onset: The symptoms/episode kb began/occurred 3 day(s) ago, and became worse last night. Modifying factors: The symptoms are alleviated by nothing, the symptoms are aggravated by nothing. Associated signs and symptoms: The patient has no apparent associated signs or symptoms. Severity of symptoms: At their worst the symptoms were moderate, in the emergency department the symptoms are unchanged. The patient has experienced similar episodes in the past. The patient has not recently seen a physician. Urinary retention since midnight. States he has had this several times before because he has bladder cancer. States he had this issue a few days ago and passed some mucus then was able to urinate ok until tonight. . Historical: - Allergies: 06:11 PENICILLINS; sf1 - PMHx: 06:11 Hyperlipidemia; Hypertension; kidney cancer; sf1 - PSHx: 06:11 nephrostomy left kidney; sf1 - Immunization history:: Adult Immunizations up to date. - Social history:: Smoking status: Patient reports the use of cigarette tobacco products, smokes one pack cigarettes per day. Patient uses street drugs, marijuana, Patient/guardian denies using alcohol. ROS: 06:32 Constitutional: Negative for fever, chills, and weight loss. kb 06:32 : Positive for difficulty urinating. 06:32 All other systems are negative. Exam: 06:32 Constitutional: This is a well developed, well nourished patient who is awake, alert, kb and in no acute distress. Head/Face: Normocephalic, atraumatic. ENT: Moist Mucous membranes Respiratory: Respirations even and unlabored. No increased work of breathing. Talking in full sentences Skin: Warm, dry with normal turgor. Normal color. MS/ Extremity: Pulses equal, no cyanosis. Neurovascular intact. Full, normal range of motion. Neuro: Awake and alert, GCS 15, oriented to person, place, time, and situation. Moves all extremities. Normal gait. Psych: Awake, alert, with orientation to person, place and time. Behavior, mood, and affect are within normal limits. 06:32 Abdomen/GI: Inspection: abdomen appears normal, Bowel sounds: normal, in all quadrants, Palpation: soft, in all quadrants, mild abdominal tenderness, in the suprapubic area. 06:32 Back: nephrostomy tube noted to left flank. Vital Signs: 06:07 BP 161 / 99; Pulse 72; Resp 18; Temp 97.7; Pulse Ox 100% on R/A; Weight 75.75 kg; sf1 Height 6 ft. 1 in. (185.42 cm); Pain 2/10; 06:55 BP 150 / 89; Pulse 77; Resp 18; Pulse Ox 98% on R/A; sf1 08:02 BP 151 / 96; Pulse 87; Resp 18; Pulse Ox 99% on R/A; sf1 09:25 BP 154 / 93; Pulse 88; Resp 18; Pulse Ox 99% on R/A; sf1 06:07 Body Mass Index 22.03 (75.75 kg, 185.42 cm) sf1 MDM: 06:21 Patient medically screened. kb 06:28 Data reviewed: vital signs, nurses notes. Data interpreted: Pulse oximetry: on room air kb is 100 %. Interpretation: normal. 10:10 Counseling: I had a detailed discussion with the patient and/or guardian regarding: the kb historical points, exam findings, and any diagnostic results supporting the discharge/admit diagnosis, lab results, radiology results, the need for outpatient follow up, a urologist, to return to the emergency department if symptoms worsen or persist or if there are any questions or concerns that arise at home. 09/02 06:28 Order name: Basic Metabolic Panel; Complete Time: 07:09 kb 09/02 06:28 Order name: CBC with Diff; Complete Time: 10:10 kb 09/02 09:13 Order name: Urine Microscopic Only; Complete Time: 10:26 kb 09/02 09:25 Order name: Urine Dipstick-Ancillary; Complete Time: 09:27 EDMS 09/02 09:55 Order name: CBC Smear Scan; Complete Time: 10:10 EDMS 09/02 10:16 Order name: Urine Culture EDMS 09/02 06:28 Order name: IV Saline Lock; Complete Time: 06:40 kb 09/02 06:28 Order name: Labs collected and sent; Complete Time: 06:40 kb 09/02 06:28 Order name: CT Stone Protocol; Complete Time: 08:19 kb 09/02 06:28 Order name: [place]son: use lidocaine gel for insertion per pt request; Complete Time: 09:18 kb 09/02 09:13 Order name: Urine Dipstick-Ancillary (obtain specimen); Complete Time: 09:25 kb Administered Medications: No medications were administered Disposition: Co-signature as Attending Physician, Jac Rachel MD. [email or web address] Disposition Summary: 09/02/21 10:13 Discharge Ordered Location: Home kb Condition: Stable kb Diagnosis - UTI/ Urinary tract infection, site not specified kb - Retention of urine, unspecified kb Followup: kb - With: Emergency Department - When: As needed - Reason: Worsening of condition Followup: kb - With: Private Physician - When: 2 - 3 days - Reason: Recheck today's complaints, Continuance of care, Re-evaluation by your physician Discharge Instructions: - Discharge Summary Sheet kb - Urinary Tract Infection, Adult, [id number] kb Forms: - Medication Reconciliation Form kb - Thank You Letter kb - Antibiotic Education kb - Prescription Opioid Use kb Prescriptions: - Flomax 0.4 mg Oral capsule - take 1 capsule by ORAL route once daily 1/2 hour following the same meal each kb day; 20 capsule; Refills: 0, Product Selection Permitted - Cipro 500 mg Oral Tablet - take 1 tablet by ORAL route every 12 hours for 7 days; 14 tablet; Refills: 0, kb Product Selection Permitted Signatures: Dispatcher [employer] [facility] Karin Guy, [employer] PALOMO-Jac Blackmon MD MD 7 Anahy Fernando RN RN sf1
[2021-09-02 10:15] LABS: Urine Amorphous Sediment 2+ /HPF (NONE SEEN); Urine Bacteria 20-50 /HPF (NONE SEEN); Urine RBC 20-50 /HPF (NONE SEEN); Urine Triple Phosphate Crystal MODERATE (NONE SEEN)
[2021-09-02 10:46] VITALS: TEMP 97.7
[2021-09-02 10:48] VITALS: O2SAT 99
[2021-09-02 10:49] VITALS: BP 154/93
== END 2021-09-02 10:39 | disposition home or self-care (01) ==
LOC: ER 05:53
DX: N39.0 Urinary tract infection, site not specified (principal); F17.210 Nicotine dependence, cigarettes, uncomplicated; I10 Essential (primary) hypertension; Z88.0 Allergy status to penicillin
CPT/HCPCS: 36415; 74176; 76377; 80048; 81003; 81015; 85025; 87077; 87086; 87088; 87186; 99284

== ENCOUNTER 2022-12-19 13:37 | Emergency (ER) | payer OTHER ==
--- OUTSIDE RECORDS SUMMARY | 2022-12-19 13:53 | XMS REPORT | Continuity of Care Document ---
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 [facility] [place] BMI Calculated 2017-10-24 09:49:00 [facility] [place] Height 2017-10-24 09:49:00 185.42 cm [facility] [place] Heart Rate 2017-10-24 05:46:00 [facility] [place] BMI Calculated 2017-10-24 02:30:00 [facility] [place] Heart Rate 2017-10-24 02:30:00 [facility] [place] Height 2017-10-24 02:30:00 185.42 cm [facility] [place] Weight 2017-10-24 02:30:00 [facility] [place] Procedures Procedure Date / Time Performed Performing Clinician Ann arauz EXTERNAL PROVIDER 2021-03-31 05:01:00 Doctor Unassigned, No Univ [facility] RECORDS Name [facility] POCT URINALYSIS AUTO 2021-03-16 13:20:00 Regi Hassan [facility] CONSENT/REFUSAL FOR 2021-03-16 13:00:45 Doctor Unassigned, [facility] Name [facility] TREATMENT Fusion of lumbar spine 2017-10-25 05:00:00 Johnnie balbuena [place] Stent placement 2017-06-07 06:00:00 Rafaela yu Encounters Start End Encounter Admission Attending Care Care Encounter Source Date/Time Date/Time Type Type Clinicians Facility Department ID 2022-11-10 Outpatient [facility] [id number] [place] 08:18:57 [id number] [facility] 2022-05-30 Outpatient [facility] [id number] [place] 08:20:58 [id number] [facility] 2022-05-24 Outpatient [facility] [id number] [place] 17:55:35 [id number] [facility] 2022-05-16 Outpatient [facility] [id number] [place] 12:51:48 [id number] [facility] 2021-09-24 Outpatient [facility] [id number] [place] 02:37:31 [facility] 2021-09-21 Outpatient [facility] [id number] [place] 02:38:47 [facility] 2021-09-06 Outpatient [facility] [id number] [place] 16:58:34 [facility] 2021-09-02 Outpatient [facility] [id number] [place] 10:44:54 [facility] 2021-07-26 Outpatient OLEGARIO [facility] [id number] [place] 01:03:57 [facility] 2021-06-22 [facility] [id number] [place] 01:03:36 SAMMI [facility] UMESH 2021-05-09 Outpatient [facility] [id number] [place] 16:53:30 [facility] 2021-04-20 Outpatient [facility] [id number] [place] 14:23:22 YANDEL [facility] 2022-08-25 2022-08-25 Outpatient PHYSICIAN, [facility] [id number] MHH 07:17:00 11:40:00 NON 2022-06-19 2022-06-19 Outpatient PHYSICIAN, [facility] [id number] MHHH 10:23:00 13:26:00 NON 2022-05-18 2022-06-16 [facility] [id number] [facility] 09:37:00 23:59:00 2022-05-30 2022-05-30 [id number] 1.2.840.114 [id number] [place] 08:30:00 08:30:00 Visit YANDEL LOW [id number] [facility] 9.2.7.2.686 [id number] 2 2022-04-06 2022-05-05 Outpatient NIDA, [facility] [id number] [facility] 10:53:00 23:59:00 2022-05-04 2022-05-04 Outpatient NIDA, [facility] [id number] [place] 09:30:00 09:30:00 Health 2022-04-27 2022-04-27 Outpatient NIDA, [facility] [id number] [place] 09:40:00 09:40:00 [facility] 2022-04-20 2022-04-20 Outpatient NIDA, [facility] [id number] [place] 10:20:00 10:20:00 Health 2022-04-13 2022-04-13 Outpatient ADE [facility] [id number] MHHH 09:04:00 14:08:00 , LIONEL 2022-03-02 2022-03-31 Outpatient NIDA, [facility] [id number] [facility] 09:27:00 23:59:00 2022-03-30 2022-03-30 Outpatient NIDA, [facility] [id number] [place] 12:00:00 12:00:00 Health 2022-03-23 2022-03-23 Outpatient NIDA, [facility] [id number] [place] 14:20:00 14:20:00 Health 2022-03-09 2022-03-09 Outpatient NIDA, [facility] [id number] [place] 10:00:00 10:00:00 Health 2022-01-20 2022-02-18 Outpatient NIDA, [facility] [id number] [facility] 08:14:00 23:59:00 2021-12-20 2022-01-18 Outpatient NIDA, [facility] [id number] [facility] 08:50:00 23:59:00 2022-01-02 2022-01-02 Outpatient NIDA, [facility] [id number] [place] 14:20:00 14:20:00 Health 2021-12-26 2021-12-26 Outpatient NIDA, [facility] [id number] [place] 10:00:00 10:00:00 Health 2021-11-14 2021-12-13 Outpatient NIDA, [facility] [id number] [facility] 09:30:00 23:59:00 2021-12-05 2021-12-05 Outpatient NIDA, [facility] [id number] [place] 14:00:00 14:00:00 [facility] 2021-12-02 2021-12-02 Outpatient ZLAINAJA [facility] [id number] M[facility]H 06:38:00 09:03:00 , LIONEL 2021-10-10 2021-11-08 Outpatient NIDA, [facility] [id number] [facility] 11:34:00 23:59:00 2021-10-27 2021-10-27 Outpatient NIDA, [facility] [id number] [facility] 07:32:00 12:07:00 2021-10-21 2021-10-21 Telephone RonenMarlen UTP 1.2.84 0.114 [id number] [place] 00:00:00 00:00:00 Marlen Hardwick 350.1.13.58 [facility] MEDICAL 9.2.7.2.686 BUILDING [id number] 1 2021-10-19 2021-10-19 Telephone Marlen Hardwick UTP 1.2.84 0.114 [id number] [place] 00:00:00 00:00:00 Marlen Hardwick 350.1.13.58 Health MEDICAL 9.2.7.2.686 [facility] [id number] 1 2021-10-03 2021-10-03 Telephone MendonHECTOR medrano 6400 1.2.840.114 1 [id number] [place] 00:00:00 00:00:00 Yandel BOYKIN 350.1.13.58 Health 9.2.7.2.686 [id number] 2 2021-08-29 2021-09-27 Outpatient [facility] [id number] [facility] 13:08:00 23:59:00 2021-09-27 2021-09-27 Office HECTOR RAE 6400 1.2.840.114 [id number] [place] 15:00:00 15:15:00 Visit YANDEL BOYKIN 350.1.13.58 Health 9.2.7.2.686 [id number] 2 2021-09-06 2021-09-06 Telephone ButchHECTOR 6400 1.2.840.114 1 [id number] [place] 00:00:00 00:00:00 Yandel BOYKIN 350.1.13.58 Health 9.2.7.2.686 [id number] 2 2021-09-05 2021-09-05 Outpatient PHYSICIAN, [facility] [id number] MHHH 07:02:00 10:43:00 NON 2021-08-29 2021-08-29 Office Sujata Alva EXT MSRDP 1.2.840.114 1 [id number] [place] 14:00:00 14:40:00 Visit LOCATION 350.1.13.58 H ealth 9.2.7.2.686 [id number] 2021-06-24 2021-06-25 Emergency [id number]HH 12:29:00 09:22:00 ANDRA 2021-04-26 2021-05-25 Outpatient [facility] [id number] [facility] 11:15:00 23:59:00 KIMBERLEY 2021-05-11 2021-05-11 Office HECTOR Moreno 6410 1.2.840.114 [id number] [place] 12:00:00 12:36:[address] 350.1.13.58 Health 9.2.7.2.686 [id number] 1 2021-04-26 2021-04-26 Office HECTOR Rae 6400 1.2.840.114 [id number] [place] 09:32:09 09:47:[address] 350.1.13.58 Health 9.2.7.2.686 [id number] 2 2021-04-25 2021-04-25 Telephone Butch [facility] 6400 1.2.840.114 1 [id number] [place] 00:00:00 00:00:00 Yandel BOYKIN 350.1.13.58 Health 9.2.7.2.686 [id number] 2 2021-04-20 2021-04-20 Telephone Leonora [facility] 6410 1.2.840 .114 [id number] [place] 00:00:00 00:00:[address] 350.1.13.58 Health 9.2.7.2.686 [id number] 1 2021-04-20 2021-04-20 Telephone [facility] UTP 6410 1.2.840 .114 [id number] [place] 00:00:00 00:00:[address] 350.1.13.58 Health 9.2.7.2.686 [id number] 1 2021-04-20 2021-04-20 Telephone Butch [facility] 6400 1.2.840.114 1 [id number] [place] 00:00:00 00:00:[address] 350.1.13.58 Health 9.2.7.2.686 [id number] 2 2021-04-08 2021-04-08 [facility] 1.2.840.114 [id number] [facility] 09:06:16 23:59:00 Encounter Regi Pérez 350.1.13.10 ity [facility] 4.2.7.2.686 [facility] [id number] [facility] 802 Branch 2021-04-08 2021-04-08 Outpatient R MO [facility] [id number] Univers 09:06:16 09:06:16 REGI cope of [facility] 2021-04-08 2021-04-08 Case Mo [facility] 1.2.840.114 [id number] Univers 00:00:00 00:00:00 Management Regi Pérez 350.1.13.10 ity [facility] 4.2.7.2.686 Camila Rodas [id number] Sd dical nal [address] [facility] 2021-04-06 2021-04-06 Office 3, Utp UTP 6410 1.2.840.114 [id number] [place] 09:30:23 11:23:[address] 350.1.13.58 Health nal Consult 9.2.7.2.686 [id number] 1 2021-04-06 2021-04-06 Office 3, Utp UTP 6410 1.2.840.114 [id number] [place] 09:30:23 11:23:[address] 350.1.13.58 Health nal Consult 9.2.7.2.686 [id number] 1 2021-04-05 2021-04-05 Telephone Michelle Lea UTP 6410 1.2.840 .114 [id number] [place] 00:00:00 00:00:[address] 350.1.13.58 Health 9.2.7.2.686 [id number] 1 2021-04-05 2021-04-05 Telephone Michelle Lea UTP 6410 1.2.840 .114 [id number] [place] 00:00:00 00:00:[address] 350.1.13.58 Health 9.2.7.2.686 [id number] 1 2021-03-31 2021-03-31 Orders Doctor RAÚL 1.2.840.114 [id number] Univers 00:00:00 00:00:00 Only Unassigned, ROJELIO 350.1.13.10 ity of [place] [facility] 4.2.7.2.686 Carter roberto [id number] [address] 2021-03-31 2021-03-31 Telephone Michelle Lea UTP 6410 1.2.840 .114 [id number] [place] 00:00:00 00:00:[address] 350.1.13.58 Health 9.2.7.2.686 [id number] 1 2021-03-31 2021-03-31 Telephone Michelle Lea UTP 6410 1.2.840 .114 [id number] [place] 00:00:00 00:00:[address] 350.1.13.58 Health 9.2.7.2.686 [id number] 1 2021-03-21 2021-03-25 Inpatient E GILL [facility] 7500 [facility] 13:54:00 12:07:00 GOLDEN 2021-03-25 2021-03-25 Telephone Butch UTP 6400 1.2.840.114 1 [id number] [place] 00:00:00 00:00:[address] 350.1.13.58 Health 9.2.7.2.686 [id number] 2 2021-03-25 2021-03-25 Telephone [place] UTP 6400 1.2.840.114 1 [id number] 00:00:00 00:00:00 Yandel BOYKIN 350.1.13.58 9.2.7.2.686 [id number] 2 2021-03-16 2021-03-16 Office Mo MATAMARA 1.2.840.114 [id number] Univers 08:01:29 08:53:34 Visit Regi Pérez 350.1.13.10 prisca [facility] 4.2.7.2.686 [place]ila [place] Professio [id number] Sd dical [address] 2021-03-16 2021-03-16 Outpatient R MO [facility] [id number] Univers 08:00:00 08:00:00 REGI cope [facility] 2021-03-16 2021-03-16 Orders Doctor OLSEN 1.2.840.114 [id number] Univers 00:00:00 00:00:00 Only Unassigned, ROJELIO 350.1.13.10 ity of [place] [facility] 4.2.7.2.686 Carter as [id number] [address] 2021-03-16 2021-03-16 Orders Doctor RAÚL 1.2.840.114 [id number] Univers 00:00:00 00:00:00 Only Unassigned, ROJELIO 350.1.13.10 ity of [place] [facility] 4.2.7.2.686 Carter as [id number] [address] 2017-12-13 2017-12-13 Ambulatory nullFlavo MNA [id number] Memoria 20:30:00 20:30:00 Pre-Reg r Neurosurger 01 l y [facility] 2017-11-15 2017-11-16 Outpatient nullFlavo MNA [id number] Memoria 16:00:00 04:59:59 r Neurosurger 00 l y [facility] 2017-11-08 2017-11-10 Phone nullFlavo CAA [id number] Memoria 14:06:00 04:59:59 Message r Neurosurger 00 l y [facility] 2017-10-24 2017-10-27 Inpatient nullFlavo [facility] [id number] Memoria 02:29:00 20:15:00 r [place] [address] [facility] Results Test Description Test Time Test Comments [...] with clots Lab Interpretation (test code = 80214-2) Abnormal [facility] URINALYSIS, MUJHNYDJIG6608-12-56 13:43:00 Test Item Value Reference Range Interpretation [...] clots Lab Interpretation (test Abnormal code = 26687-6) [facility] URINALYSIS, QEYJUTFAIA6807-35-91 13:43:00 Test Item Value Reference Range Interpretation [...] clots Lab Interpretation (test Abnormal code = 54710-7) [facility] DLDHKNNEMP1202-79-93 13:43:00 Test Item Value Reference Range Interpretation [...] clots Lab Interpretation (test Abnormal code = 48431-3) [facility]2018-04-05 18:05:00 Test Item Value Reference Range Interpretation Comments PTT (test code = PTT) 33.6 s 22.9-35.8 [facility]xcqcmlWPNOLUGBZJ0792-77-02 18:05:00 Test Item Value Reference Range Interpretation Comments PT (test code = PT) 13.7 s 12.0-14.7 [facility] CenterVypyyyfXXMPYSLQOD0449-54-31 18:05:00 Test Item Value Reference Range Interpretation Comments INR (test code = INR) 1.05 1 0.85-1.17 [facility]OBJGCI4969-[facility]-59 18:05:000.5[facility] 2017-10-25 18:05:000.7[facility] CmtbbgzKEVDVFSTKP3322-26-29 18:05:004.6[facility] SyerbjdUORDJVIIPG1947-05-95 18:05:000.2[facility]orial RqnfjkqOYEHGGAGNZ4811-16-65 18:05:000.3[facility]orial EtauwtdRMCQFMEPKT1667-74-42 18:05:008.7[facility] [place] GEKXPLCDIW6401-15-17 18:05:007.1[facility] GlefwjaNFETXZZJWU3246-04-74 18:05:00 87.8Memorial VqefqsuGXQRKDYYYHNF3373-30-33 18:05:0011.0[facility] [place] RZESKXCFNDQR1555-83-93 18:05:0092Memorial RfjuapoWRNWTAVQDNLK7074-75-25 18:05:00 7.5Memorial IoyoymcMMVMNHSWOZTI6714-72-27 18:05:92338Griakdfk [place] SRXLYLTXHCQQ1214-74-10 18:05:004.0[facility] OndkpmgASEYPBWFFSDZ8703-46-16 18:05:14705Drvkqaxt KxpvpqrIPUPOCZNKLBT3776-66-35 18:05:0025[facility] [place] CBYTECZIFTXT1869-04-59 18:05:77034Vrxafemw VwuzehfFXRZFEGLCOAR9128-54-39 18:05:000.88[facility]orial FaghxjtAWTINZACBXFF4656-44-87 18:05:0010[facility] [place] SHLECXMBYQ5976-65-05 18:05:007.6[facility]orial XrcomwpWYZMALKJMK9345-65-31 18:05:00 93.9Memorial HxeiqqmEMBUHKGZUH2922-77-71 18:05:0038.8[facility] 2017-10-25 18:05:0013.3[facility] XfdndyiFLUCBGUUUK2407-05-21 18:05:39083Jamolrpb RiewveyHTQHMLKNRD8059-92-03 18:05:0014.5[facility]orial TtrxmgwOTCAPJKWIO0548-17-64 18:05:0034.2[facility] PyrytreEHIMAXKWAQ3936-36-68 18:05:00 Test Item Value Reference Range Interpretation Comments MCH (test code = MCH) 32.1 pg 27.0-31.0 Memorial QnecgbsSRGFOZDGKT6485-45-64 18:05:004.13[facility]ann[facility]MAT[facility]Y 2017-10-25 18:05:009.9[facility] PtcmaisZGPMAJGLBC5413-80-32 18:05:00 Test Item Value Reference Range Interpretation Comments PTT (test code = PTT) 33.6 s 22.9-35.8 Memorial CbqmjcgVNUOIQUFFW0095-69-53 18:05:00 Test Item Value Reference Range Interpretation Comments PT (test code = PT) 13.7 s 12.0-14.7 Memorial IdkmdjpCJFTJMVLPW9798-21-40 18:05:00 Test Item Value Reference Range Interpretation Comments INR (test code = INR) 1.05 1 0.85-1.17 Memorial RkssumhVGVDQAQTGT5526-90-07 18:05:000.5[facility]ann[facility] 2017-10-25 18:05:000.7[facility] PdyhgtcOGFWDMPLBG3630-88-23 18:05:004.6[facility]orial HioauseKZTQOFPGCS5435-97-22 18:05:000.2[facility] YfsekddTZKGIUSLGN5416-84-24 18:05:000.3[facility] XrwhwkrWBURYVHVTH5257-54-43 18:05:008.7[facility] [place] ONNMZYJTVT1068-82-21 18:05:007.1Memorial BelomsqWFDKXRSEAR0757-38-92 18:05:00 87.8Memorial LqubtmpEWXMCJBZVKHG9161-54-88 18:05:0011.0[facility] [place] KTEKJNDHGQYC0268-11-44 18:05:0092Memorial RrwszbdIPLHDCBJIGSR0447-74-57 18:05:00 7.5[facility]orial CgjhfynOOCXKLICVXUN7220-17-82 18:05:28845Vtamewfs [place] OFLVBZLRXOPE7830-71-30 18:05:004.0[facility] ByhnizlWMOKQDXDXRID6851-38-40 18:05:69764Ebgbgcxi KemwvgxVSJXDFHQIAQM8794-33-56 18:05:0025[facility] OQMOECJOIMWS3640-59-74 18:05:11089Gasyqngl NjxqyxpRSSOGLXJCYJV0420-28-17 18:05:000.88[facility]orial WbdldvsZICJUPTNNZPP5269-56-12 18:05:0010[facility] [place] OEYOSVHFKS2678-28-11 18:05:007.6[facility] YgxlfyrDXQHKRYFKR5059-04-13 18:05:00 93.9Memorial AhbpnfyXSVRCZMTGO6239-06-78 18:05:0038.8[facility]ann[facility]MATOLOGY 2017-10-25 18:05:0013.3[facility] SpqjtkbYEUWIJBTYY1760-03-44 18:05:37802Qphwplia MvwwacmBIAISESQYP2516-40-67 18:05:0014.5[facility] DvknwknSEHZQBNWGW2963-81-50 18:05:0034.2[facility] CskxsnyYTOJIJIVKZ9960-20-74 18:05:00 Test Item Value Reference Range Interpretation Comments MCH (test code = MCH) 32.1 pg 27.0-31.0 Memorial LtvnvzvXWKLEBETEW0872-47-12 18:05:004.13[facility]ann[facility]MATOLOGY 2017-10-25 18:05:009.9[facility] IgvawkvLZGIIIEKTD5327-06-42 11:49:95900Icmmzmrh CnyxvkjTWDHJDPHCP1323-86-87 11:49:33301Jpdarbcx LjyvmhhMBPCSPOXYO6200-60-89 11:49:23153Rbidndso LcdyjsyFLKNRKPEES7635-55-89 11:49:83138Medrpvuq [facility] OTBAIUS7424-80-34 07:23:00Negative (10/25/17 2:23 AM)[facility] HermannCARDIAC MVLHMNG0669-44-67 07:23:00<0.010[facility]annCARDIAC GYFMGYW5246-79-32 07:23:67374Mduymgkq HermannCARDIAC RCYWEZX2983-16-26 07:23:00<0.02[facility] HermannCARDIAC EYIEGIW6845-37-85 07:23:00 Test Item Value Reference Range Interpretation Comments CK MB Index (test 0.9 1 See_Comment [Automate d message] The code = CK MB Index) system w [facility] generated this result transmit nate reference range : <=2.5. The reference range was not used to interpr et this result as cm l/abnormal. [facility]annCARDIAC FEIHDGW1129-53-17 07:23:001.5[facility] [place] NIYSFXIHFDAR6802-32-24 07:23:0014.0[facility] NvmxugqWNNVVSFOHCEI0924-04-73 07:23:0088[facility] WezrmygFGZPISINGHPL6606-22-91 07:23:007.9[facility] [place] BWVWVOOTIGSD9010-12-35 07:23:000.93[facility] EdbycyyLMXZKJIPTCQH8175-93-95 07:23:00558Pqphomdk YqbmcnhSATHQJAZQIPT6992-25-87 07:23:0013[facility] NACTBREAZYGW7648-43-22 07:23:0098[facility] YoxhyyiRFNLTOYXZSCA0675-22-73 07:23:00 21[facility]orial JsvuenfICAZKXJWSZRZ1122-84-57 07:23:004.0[facility] HermannELECTROLYTES 2017-10-25 07:23:79325Qwycpawu UvpmogxQOYPNSEXSF8428-55-32 07:23:002.3[facility]orial EvhivojHNAWYJRYYR5396-68-95 07:23:000.9[facility] RsckiovKLXPLCBIDS6610-57-12 07:23:004.2[facility] VenejhcPKPYGVYMLR1872-47-37 07:23:000.1[facility] [place] AWSDKUXWDA8387-07-35 07:23:000.6[facility] PwwhczhFLNNNPBKTM9903-57-46 07:23:001.1 Memorial NxaovnqNXVNIJPUKZ7263-15-20 07:23:0030.7[facility]annHEMATOLOGY 2017-10-25 07:23:0012.2[facility] ChuisucLSTDBDWGYL3823-07-12 07:23:0055.4[facility] UswiiabSPEVULUBIU0410-36-93 07:23:0014.1[facility] SindrebPZXVUBTTYN4936-14-48 07:23:0034.3[facility] YcqkabvYCFCGNJNAS1714-20-98 07:23:00 Test Item Value Reference Range Interpretation Comments MCH (test code = MCH) 32.0 pg 27.0-31.0 Memorial MikgmpqZJMIHLBUEU6177-57-77 07:23:0093.3[facility] HermannHEMATOLOGY 2017-10-25 07:23:0041.7[facility] LsilzaiZNPUZKKCPD5756-22-57 07:23:007.4[facility] TdzysqyTCBEOUSEKR3620-32-49 07:23:86447Owglowas VfjdvxuBLGDCXKGSJ4372-54-05 07:23:0014.3[facility] EzqsjzqJDNHKTVIWL6482-13-63 07:23:004.47[facility] [place] HRMBIYQZAL6823-83-62 07:23:007.5[facility] WpunzrmEMXGEDSZZB4119-43-07 07:23:00 Test Item Value Reference Range Interpretation Comments INR (test code = INR) 1.02 1 0.85-1.17 Memorial DxzhzkgVYSXMHGDIF3059-41-43 07:23:00 Test Item Value Reference Range Interpretation Comments PTT (test code = PTT) 30.0 s 22.9-35.8 Memorial BockffqAJAFFJAGHC1607-83-38 07:23:00 Test Item Value Reference Range Interpretation Comments PT (test code = PT) 13.4 s 12.0-14.7 [facility] NMJKOUL5922-28-44 07:23:00Negative (10/25/17 2:23 AM) [facility] HJOYWRU1515-39-98 07:23:00<0.010[facility] [place] CARDIAC HOOSMRV4654-89-10 07:23:53519Nnrmnmjg HermannCARDIAC AIMNSZW2499-74-61 07:23:00<0.02[facility] HermannCARDIAC AQRNAZJ5711-29-17 07:23:00 Test Item Value Reference Range Interpretation Comments CK MB Index (test 0.9 1 See_Comment [Automate d message] The code = CK MB Index) system w [facility] generated this result transmit nate reference range : <=2.5. The reference range was not used to interpr et this result as cm l/abnormal. [facility]annCARDIAC FGVBCPI7223-30-08 07:23:001.5[facility] QOPTSOTNZQTQ5915-07-21 07:23:0014.0[facility] NieeitqHPMISWLZIQNV5258-95-14 07:23:0088[facility] WlvmzmjRHJFERLYHYRT5861-99-74 07:23:007.9[facility] SRAURWZPWDYS4043-83-32 07:23:000.93[facility] RaotvbtGSHUQIQCJSJY2932-99-31 07:23:25194Sraolrji RmwvfzvLHZNHUQDSSHC7244-29-97 07:23:0013[facility] LUIRRWOOWJWZ5161-40-63 07:23:0098[facility] MubmoynBLROKHVXXLMI1708-74-18 07:23:00 21[facility] IqiriouCMHTZICLCWDQ2447-63-92 07:23:004.0[facility]annELECTROLYTES 2017-10-25 07:23:65022Tdcnltdy AgykvohXXEPQZGYNU5391-89-00 07:23:002.3[facility] CnovawuJAZWMXHDFH7196-44-84 07:23:000.9[facility] OmhnbhtZDAVBVLYIU2871-00-08 07:23:004.2[facility] OiobbfvURCMJMYALT4436-63-66 07:23:000.1[facility] RKKKXGISEM5536-85-34 07:23:000.6[facility] UsaqqhiVIICHYDRGA3472-41-05 07:23:001.1 [facility] GrdeodaKGYQXMABUO6450-47-98 07:23:0030.7[facility]annHEMATOLOGY 2017-10-25 07:23:0012.2[facility] BcukwlsPITNFAFEBR7296-29-51 07:23:0055.4[facility] TwqerokLAZXRYMYIX0600-05-78 07:23:0014.1[facility] TtaqlskPTXZYFJLNU1421-89-80 07:23:0034.3[facility] KmlgloqVFPRBUYZOK1085-38-23 07:23:00 Test Item Value Reference Range Interpretation Comments MCH (test code = MCH) 32.0 pg 27.0-31.0 [facility] WrvzxmeMDGIYSJWVX6808-48-27 07:23:0093.3[facility]annHEMATOLOGY 2017-10-25 07:23:0041.7[facility] NngbbthDJVXHQSJOB8480-21-34 07:23:007.4[facility] VywtincGATQBEGZJH5840-86-11 07:23:29435Ssqecuyb KlyhqunHUHCADPJEE2440-98-84 07:23:0014.3[facility] UxtoaeqCSGWIIZKOJ6467-96-26 07:23:004.47[facility] FEOAOTSBPX9842-67-74 07:23:007.5[facility] FrmylnxPZBLCACDFF0250-29-00 07:23:00 Test Item Value Reference Range Interpretation Comments INR (test code = INR) 1.02 1 0.85-1.17 [facility] XkyffuyHLGWMINIEQ9587-95-95 07:23:00 Test Item Value Reference Range Interpretation Comments PTT (test code = PTT) 30.0 s 22.9-35.8 [facility] XmonbnzOMWJUBRSEA5653-68-62 07:23:00 Test Item Value Reference Range Interpretation Comments PT (test code = PT) 13.4 s 12.0-14.7 [facility] JYQSWWD5310-74-40 22:23:00<0.010[facility] CARDIAC PVVYCXU6531-02-84 22:23:00<0.02[facility] ENZYMES 2017-10-24 22:23:16659Kajvhstv HermannCARDIAC YREGNMF0429-89-16 22:23:00 Test Item Value Reference Range Interpretation Comments CK MB Index (test 0.9 1 See_Comment [Automate d message] The code = CK MB Index) system w [employer] generated this result transmit nate reference range : <=2.5. The reference range was not used to interpr et this result as cm l/abnormal. [facility] USYQGYH8911-79-99 22:23:002.1[facility] POURSLO9459-60-07 22:23:00<0.010[facility] KHLXUAU4367-05-18 22:23:00<0.02[facility] IDKATZJ7945-24-45 22:23:97530Wybxsekr HermannCARDIAC MKGLGTH8788-38-87 22:23:00 Test Item Value Reference Range Interpretation Comments CK MB Index (test 0.9 1 See_Comment [Automate d message] The code = CK MB Index) system w [facility] generated this result transmit nate reference range : <=2.5. The reference range was not used to interpr et this result as cm l/abnormal. [facility] PXTRLYN7861-00-63 22:23:002.1[facility] CFGTZQW2410-82-82 08:36:00<0.010[facility] COIQRNV5469-59-58 08:36:00<0.02[facility] ZPSAOMG2870-32-17 08:36:63533Xxpvxbld HermannCARDIAC ANJXQWS1664-92-80 08:36:00 Test Item Value Reference Range Interpretation Comments CK MB Index (test 0.8 1 See_Comment [Automate d message] The code = CK MB Index) system [employer] generated this result transmit nate reference range : <=2.5. The reference range was not used to interpr et this result as cm l/abnormal. [facility] GYLHZFV6058-32-00 08:36:003.2[facility] GAXUMZD9298-43-09 08:36:00<0.010[facility] HHRNMCN2177-89-77 08:36:00<0.02[facility] TAMGYZW6940-38-83 08:36:37171Srmqbmqk [facility]annCARD[facility]AC XLBXHFO1358-73-13 08:36:00 Test Item Value Reference Range Interpretation Comments CK MB Index (test 0.8 1 See_Comment [Automate d message] The code = CK MB Index) system [employer] generated this result transmit nate reference range : <=2.5. The reference range was not used to interpr et this result as cm l/abnormal. [facility] PPHOSYO8782-35-07 08:36:003.2[facility]annHEMATOLOGY 2017-10-24 06:40:56789Oizditqu YmzhbsfIORUZJHXHX5119-80-65 06:40:08595Yvbkaeff UdaffjiUEMZGVMDTD3299-40-93 06:40:56605Egzuqdqt UtodgdmTRNJEXCDUZ0583-87-36 06:40:23665Ernerpkj HermannBLOOD BANK OONUZTC3791-60-96 05:12:00Negative (10/24/17 12:12 AM)[facility] DAOOSTB7661-74-22 05:12:00Negative (10/24/17 12:12 AM)[facility]annCHEM YALEQ9386-79-26 03:33:000.8[facility] XUSVNBIBFOSR1700-79-13 03:33:0015.0[facility] LjiupzrWTLULPLVRHFQ9452-51-78 03:33:0092[facility] IgdnsixHFOCQHCLOWRW2178-27-69 03:33:0022[facility] YJIHSFBBDLUW6377-57-43 03:33:008.6[facility] FzzefdvOUNIXTNYEYDV3296-59-19 03:33:004.0[facility] ZoangwwPJYGWXXWRETF5727-88-73 03:33:38323Gwwscpcf [facility] HCFPVTHSGWGH9383-94-53 03:33:000.89[facility] KntrdapPVKNFGYRJXHF0870-46-72 03:33:0012[facility] YhpxurbCFUNQLJDMKBP8791-92-31 03:33:22503Orelnhof [facility] TXOXUCLJURPJ8331-36-23 03:33:70600Biprubmc ZdqaytqYGEPXZNQXV7740-56-68 03:33:00 5.6[facility] DgkfuvwDTKRDOPIVC4927-16-40 03:33:000.1[facility]annHEMATOLOGY 2017-10-24 03:33:008.3[facility] KiyllhiFEBZYDRANS3536-61-14 03:33:0085.4[facility] NmgehisPQOGWXGRUR3337-89-33 03:33:000.5[facility] KtzdwenATDDAWRGZU5137-23-74 03:33:000.1[facility] XvhjtreAOPVFADBAN4835-25-67 03:33:000.8[facility] EPARPSKUJV6496-83-56 03:33:008.3[facility] OeiazhoVGOTSVSTZK1828-93-35 03:33:000.6 [facility] YuieersOLCVLEYKOH8028-91-19 03:33:002.4[facility]annHEMATOLOGY 2017-10-24 03:33:00 Test Item Value Reference Range Interpretation Comments Max Amplitude Rapid (test code = Max 57 mm 52-71 Amplitude Rapid) [facility]GIBJP0907[facility] 03:33:00 Test Item Value Reference Range Interpretation Comments K-time Rapid (test code = K-time 1.7 min 0.6-2.3 Rapid) [facility]WftuaqbTVFPEGBSUZ0050-18-13 03:33:006.6[facility] 2017-10-24 03:33:00 Test Item Value Reference Range Interpretation Comments Angle Rapid (test code = Angle 71 degrees 64-80 Rapid) [facility]blocweXOFBOAFFRL3348-48-55 03:33:00 Test Item Value Reference Range Interpretation Comments Split Point Rapid (test code = Split 0.5 min Point Rapid) [facility]aUzyiucpTCYHWZNTQJ1997-07-89 03:33:00 Test Item Value Reference Range Interpretation Comments R-time Rapid (test code = R-time 0.6 min 0.4-0.7 Rapid) [facility]aZyegzeaXJIJRRHABC7952-48-63 03:33:00 Test Item Value Reference Range Interpretation Comments ACT (TEG) Rapid (test code = ACT (TEG) 105 s 86-118 Rapid) [facility]aNzzctftNYCTPALZGM2112-75-11 03:33:00 Test Item Value Reference Range Interpretation Comments PTT (test code = PTT) 29.1 s 22.9-35.8 [facility]aZhgequwEOJGGTGIMW0018-48-92 03:33:00 Test Item Value Reference Range Interpretation Comments PT (test code = PT) 14.6 s 12.0-14.7 [facility]XfkroxzLLWCRUOAUJ2460-72-40 03:33:00 Test Item Value Reference Range Interpretation Comments INR (test code = INR) 1.14 1 0.85-1.17 [facility] CenterOgiegipXBUSQWXZEM3529-99-75 03:33:61604Tgkluden [facility] CenterannHEMATOLOGY 2017-10-24 03:33:007.3[facility] YrvfnuaSWQBSNTCQX0083-41-50 03:33:0014.2[facility] YwshscpBAHRMPJVXF4582-13-06 03:33:0014.4[facility] HbqeijqHNHMBCCTWV9334-36-18 03:33:009.7[facility] NocmiygYQKPNCMMEH6671-10-66 03:33:004.48[facility] RKNXXBDSWG3530-82-82 03:33:0093.3[facility] RheewdmYIIUUXXTKB3164-22-90 03:33:00 Test Item Value Reference Range Interpretation Comments MCH (test code = MCH) 32.2 pg 27.0-31.0 [facility] QrzcucoQWFVYDBBDD5582-58-35 03:33:0034.5[facility]annHEMATOLOGY 2017-10-24 03:33:0041.8[facility] HermannCHEM PWHIO1029-06-05 03:33:000.8[facility] AgtcoxkXSVQBQTSDKGR1230-69-01 03:33:0015.0[facility] AhkcfpxEXPVQKHWQYCE2342-57-79 03:33:0092[facility] CkiqonxUQJKPNRRNXPB9516-82-63 03:33:0022[facility] HNLBTBHDCXWM6478-08-92 03:33:008.6[facility] WqgqkrxXGUTIRMZBSVL1761-79-40 03:33:004.0[facility] QtmuvgbFGNOLTOCWHAM2210-24-19 03:33:08722Uldcjsok [place] KJNEMTIKUVPS6325-25-76 03:33:000.89[facility] YkmeltgDXDZNDOZZHQV7722-31-92 03:33:0012[facility] SsiwfiqGILIMPURATBZ8228-88-85 03:33:39771Kfsdnjtq [facility] FBEDGHBMMNHN1594-45-81 03:33:94826Cfknuxlg NxkcstyYKFPZJFFLE8078-18-29 03:33:00 5.6[facility] SvxgnooHZKXYDKWXJ7995-50-30 03:33:000.1[facility]annHEMATOLOGY 2017-10-24 03:33:008.3[facility] TyklgtcAGWZXAPTQY4435-87-92 03:33:0085.4[facility] DjmslwoOYCJACZPLM1436-03-88 03:33:000.5[facility] YvujgqdTJYMAWSRNN8699-90-18 03:33:000.1[facility] PtxfshmDDGJULFTTU7919-31-74 03:33:000.8[facility] NXXTXZTXOG0646-09-96 03:33:008.3[facility] VqrvhmtDYNYSZDOLP8375-35-64 03:33:000.6 [facility]aFposyzoWLUSNRXFVP2070-15-13 03:33:002.4[facility] 2017-10-24 03:33:00 Test Item Value Reference Range Interpretation Comments Max Amplitude Rapid (test code = Max 57 mm 52-71 Amplitude Rapid) [facility]aHdoksaxDTTJZQEWFQ8178-36-17 03:33:00 Test Item Value Reference Range Interpretation Comments K-time Rapid (test code = K-time 1.7 min 0.6-2.3 Rapid) [facility]aOwsnafzNVFCFYQPFW6772-67-99 03:33:006.6[facility] 2017-10-24 03:33:00 Test Item Value Reference Range Interpretation Comments Angle Rapid (test code = Angle 71 degrees 64-80 Rapid) [facility]aMkhvdzbZZRYELOJAF4233-87-49 03:33:00 Test Item Value Reference Range Interpretation Comments Split Point Rapid (test code = Split 0.5 min Point Rapid) [facility]aCwvfevvKBBVXBPTRA8609-17-06 03:33:00 Test Item Value Reference Range Interpretation Comments R-time Rapid (test code = R-time 0.6 min 0.4-0.7 Rapid) [facility]aJrjbbanNLYDJVCONE6246-52-24 03:33:00 Test Item Value Reference Range Interpretation Comments ACT (TEG) Rapid (test code = ACT (TEG) 105 s 86-118 Rapid) [facility]aNvsfkkfMNMLITJJMP7257-63-74 03:33:00 Test Item Value Reference Range Interpretation Comments PTT (test code = PTT) 29.1 s 22.9-35.8 [facility]aBnxvaqgCDGBPBLTJH1500-49-09 03:33:00 Test Item Value Reference Range Interpretation Comments PT (test code = PT) 14.6 s 12.0-14.7 [facility]aUcazerrEEKDPWDRWL7068-58-37 03:33:00 Test Item Value Reference Range Interpretation Comments INR (test code = INR) 1.14 1 0.85-1.17 [facility]aHlesvsqZQSEZTKMRL7889-07-68 03:33:[facility]77[facility] 2017-10-24 03:33:007.3[facility] QelxmiqDPCGNNIKKK6624-08-34 03:33:0014.2[facility] OasipfkLLIORVNAUD0412-60-13 03:33:0014.4[facility] PcaxhppWRXFNNQTJU7967-61-79 03:33:009.7[facility] IappzbxRAFGFCYXRJ8790-15-29 03:33:004.48[facility] TFJXVDGTQM5586-94-14 03:33:0093.3[facility] QutdpgtJPYHTMDMPQ1496-50-49 03:33:00 Test Item Value Reference Range Interpretation Comments MCH (test code = MCH) 32.2 pg 27.0-31.0 [facility] YwguykiMNMKXEKHMA5306-23-41 03:33:0034.5[facility]annHEMATOLOGY 2017-10-24 03:33:0041.8[facility]
[2022-12-19 14:41] LABS: Specific Gravity 1.021 (1.005-1.030); Urine Bacteria 20-50 /HPF (<20); Urine Bilirubin NEGATIVE (Negative); Urine Blood 3+ (Negative); Urine Clarity Extremely Turbid (Clear); Urine Color Light-Orange (Yellow); Urine Glucose NEGATIVE (Negative); Urine Mucus Slight /HPF (None Seen); Urine Protein 2+ (Negative); Urine RBC >50 /HPF (None Seen); Urine Urobilinogen Normal (Normal); Urine WBC Clump Many /HPF (None Seen)
[2022-12-19 14:43] LABS: Absolute Lymphocytes (CBC) 1.5 K/uL (0.7-4.9); Hematocrit 43.5 % (39.6-49.0); Lymphocytes % 19.9 % (15.3-44.8); MCV 89.1 fL (80-100); MPV 6.5 fL (7.6-11.3); RBC Red Blood Cell Count 4.88 M/uL (4.33-5.43)
[2022-12-19 14:49] LABS: Protime INR 0.95
[2022-12-19 15:05] LABS: Albumin 3.8 g/dL (3.4-5.0); Bilirubin Total 0.4 mg/dL (0.2-1.0); Potassium 4.1 mEq/L (3.5-5.1); Protein, Total 7.3 g/dL (6.4-8.2)
--- NOTE | 2022-12-19 15:55 | RAD REPORT ---
EXAM DESCRIPTION: CT - Abdomen Pelvis W Contrast - 12/19/2022 3:23 pm CLINICAL HISTORY: Abdominal pain/left flank pain COMPARISON: 2021 TECHNIQUE: Computed axial tomography of the abdomen pelvis was obtained. 68 cc Isovue-300 was admini stered intravenously. Oral contrast was not requested which limits evaluation of bowel and appendix All CT scans are performed using dose optimization technique as appropriate and may include automated exposure control or mA/KV adjustment according to patient size. FINDINGS: The liver, spleen, pancreas, and adrenals appear unremarkable. 4 centimeter right renal cyst. Left percutaneous tube has been placed into the left kidney. The pigtail catheter lies within the low er pole collecting system. There is no hydronephrosis. No evidence of diverticulitis. Marked bladder wall thickening. 5.6 centimeter structure with increased density is present the bladde r. It contains a small lucency centrally. Old compression fracture L1 vertebral body. Sanford rods have been placed IMPRESSION: Marked bladder wall thickening probably inflammation Us 5.6 centimeter dense structure within the bladder presumably an unusual appearing calculus Left percutaneous tube has the pigtail catheter within the lower pole collecting system. No hydroneph rosis if clinically indicated contrast could be injected into the tube and a CT scan of the kidneys o btained to assess for functionality
--- NOTE | 2022-12-19 16:13 | EDPHYS ---
Physician Documentation [facility] Name: Volodymyr Trejo Age: 67 yrs Sex: Male : 1955 Arrival Date: 12/19/2022 Time: 13:37 Bed DIS2 Private MD: ED Physician Merlin Walker HPI: 12/19 15:22 This 67 yrs old Male presents to ER via Ambulatory with complaints of Urinary Problem. rn 15:22 The patient presents with urinary symptoms, urinary frequency. Onset: The rn symptoms/episode began/occurred at an unknown time. Modifying factors: The symptoms are alleviated by nothing, the symptoms are aggravated by urinating. Associated signs and symptoms: Pertinent negatives: abdominal pain, fever, hematuria, nausea, vomiting. Severity of symptoms: At their worst the symptoms were moderate, in the emergency department the symptoms are unchanged. The patient has experienced a previous episode. The patient has not recently seen a physician. Pt reports has bladder cancer, was being treated at [facility] for treatment, had left nephrostomy tube placed, states medicare not covering all costs so [facility] stopped treating him when he couldn't pay the balance. Now has gone 6 months without treatment and still has left flank percutaneous tube. No longer draining. Here today for urinary relief since has been urinating frequently for the last week, no fever, no vomiting. . Historical: - Allergies: 14:07 PENICILLINS; iw - PMHx: 14:07 Hyperlipidemia; Hypertension; kidney cancer; iw - PSHx: 14:07 nephrostomy left kidney; iw - Family history:: not pertinent. - Hospitalizations: : No recent hospitalization is reported. ROS: 15:22 Constitutional: Negative for fever, chills, and weight loss, Cardiovascular: Negative rn for chest pain, palpitations, and edema, Respiratory: Negative for shortness of breath, cough, wheezing, and pleuritic chest pain, Abdomen/GI: Negative for abdominal pain, nausea, vomiting, diarrhea, and constipation, Back: Negative for injury and pain, : + increased urinary frequency MS/Extremity: Negative for injury and deformity, Skin: Negative for injury, rash, and discoloration, Neuro: Negative for headache, weakness, numbness, tingling, and seizure. Exam: 15:22 Constitutional: This is a well developed, well nourished patient who is awake, alert, rn and in no acute distress. Head/Face: Normocephalic, atraumatic. Cardiovascular: Regular rate and rhythm. No pulse deficits. Respiratory: No increased work of breathing, no retractions or nasal flaring. Abdomen/GI: Soft, non-tender Back: No spinal tenderness. No costovertebral tenderness. left flank percutaneous tube in place, sutures not attached to skin. Skin: Warm, dry MS/ Extremity: Pulses equal, no cyanosis. Neuro: Awake and alert, GCS 15 Vital Signs: 14:06 BP 164 / 110; Pulse 78; Resp 16; Temp 98.4; Pulse Ox 100% on R/A; iw MDM: 13:56 Patient medically screened. rn 16:10 Differential diagnosis: UTI, urinary retention, prostatitis, urethritis. Data reviewed: rn vital signs, nurses notes, lab test result(s), radiologic studies, CT scan, and as a result, I will discharge patient. Counseling: I had a detailed discussion with the patient and/or guardian regarding: the historical points, exam findings, and any diagnostic results supporting the discharge/admit diagnosis, lab results, radiology results, the need for outpatient follow up, to return to the emergency department if symptoms worsen or persist or if there are any questions or concerns that arise at home. Special discussion: I discussed with the patient/guardian in detail that at this point there is no indication for admission to the hospital. It is understood, however, that if the symptoms persist or worsen the patient needs to return immediately for re-evaluation. Based on the history and exam findings, there is no indication for further emergent testing or inpatient evaluation. I discussed with the patient/guardian the need to see the primary care provider for further evaluation of the symptoms. I discussed with the patient/guardian the need to see the urologist for further evaluation of the symptoms. ED course: CT shows pigtail in position, + UTI, otherwise no acute abnormalities that require transfer/admission/surgery. Will prescribe abx and dc home with return precautions, but understands needs to f/u for his bladder cancer and to address his nephrostomy tube. . 12/19 14:13 Order name: CBC with Diff; Complete Time: 15:22 rn 12/19 14:13 Order name: CMP; Complete Time: 15:22 rn 12/19 14:13 Order name: Urinalysis w/ reflexes; Complete Time: 15:22 rn 12/19 14:13 Order name: Protime (+inr); Complete Time: 15:22 rn 12/19 14:13 Order name: Ptt, Activated; Complete Time: 15:22 rn 12/19 14:44 Order name: Urine Culture [facility] 12/19 14:13 Order name: CT Abd/Pelvis - IV Contrast Only; Complete Time: 16:03 rn 12/19 14:13 Order name: IV Saline Lock; Complete Time: 14:27 rn 12/19 14:13 Order name: Labs collected and sent; Complete Time: 14:27 rn Administered Medications: No medications were administered Disposition Summary: 12/19/22 16:13 Discharge Ordered Location: Home rn Problem: new rn Symptoms: have improved rn Condition: Stable rn Diagnosis - UTI/ Urinary tract infection, site not specified rn Followup: rn - With: Private Physician - When: As needed - Reason: Recheck today's complaints, Re-evaluation by your physician Discharge Instructions: - Discharge Summary Sheet rn - Urinary Tract Infection, Adult rn Forms: - Medication Reconciliation Form rn - Thank You Letter rn - Antibiotic harness preparer - Prescription Opioid Use rn Prescriptions: - Pyridium 200 mg Oral Tablet - take 1 tablet by ORAL route every 8 hours for 3 days; 9 tablet; Refills: 0, rn Product Selection Permitted - levofloxacin 500 mg Oral Tablet - take 1 tablet by ORAL route once daily for 14 days; 14 tablet; Refills: 0, rn Product Selection Permitted Signatures: Dispatcher [employer] Dia Enrique RN RN Merlin Holder MD MD rn
--- NOTE | 2022-12-19 16:13 | ER ---
Nurse's Notes [facility] Name: Volodymyr Trejo Age: 67 yrs Sex: Male : 1955 Arrival Date: 12/19/2022 Time: 13:37 Bed DIS2 Private MD: Diagnosis: UTI/ Urinary tract infection, site not specified Presentation: 12/19 14:06 Chief complaint: Patient states: has bladder cancer and they stopped treating me 6 iw months ago due to lack of insurance , when he pees it does not empty and he is constantly peeing. Coronavirus screen: At this time, the client does not indicate any symptoms associated with coronavirus-19. Ebola Screen: Patient negative for fever greater than or equal to 101.5 degrees Fahrenheit, and additional compatible Ebola Virus Disease symptoms Patient denies exposure to infectious person. Patient denies travel to an Ebola-affected area in the 21 days before illness onset. No symptoms or risks identified at this time. Initial Sepsis Screen: Does the patient meet any 2 criteria? No. Patient's initial sepsis screen is negative. Does the patient have a suspected source of infection? No. Patient's initial sepsis screen is negative. Risk Assessment: Do you want to hurt yourself or someone else? Patient reports no desire to harm self or others. Onset of symptoms was December 19, 2022. 14:06 Acuity: JUANPABLO 3 iw 14:06 Method Of Arrival: Ambulatory iw Historical: - Allergies: 14:07 PENICILLINS; iw - PMHx: 14:07 Hyperlipidemia; Hypertension; kidney cancer; iw - PSHx: 14:07 nephrostomy left kidney; iw - Family history:: not pertinent. - Hospitalizations: : No recent hospitalization is reported. Vital Signs: 14:06 BP 164 / 110; Pulse 78; Resp 16; Temp 98.4; Pulse Ox 100% on R/A; iw ED Course: 13:40 Patient arrived in ED. im 13:56 Merlin Walker MD is Attending Physician. rn 14:07 Triage completed. iw 14:07 Arm band placed on. iw 14:16 Radiology exam delayed due to lab results not completed at this time. (BUN/Creatinine) jg10 IV insertion attempt and/or patient not having appropriate IV at this time. 14:35 Inserted saline lock: 20 gauge in left upper arm, using aseptic technique. Blood zm collected. 14:36 Protime (+inr) Sent. zm 14:36 Ptt, Activated Sent. zm 14:36 CBC with Diff Sent. zm 14:36 Urinalysis w/ reflexes Sent. zm 15:25 CT Abd/Pelvis - IV Contrast Only In Process Unspecified. EDMS Administered Medications: No medications were administered Outcome: 16:13 Discharge ordered by . rn 16:30 Patient left the ED. Addendum: 12/24/2022 07:32 Addendum: Culture Results: Positive urine culture. No further action required. Bacteria e b sensitive to prescribed antibiotic. Signatures: Dispatcher [employer] EDMS Dia Mckeon RN RN iw Nieto, Roman, MD MD rn Botello, Elizabeth eb Martinez, Zaina zm Galvan, Juliet jg10 Gisela Nava
[2022-12-19 16:48] VITALS: BP 164/110; TEMP 98.4; O2SAT 100
== END 2022-12-19 16:30 | disposition home or self-care (01) ==
LOC: ER 13:37
DX: N39.0 Urinary tract infection, site not specified (principal); Z85.51 Personal history of malignant neoplasm of bladder; I10 Essential (primary) hypertension; Z88.0 Allergy status to penicillin
CPT/HCPCS: 87088; 85025; 81001; 87086; 36415; 85610; 85730; 87077; 87186; 80053; 74177; 99283; Q9967